=== PATIENT | female | born 1935 | race Caucasian/White ===

== ENCOUNTER → 2019-05-24 | Outpatient (CLI) | payer MEDICARE, OTHER ==
--- NOTE | 2019-05-24 14:52 | BD ---
EXAMINATION TYPE: Axial Bone Density DATE OF EXAM: 05/24/2019 COMPARISON: 06/11/2010 CLINICAL HISTORY: M 89.9 Height: 57 IN Weight: 124 LBS RISK FACTORS HISTORY OF: Active: YES Diet low in dairy products/other sources of calcium: YES Postmenopausal woman: AGE 56 MEDICATIONS: Thyroid Medications: YES Which medication: LEVOXA How Lon + YEARS Additional Medications: CALCIUM, VIT D, THYROID MEDS, HIGH BLOOD PRESSURE MEDS Additional History: HAD LYMPHOMA 23 YEARS AGO WITH NO TREATMENTS EXAM MEASUREMENTS: Bone mineral densitometry was performed using the [employer] System. Bone mineral density as measured about the Lumbar spine is: ----- L1-L4(G/cm2): 0.952 T Score Values are as follows: ----- L2: -2.1 ----- L3: -2.1 ----- L4: -1.4 ----- L1-L4: -1.9 Bone mineral density has: Increased 0.3% since study of: 06/11/2010 Bone mineral density about the R hip (g/cm2): 0.738 Bone mineral density about the L hip (g/cm2): 0.674 T Score values are as follows: -----R Neck: -2.2 -----L Neck: -2.6 -----R Total: -1.8 -----L Total: -1.9 Bone mineral density has: Decreased -11.4% since study of: 06/11/2010 IMPRESSION: Osteoporosis (T Score less than -2.5). There is increased fracture risk and therapy is usually indicated based on age. Re-Screen 1-2 years. NOTE: T-SCORE=SD OF THE YOUNG ADULT MEAN.
--- NOTE | 2019-05-26 10:56 | MM ---
Reason for exam: screening (asymptomatic). Last mammogram was performed 2 years and 9 months ago. History: Patient is postmenopausal, has history of other cancer at age 61, and is nulliparous. Took estrogen for 8 years. Physical Findings: A clinical breast exam by your physician is recommended on an annual basis and results should be correlated with mammographic findings. MG 3D Screening Mammo W/Cad Bilateral CC and MLO view(s) were taken. Prior study comparison: August 14, 2016, bilateral MG screening mammo w CAD. August 02, 2015, bilateral MG screening mammo w CAD. The breast tissue is heterogeneously dense. This may lower the sensitivity of mammography. No significant changes when compared with prior studies. ASSESSMENT: Negative, BI-RAD 1 RECOMMENDATION: Routine screening mammogram of both breasts in 1 year.
== END | disposition home or self-care (01) ==
LOC: RADMAMWWP 13:26
PROVIDERS: ATTEND Family Medicine
DX: Z12.31 Encounter for screening mammogram for malignant neoplasm of breast (principal); M81.0 Age-related osteoporosis without current pathological fracture; E55.9 Vitamin D deficiency, unspecified; Z13.89 Encounter for screening for other disorder; Z78.0 Asymptomatic menopausal state; Z85.89 Personal history of malignant neoplasm of other organs and systems
CPT/HCPCS: 77063; 77067; 77080

== ENCOUNTER → 2019-06-06 | Outpatient (CLI) | payer MEDICARE, OTHER | END | disposition home or self-care (01) | LOC: LABWHC1 10:31 | PROVIDERS: ATTEND Family Medicine | DX: M81.0 Age-related osteoporosis without current pathological fracture (principal) | CPT/HCPCS: 36415; 82306 ==

== ENCOUNTER → 2019-06-27 | Outpatient (CLI) | payer MEDICARE, OTHER ==
[~2019-06-27] MED LIST: SODIUM CHLORIDE 0.9% 500 ML 500 ML in EMPTY BAG 1 BAG IV PRN; ZOLEDRONIC ACID 5 MG in SODIUM CHLORIDE 0.9% 100 ML IV NR
[2019-06-27 11:07] VITALS: BP 137/69; PULSE 60; RESP 16; TEMP 97.8
== END ==
LOC: PROCWHC3 10:44
PROVIDERS: ATTEND Family Medicine
DX: M81.0 Age-related osteoporosis without current pathological fracture (principal)
CPT/HCPCS: 96365; J3489

== ENCOUNTER → 2020-02-06 | Outpatient (CLI) | payer MEDICARE, OTHER ==
[2020-02-06 14:54] LABS: Amorphous Sediment,Urine Rare /hpf; Appearance,Urine Clear (Clear); Bilirubin,Urine Negative (Negative); Blood,Urine Negative (Negative); Color,Urine Yellow; Glucose,Urine (UA) Negative (Negative); Hyaline Casts,Urine 1 /lpf (0-2); Ketones,Urine Negative (Negative); Leukocyte Esterase,Urine Negative (Negative); Mucus,Urine Few /hpf; Nitrite,Urine Negative (Negative); Protein,Urine 1+ (Negative); RBC,Urine 1 /hpf (0-5); Specific Gravity,Urine 1.018 (1.001-1.035); Squamous Epithelial Cell,Urine <1 /hpf (0-4); Urobilinogen,Urine <2.0 mg/dL (<2.0); WBC,Urine 2 /hpf (0-5)
[2020-02-06 15:08] LABS: Basophils % (A) 1 %; Eosinophils # (A) 0.2 k/uL (0-0.7); Eosinophils % (A) 3 %; HGB 12.1 gm/dL (11.4-16.0); Hypochromasia Slight; Lymphocytes # (A) 0.7 k/uL (1.0-4.8); Lymphocytes % (A) 12 %; MCH 28.7 pg (25.0-35.0); MCHC 32.7 g/dL (31.0-37.0); MCV 87.8 fL (80.0-100.0); Mean Platelet Volume 7.8; Monocytes # (A) 0.4 k/uL (0-1.0); Monocytes % (A) 7 %; Neutrophils # (A) 4.5 k/uL (1.3-7.7); Neutrophils % (A) 76 %; Platelet Count 260 k/uL (150-450); RBC 4.22 m/uL (3.80-5.40); RDW 12.7 % (11.5-15.5)
--- NOTE | 2020-02-06 15:20 | XR ---
EXAMINATION TYPE: XR chest 2V DATE OF EXAM: 02/06/2020 COMPARISON: NONE HISTORY: Shortness of breath TECHNIQUE: Frontal and lateral views of the chest are obtained. FINDINGS: Scattered senescent parenchymal changes noted. Hyperinflation compatible with COPD. No evidence for infiltrate. No evidence for atelectasis. Heart size is stable. Mediastinal structures are stable and grossly unremarkable. No evidence for hilar prominence. Degenerative changes dorsal spine. IMPRESSION: 1. No evidence for acute pulmonary disease.
[2020-02-06 21:51] LABS: Albumin 3.8 g/dL (3.80-4.90); Albumin/Globulin Ratio 2.38 (1.60-3.17); Anion Gap 8.5 mmol/L (4.00-12.00); C Reactive Protein, High Sens 49.09 mg/L (0.000-3.000); Carbon Dioxide 26.5 mmol/L (21.6-31.8); Globulin 1.6 g/dL (1.6-3.3); Non-African American GFR(CKD) 68.2 (60.0-200.0); Potassium 4.2 mmol/L (3.5-5.5); Total Bilirubin 0.7 mg/dL (0.3-1.2); Total Protein 5.4 g/dL (6.2-8.2)
[2020-02-06 22:23] LABS: Erythrocyte Sedimentation Rate 25 mm/hr (0-20)
== END | disposition home or self-care (01) ==
LOC: LABWHC1 14:23
PROVIDERS: ATTEND Family Medicine
DX: C85.90 Non-Hodgkin lymphoma, unspecified, unspecified site (principal); R06.00 Dyspnea, unspecified; I10 Essential (primary) hypertension; E55.9 Vitamin D deficiency, unspecified; M35.00 Sjogren syndrome, unspecified; E03.9 Hypothyroidism, unspecified
CPT/HCPCS: 36415; 71046; 80053; 81001; 82306; 84443; 85025; 85652; 86141; 87086

== ENCOUNTER → 2020-03-19 | Outpatient (CLI) | payer MEDICARE, OTHER ==
[2020-03-19 08:33] LABS: African American GFR (CKD) >90 (>60 ml/min/1.73 sqM); Blood Urea Nitrogen 15 mg/dL (7-17); Non-African American GFR(CKD) 84 (>60 ml/min/1.73 sqM)
--- NOTE | 2020-03-19 14:24 | CT ---
EXAMINATION TYPE: CT ChestAbdPelvis w con DATE OF EXAM: 03/19/2020 INDICATION: weakness, history of lymphoma COMPARISON: 09/28/2012 CT DLP: 447.2 mGycm CONTRAST: Performed with Oral Contrast and with IV Contrast, patient injected with 100 mL of Isovue 300. TECHNIQUE: Axial images at 5 mm thick sections. Reconstructed images in the coronal plane. Delayed images through the kidneys. FINDINGS: CT CHEST: Portion of the thyroid visualized is normal. Some minimal mild areas of pneumonitis are present. No suspicious masses or nodules are evident. There is a 1.0 cm lymph node in the pretracheal space. Additional shotty lymphadenopathy is present i n the anterior mediastinum pretracheal space and aortopulmonic window. There is an enlarged 1.5 cm light bcarinal lymph node present. Suspicious hilar adenopathy is not identified. The ascending aorta diameter at the level of the main pulmonary artery is 3.1 cm. The main pulmonary artery diameter at the bifurcation is 2.[address] ABDOMEN: Liver: Normal Spleen: Normal Pancreas: Normal Adrenal glands: The adrenal glands are normal. Gallbladder: Normal Kidneys: No masses are evident. No hydronephrosis is present. No cysts are present. Delayed images were obtained through the kidneys, which remain unremarkable. Aorta: Vascular calcification is within the aorta. Inferior vena cava: Normal. CT PELVIS: Loops of bowel within the abdomen and pelvis are normal. There are loops of bowel which are incom pletely distended or lack oral contrast limiting their evaluation. Large fecal bolus is at the rectum . Appendix: Not visualized. Some surgical suture may be present in the right lower quadrant. Correlate with the surgical history. Urinary bladder: Decompressed with limited evaluation Genitourinary structures: Uterus is not identified. Adnexal regions are normal. Osseous structures: No suspicious lytic or sclerotic lesions. Lymph nodes: There is an enlarged right inguinal lymph node measuring 1.2 cm. A 0.9 cm in right ingui nal lymph node is present. Additional lymphadenopathy is within the bilateral inguinal regions. Enlar ged iliac chain lymphadenopathy is not identified. There is some shotty lymphadenopathy to that regio n. Obturator canals appear normal. Shotty lymphadenopathy is in the periaortic region. No suspicious retrocrural shotty lymphadenopathy is discussed within the CT thorax. There is the enlarged pretrache al lymph node 1.0 cm and the enlarged subcarinal lymph node of 1.5 cm. IMPRESSIONS: 1. Scattered lymphadenopathy. A focal enlarged lymph nodes including the right inguinal region, the p retracheal space and subcarinal region.
== END | disposition home or self-care (01) ==
LOC: RADCTMAIN 07:48
PROVIDERS: ATTEND Internal Medicine Hematology & Oncology
DX: C83.00 Small cell B-cell lymphoma, unspecified site (principal); R59.0 Localized enlarged lymph nodes
CPT/HCPCS: 82565; 84520; 71260; 74177; 36415; Q9967

== ENCOUNTER → 2020-05-10 | Outpatient (CLI) | payer MEDICARE, OTHER ==
--- NOTE | 2020-05-10 18:38 | MR ---
EXAMINATION TYPE: MR brain wo/w con DATE OF EXAM: 05/10/2020 COMPARISON: None HISTORY: Dizziness and giddiness, history of lymphoma CONTRAST: Performed utilizing 5 mL intravenous Gadavist gadolinium contrast. TECHNIQUE: Multiplanar, multiecho imaging on a 3.0 Elyssa magnet is performed through the brain. Stud y is performed within 24 hours of arrival to the hospital. The craniovertebral junction is normal. The pituitary is normal. Diffusion-weighted imaging is performed. No abnormal hyperintensity is present to suggest an acute i ntracranial infarct or acute ischemic change. There are scattered punctate areas of hyperintensity on T2 and Inversion Recovery weighted sequences which are non-specific but can be related to microvascular ischemic changes. No suspicious enhancing masses are identified. Ventricles and sulci are prominent for the patient age. There is prominence of the right parotid gland more so than on the left. If additional evaluation wou ld be of benefit, consider CT soft tissue neck. IMPRESSIONS: 1. No suspicious intracranial changes to suggest metastatic lymphoma. 2. Enlarged parotid glands more so on the right that heterogenous appearance. If additional evaluatio n would be of benefit, consider CT soft tissue neck with contrast. 3. Atrophy with scattered white matter changes within the deep white matter likely related to microva scular ischemic change. 4. No suspicious acute intracranial changes.
== END | disposition home or self-care (01) ==
LOC: RADMRIMAIN 09:24
PROVIDERS: ATTEND Family Medicine
DX: G31.9 Degenerative disease of nervous system, unspecified (principal)
CPT/HCPCS: 70553; A9585

== ENCOUNTER → 2020-06-03 | Outpatient (CLI) | payer MEDICARE, OTHER ==
--- NOTE | 2020-06-04 16:50 | CT ---
EXAMINATION TYPE: CT soft tissue neck w con DATE OF EXAM: 06/03/2020 4:03 PM COMPARISON: CT chest abdomen pelvis 03/19/2020. MRI brain 05/10/2020. HISTORY: Lymphoma Automated exposure control for dose reduction was used. CONTRAST: CT scan of the neck is performed following with IV Contrast, patient injected with 100 mL of Isovue 3 00. Axial images are obtained, coronal and sagittal reformatted images are reviewed. FINDINGS: Innumerable cervical and supraclavicular lymph nodes are diffusely increased in size and number. Many of the visualized axillary lymph nodes are increased in size versus 03/19/2020 comparison, for example the largest node in the right axilla measure up to 1.2 x 1.3 cm (3:3) and 0.8 x 2.3 cm (3:6), previo usly largest lymph node measuring up to 0.9 x 1.1 and 0.7 x 1.3 cm on 03/19/2020 comparison. Visualized superior mediastinal lymphadenopathy appears similar. Supraclavicular lymphadenopathy is diffusely i ncreased in size versus 03/19/2020. There is diffuse lymphadenopathy throughout both of the parathyroid glands, the largest conglomerative region measures 2.0 x 1.6 cm within the right parotid gland (3:50 ). No evidence of airway narrowing. There is redemonstrated heterogenous appearance of the left thyroid. The right upper lobe of the lung redemonstrates an 8 mm groundglass opacity (3:14) is similar to 03/19. The visualized vascular structures appear patent. Globes are grossly symmetric with cataract p ostsurgical changes. There are some scattered well-circumscribed lytic lesions of the visualized cervical spine. Decreased osseous mineralization. Degenerative change of the cervical spine. IMPRESSION: 1. Innumerable multistation lymph nodes diffusely increased in size and number. Many of the visualize d axillary and supraclavicular lymph nodes are increased in size versus 03/19/2020 CT comparison. There is diffuse cervical lymphadenopathy, including throughout the bilateral parotid glands which corresp onds with 05/10/2020 MRI brain findings. 2. Scattered tiny lytic lesions of the visualized cervical spine may be related to decreased osseous mineralization and degenerative change. Attention on follow-up imaging. 3. Redemonstrated 8 mm groundglass opacity of the right upper lobe.
== END | disposition home or self-care (01) ==
LOC: RADCTMAIN 14:59
PROVIDERS: ATTEND Family Medicine
DX: R59.1 Generalized enlarged lymph nodes (principal); M48.8X2 Other specified spondylopathies, cervical region; D37.030 Neoplasm of uncertain behavior of the parotid salivary glands
CPT/HCPCS: 82565; 84520; 70491; 36415; Q9967

== ENCOUNTER → 2020-07-05 | Outpatient (CLI) | payer MEDICARE, OTHER ==
--- NOTE | 2020-07-09 10:09 | PE ---
EXAMINATION TYPE: PET CT fusion skull to thigh DATE OF EXAM: 07/05/2020 COMPARISON: Most recent neck CT June 03, 2020. Most recent full body CT March 19, 2020 and older Sharon Perkins. HISTORY: History of lymphoma diagnosed right neck 15 years ago per patient. TECHNIQUE: Following the intravenous administration of 12.25 mCi of F-18 FDG, whole body images are performed from the skull base to the midthigh. Images are reviewed on the computer in the coronal, a xial, and sagittal planes. Reconstructed rotating images are created on independent workstation and reviewed on the computer. A noncontrast CT is performed in conjunction with the PET scan. SCAN: Subsequent Scan FINDINGS: SKULL BASE AND NECK: There are innumerable hypermetabolic masses in the bilateral neck beginning ant erior to the external auditory canals bilaterally extending above and below hyoid bone through the vo floresita cord and supraclavicular region. Involvement of the posterior cervical triangle is noted. Subcent imeter hypermetabolic lesion deep right proximal upper extremity axial image 35 noted. CHEST, MEDIASTINUM, AND HILAR REGION: Hypermetabolic bilateral axillary lymph nodes. Hypermetabolic t horacic adenopathy involves the anterior superior mediastinum along with the paratracheal, prevascula r, AP window, and subcarinal regions. Hypermetabolic left hilar adenopathy noted. ABDOMEN AND PELVIS: Hypermetabolic retroperitoneal lymph nodes beginning at level of renal vessels ex tend inferiorly through the mid to lower abdomen. Hypermetabolic external iliac chain lymph nodes not ed axial image 191. Hypermetabolic left groin lymph node axial image 197 measures 1.3 x 1.1 cm. Addit ional hypermetabolic subcentimeter bilateral groin lymph nodes. Hypermetabolic uptake right labia may be contamination from urine leak. Increased diffuse hypermetabolic uptake in the spleen. OSSEOUS STRUCTURES: No areas of abnormal hypermetabolic uptake. OTHER CT: Ventricular prominence in the visualized brain. Cholecystectomy clips. Splenomegaly noted. Scoliotic curvature. Facet arthropathy lower lumbar spine. IMPRESSION: Hypermetabolic uptake consistent with active adenopathy above and below diaphragm. Spleno megaly with mild diffuse abnormal hypermetabolic uptake likely active lymphoma involvement. Addendum will be issued tomorrow with some reference masses/adenopathy and max SUVs.
== END | disposition home or self-care (01) ==
LOC: RADPETMAIN 15:25
PROVIDERS: ATTEND Internal Medicine Hematology & Oncology
DX: C83.88 Other non-follicular lymphoma, lymph nodes of multiple sites (principal); R16.1 Splenomegaly, not elsewhere classified
CPT/HCPCS: 78815; A9552

== ENCOUNTER → 2020-07-18 | Outpatient (CLI) | payer MEDICARE, OTHER ==
--- NOTE | 2020-07-19 11:00 | ECHOF ---
Referral Reason:Z01.818 pre chemo MEASUREMENTS -------- HEIGHT: 147.3 cm WEIGHT: 47.6 kg BP: RVIDd: 3.2 cm (< 3.3) IVSd: 1.5 cm (0.6 - 1.1) LVIDd: 2.8 cm (3.9 - 5.3) LVPWd: 1.4 cm (0.6 - 1.1) IVSs: 1.9 cm LVIDs: 1.6 cm LVPWs: 1.4 cm LAESV Index (A-L): 24.64 ml/m Ao Diam: 2.8 cm (2.0 - 3.7) AV Cusp: 1.4 cm (1.5 - 2.6) MV EXCURSION: 14.991 mm (> 18.000) MV EF SLOPE: 40 mm/s (70 - 150) EPSS: 0.3 cm MV E David: 0.68 m/s MV DecT: 299 ms MV A David: 0.99 m/s MV E/A Ratio: 0.68 RAP: 5.00 mmHg RVSP: 16.28 mmHg FINDINGS -------- Sinus rhythm with extra systolic beats. This was a technically adequate study. The left ventricular size is normal. There is moderate concentric left ventricular hypertrophy. O verall left ventricular systolic function is normal with, an EF between 55 - 60 %. The right ventricle is normal in size. Normal LA size by volume 22+/-6 ml/m2. The right atrial size is normal. Interatrial and interventricular septum intact. The aortic valve is trileaflet, and appears structurally normal. No aortic stenosis or regurgitation. The mitral valve is normal. There is trace to mild mitral regurgitation. The tricuspid valve appears structurally normal. Mild tricuspid regurgitation present. Right vent ricular systolic pressure is normal at < 35 mmHg. The right ventricular systolic pressure, as measu red by Doppler, is 16.28mmHg. There is no pulmonic regurgitation present. The aortic root size is normal. IVC Not well visulized. There is no pericardial effusion. CONCLUSIONS -------- 1. There is moderate concentric left ventricular hypertrophy. 2. Overall left ventricular systolic function is normal with, an EF between 55 - 60 %. 3. Normal LA size by volume 22+/-6 ml/m2. 4. The aortic valve is trileaflet, and appears structurally normal. No aortic stenosis or regurgitati on. 5. There is trace to mild mitral regurgitation. 6. Mild tricuspid regurgitation present. MACHINE PRESERVATIVE FILLER: Beth Crystal RDCS
== END ==
LOC: RADECHMAIN 14:01
PROVIDERS: ATTEND Internal Medicine Hematology & Oncology
DX: I51.7 Cardiomegaly (principal)
CPT/HCPCS: 93306

== ENCOUNTER 2020-07-30 15:44 | Inpatient (IN) | payer MEDICARE, OTHER ==
[2020-07-30] MEDS ORDERED: SODIUM CHLORIDE 0.9% 1,000 ML IV STA (16:22)
--- NOTE | 2020-07-30 16:26 | ED ---
Weakness HPI - General Source: patient Mode of arrival: EMS Limitations: physical limitation <Jean Marie Yepez - Last Filed: 07/30/20 18:15> <Evaristo Carrillo - Last Filed: 07/30/20 18:28> - General Chief complaint: Weakness Stated complaint: weakness Time Seen by Provider: 07/30/20 16:05 - History of Present Illness Initial comments: 85-year-old female with history of lymphoma and currently undergoing chemotherapy, AArron aburto presenting to emergency Department with a chief complaint of weakness. Patient brought to the ED via EMS. Per EMS report, patient was found in her bed with surrounding vomiting. Patient also states he has been several episodes of nonbilious nonbloody vomiting. She also reports some diar vinod. Symptoms of and on while for the past 10 days. Patient unknown exposure to cold. She lives in a house with her . She denies any chest pain shortness of breath cough. She does report having chills but denies fevers. Per EMS, patient did have reported dry cough. Patient had chemotherapy one week ago for her lymphoma. (Jean Marie Yepez) - Related Data Home Medications Medication Instructions Recorded Confirmed Aspirin EC [Ecotrin] 81 mg PO DAILY 08/07/15 06/27/19 Atenolol/Chlorthalidone 1 each PO DAILY 08/07/15 06/27/19 [Atenolol-Chlorthalidone 50-25] Levothyroxine Sodium [Levoxyl] 50 mcg PO DAILY 08/07/15 06/27/19 Allergies Allergy/AdvReac Type Severity Reaction Status Date / Time Sulfa (Sulfonamide Allergy Unknown Verified 07/30/20 16:01 Antibiotics) Review of Systems ROS Other: All systems not noted in ROS Statement are negative. <Jean Marie Yepez - Last Filed: 07/30/20 18:15> ROS Other: All systems not noted in ROS Statement are negative. <Evaristo Carrillo - Last Filed: 07/30/20 18:28> ROS Statement: Those systems with pertinent positive or pertinent negative responses have been documented in the HPI. Past Medical History Past Medical History: Hypertension, Thyroid Disorder Additional Past Medical History / Comment(s): OSTEOPOROSIS. lymphoma History of Any Multi-Drug Resistant Organisms: None Reported Past Surgical History: Appendectomy, Cholecystectomy Past Anesthesia/Blood Transfusion Reactions: No Reported Reaction Past Psychological History: No Psychological Hx Reported Past Alcohol Use History: None Reported Past Drug Use History: None Reported <Jean Marei Yepez - Last Filed: 07/30/20 18:15> General Exam Limitations: physical limitation <Jean Marie Yepez - Last Filed: 07/30/20 18:15> Course <Evaristo Carrillo - Last Filed: 07/30/20 18:28> Vital Signs 07/30/20 07/30/20 07/30/20 15:45 16:00 16:15 Temperature 100.2 F H 100.2 F H 100.2 F H Pulse Rate 120 H 105 H 102 H Respiratory 16 16 18 Rate Blood Pressure 148/81 141/84 131/75 O2 Sat by Pulse 100 100 100 Oximetry 07/30/20 07/30/20 07/30/20 16:30 16:45 17:55 Temperature 100 F H 100 F H 98.1 F Pulse Rate 107 H 100 117 H Respiratory 16 16 18 Rate Blood Pressure 141/92 144/77 151/80 O2 Sat by Pulse 100 100 99 Oximetry 07/30/20 18:22 Temperature Pulse Rate 105 H Respiratory 18 Rate Blood Pressure 136/87 O2 Sat by Pulse 99 Oximetry - Reevaluation(s) Reevaluation #1: 07/30/20 18:27 PA supervision: I proceeded [id number] evaluation the patient. He presented with complaints of weakness she has have A. fib with RVR she does have lymphoma she received chemotherapy about a week ago. She was found have a fever. She is found to be neutropenic. Also elevated troponin. I did discuss the case with Dr. Eckert. Patient will be admitted. She'll be placed on IV antibiotics. Dr. Bartholomew will be consulted. Currently she is hemodynamically stable not requiring intensive care though the advertising solicitor has been notified of her admission (Evaristo Carrillo) EKG Findings - EKG Comments: EKG Findings:: A. fib with RVR. Ventricular rate 109, QRS 110, QTc 414. <Jean Marie Yepez - Last Filed: 07/30/20 18:15> Medical Decision Making - Lab Data Result diagrams: 07/30/20 16:22 07/30/20 16:22 <Jean Marie Yepez - Last Filed: 07/30/20 18:15> - Lab Data Result diagrams: 07/30/20 16:22 07/30/20 16:22 <Evaristo Carrillo - Last Filed: 07/30/20 18:28> - Medical Decision Making 85-year-old female presenting to the emergency Department with a chief complaint of weakness. On physical examination, patient is slow to respond but she is an alert and oriented 3 patient has history of lymphoma and had a chemotherapy one week ago. CBC reveals leukopenia of 0.2.hypokalemia of 2.3. IV potassium repletion started. Lactic acid is 3.7. Patient also has elevated troponin of 0.35. Patient did not complain of any shortness of breath or chest pain. Chest x-ray reveals no acute processes. EKG showing A. fib with RVR. Patient does have history of A. fib. Her heart rate varies between high 90s and 110. Patient will not be started on Cardizem at this time.patient initially given IV fluids and started on Rocephin. UA reveals leukocyte esterase and elevated white blood cyst. Urine culture pending. Negative for influenza or Covid. Patient started on vancomycin and cefepime. Patient likely has a neutropenic fever. Patient will also be started on low-dose heparin. Patient will be admitted for further medical management. Patient is otherwise hemodynamically stable. Dr. Carrillo also examined the patient and treatment was correlated with him. Admitting physician is Dr.Haidar Rodriguez on consult (Jean Marie Yepez) - Lab Data Lab Results 07/30/20 07/30/20 07/30/20 Range/Units 16:22 16:22 16:22 WBC 0.2 L* (3.8-10.6) k/uL RBC 4.74 (3.80-5.40) m/uL Hgb 12.5 (11.4-16.0) gm/dL Hct 39.2 (34.0-46.0) % MCV 82.8 (80.0-100.0) fL MCH 26.4 (25.0-35.0) pg MCHC 31.9 (31.0-37.0) g/dL RDW 15.0 (11.5-15.5) % Plt Count 120 L (150-450) k/uL MPV 8.1 Neutrophils # DEVOPS Manual Slide Review Performed RBC Morphology Normal PT 13.8 H (9.0-12.0) sec INR 1.4 H (<1.2) APTT 24.8 (22.0-30.0) sec D-Dimer 2.52 H (<0.60) mg/L FEU Sodium 140 (137-145) mmol/L Potassium 2.3 L* (3.5-5.1) mmol/L Chloride 106 (98-107) mmol/L Carbon Dioxide 27 (22-30) mmol/L Anion Gap 7 mmol/L BUN 22 H (7-17) mg/dL Creatinine 0.72 (0.52-1.04) mg/dL Est GFR (CKD-EPI)AfAm 90 (>60 ml/min/1.73 sqM) Est GFR (CKD-EPI)NonAf 78 (>60 ml/min/1.73 sqM) Glucose 140 H (74-99) mg/dL Plasma Lactic Acid Alfonso (0.7-2.0) mmol/L Calcium 8.1 L (8.4-10.2) mg/dL Magnesium 1.8 (1.6-2.3) mg/dL Total Bilirubin 2.3 H (0.2-1.3) mg/dL AST 27 (14-36) U/L ALT 54 H (4-34) U/L Alkaline Phosphatase 47 (38-126) U/L Troponin I (0.000-0.034) ng/mL Total Protein 5.0 L (6.3-8.2) g/dL Albumin 3.0 L (3.5-5.0) g/dL Urine Color Urine Appearance (Clear) Urine pH (5.0-8.0) Ur Specific Ophelia (1.001-1.035) Urine Protein (Negative) Urine Glucose (UA) (Negative) Urine Ketones (Negative) Urine Blood (Negative) Urine Nitrite (Negative) Urine Bilirubin (Negative) Urine Urobilinogen (<2.0) mg/dL Ur Leukocyte Esterase (Negative) Urine RBC (0-5) /hpf Urine WBC (0-5) /hpf Ur Squamous Epith Cells (0-4) /hpf Amorphous Sediment (None) /hpf Urine Bacteria (None) /hpf Urine Mucus (None) /hpf Influenza Type A (PCR) (Not Detectd) Influenza Type B (PCR) (Not Detectd) RSV (PCR) (Not Detectd) SARS-CoV-2 (PCR) (Not Detectd) 07/30/20 07/30/20 07/30/20 Range/Units 16:22 16:22 16:47 WBC (3.8-10.6) k/uL RBC (3.80-5.40) m/uL Hgb (11.4-16.0) gm/dL Hct (34.0-46.0) % MCV (80.0-100.0) fL MCH (25.0-35.0) pg MCHC (31.0-37.0) g/dL RDW (11.5-15.5) % Plt Count (150-450) k/uL MPV Neutrophils # Manual Slide Review RBC Morphology PT (9.0-12.0) sec INR (<1.2) APTT (22.0-30.0) sec D-Dimer (<0.60) mg/L FEU Sodium (137-145) mmol/L Potassium (3.5-5.1) mmol/L Chloride (98-107) mmol/L Carbon Dioxide (22-30) mmol/L Anion Gap mmol/L BUN (7-17) mg/dL Creatinine (0.52-1.04) mg/dL Est GFR (CKD-EPI)AfAm (>60 ml/min/1.73 sqM) Est GFR (CKD-EPI)NonAf (>60 ml/min/1.73 sqM) Glucose (74-99) mg/dL Plasma Lactic Acid Alfonso 3.7 H* (0.7-2.0) mmol/L Calcium (8.4-10.2) mg/dL Magnesium (1.6-2.3) mg/dL Total Bilirubin (0.2-1.3) mg/dL AST (14-36) U/L ALT (4-34) U/L Alkaline Phosphatase (38-126) U/L Troponin I 0.315 H* (0.000-0.034) ng/mL Total Protein (6.3-8.2) g/dL Albumin (3.5-5.0) g/dL Urine Color [place] Urine Appearance Cloudy H (Clear) Urine pH 6.0 (5.0-8.0) Ur Specific Ophelia 1.017 (1.001-1.035) Urine Protein 2+ H (Negative) Urine Glucose (UA) Negative (Negative) Urine Ketones Negative (Negative) Urine Blood Trace H (Negative) Urine Nitrite Negative (Negative) Urine Bilirubin 1+ H (Negative) Urine Urobilinogen 2.0 (<2.0) mg/dL Ur Leukocyte Esterase Trace H (Negative) Urine RBC 1 (0-5) /hpf Urine WBC 22 H (0-5) /hpf Ur Squamous Epith Cells 1 (0-4) /hpf Amorphous Sediment Rare H (None) /hpf Urine Bacteria Many H (None) /hpf Urine Mucus Moderate H (None) /hpf Influenza Type A (PCR) (Not Detectd) Influenza Type B (PCR) (Not Detectd) RSV (PCR) (Not Detectd) SARS-CoV-2 (PCR) (Not Detectd) 07/30/20 Range/Units 16:47 WBC (3.8-10.6) k/uL RBC (3.80-5.40) m/uL Hgb (11.4-16.0) gm/dL Hct (34.0-46.0) % MCV (80.0-100.0) fL MCH (25.0-35.0) pg MCHC (31.0-37.0) g/dL RDW (11.5-15.5) % Plt Count (150-450) k/uL MPV Neutrophils # Manual Slide Review RBC Morphology PT (9.0-12.0) sec INR (<1.2) APTT (22.0-30.0) sec D-Dimer (<0.60) mg/L FEU Sodium (137-145) mmol/L Potassium (3.5-5.1) mmol/L Chloride (98-107) mmol/L Carbon Dioxide (22-30) mmol/L Anion Gap mmol/L BUN (7-17) mg/dL Creatinine (0.52-1.04) mg/dL Est GFR (CKD-EPI)AfAm (>60 ml/min/1.73 sqM) Est GFR (CKD-EPI)NonAf (>60 ml/min/1.73 sqM) Glucose (74-99) mg/dL Plasma Lactic Acid Alfonso (0.7-2.0) mmol/L Calcium (8.4-10.2) mg/dL Magnesium (1.6-2.3) mg/dL Total Bilirubin (0.2-1.3) mg/dL AST (14-36) U/L ALT (4-34) U/L Alkaline Phosphatase (38-126) U/L Troponin I (0.000-0.034) ng/mL Total Protein (6.3-8.2) g/dL Albumin (3.5-5.0) g/dL Urine Color Urine Appearance (Clear) Urine pH (5.0-8.0) Ur Specific Ophelia (1.001-1.035) Urine Protein (Negative) Urine Glucose (UA) (Negative) Urine Ketones (Negative) Urine Blood (Negative) Urine Nitrite (Negative) Urine Bilirubin (Negative) Urine Urobilinogen (<2.0) mg/dL Ur Leukocyte Esterase (Negative) Urine RBC (0-5) /hpf Urine WBC (0-5) /hpf Ur Squamous Epith Cells (0-4) /hpf Amorphous Sediment (None) /hpf Urine Bacteria (None) /hpf Urine Mucus (None) /hpf Influenza Type A (PCR) Not Detected (Not Detectd) Influenza Type B (PCR) Not Detected (Not Detectd) RSV (PCR) Not Detected (Not Detectd) SARS-CoV-2 (PCR) Not Detected (Not Detectd) Critical Care Time Critical Care Time: Yes Total Critical Care Time: 35 <Jean Marie Yepez - Last Filed: 07/30/20 18:15> Disposition Is patient prescribed a controlled substance at d/c from ED?: No Time of Disposition: 18:22 <Jean Marie Yepez - Last Filed: 07/30/20 18:15> <Evaristo Carrillo - Last Filed: 07/30/20 18:28> Clinical Impression: Weakness, Neutropenic fever, Cardiac enzymes elevated, Atrial fibrillation with RVR Disposition: ADMITTED IP TO THIS HOSP Condition: Fair Referrals: Erin Gilbert MD [Primary Care Provider] - 1-2 days
[2020-07-30] MEDS ORDERED: cefTRIAXone IN SWFI 1,000 MG/10 ML SYRINGE IVP STA (16:28)
[2020-07-30 16:44] LABS: Calcium 8.1 mg/dL (8.4-10.2); Magnesium 1.8 mg/dL (1.6-2.3); Total Bilirubin 2.3 mg/dL (0.2-1.3)
[2020-07-30 16:47] LABS: INR 1.4 (<1.2); Partial Thromboplastin Time 24.8 sec (22.0-30.0); Prothrombin Time 13.8 sec (9.0-12.0)
[2020-07-30 16:49] LABS: Potassium 2.3 mmol/L (3.5-5.1)
[2020-07-30] MEDS: ACETAMINOPHEN TAB 325 MG TAB PO STA ×2 (16:56→17:09)
[2020-07-30 16:57] LABS: HCT 39.2 % (34.0-46.0); HGB 12.5 gm/dL (11.4-16.0); MCH 26.4 pg (25.0-35.0); MCHC 31.9 g/dL (31.0-37.0); MCV 82.8 fL (80.0-100.0); Mean Platelet Volume 8.1; Platelet Count 120 k/uL (150-450); RBC 4.74 m/uL (3.80-5.40)
[2020-07-30 16:58] LABS: D-Dimer 2.52 mg/L FEU (<0.60)
[2020-07-30] MEDS ORDERED: CEFEPIME 2 GM in SODIUM CHLORIDE 0.9% 100 ML IVPB STA (17:01)
[2020-07-30] MEDS ORDERED: SODIUM CHLORIDE 0.9% 1,000 ML IV ONE (17:05)
--- NOTE | 2020-07-30 17:12 | XR ---
EXAMINATION TYPE: XR chest 2V DATE OF EXAM: 07/30/2020 COMPARISON: Chest x-ray February 06, 2020. CT March 19, 2020 HISTORY: History of lymphoma with weakness. TECHNIQUE: Frontal and lateral views of the chest are obtained. FINDINGS: New Right-sided Mediport catheter terminates in SVC. There is chronic parenchymal change wi thout suspicious focal air space opacity, pleural effusion, or pneumothorax seen. The cardiac silhou ette size is within normal limits. Underlying scoliosis. Cholecystectomy clips noted. IMPRESSION: Chronic changes without acute pulmonary process.
[2020-07-30 17:16] LABS: Amorphous Sediment,Urine Rare /hpf; Appearance,Urine Cloudy (Clear); Bacteria,Urine Many /hpf; Bilirubin,Urine 1+ (Negative); Blood,Urine Trace (Negative); Color,Urine Orange; Glucose,Urine (UA) Negative (Negative); Ketones,Urine Negative (Negative); Leukocyte Esterase,Urine Trace (Negative); Mucus,Urine Moderate /hpf; Nitrite,Urine Negative (Negative); Protein,Urine 2+ (Negative); RBC,Urine 1 /hpf (0-5); Specific Gravity,Urine 1.017 (1.001-1.035); Squamous Epithelial Cell,Urine 1 /hpf (0-4); WBC,Urine 22 /hpf (0-5)
[2020-07-30] MEDS ORDERED: VANCOMYCIN IV PER PHARMACY 1 EACH MISC MISCELLANE PRN (17:39)
[2020-07-30 17:57] LABS: WBC 0.2 k/uL (3.8-10.6)
[2020-07-30] MEDS ORDERED: HEPARIN SODIUM,PORCINE 5,000 UNIT/ML 1 ML VIAL IV PRN (18:14)
[2020-07-30] MEDS ORDERED: HEPARIN SODIUM,PORCINE 5,000 UNIT/ML 1 ML VIAL IV ONE (18:14)
[2020-07-30] MEDS ORDERED: MORPHINE SULFATE 4 MG/ML SYRINGE IV PRN (18:22)
[2020-07-30] MEDS ORDERED: LORazepam 2 MG/ML INJ IV PRN (18:22)
[2020-07-30] MEDS ORDERED: NALOXONE 0.4 MG/ML 1 ML VIAL IV PRN (18:22)
[2020-07-30] MEDS ORDERED: ACETAMINOPHEN TAB 325 MG TAB PO PRN (18:22)
[2020-07-30] MEDS ORDERED: HYDROmorphone 0.5 MG/0.5 ML SYRINGE IVP PRN (18:22)
[2020-07-30] MEDS ORDERED: ONDANSETRON 4 MG/2 ML VIAL IVP PRN (18:22)
[2020-07-30] MEDS ORDERED: VANCOMYCIN 1,000 MG in SODIUM CHLORIDE 0.9% 250 ML IVPB ONE (18:30)
[2020-07-30] MEDS ORDERED: POTASSIUM CHLORIDE 20 MEQ in WATER FOR INJECTION 1 100ML.BAG IVPB ONE (18:30)
[2020-07-30] MEDS: HEPARIN SOD,PORK IN 0.45% NACL 25,000 UNIT in 0.45% NACL 1 250ML.BAG IV SCH (18:35)
[2020-07-30] MEDS: SODIUM CHLORIDE 0.9% 1,000 ML IV SCH (18:48)
[2020-07-31] MEDS: VANCOMYCIN 750 MG in SODIUM CHLORIDE 0.9% 250 ML IVPB SCH ×2 (06:30→19:02)
[2020-07-31 08:35] LABS: HCT 30.4 % (34.0-46.0); MCH 26.7 pg (25.0-35.0); MCHC 32.2 g/dL (31.0-37.0); Mean Platelet Volume 7.8; RBC 3.66 m/uL (3.80-5.40); RDW 14.9 % (11.5-15.5)
[2020-07-31 08:41] LABS: WBC 0.3 k/uL (3.8-10.6)
[2020-07-31 08:42] LABS: HGB 9.8 gm/dL (11.4-16.0)
[2020-07-31 09:31] LABS: African American GFR (CKD) >90 (>60 ml/min/1.73 sqM); Anion Gap 4 mmol/L; Blood Urea Nitrogen 21 mg/dL (7-17); Carbon Dioxide 24 mmol/L (22-30); Chloride 114 mmol/L (98-107); Glucose 100 mg/dL (74-99); Magnesium 1.8 mg/dL (1.6-2.3); Non-African American GFR(CKD) 86 (>60 ml/min/1.73 sqM); Sodium 142 mmol/L (137-145)
[2020-07-31 09:46] LABS: Potassium 2.2 mmol/L (3.5-5.1)
[2020-07-31] MEDS: METOPROLOL TARTRATE 50 MG TAB PO SCH ×2 (10:25→21:50)
[2020-07-31] MEDS: POTASSIUM CHLORIDE ER 20 MEQ TAB.ER PO SCH ×4 (10:26→13:40)
[2020-07-31 10:55] LABS: Platelet Count 76 k/uL (150-450)
[2020-07-31 10:56] LABS: Anisocytosis (M) Present; Poikilocytosis (M) Present
[2020-07-31] MEDS: NYSTATIN 100,000 UNIT/ML SUSP 500,000 UNIT/5 ML CUP PO SCH ×3 (13:07→21:50)
--- NOTE | 2020-07-31 13:39 | P.CRDCN ---
History of Present Illness Consult date: 07/31/20 History of present illness: CHIEF COMPLAINT: Elevated troponin HISTORY OF PRESENT ILLNESS: This is a 85-year old female with a past medical history significant for hypertension and lymphoma. Patient follows in the office with Dr Pereira. We have been asked to see the patient in consultation for elevated troponin. Patient examined at the bedside this morning. She reports she had chemotherapy last week. She states she has been having nausea, vomiting, and diarrhea for the past few days at home and felt very weak. She denied any chest pain or pressure. Denies any shortness of breath. Patient was found to be in afib upon admission. She denies a history of afib in the past. She reports "I was told by Dr. Pereira that my heart skips a beat every once in a while". DIAGNOSTICS: EKG reveals A. fib with RVR Chest xray chronic changes without acute pulmonary process Laboratory data: WBC 0.3. Hemoglobin 9.8. Platelet count 76. Sodium 142. Potassium 2.2. BUN 21. Creatinine 0.57. Magnesium 1.8. Troponin 0.315. 0.133. 0.112. Current home cardiac medications include none Echocardiogram completed 07/18/2020 revealed ejection fraction 55-60% REVIEW OF SYSTEMS: At the time of my exam: CONSTITUTIONAL: Denies fever or chills. Reports weakness. HEENT: Denies blurred vision, vision changes, or eye pain. Denies hemoptysis CARDIOVASCULAR: Denies chest pain, orthopnea, PND or palpitations RESPIRATORY: No shortness of breath. GASTROINTESTINAL: Denies abdominal pain. Denies nausea or vomiting. HEMATOLOGIC: Denies bleeding disorders. GENITOURINARY: Denies any blood in urine. SKIN: Denies pruitis. Denies rash. PHYSICAL EXAM: VITAL SIGNS: Reviewed. GENERAL: Well-developed in no acute distress. HEENT: Head is normocephalic. Pupils are equal, round. Sclerae anicteric. Mucous membranes of the mouth are moist. Neck supple. No JVD or thyromegaly LUNGS: Respirations even and unlabored. Lungs essentially clear to auscultation bilaterally. HEART: Irregular rate and rhythm. S1 and S2 heard. ABDOMEN: Soft. Nondistended. Nontender. EXTREMITIES: Normal range of motion. No clubbing or cyanosis. Peripheral pulses intact. No lower extremity edema NEUROLOGIC: Awake and alert. Oriented x 3. ASSESSMENT: Neutropenic fever New-onset atrial fibrillation with RVR History of lymphoma, on chemotherapy Hypokalemia Abnormal troponins, type II [place] secondary to oxygen supply and demand mismatch secondary to new onset atrial fibrillation. PLAN: No need to repeat echocardiogram as this was performed earlier this month Begin metoprolol 50 mg twice a day Begin Eliquis 2.5 mg BID. Spoke with Berenice Basilio, oncology [facility] [employer], who is okay with anticoagulation from their standpoint Discontinue IV heparin Further recommendations pending patient course Nurse practitioner note has been reviewed by physician. Signing provider agrees with the documented findings, assessment, and plan of care. Past Medical History Past Medical History: Cancer, Hypertension, Thyroid Disorder Additional Past Medical History / Comment(s): OSTEOPOROSIS. lymphoma History of Any Multi-Drug Resistant Organisms: None Reported Past Surgical History: Appendectomy, Cholecystectomy Past Anesthesia/Blood Transfusion Reactions: No Reported Reaction Past Psychological History: No Psychological Hx Reported Smoking Status: Never smoker Past Alcohol Use History: None Reported Past Drug Use History: None Reported Medications and Allergies Home Medications Medication Instructions Recorded Confirmed Type Aspirin EC [Ecotrin] 81 mg PO DAILY 08/07/15 07/30/20 History Levothyroxine Sodium [Levoxyl] 50 mcg PO DAILY 08/07/15 07/30/20 History Ascorbic Acid [Vitamin C] 500 mg PO DAILY 07/30/20 07/30/20 History Calcium, Magnesium & Zinc (Unknown 1 tab PO DAILY 07/30/20 07/30/20 History Strength) Cholecalciferol [Vitamin D3 (25 2,000 unit PO DAILY 07/30/20 07/30/20 History Mcg = 1000 Iu)] Fish Oil/Dha/Epa [Fish Oil 1,200 1 tab PO DAILY 07/30/20 07/30/20 History mg Fish Oil] Multivitamins, Thera [Multivitamin 1 tab PO DAILY 07/30/20 07/30/20 History (formulary)] Omeprazole [PriLOSEC] 40 mg PO DAILY 07/30/20 07/30/20 History Ondansetron [Zofran ODT] 4 mg PO Q6H PRN 07/30/20 07/30/20 History Ubidecarenone [Co Q-10] 200 mg PO DAILY 07/30/20 07/30/20 History allopurinoL [Zyloprim] 300 mg PO DAILY 07/30/20 07/30/20 History predniSONE 100 mg PO DAILY 07/30/20 07/30/20 History Apixaban [Eliquis] 2.5 mg PO BID #60 tab 07/31/20 Rx Allergies Allergy/AdvReac Type Severity Reaction Status Date / Time Sulfa (Sulfonamide Allergy Unknown Verified 07/30/20 18:50 Antibiotics) Physical Exam Vitals: Vital Signs Temp Pulse Pulse Resp BP BP Pulse Ox 07/31/20 08:00 98.1 F 64 16 140/71 99 07/31/20 04:00 98.2 F 98 17 116/56 99 07/31/20 00:00 97.9 F 105 H 17 120/77 99 07/30/20 20:00 98.3 F 107 H 18 139/83 99 07/30/20 19:41 99.4 F 105 H 16 160/70 99 07/30/20 18:48 98.3 F 107 H 17 139/83 99 07/30/20 18:22 105 H 18 136/87 99 07/30/20 17:55 98.1 F 117 H 18 151/80 99 07/30/20 16:45 100 F H 100 16 144/77 100 07/30/20 16:30 100 F H 107 H 16 141/92 100 07/30/20 16:15 100.2 F H 102 H 18 131/75 100 07/30/20 16:00 100.2 F H 105 H 16 141/84 100 07/30/20 15:45 100.2 F H 120 H 16 148/81 100 Intake and Output 07/30/20 07/31/20 07/31/20 22:59 06:59 14:59 Intake Total 200 37.529 54.933 Balance 200 37.529 54.933 Intake: Intake, IV Titration 37.529 54.933 Amount Heparin Sod,Pork in 0.45% 37.529 54.933 NaCl 25,000 unit In 0.45 % NaCl 1 250ml.bag @ 12 UNITS/KG/HR 5.715 mls/hr IV .Q24H [facility] Rx#: [id number] Oral 200 Other: Voiding Method Bedside Commode Bedside Commode # Voids 1 Weight 47.627 kg 50.5 kg Results 07/31/20 08:03 07/31/20 08:03 Cardiac Enzymes 07/30/20 07/30/20 07/31/20 Range/Units 16:22 16:22 08:03 AST 27 (14-36) U/L Troponin I 0.315 H* 0.133 H* (0.000-0.034) ng/mL 07/31/20 Range/Units 11:20 AST (14-36) U/L Troponin I 0.112 H* (0.000-0.034) ng/mL Coagulation 07/30/20 07/31/20 07/31/20 Range/Units 16:22 00:35 08:03 PT 13.8 H (9.0-12.0) sec APTT 24.8 76.2 H 43.2 H (22.0-30.0) sec CBC 07/30/20 07/31/20 Range/Units 16:22 08:03 WBC 0.2 L* 0.3 L* (3.8-10.6) k/uL RBC 4.74 3.66 L (3.80-5.40) m/uL Hgb 12.5 9.8 L D (11.4-16.0) gm/dL Hct 39.2 30.4 L (34.0-46.0) % Plt Count 120 L 76 L (150-450) k/uL Comprehensive Metabolic Panel 07/30/20 07/31/20 Range/Units 16:22 08:03 Sodium 140 142 (137-145) mmol/L Potassium 2.3 L* 2.2 L* (3.5-5.1) mmol/L Chloride 106 114 H (98-107) mmol/L Carbon Dioxide 27 24 (22-30) mmol/L BUN 22 H 21 H (7-17) mg/dL Creatinine 0.72 0.57 (0.52-1.04) mg/dL Glucose 140 H 100 H (74-99) mg/dL Calcium 8.1 L 7.0 L (8.4-10.2) mg/dL AST 27 (14-36) U/L ALT 54 H (4-34) U/L Alkaline Phosphatase 47 (38-126) U/L Total Protein 5.0 L (6.3-8.2) g/dL Albumin 3.0 L (3.5-5.0) g/dL Current Medications Generic Name Dose Route Start Last Admin Trade Name Freq PRN Reason Stop Dose Admin Acetaminophen 650 mg 07/30/20 18:22 Acetaminophen Tab 325 Mg Tab PO Q6HR PRN Mild Pain or Fever > 100.5 Heparin Sodium (Porcine) 0 unit 07/30/20 18:14 07/31/20 12:39 Heparin Sodium,Porcine 5,000 Unit/Ml 1 Ml Vial IV 1,250 unit PER PROTOCOL PRN Administration Low PTT Protocol Hydromorphone HCl 0.5 mg 07/30/20 18:22 Hydromorphone 0.5 Mg/0.5 Ml Syringe IVP Q3HR PRN Moderate Pain Heparin Sodium/Sodium Chloride 250 mls @ 5.715 mls/hr 07/30/20 18:15 07/31/20 12:41 25,000 unit/ Sodium Chloride IV 14 units/kg/hr .Q24H [facility] 6.67 mls/hr Titration Protocol 12 UNITS/KG/HR Vancomycin HCl 750 mg/ Sodium 250 mls @ 125 mls/hr 07/31/20 06:00 07/31/20 06:30 Chloride IVPB 125 mls/hr Q12H [facility] Administration Sodium Chloride 1,000 mls @ 20 mls/hr 07/30/20 18:30 07/30/20 18:48 Saline 0.9% IV 20 mls/hr .Q24H [facility] Administration Lorazepam 0.5 mg 07/30/20 18:22 Lorazepam 2 Mg/Ml Inj IV Q6HR PRN Anxiety Metoprolol Tartrate 50 mg 07/31/20 10:15 07/31/20 10:25 Metoprolol Tartrate 50 Mg Tab PO 50 mg BID [facility]ST[facility]AN Administration Morphine Sulfate 4 mg 07/30/20 18:22 Morphine Sulfate 4 Mg/Ml Syringe IV Q4HR PRN Severe Pain Naloxone HCl 0.2 mg 07/30/20 18:22 Naloxone 0.4 Mg/Ml 1 Ml Vial IV Q2M PRN Opioid Reversal Nystatin 500,000 unit 07/31/20 13:00 07/31/20 13:07 Nystatin 100,000 Unit/Ml Susp 500,000 Unit/5 Ml Cup PO 500,000 unit QID [facility]AN Administration Ondansetron HCl 4 mg 07/30/20 18:22 Ondansetron 4 Mg/2 Ml Vial IVP Q8HR PRN Nausea And Vomiting Potassium Chloride 20 meq 07/31/20 11:00 07/31/20 13:07 Potassium Chloride Er 20 Meq Tab.Er PO 07/31/20 14:01 20 meq Q1HR C[facility] Administration Sodium Bicarbonate 5 ml 07/31/20 13:00 Salt And Soda Mouthwash 1,000 Ml PO 5XD [facility] Intake and Output 07/30/20 07/31/20 07/31/20 22:59 06:59 14:59 Intake Total 200 37.529 54.933 Balance 200 37.529 54.933 Intake: Intake, IV Titration 37.529 54.933 Amount Heparin Sod,Pork in 0.45% 37.529 54.933 NaCl 25,000 unit In 0.45 % NaCl 1 250ml.bag @ 12 UNITS/KG/HR 5.715 mls/hr IV .Q24H [facility] Rx#: [id number] Oral 200 Other: Voiding Method Bedside Commode Bedside Commode # Voids 1 Weight 47.627 kg 50.5 kg 07/31/20 08:03 07/31/20 08:03
[2020-07-31] MEDS ORDERED: APIXABAN 2.5 MG TABLET PO SCH (13:45)
[2020-07-31] MEDS: SALT AND SODA MOUTHWASH 1,000 ML PO SCH ×3 (14:38→22:06)
--- NOTE | 2020-07-31 15:27 | P.CONS ---
History of Present Illness - Reason for Consult Consult date: 07/31/20 S/P chemo for DLBCL Requesting physician: Jean Marie Yepez - Chief Complaint neutropenic fever - History of Present Illness Mrs. Mendez is a very pleasant female pt of Dr. 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 She was on observation for many years. 03/19/20 CT CAP revealed mild enlarged generalized adenopathies. On 06/03/20 CT scan of soft tissue neck revealed bilateral cervical and supraclavicular nodes. 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 Dr. Cabezas discussed with Dr. 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 07/05/20 PET revealed evidence of disease above and below diaphragm. She was positive for constitutional symptoms of malignancy. She started R-CHOP last week with GCSF given on 07/24. She was admitted with c/o fever, nausea, watery diarrhea, poor appetite. She has oral dryness and bad taste in her mouth, no cough, chest pain, dizziness, her abd is tender, no dysuria, hematuria, bloody or mucus stool, no swelling in the legs, denies pain. Review of Systems 14 point ROS is negative except as stated in HPI Past Medical History Past Medical History: Cancer, Hypertension, Thyroid Disorder Additional Past Medical History / Comment(s): OSTEOPOROSIS. lymphoma History of Any Multi-Drug Resistant Organisms: None Reported Past Surgical History: Appendectomy, Cholecystectomy Past Anesthesia/Blood Transfusion Reactions: No Reported Reaction Past Psychological History: No Psychological Hx Reported Smoking Status: Never smoker Past Alcohol Use History: None Reported Past Drug Use History: None Reported Medications and Allergies Home Medications Medication Instructions Recorded Confirmed Type Aspirin EC [Ecotrin] 81 mg PO DAILY 08/07/15 07/30/20 History Levothyroxine Sodium [Levoxyl] 50 mcg PO DAILY 08/07/15 07/30/20 History Ascorbic Acid [Vitamin C] 500 mg PO DAILY 07/30/20 07/30/20 History Calcium, Magnesium & Zinc (Unknown 1 tab PO DAILY 07/30/20 07/30/20 History Strength) Cholecalciferol [Vitamin D3 (25 2,000 unit PO DAILY 07/30/20 07/30/20 History Mcg = 1000 Iu)] Fish Oil/Dha/Epa [Fish Oil 1,200 1 tab PO DAILY 07/30/20 07/30/20 History mg Fish Oil] Multivitamins, Thera [Multivitamin 1 tab PO DAILY 07/30/20 07/30/20 History (formulary)] Omeprazole [PriLOSEC] 40 mg PO DAILY 07/30/20 07/30/20 History Ondansetron [Zofran ODT] 4 mg PO Q6H PRN 07/30/20 07/30/20 History Ubidecarenone [Co Q-10] 200 mg PO DAILY 07/30/20 07/30/20 History allopurinoL [Zyloprim] 300 mg PO DAILY 07/30/20 07/30/20 History predniSONE 100 mg PO DAILY 07/30/20 07/30/20 History Rivaroxaban [Xarelto] 20 mg PO HS #30 tab 07/31/20 Rx Allergies Allergy/AdvReac Type Severity Reaction Status Date / Time Sulfa (Sulfonamide Allergy Unknown Verified 07/30/20 18:50 Antibiotics) Physical Exam Vitals: Vital Signs Temp Pulse Pulse Resp BP BP Pulse Ox 07/31/20 08:00 98.1 F 64 16 140/71 99 07/31/20 04:00 98.2 F 98 17 116/56 99 07/31/20 00:00 97.9 F 105 H 17 120/77 99 07/30/20 20:00 98.3 F 107 H 18 139/83 99 07/30/20 19:41 99.4 F 105 H 16 160/70 99 07/30/20 18:48 98.3 F 107 H 17 139/83 99 07/30/20 18:22 105 H 18 136/87 99 07/30/20 17:55 98.1 F 117 H 18 151/80 99 07/30/20 16:45 100 F H 100 16 144/77 100 07/30/20 16:30 100 F H 107 H 16 141/92 100 07/30/20 16:15 100.2 F H 102 H 18 131/75 100 07/30/20 16:00 100.2 F H 105 H 16 141/84 100 07/30/20 15:45 100.2 F H 120 H 16 148/81 100 Intake and Output 07/30/20 07/31/20 07/31/20 22:59 06:59 14:59 Intake Total 200 37.529 Balance 200 37.529 Intake: Intake, IV Titration 37.529 Amount Heparin Sod,Pork in 0.45% 37.529 NaCl 25,000 unit In 0.45 % NaCl 1 250ml.bag @ 12 UNITS/KG/HR 5.715 mls/hr IV .Q24H [facility] Rx#: [id number] Oral 200 Other: Voiding Method Bedside Commode Bedside Commode # Voids 1 Weight 47.627 kg 50.5 kg - Constitutional General appearance: cooperative, no acute distress, thin - EENT severely dry mucus membranes Eyes: anicteric sclerae, EOMI ENT: hearing grossly normal, thrush - Neck Neck: lymphadenopathy (left neck) - Respiratory Respiratory: bilateral: CTA - Cardiovascular Heart sounds: normal: S1, S2 Abnormal Heart Sounds: no systolic murmur, no diastolic murmur, no rub, no S3 Gallop, no S4 Gallop, no click, no other leg Peripheral Edema: bilateral: None - Gastrointestinal General gastrointestinal: no absent bowel sounds, decreased bowel sounds, no distended, no hepatomegaly, no hyperactive bowel sounds, no normal bowel sounds, no organomegaly, no rigid, no scaphoid, soft, no splenomegaly, tenderness (RLQ rebound tenderness), no umbilical hernia, no ventral hernia - Neurologic Neurologic: CNII-XII intact - Musculoskeletal Musculoskeletal: generalized weakness - Psychiatric Psychiatric: A&O x's 3, appropriate affect, intact judgment & insight Results CBC & Chem 7: 07/31/20 08:03 07/31/20 08:03 Labs: Abnormal Lab Results - Last 24 Hours (Table) 07/30/20 07/30/20 07/30/20 Range/Units 16:22 16:22 16:22 WBC 0.2 L* (3.8-10.6) k/uL RBC (3.80-5.40) m/uL Hgb (11.4-16.0) gm/dL Hct (34.0-46.0) % Plt Count 120 L (150-450) k/uL PT 13.8 H (9.0-12.0) sec INR 1.4 H (<1.2) APTT (22.0-30.0) sec D-Dimer 2.52 H (<0.60) mg/L FEU Potassium 2.3 L* (3.5-5.1) mmol/L Chloride (98-107) mmol/L BUN 22 H (7-17) mg/dL Glucose 140 H (74-99) mg/dL Plasma Lactic Acid Alfonso (0.7-2.0) mmol/L Calcium 8.1 L (8.4-10.2) mg/dL Total Bilirubin 2.3 H (0.2-1.3) mg/dL ALT 54 H (4-34) U/L Troponin I (0.000-0.034) ng/mL Total Protein 5.0 L (6.3-8.2) g/dL Albumin 3.0 L (3.5-5.0) g/dL Urine Appearance (Clear) Urine Protein (Negative) Urine Blood (Negative) Urine Bilirubin (Negative) Ur Leukocyte Esterase (Negative) Urine WBC (0-5) /hpf Amorphous Sediment (None) /hpf Urine Bacteria (None) /hpf Urine Mucus (None) /hpf 07/30/20 07/30/20 07/30/20 Range/Units 16:22 16:22 16:47 WBC (3.8-10.6) k/uL RBC (3.80-5.40) m/uL Hgb (11.4-16.0) gm/dL Hct (34.0-46.0) % Plt Count (150-450) k/uL PT (9.0-12.0) sec INR (<1.2) APTT (22.0-30.0) sec D-Dimer (<0.60) mg/L FEU Potassium (3.5-5.1) mmol/L Chloride (98-107) mmol/L BUN (7-17) mg/dL Glucose (74-99) mg/dL Plasma Lactic Acid Alfonso 3.7 H* (0.7-2.0) mmol/L Calcium (8.4-10.2) mg/dL Total Bilirubin (0.2-1.3) mg/dL ALT (4-34) U/L Troponin I 0.315 H* (0.000-0.034) ng/mL Total Protein (6.3-8.2) g/dL Albumin (3.5-5.0) g/dL Urine Appearance Cloudy H (Clear) Urine Protein 2+ H (Negative) Urine Blood Trace H (Negative) Urine Bilirubin 1+ H (Negative) Ur Leukocyte Esterase Trace H (Negative) Urine WBC 22 H (0-5) /hpf Amorphous Sediment Rare H (None) /hpf Urine Bacteria Many H (None) /hpf Urine Mucus Moderate H (None) /hpf 07/30/20 07/31/20 07/31/20 Range/Units 18:53 00:35 08:03 WBC 0.3 L* (3.8-10.6) k/uL RBC 3.66 L (3.80-5.40) m/uL Hgb 9.8 L D (11.4-16.0) gm/dL Hct 30.4 L (34.0-46.0) % Plt Count 76 L (150-450) k/uL PT (9.0-12.0) sec INR (<1.2) APTT 76.2 H (22.0-30.0) sec D-Dimer (<0.60) mg/L FEU Potassium (3.5-5.1) mmol/L Chloride (98-107) mmol/L BUN (7-17) mg/dL Glucose (74-99) mg/dL Plasma Lactic Acid Alfonso 2.4 H* (0.7-2.0) mmol/L Calcium (8.4-10.2) mg/dL Total Bilirubin (0.2-1.3) mg/dL ALT (4-34) U/L Troponin I (0.000-0.034) ng/mL Total Protein (6.3-8.2) g/dL Albumin (3.5-5.0) g/dL Urine Appearance (Clear) Urine Protein (Negative) Urine Blood (Negative) Urine Bilirubin (Negative) Ur Leukocyte Esterase (Negative) Urine WBC (0-5) /hpf Amorphous Sediment (None) /hpf Urine Bacteria (None) /hpf Urine Mucus (None) /hpf 07/31/20 07/31/20 07/31/20 Range/Units 08:03 08:03 08:03 WBC (3.8-10.6) k/uL RBC (3.80-5.40) m/uL Hgb (11.4-16.0) gm/dL Hct (34.0-46.0) % Plt Count (150-450) k/uL PT (9.0-12.0) sec INR (<1.2) APTT 43.2 H (22.0-30.0) sec D-Dimer (<0.60) mg/L FEU Potassium 2.2 L* (3.5-5.1) mmol/L Chloride 114 H (98-107) mmol/L BUN 21 H (7-17) mg/dL Glucose 100 H (74-99) mg/dL Plasma Lactic Acid Alfonso (0.7-2.0) mmol/L Calcium 7.0 L (8.4-10.2) mg/dL Total Bilirubin (0.2-1.3) mg/dL ALT (4-34) U/L Troponin I 0.133 H* (0.000-0.034) ng/mL Total Protein (6.3-8.2) g/dL Albumin (3.5-5.0) g/dL Urine Appearance (Clear) Urine Protein (Negative) Urine Blood (Negative) Urine Bilirubin (Negative) Ur Leukocyte Esterase (Negative) Urine WBC (0-5) /hpf Amorphous Sediment (None) /hpf Urine Bacteria (None) /hpf Urine Mucus (None) /hpf Microbiology - Last 24 Hours (Table) 07/30/20 16:47 Urine Culture - Preliminary Urine,Catheterized Chest x-ray: report reviewed Assessment and Plan (1) Neutropenic fever Narrative/Plan: Blood and urine cultures pending. CXR no acute process. Stool culture ordered. Empiric abx ordered. Current Visit: Yes Status: Acute Priority: High Code(s): D70.9 - NEUTROPENIA, UNSPECIFIED; R50.81 - FEVER PRESENTING WITH CONDITIONS CLASSIFIED ELSEWHERE SNOMED Code(s): 425743687 (2) Leukopenia due to antineoplastic chemotherapy Narrative/Plan: Low WBC due to chemo. She received GCSF on 7 days ago. Anticipate recovery of WBC within the next 48-72 hours Current Visit: Yes Status: Acute Code(s): D70.1 - AGRANULOCYTOSIS SECONDARY TO CANCER CHEMOTHERAPY; T45.1X5A - ADVERSE EFFECT OF ANTINEOPLASTIC AND IMM UNOSUP DRUGS, INIT SNOMED Code(s): 621284385 (3) NHL (non-Hodgkin's lymphoma) Narrative/Plan: Germinal center DLBCL. S/P 1st cycle of R-CHOP with GCSF. Current Visit: Yes Status: Acute Priority: High Code(s): C85.90 - NON- HODGKIN LYMPHOMA, UNSPECIFIED, UNSPECIFIED SITE SNOMED Code(s): 422265727 (4) Thrush Narrative/Plan: Salt and soda and nystatin ordered Current Visit: Yes Status: Acute Priority: High Code(s): B37.0 - CANDIDAL STOMATITIS SNOMED Code(s): 91288458 (5) Neutropenic typhlitis Narrative/Plan: RLQ rebound tenderness on exam. Ice chips, sips of water and meds. Stool studies ordered. Anticipate improvement as WBC recovers. Current Visit: Yes Status: Acute Priority: High Code(s): K36 - OTHER APPENDICITIS SNOMED Code(s): 2980881
--- NOTE | 2020-07-31 17:29 | P.HPIM ---
History of Present Illness H&P Date: 07/31/20 Kaylyn Mendez, is an 85-year-old female who presented to [facility] emergency room with a chief complaint of generalized weakness, vomiting and diarrhea, patient stated that she has been sick for about 10 days, she was evaluated in the emergency room her vital examination on presentation revealed a temperature of 100.2 pulse 120 respiration 16 blood pressure 148/81 pulse ox 100% on room air laboratory data revealed a white blood count of 0.2 hemoglobin 12.5 platelet count 120 sodium 140 potassium 2.3 chloride 106 CO2 27 BUN 22 creatinine 0.7 to troponin was elevated at 0.315 she was also found to have atrial fibrillation with rapid ventricular response patient was admitted to telemetry floor oncology consultation and cardiology consultation were requested. Patient has a known history of non-Hodgkin lymphoma, history of hypertension, history of hypothyroidism and history of osteoporosis. Past Medical History Past Medical History: Hypertension, Thyroid Disorder Additional Past Medical History / Comment(s): OSTEOPOROSIS. lymphoma History of Any Multi-Drug Resistant Organisms: None Reported Past Surgical History: Appendectomy, Cholecystectomy Past Anesthesia/Blood Transfusion Reactions: No Reported Reaction Past Psychological History: No Psychological Hx Reported Smoking Status: Never smoker Past Alcohol Use History: None Reported Past Drug Use History: None Reported Medications and Allergies Home Medications Medication Instructions Recorded Confirmed Type Aspirin EC [Ecotrin] 81 mg PO DAILY 08/07/15 07/30/20 History Levothyroxine Sodium [Levoxyl] 50 mcg PO DAILY 08/07/15 07/30/20 History Ascorbic Acid [Vitamin C] 500 mg PO DAILY 07/30/20 07/30/20 History Calcium, Magnesium & Zinc (Unknown 1 tab PO DAILY 07/30/20 07/30/20 History Strength) Cholecalciferol [Vitamin D3 (25 2,000 unit PO DAILY 07/30/20 07/30/20 History Mcg = 1000 Iu)] Fish Oil/Dha/Epa [Fish Oil 1,200 1 tab PO DAILY 07/30/20 07/30/20 History mg Fish Oil] Multivitamins, Thera [Multivitamin 1 tab PO DAILY 07/30/20 07/30/20 History (formulary)] Omeprazole [PriLOSEC] 40 mg PO DAILY 07/30/20 07/30/20 History Ondansetron [Zofran ODT] 4 mg PO Q6H PRN 07/30/20 07/30/20 History Ubidecarenone [Co Q-10] 200 mg PO DAILY 07/30/20 07/30/20 History allopurinoL [Zyloprim] 300 mg PO DAILY 07/30/20 07/30/20 History predniSONE 100 mg PO DAILY 07/30/20 07/30/20 History Rivaroxaban [Xarelto] 20 mg PO HS #30 tab 07/31/20 Rx Allergies Allergy/AdvReac Type Severity Reaction Status Date / Time Sulfa (Sulfonamide Allergy Unknown Verified 07/30/20 18:50 Antibiotics) Physical Exam Vitals: Vital Signs Temp Pulse Pulse Resp BP BP Pulse Ox 07/31/20 04:00 98.2 F 98 17 116/56 99 07/31/20 00:00 97.9 F 105 H 17 120/77 99 07/30/20 20:00 98.3 F 107 H 18 139/83 99 07/30/20 19:41 99.4 F 105 H 16 160/70 99 07/30/20 18:48 98.3 F 107 H 17 139/83 99 07/30/20 18:22 105 H 18 136/87 99 07/30/20 17:55 98.1 F 117 H 18 151/80 99 07/30/20 16:45 100 F H 100 16 144/77 100 07/30/20 16:30 100 F H 107 H 16 141/92 100 07/30/20 16:15 100.2 F H 102 H 18 131/75 100 07/30/20 16:00 100.2 F H 105 H 16 141/84 100 07/30/20 15:45 100.2 F H 120 H 16 148/81 100 Intake and Output 07/30/20 07/31/20 07/31/20 22:59 06:59 14:59 Intake Total 200 37.529 Balance 200 37.529 Intake: Intake, IV Titration 37.529 Amount Heparin Sod,Pork in 0.45% 37.529 NaCl 25,000 unit In 0.45 % NaCl 1 250ml.bag @ 12 UNITS/KG/HR 5.715 mls/hr IV .Q24H [facility] Rx#: [id number] Oral 200 Other: Voiding Method Bedside Commode # Voids 1 Weight 47.627 kg 50.5 kg In general patient is alert and oriented 3 in no apparent distress HEENT head normocephalic and atraumatic Neck is supple no JVD no goiter no lymphadenopathy Chest exam reveals fine crackles in both lung roman no wheezing Cardiac exam reveals regular heart sounds S1 and S2 no gallops no murmurs Abdomen is soft nontender no organomegaly with normal bowel sounds Extremity exam reveals minimal edema no cyanosis or clubbing Neurological examination reveals no gross focal neurological deficit Results CBC & Chem 7: 07/31/20 08:03 07/31/20 08:03 Labs: Abnormal Lab Results - Last 24 Hours (Table) 07/30/20 07/30/20 07/30/20 Range/Units 16:22 16:22 16:22 WBC 0.2 L* (3.8-10.6) k/uL Plt Count 120 L (150-450) k/uL PT 13.8 H (9.0-12.0) sec INR 1.4 H (<1.2) APTT (22.0-30.0) sec D-Dimer 2.52 H (<0.60) mg/L FEU Potassium 2.3 L* (3.5-5.1) mmol/L BUN 22 H (7-17) mg/dL Glucose 140 H (74-99) mg/dL Plasma Lactic Acid Alfonso (0.7-2.0) mmol/L Calcium 8.1 L (8.4-10.2) mg/dL Total Bilirubin 2.3 H (0.2-1.3) mg/dL ALT 54 H (4-34) U/L Troponin I (0.000-0.034) ng/mL Total Protein 5.0 L (6.3-8.2) g/dL Albumin 3.0 L (3.5-5.0) g/dL Urine Appearance (Clear) Urine Protein (Negative) Urine Blood (Negative) Urine Bilirubin (Negative) Ur Leukocyte Esterase (Negative) Urine WBC (0-5) /hpf Amorphous Sediment (None) /hpf Urine Bacteria (None) /hpf Urine Mucus (None) /hpf 07/30/20 07/30/20 07/30/20 Range/Units 16:22 16:22 16:47 WBC (3.8-10.6) k/uL Plt Count (150-450) k/uL PT (9.0-12.0) sec INR (<1.2) APTT (22.0-30.0) sec D-Dimer (<0.60) mg/L FEU Potassium (3.5-5.1) mmol/L BUN (7-17) mg/dL Glucose (74-99) mg/dL Plasma Lactic Acid Alfonso 3.7 H* (0.7-2.0) mmol/L Calcium (8.4-10.2) mg/dL Total Bilirubin (0.2-1.3) mg/dL ALT (4-34) U/L Troponin I 0.315 H* (0.000-0.034) ng/mL Total Protein (6.3-8.2) g/dL Albumin (3.5-5.0) g/dL Urine Appearance Cloudy H (Clear) Urine Protein 2+ H (Negative) Urine Blood Trace H (Negative) Urine Bilirubin 1+ H (Negative) Ur Leukocyte Esterase Trace H (Negative) Urine WBC 22 H (0-5) /hpf Amorphous Sediment Rare H (None) /hpf Urine Bacteria Many H (None) /hpf Urine Mucus Moderate H (None) /hpf 07/30/20 07/31/20 Range/Units 18:53 00:35 WBC (3.8-10.6) k/uL Plt Count (150-450) k/uL PT (9.0-12.0) sec INR (<1.2) APTT 76.2 H (22.0-30.0) sec D-Dimer (<0.60) mg/L FEU Potassium (3.5-5.1) mmol/L BUN (7-17) mg/dL Glucose (74-99) mg/dL Plasma Lactic Acid Alfonso 2.4 H* (0.7-2.0) mmol/L Calcium (8.4-10.2) mg/dL Total Bilirubin (0.2-1.3) mg/dL ALT (4-34) U/L Troponin I (0.000-0.034) ng/mL Total Protein (6.3-8.2) g/dL Albumin (3.5-5.0) g/dL Urine Appearance (Clear) Urine Protein (Negative) Urine Blood (Negative) Urine Bilirubin (Negative) Ur Leukocyte Esterase (Negative) Urine WBC (0-5) /hpf Amorphous Sediment (None) /hpf Urine Bacteria (None) /hpf Urine Mucus (None) /hpf Microbiology - Last 24 Hours (Table) 07/30/20 16:47 Urine Culture - Preliminary Urine,Catheterized Thrombosis Risk Factor Assmnt - Choose All That Apply Any of the Below Risk Factors Present?: No Other Risk Factors: Yes Each Risk Factor Represents 3 Points: Age 75 years or older Thrombosis Risk Factor Assessment Total Risk Factor Score: 3 Thrombosis Risk Factor Assessment Level: Moderate Risk Assessment and Plan Plan: 1. New onset atrial fibrillation was rapid ventricular response 2. Elevated troponin level 3. Neutropenic fever 4. Severe hypokalemia 5. Underlying history of non-Hodgkin lymphoma 6. Leukopenia due to chemotherapy 7. Oral candidiasis At this time patient is admitted to telemetry floor cardiology consultation and oncology consultation were requested Potassium is being corrected per protocol Will recheck potassium and magnesium level this evening Will follow in a.m.
[2020-07-31 18:55] LABS: Magnesium 1.9 mg/dL (1.6-2.3)
[2020-07-31 19:00] LABS: Potassium 2.7 mmol/L (3.5-5.1)
[2020-07-31] MEDS: SODIUM CHLORIDE 0.9% 1,000 ML IV SCH (19:02)
[2020-07-31] MEDS: HEPARIN SOD,PORK IN 0.45% NACL 25,000 UNIT in 0.45% NACL 1 250ML.BAG IV SCH (19:43)
[2020-07-31] MEDS ORDERED: Potassium Replacement Protocol 1 EACH MISC MISCELLANE PRN (21:18)
[2020-07-31] MEDS: POTASSIUM CHLORIDE 10 MEQ in WATER FOR INJECTION 1 100ML.BAG IVPB SCH ×2 (21:51→23:22)
[2020-07-31] MEDS ORDERED: RIVAROXABAN 20 MG TAB PO ONE (22:00)
[2020-08-01] MEDS: POTASSIUM CHLORIDE 10 MEQ in WATER FOR INJECTION 1 100ML.BAG IVPB SCH ×5 (00:27→22:40)
[2020-08-01] MEDS: SALT AND SODA MOUTHWASH 1,000 ML PO SCH ×5 (01:31→22:34)
[2020-08-01] MEDS: VANCOMYCIN 750 MG in SODIUM CHLORIDE 0.9% 250 ML IVPB SCH ×2 (06:01→17:31)
[2020-08-01 08:41] LABS: Basophils % (A) 1 %; Eosinophils % (A) 1 %; HCT 29.9 % (34.0-46.0); HGB 9.4 gm/dL (11.4-16.0); Hypochromasia Moderate; Lymphocytes # (A) 0.2 k/uL (1.0-4.8); Lymphocytes % (A) 17 %; MCH 26.5 pg (25.0-35.0); MCHC 31.4 g/dL (31.0-37.0); MCV 84.4 fL (80.0-100.0); Mean Platelet Volume 9.3; Monocytes # (A) 0.1 k/uL (0-1.0); Monocytes % (A) 5 %; Neutrophils # (A) 0.8 k/uL (1.3-7.7); Neutrophils % (A) 72 %; RBC 3.55 m/uL (3.80-5.40); RDW 15.1 % (11.5-15.5)
[2020-08-01 08:49] LABS: Platelet Count 73 k/uL (150-450)
[2020-08-01 08:50] LABS: WBC 1.1 k/uL (3.8-10.6)
[2020-08-01] MEDS: PIPERACILLIN-TAZOBACTAM 3.375 GM in SODIUM CHLORIDE 0.9% 100 ML IVPB SCH ×2 (09:39→17:31)
[2020-08-01] MEDS: NYSTATIN 100,000 UNIT/ML SUSP 500,000 UNIT/5 ML CUP PO SCH ×4 (09:40→22:30)
[2020-08-01] MEDS: METOPROLOL TARTRATE 50 MG TAB PO SCH ×2 (09:41→22:30)
[2020-08-01 10:06] LABS: Crenated RBC Present; Poikilocytosis (M) Present
--- NOTE | 2020-08-01 10:46 | P.PN ---
Subjective Progress Note Date: 08/01/20 Kaylyn Mendez, is an 85-year-old female who presented to [facility] emergency room with a chief complaint of generalized weakness, vomiting and diarrhea, patient stated that she has been sick for about 10 days, she was evaluated in the emergency room her vital examination on presentation revealed a temperature of 100.2 pulse 120 respiration 16 blood pressure 148/81 pulse ox 100% on room air laboratory data revealed a white blood count of 0.2 hemoglobin 12.5 platelet count 120 sodium 140 potassium 2.3 chloride 106 CO2 27 BUN 22 creatinine 0.7 to troponin was elevated at 0.315 she was also found to have atrial fibrillation with rapid ventricular response patient was admitted to telemetry floor oncology consultation and cardiology consultation were requested. Patient has a known history of non-Hodgkin lymphoma, history of hypertension, history of hypothyroidism and history of osteoporosis. On 08/01/2020 patient was seen and examined on the medical floor she is alert and oriented 3 in no apparent distress she states that she is feeling better she is complaining of painful sores in her mouth she is complaining of generalized weakness otherwise she denies any complaints at this time there is no fever or chills no headache or dizziness no chest pain no shortness of breath no cough no nausea or vomiting no abdominal pain no diarrhea and no urinary symptoms, at this time will advance diet gradually, will use Viscous Lidocaine for painful sores in her mouth. Objective - Vital Signs Vital signs: Vital Signs Temp 98.0 F 07/31/20 20:00 Pulse 68 08/01/20 04:00 Resp 18 08/01/20 04:00 BP 138/73 08/01/20 04:00 Pulse Ox 98 08/01/20 04:00 Intake & Output 07/31/20 08/01/20 08/01/20 18:59 06:59 18:59 Intake Total 361.492 400 Balance 361.492 400 Weight 50.5 kg 44 kg Intake: Intake, IV Titration 121.492 400 Amount Heparin Sod,Pork in 0.45% 61.492 NaCl 25,000 unit In 0.45 % NaCl 1 250ml.bag @ 12 UNITS/KG/HR 5.715 mls/hr IV .Q24H [facility] Rx#: [id number] Potassium Chloride 10 meq 300 In Water For Injection 1 100ml.bag @ 100 mls/hr IVPB Q1HR [facility] Rx#: [id number] Sodium Chloride 0.9% 1, 60 100 000 ml @ 20 mls/hr IV . Q24H [facility] Rx#:[id number] Oral 240 Other: Voiding Method Bedside Commode Bedside Commode # Voids 1 # Bowel Movements 1 2 - Exam In general patient is alert and oriented 3 in no apparent distress HEENT head normocephalic and atraumatic, patient has multiple painful sores in her mouth Neck is supple no JVD no goiter no lymphadenopathy Chest exam reveals fine crackles in both lung roman no wheezing Cardiac exam reveals regular heart sounds S1 and S2 no gallops no murmurs Abdomen is soft nontender no organomegaly with normal bowel sounds Extremity exam reveals minimal edema no cyanosis or clubbing Neurological examination reveals no gross focal neurological deficit - Labs CBC & Chem 7: 08/01/20 07:36 07/31/20 17:33 Labs: Abnormal Lab Results - Last 24 Hours (Table) 07/31/20 07/31/20 07/31/20 Range/Units 08:03 08:03 08:03 WBC 0.3 L* (3.8-10.6) k/uL RBC 3.66 L (3.80-5.40) m/uL Hgb 9.8 L D (11.4-16.0) gm/dL Hct 30.4 L (34.0-46.0) % Plt Count 76 L (150-450) k/uL APTT 43.2 H (22.0-30.0) sec Potassium 2.2 L* (3.5-5.1) mmol/L Chloride 114 H (98-107) mmol/L BUN 21 H (7-17) mg/dL Glucose 100 H (74-99) mg/dL Calcium 7.0 L (8.4-10.2) mg/dL Troponin I (0.000-0.034) ng/mL 07/31/20 07/31/20 07/31/20 Range/Units 08:03 11:20 17:33 WBC (3.8-10.6) k/uL RBC (3.80-5.40) m/uL Hgb (11.4-16.0) gm/dL Hct (34.0-46.0) % Plt Count (150-450) k/uL APTT 49.7 H (22.0-30.0) sec Potassium (3.5-5.1) mmol/L Chloride (98-107) mmol/L BUN (7-17) mg/dL Glucose (74-99) mg/dL Calcium (8.4-10.2) mg/dL Troponin I 0.133 H* 0.112 H* (0.000-0.034) ng/mL 07/31/20 Range/Units 17:33 WBC (3.8-10.6) k/uL RBC (3.80-5.40) m/uL Hgb (11.4-16.0) gm/dL Hct (34.0-46.0) % Plt Count (150-450) k/uL APTT (22.0-30.0) sec Potassium 2.7 L* (3.5-5.1) mmol/L Chloride 115 H (98-107) mmol/L BUN (7-17) mg/dL Glucose (74-99) mg/dL Calcium (8.4-10.2) mg/dL Troponin I (0.000-0.034) ng/mL Microbiology - Last 24 Hours (Table) 07/30/20 16:47 Urine Culture - Preliminary Urine,Catheterized Gram Neg Bacilli 07/30/20 16:48 Blood Culture - Preliminary Blood No Growth after 24 hours 07/30/20 16:47 Blood Culture - Preliminary Blood No Growth after 24 hours Assessment and Plan Plan: 1. New onset atrial fibrillation was rapid ventricular response 2. Elevated troponin level 3. Neutropenic fever 4. Severe hypokalemia 5. Underlying history of non-Hodgkin lymphoma 6. Leukopenia due to chemotherapy 7. Oral candidiasis At this time patient is admitted to telemetry floor cardiology consultation and oncology consultation were requested Potassium is being corrected per protocol Will recheck potassium and magnesium level this evening Will follow in a.m.
[2020-08-01 10:47] LABS: ALT 27 U/L (4-34); AST 13 U/L (14-36); African American GFR (CKD) >90 (>60 ml/min/1.73 sqM); Albumin 2.2 g/dL (3.5-5.0); Alkaline Phosphatase 30 U/L (38-126); Anion Gap 4 mmol/L; Blood Urea Nitrogen 18 mg/dL (7-17); Calcium 7.3 mg/dL (8.4-10.2); Carbon Dioxide 20 mmol/L (22-30); Chloride 117 mmol/L (98-107); Glucose 60 mg/dL (74-99); Non-African American GFR(CKD) 85 (>60 ml/min/1.73 sqM); Sodium 141 mmol/L (137-145); Total Bilirubin 0.9 mg/dL (0.2-1.3)
--- NOTE | 2020-08-01 14:15 | P.PN ---
Subjective Progress Note Date: 08/01/20 CHIEF COMPLAINT: Elevated troponin HISTORY OF PRESENT ILLNESS: Patient examined this morning at the bedside. She denies chest pain. Denies shortness of breath. Patient has been started on Xarelto yesterday for anticoagulation. Telemetry reviewed with Dr. Jones revealing sinus mechanism with PACs and runs of atrial tachycardia PHYSICAL EXAM: VITAL SIGNS: Reviewed. GENERAL: Well-developed in no acute distress. HEENT: Head is normocephalic. Pupils are equal, round. Sclerae anicteric. Mucous membranes of the mouth are moist. Neck supple. No JVD or thyromegaly LUNGS: Respirations even and unlabored. Lungs essentially clear to auscultation bilaterally. HEART: Irregular rate and rhythm. S1 and S2 heard. EXTREMITIES: Normal range of motion. No clubbing or cyanosis. Peripheral pulses intact. No lower extremity edema ASSESSMENT: Neutropenic fever New-onset paroxysmal atrial fibrillation with RVR History of lymphoma, on chemotherapy Hypokalemia Abnormal troponins, type II [place] secondary to oxygen supply and demand mismatch secondary to new onset atrial fibrillation. PLAN: Continue metoprolol 50 mg twice a day Continue telemetry monitoring Continue Xarelto for anticoagulation Further recommendations pending patient course Nurse practitioner note has been reviewed by physician. Signing provider agrees with the documented findings, assessment, and plan of care. Objective - Vital Signs Vital signs: Vital Signs Temp 97.8 F 08/01/20 12:00 Pulse 53 L 08/01/20 12:00 Resp 16 08/01/20 12:00 BP 133/69 08/01/20 12:00 Pulse Ox 99 08/01/20 12:00 Intake & Output 07/31/20 08/01/20 08/01/20 18:59 06:59 18:59 Intake Total 361.492 400 Balance 361.492 400 Weight 50.5 kg 44 kg Intake: Intake, IV Titration 121.492 400 Amount Heparin Sod,Pork in 0.45% 61.492 NaCl 25,000 unit In 0.45 % NaCl 1 250ml.bag @ 12 UNITS/KG/HR 5.715 mls/hr IV .Q24H [facility] Rx#: [id number] Potassium Chloride 10 meq 300 In Water For Injection 1 100ml.bag @ 100 mls/hr IVPB Q1HR [facility] Rx#: [id number] Sodium Chloride 0.9% 1, 60 100 000 ml @ 20 mls/hr IV . Q24H [facility] Rx#:[id number] Oral 240 Other: Voiding Method Bedside Commode Bedside Commode Bedside Commode # Voids 1 # Bowel Movements 1 2 - Labs CBC & Chem 7: 08/01/20 07:36 08/01/20 07:36 Labs: Abnormal Lab Results - Last 24 Hours (Table) 07/31/20 07/31/20 08/01/20 Range/Units 17:33 17:33 07:36 WBC 1.1 L* (3.8-10.6) k/uL RBC 3.55 L (3.80-5.40) m/uL Hgb 9.4 L (11.4-16.0) gm/dL Hct 29.9 L (34.0-46.0) % Plt Count 73 L (150-450) k/uL Neutrophils # 0.8 L (1.3-7.7) k/uL Lymphocytes # 0.2 L (1.0-4.8) k/uL APTT 49.7 H (22.0-30.0) sec Potassium 2.7 L* (3.5-5.1) mmol/L Chloride 115 H (98-107) mmol/L Carbon Dioxide (22-30) mmol/L BUN (7-17) mg/dL Glucose (74-99) mg/dL Calcium (8.4-10.2) mg/dL AST (14-36) U/L Alkaline Phosphatase (38-126) U/L Total Protein (6.3-8.2) g/dL Albumin (3.5-5.0) g/dL 08/01/20 Range/Units 07:36 WBC (3.8-10.6) k/uL RBC (3.80-5.40) m/uL Hgb (11.4-16.0) gm/dL Hct (34.0-46.0) % Plt Count (150-450) k/uL Neutrophils # (1.3-7.7) k/uL Lymphocytes # (1.0-4.8) k/uL APTT (22.0-30.0) sec Potassium 3.0 L (3.5-5.1) mmol/L Chloride 117 H (98-107) mmol/L Carbon Dioxide 20 L (22-30) mmol/L BUN 18 H (7-17) mg/dL Glucose 60 L (74-99) mg/dL Calcium 7.3 L (8.4-10.2) mg/dL AST 13 L (14-36) U/L Alkaline Phosphatase 30 L (38-126) U/L Total Protein 4.0 L (6.3-8.2) g/dL Albumin 2.2 L (3.5-5.0) g/dL Microbiology - Last 24 Hours (Table) 07/30/20 16:47 Urine Culture - Preliminary Urine,Catheterized Gram Neg Bacilli 07/30/20 16:48 Blood Culture - Preliminary Blood No Growth after 24 hours 07/30/20 16:47 Blood Culture - Preliminary Blood No Growth after 24 hours
--- NOTE | 2020-08-01 14:47 | P.PN ---
Subjective Progress Note Date: 08/01/20 Principal diagnosis: Neutropenic fever, s/p 1st chemo for lymphoma In f/u today pt states feeling pretty good, no nausea, her stool is still watery. Denies any mucus or blood in stool, no abd pain or cramping, no fever last 24 hours. Mouth feels better. She is ready for some jello. Objective - Vital Signs Vital signs: Vital Signs Temp 97.8 F 08/01/20 12:00 Pulse 53 L 08/01/20 12:00 Resp 16 08/01/20 12:00 BP 133/69 08/01/20 12:00 Pulse Ox 99 08/01/20 12:00 Intake & Output 07/31/20 08/01/20 08/01/20 18:59 06:59 18:59 Intake Total 361.492 400 Balance 361.492 400 Weight 50.5 kg 44 kg Intake: Intake, IV Titration 121.492 400 Amount Heparin Sod,Pork in 0.45% 61.492 NaCl 25,000 unit In 0.45 % NaCl 1 250ml.bag @ 12 UNITS/KG/HR 5.715 mls/hr IV .Q24H [facility] Rx#: [id number] Potassium Chloride 10 meq 300 In Water For Injection 1 100ml.bag @ 100 mls/hr IVPB Q1HR [facility] Rx#: [id number] Sodium Chloride 0.9% 1, 60 100 000 ml @ 20 mls/hr IV . Q24H [facility] Rx#:[id number] Oral 240 Other: Voiding Method Bedside Commode Bedside Commode Bedside Commode # Voids 1 # Bowel Movements 1 2 - Constitutional General appearance: Present: cooperative, no acute distress, thin - EENT Eyes: Present: anicteric sclerae, EOMI ENT: Present: hearing grossly normal, normal oropharynx - Respiratory Respiratory: bilateral: CTA - Cardiovascular Rhythm: regular Heart sounds: normal: S1, S2 - Gastrointestinal General gastrointestinal: Present: normal bowel sounds, soft. Absent: absent bowel sounds, decreased bowel sounds, distended, hepatomegaly, hyperactive bowel sounds, organomegaly, rigid, scaphoid, splenomegaly, tenderness, umbilical hernia, ventral hernia - Integumentary Integumentary: Present: normal - Neurologic Neurologic: Present: CNII-XII intact - Musculoskeletal Musculoskeletal: Present: generalized weakness, strength equal bilaterally - Psychiatric Psychiatric: Present: A&O x's 3 - Labs CBC & Chem 7: 08/01/20 07:36 08/01/20 07:36 Labs: Abnormal Lab Results - Last 24 Hours (Table) 07/31/20 07/31/20 07/31/20 Range/Units 11:20 17:33 17:33 WBC (3.8-10.6) k/uL RBC (3.80-5.40) m/uL Hgb (11.4-16.0) gm/dL Hct (34.0-46.0) % Plt Count (150-450) k/uL Neutrophils # (1.3-7.7) k/uL Lymphocytes # (1.0-4.8) k/uL APTT 49.7 H (22.0-30.0) sec Potassium 2.7 L* (3.5-5.1) mmol/L Chloride 115 H (98-107) mmol/L Carbon Dioxide (22-30) mmol/L BUN (7-17) mg/dL Glucose (74-99) mg/dL Calcium (8.4-10.2) mg/dL AST (14-36) U/L Alkaline Phosphatase (38-126) U/L Troponin I 0.112 H* (0.000-0.034) ng/mL Total Protein (6.3-8.2) g/dL Albumin (3.5-5.0) g/dL 08/01/20 08/01/20 Range/Units 07:36 07:36 WBC 1.1 L* (3.8-10.6) k/uL RBC 3.55 L (3.80-5.40) m/uL Hgb 9.4 L (11.4-16.0) gm/dL Hct 29.9 L (34.0-46.0) % Plt Count 73 L (150-450) k/uL Neutrophils # 0.8 L (1.3-7.7) k/uL Lymphocytes # 0.2 L (1.0-4.8) k/uL APTT (22.0-30.0) sec Potassium 3.0 L (3.5-5.1) mmol/L Chloride 117 H (98-107) mmol/L Carbon Dioxide 20 L (22-30) mmol/L BUN 18 H (7-17) mg/dL Glucose 60 L (74-99) mg/dL Calcium 7.3 L (8.4-10.2) mg/dL AST 13 L (14-36) U/L Alkaline Phosphatase 30 L (38-126) U/L Troponin I (0.000-0.034) ng/mL Total Protein 4.0 L (6.3-8.2) g/dL Albumin 2.2 L (3.5-5.0) g/dL Microbiology - Last 24 Hours (Table) 07/30/20 16:47 Urine Culture - Preliminary Urine,Catheterized Gram Neg Bacilli 07/30/20 16:48 Blood Culture - Preliminary Blood No Growth after 24 hours 07/30/20 16:47 Blood Culture - Preliminary Blood No Growth after 24 hours Assessment and Plan (1) Neutropenic fever Narrative/Plan: Blood culture neg at 24 hours. Urine culture pending, gram neg bacilli. CXR no acute process. Stool culture ordered. Antibiotics adjusted per Attending, briefly discussed case with. Current Visit: Yes Status: Acute Priority: High Code(s): D70.9 - NEUTROPENIA, UNSPECIFIED; R50.81 - FEVER PRESENTING WITH CONDITIONS CLASSIFIED ELSEWHERE SNOMED Code(s): 943812103 (2) Leukopenia due to antineoplastic chemotherapy Narrative/Plan: Low WBC due to chemo. She received GCSF on 7 days ago. Anticipate recovery of WBC within the next 48-72 hours. Her WBC is up to 1.1 today, ANC 0.8 Current Visit: Yes Status: Acute Code(s): D70.1 - AGRANULOCYTOSIS SECONDARY TO CANCER CHEMOTHERAPY; T45.1X5A - ADVERSE EFFECT OF ANTINEOPLASTIC AND IMMUNOSUP DRUGS, INIT SNOMED Code(s): 415312364 (3) NHL (non-Hodgkin's lymphoma) Narrative/Plan: [facility] DLBCL. S/P 1st cycle of R-CHOP with GCSF. Current Visit: Yes Status: Acute Priority: High Code(s): C85.90 - NON- HODGKIN LYMPHOMA, UNSPECIFIED, UNSPECIFIED SITE SNOMED Code(s): 280371063 (4) Thrush Narrative/Plan: Salt and soda and nystatin ordered, mouth improved today Current Visit: Yes Status: Acute Priority: High Code(s): B37.0 - CANDIDAL STOMATITIS SNOMED Code(s): 32221793 (5) Neutropenic typhlitis Narrative/Plan: RLQ rebound tenderness on exam better today. Ice chips, sips of water and meds tolerated. Stool studies ordered. Have advanced diet to clears, ok kwaku advance to full at dinner if tolerated. Pt is stop eating immediately if any abd pain, cramping. Current Visit: Yes Status: Acute Priority: High Code(s): K36 - OTHER APPENDICITIS SNOMED Code(s): 6670019 (6) Pancytopenia due to antineoplastic chemotherapy Narrative/Plan: Hgb and plt have dropped since admit. This is anticipated due to chemo, pt was also likely hemoconcentrated on admit from dehydration. She is also being treated for UTI which further causes slow recovery/low blood counts in cancer pts on chemo. No transfusions needed today. Current Visit: Yes Status: Acute Priority: High Code(s): D61.810 - ANTINEOPLASTIC CHEMOTHERAPY INDUCED PANCYTOPENIA; T45.1X5A - ADVERSE EFFECT OF ANTINEOPLASTIC AND IMMUNOSUP DRUGS, INIT SNOMED Code(s): 751284339286414 Plan: Ok for jeana per Cardiology recs. Cont to monitor platelets
[2020-08-01] MEDS ORDERED: Potassium Replacement Protocol 1 EACH MISC MISCELLANE PRN ×2 (16:21→20:50)
[2020-08-01] MEDS ORDERED: VANCOMYCIN TROUGH DUE 1 EACH MISC MISCELLANE ONE (17:00)
[2020-08-01] MEDS: RIVAROXABAN 20 MG TAB PO SCH (17:30)
[2020-08-01] MEDS: LIDOCAINE VISCOUS 2% 15 ML CUP MUCOUS MEM SCH ×2 (17:30→17:49)
[2020-08-01] MEDS: POTASSIUM CHLORIDE ER 20 MEQ TAB.ER PO SCH ×3 (17:30→19:26)
[2020-08-01] MEDS: SODIUM CHLORIDE 0.9% 1,000 ML IV SCH (19:26)
--- NOTE | 2020-08-01 23:39 | P.CONS ---
History of Present Illness - Reason for Consult Consult date: 08/01/20 febrile neutropenia Requesting physician: Johanny Eckert - Chief Complaint weakness and vomiting x few days - History of Present Illness Patient is 85-year-old female with a past medical history significant for lymphoma in this patient presented to hospital with generalized weakness vomiting and diarrhea patient symptom has been going on for almost 10 days before the patient presented to the hospital patient denies having any headache or URI symptoms denies having any chest pain or shortness of breath very minimal cough patient on presentation to the hospital did have low-grade fever 100.2 F patient did have a leukopenia with a white count of 0.2 D-dimer was elevated 2.5 took kidney function has been normal and troponins are negative patient did have mildly positive UA influenza and quesada PCR was negative patient did have a chest x-ray chronic chills or acute pulmonary process patient is currently been treated with vancomycin and Zosyn infectious disease was consulted for further management of antibiotic therapy Review of Systems Positive point has been mentioned in HPI rest of the systems are negative Past Medical History Past Medical History: Hypertension, Thyroid Disorder Additional Past Medical History / Comment(s): OSTEOPOROSIS. lymphoma History of Any Multi-Drug Resistant Organisms: None Reported Past Surgical History: Appendectomy, Cholecystectomy Past Anesthesia/Blood Transfusion Reactions: No Reported Reaction Past Psychological History: No Psychological Hx Reported Smoking Status: Never smoker Past Alcohol Use History: None Reported Past Drug Use History: None Reported Medications and Allergies Home Medications Medication Instructions Recorded Confirmed Type Aspirin EC [Ecotrin] 81 mg PO DAILY 08/07/15 07/30/20 History Levothyroxine Sodium [Levoxyl] 50 mcg PO DAILY 08/07/15 07/30/20 History Ascorbic Acid [Vitamin C] 500 mg PO DAILY 07/30/20 07/30/20 History Calcium, Magnesium & Zinc (Unknown 1 tab PO DAILY 07/30/20 07/30/20 History Strength) Cholecalciferol [Vitamin D3 (25 2,000 unit PO DAILY 07/30/20 07/30/20 History Mcg = 1000 Iu)] Fish Oil/Dha/Epa [Fish Oil 1,200 1 tab PO DAILY 07/30/20 07/30/20 History mg Fish Oil] Multivitamins, Thera [Multivitamin 1 tab PO DAILY 07/30/20 07/30/20 History (formulary)] Omeprazole [PriLOSEC] 40 mg PO DAILY 07/30/20 07/30/20 History Ondansetron [Zofran ODT] 4 mg PO Q6H PRN 07/30/20 07/30/20 History Ubidecarenone [Co Q-10] 200 mg PO DAILY 07/30/20 07/30/20 History allopurinoL [Zyloprim] 300 mg PO DAILY 07/30/20 07/30/20 History predniSONE 100 mg PO DAILY 07/30/20 07/30/20 History Rivaroxaban [Xarelto] 20 mg PO HS #30 tab 07/31/20 Rx Allergies Allergy/AdvReac Type Severity Reaction Status Date / Time Sulfa (Sulfonamide Allergy Unknown Verified 07/30/20 18:50 Antibiotics) Physical Exam Vitals: Vital Signs Temp Pulse Resp BP Pulse Ox 08/01/20 16:00 97.7 F 68 16 148/58 100 08/01/20 14:00 16 08/01/20 12:00 97.8 F 53 L 16 133/69 99 08/01/20 08:00 97.6 F 53 L 17 149/56 98 08/01/20 04:00 68 18 138/73 98 08/01/20 01:59 70 18 08/01/20 00:00 70 18 128/59 98 Intake and Output 08/01/20 08/01/20 08/01/20 06:59 14:59 22:59 Intake Total 400 590 240 Balance 400 590 240 Intake: Intake, IV Titration 400 350 Amount Piperacillin-Tazobactam 3 100 .375 gm In Sodium Chloride 0.9% 100 ml @ 25 mls/hr IVPB Q8HR [facility] Rx# :[id number] Potassium Chloride 10 meq 300 In Water For Injection 1 100ml.bag @ 100 mls/hr IVPB Q1HR [facility] Rx#: [id number] Sodium Chloride 0.9% 1, 100 000 ml @ 20 mls/hr IV . Q24H [facility] Rx#:[id number] Vancomycin 750 mg In 250 Sodium Chloride 0.9% 250 ml @ 125 mls/hr IVPB Q12H [facility] Rx#:[id number] Oral 240 240 Other: Voiding Method Bedside Commode # Bowel Movements 2 Weight 44 kg GENERAL DESCRIPTION: Elderly female lying in bed, no distress. No tachypnea or accessory muscle of respiration use. HEENT: Shows Pallor , no scleral icterus. Oral mucous membrane is dry. NECK: Trachea central, no thyromegaly. LUNGS: Unlabored breathing. Decreased breath sound at base. No wheeze or crackle. HEART: S1, S2, regular rate and rhythm. ABDOMEN: Soft, no tenderness , guarding or rigidity EXTREMITIES: No edema of feet. SKIN: No rash, no masses palpable. Right chest wall Mediport site looks clean NEUROLOGICAL: The patient is awake, alert, oriented x3, mood and affect normal Results CBC & Chem 7: 08/01/20 07:36 08/01/20 19:40 Labs: Abnormal Lab Results - Last 24 Hours (Table) 08/01/20 08/01/20 08/01/20 Range/Units 07:36 07:36 19:40 WBC 1.1 L* (3.8-10.6) k/uL RBC 3.55 L (3.80-5.40) m/uL Hgb 9.4 L (11.4-16.0) gm/dL Hct 29.9 L (34.0-46.0) % Plt Count 73 L (150-450) k/uL Neutrophils # 0.8 L (1.3-7.7) k/uL Lymphocytes # 0.2 L (1.0-4.8) k/uL Potassium 3.0 L 2.8 L (3.5-5.1) mmol/L Chloride 117 H (98-107) mmol/L Carbon Dioxide 20 L (22-30) mmol/L BUN 18 H (7-17) mg/dL Glucose 60 L (74-99) mg/dL Calcium 7.3 L (8.4-10.2) mg/dL AST 13 L (14-36) U/L Alkaline Phosphatase 30 L (38-126) U/L Total Protein 4.0 L (6.3-8.2) g/dL Albumin 2.2 L (3.5-5.0) g/dL Microbiology - Last 24 Hours (Table) 07/30/20 16:48 Blood Culture - Preliminary Blood No Growth after 48 hours 07/30/20 16:47 Blood Culture - Preliminary Blood No Growth after 48 hours 07/30/20 16:47 Urine Culture - Final Urine,Catheterized Escherichia coli Assessment and Plan Assessment: 1-patient presented to hospital generalized weakness no energy some vomiting diarrhea in this patient who did have evidence of low-grade fever and leukopenia and concern for infectious etiology possibly urinary source and possibly from her gram-negative pathogen is currently not obvious focus of infection no evidence of any pneumonia clinically and the Mediport site looks clean (1) UTI (urinary tract infection) Current Visit: Yes Status: Acute Code(s): N39.0 - URINARY TRACT INFECTION, SITE NOT SPECIFIED SNOMED Code(s): 15268047 (2) Neutropenic fever Current Visit: Yes Status: Acute Priority: High Code(s): D70.9 - NEUTROPENIA, UNSPECIFIED; R50.81 - FEVER PRESENTING WITH CONDITIONS CLASSIFIED ELSEWHERE SNOMED Code(s): 558392614 Plan: 1-patient to continue Zosyn 3.375 g every 8 hours waiting for the culture finalized 2-discontinue vancomycin 3-gentle IV fluid We will follow on clinical condition and cultures to further adjust medication if needed Thank you for this consultation we will follow the patient along with you Time with Patient: Greater than 30
[2020-08-02] MEDS: PIPERACILLIN-TAZOBACTAM 3.375 GM in SODIUM CHLORIDE 0.9% 100 ML IVPB SCH ×3 (00:06→16:36)
[2020-08-02] MEDS: POTASSIUM CHLORIDE 10 MEQ in WATER FOR INJECTION 1 100ML.BAG IVPB SCH ×5 (00:06→04:17)
[2020-08-02] MEDS: SALT AND SODA MOUTHWASH 1,000 ML PO SCH ×5 (00:07→23:26)
[2020-08-02 07:13] LABS: Basophils % (A) 0 %; Eosinophils % (A) 1 %; HCT 28.8 % (34.0-46.0); HGB 9.2 gm/dL (11.4-16.0); Hypochromasia Slight; Lymphocytes # (A) 0.2 k/uL (1.0-4.8); Lymphocytes % (A) 10 %; MCH 26.7 pg (25.0-35.0); MCV 83.3 fL (80.0-100.0); Mean Platelet Volume 9.1; Monocytes # (A) 0.1 k/uL (0-1.0); Monocytes % (A) 6 %; Neutrophils # (A) 1.9 k/uL (1.3-7.7); Neutrophils % (A) 81 %; RBC 3.45 m/uL (3.80-5.40); RDW 15.1 % (11.5-15.5); WBC 2.3 k/uL (3.8-10.6)
[2020-08-02 07:17] LABS: Platelet Count 82 k/uL (150-450)
[2020-08-02 07:34] LABS: ALT 21 U/L (4-34); AST 14 U/L (14-36); African American GFR (CKD) >90 (>60 ml/min/1.73 sqM); Albumin 2.1 g/dL (3.5-5.0); Alkaline Phosphatase 37 U/L (38-126); Anion Gap -1 mmol/L; Blood Urea Nitrogen 11 mg/dL (7-17); Calcium 7.4 mg/dL (8.4-10.2); Carbon Dioxide 23 mmol/L (22-30); Chloride 118 mmol/L (98-107); Glucose 87 mg/dL (74-99); Non-African American GFR(CKD) 81 (>60 ml/min/1.73 sqM); Potassium 4.2 mmol/L (3.5-5.1); Sodium 140 mmol/L (137-145); Total Bilirubin 1.1 mg/dL (0.2-1.3)
[2020-08-02] MEDS: NYSTATIN 100,000 UNIT/ML SUSP 500,000 UNIT/5 ML CUP PO SCH ×4 (08:07→21:51)
[2020-08-02] MEDS: METOPROLOL TARTRATE 50 MG TAB PO SCH ×2 (08:07→20:54)
--- NOTE | 2020-08-02 10:27 | P.PN ---
Subjective HISTORY OF PRESENTING ILLNESS This is a pleasant 85-year-old female past medical history significant for lymphoma on chemotherapy. She follows in the office with Dr. Pereira. She is seen and examined resting comfortably laying flat in bed in no acute distress. She denies symptoms of chest pain, shortness of breath, dizziness or palpitations. Blood pressure 119/66 heart rate 86 afebrile maintaining oxygen saturation on room air. Telemetry tracings reveals sinus mechanism with PACs. Laboratory data reviewed, WBC 2.3, hemoglobin 9.2, platelets 82, sodium 140, potassium 4.2, creatinine 0.66. Currently maintained on metoprolol 50 mg twice a day and Xarelto 20 mg daily. PHYSICAL EXAMINATION CONSTITUTIONAL: No apparent distress. HEENT: Head is normocephalic. Pupils are equal, round. Sclerae anicteric. Mucous membranes of the mouth are moist. No JVD. No carotid bruit. CHEST EXAMINATION: Lungs are clear to auscultation. No chest wall tenderness is noted on palpation or with deep breathing. HEART EXAMINATION: Irregular rate and rhythm. S1, S2 heard. No murmurs, gallops or rub. EXTREMITIES: 2+ peripheral pulses, no lower extremity edema and no calf tenderness. ASSESSMENT Neutropenic fever New-onset paroxysmal atrial fibrillation History of lymphoma on chemotherapy Hypokalemia Abnormal troponins, type II [place] secondary to oxygen supply and demand mismatch secondary to new onset atrial fibrillation Pancytopenia PLAN Blood pressure and heart rates are controlled on current regimen. Continue anticoagulation for thromboembolic protection. Ongoing medical management Follow-up with Dr. Pereira upon discharge, we will follow along as needed please call with further questions or concerns. Nurse Practitioner note has been reviewed, I agree with a documented findings and plan of care. Patient was seen and examined. Objective - Vital Signs Vital signs: Vital Signs Temp 97.5 F L 08/02/20 08:00 Pulse 86 08/02/20 08:00 Resp 16 08/02/20 08:00 BP 119/66 08/02/20 08:00 Pulse Ox 100 08/02/20 08:00 Intake & Output 08/01/20 08/02/20 08/02/20 18:59 06:59 18:59 Intake Total 830 Balance 830 Weight 47 kg Intake: Intake, IV Titration 350 Amount Piperacillin-Tazobactam 3 100 .375 gm In Sodium Chloride 0.9% 100 ml @ 25 mls/hr IVPB Q8HR [facility] Rx# :[id number] Vancomycin 750 mg In 250 Sodium Chloride 0.9% 250 ml @ 125 mls/hr IVPB Q12H [facility] Rx#:[id number] Oral 480 Other: Voiding Method Bedside Commode Incontinent Incontinent # Voids 1 # Bowel Movements 1 - Labs CBC & Chem 7: 08/02/20 06:36 08/02/20 06:36 Labs: Abnormal Lab Results - Last 24 Hours (Table) 08/01/20 08/01/20 08/02/20 Range/Units 07:36 19:40 06:36 WBC 2.3 L (3.8-10.6) k/uL RBC 3.45 L (3.80-5.40) m/uL Hgb 9.2 L (11.4-16.0) gm/dL Hct 28.8 L (34.0-46.0) % Plt Count 82 L (150-450) k/uL Lymphocytes # 0.2 L (1.0-4.8) k/uL Potassium 3.0 L 2.8 L (3.5-5.1) mmol/L Chloride 117 H (98-107) mmol/L Carbon Dioxide 20 L (22-30) mmol/L BUN 18 H (7-17) mg/dL Glucose 60 L (74-99) mg/dL Calcium 7.3 L (8.4-10.2) mg/dL AST 13 L (14-36) U/L Alkaline Phosphatase 30 L (38-126) U/L Total Protein 4.0 L (6.3-8.2) g/dL Albumin 2.2 L (3.5-5.0) g/dL 08/02/20 Range/Units 06:36 WBC (3.8-10.6) k/uL RBC (3.80-5.40) m/uL Hgb (11.4-16.0) gm/dL Hct (34.0-46.0) % Plt Count (150-450) k/uL Lymphocytes # (1.0-4.8) k/uL Potassium (3.5-5.1) mmol/L Chloride 118 H (98-107) mmol/L Carbon Dioxide (22-30) mmol/L BUN (7-17) mg/dL Glucose (74-99) mg/dL Calcium 7.4 L (8.4-10.2) mg/dL AST (14-36) U/L Alkaline Phosphatase 37 L (38-126) U/L Total Protein 4.0 L (6.3-8.2) g/dL Albumin 2.1 L (3.5-5.0) g/dL Microbiology - Last 24 Hours (Table) 07/30/20 16:48 Blood Culture - Preliminary Blood No Growth after 48 hours 07/30/20 16:47 Blood Culture - Preliminary Blood No Growth after 48 hours 07/30/20 16:47 Urine Culture - Final Urine,Catheterized Escherichia coli
[2020-08-02] MEDS: LIDOCAINE VISCOUS 2% 15 ML CUP MUCOUS MEM SCH ×3 (10:36→16:58)
--- NOTE | 2020-08-02 14:38 | P.PN ---
Subjective Progress Note Date: 08/02/20 Kaylyn Mnedez, is an 85-year-old female who presented to [facility] emergency room with a chief complaint of generalized weakness, vomiting and diarrhea, patient stated that she has been sick for about 10 days, she was evaluated in the emergency room her vital examination on presentation revealed a temperature of 100.2 pulse 120 respiration 16 blood pressure 148/81 pulse ox 100% on room air laboratory data revealed a white blood count of 0.2 hemoglobin 12.5 platelet count 120 sodium 140 potassium 2.3 chloride 106 CO2 27 BUN 22 creatinine 0.7 to troponin was elevated at 0.315 she was also found to have atrial fibrillation with rapid ventricular response patient was admitted to telemetry floor oncology consultation and cardiology consultation were requested. Patient has a known history of non-Hodgkin lymphoma, history of hypertension, history of hypothyroidism and history of osteoporosis. On 08/01/2020 patient was seen and examined on the medical floor she is alert and oriented 3 in no apparent distress she states that she is feeling better she is complaining of painful sores in her mouth she is complaining of generalized weakness otherwise she denies any complaints at this time there is no fever or chills no headache or dizziness no chest pain no shortness of breath no cough no nausea or vomiting no abdominal pain no diarrhea and no urinary symptoms, at this time will advance diet gradually, will use Viscous Lidocaine for painful sores in her mouth. On 08/02/2020 patient was seen and examined on the medical floor she is alert and oriented 3 in no apparent distress she is complaining of painful sores in her mouth she is also complaining of cough and weakness otherwise she denies any complaints there is no fever or chills no headache or dizziness no chest pain no shortness of breath no nausea or vomiting no abdominal pain no diarrhea no blood in the stools. No burning with urination no frequency or urgency no hematuria, patient is still maintained on IV Zosyn, awaiting final culture results and further recommendation from infectious disease Objective - Vital Signs Vital signs: Vital Signs Temp 97.5 F L 08/02/20 08:00 Pulse 86 08/02/20 08:00 Resp 16 08/02/20 08:00 BP 119/66 08/02/20 08:00 Pulse Ox 100 08/02/20 08:00 Intake & Output 08/01/20 08/02/20 08/02/20 18:59 06:59 18:59 Intake Total 830 300 Balance 830 300 Weight 47 kg Intake: Intake, IV Titration 350 Amount Piperacillin-Tazobactam 3 100 .375 gm In Sodium Chloride 0.9% 100 ml @ 25 mls/hr IVPB Q8HR [facility] Rx# :[id number] Vancomycin 750 mg In 250 Sodium Chloride 0.9% 250 ml @ 125 mls/hr IVPB Q12H [facility] Rx#:[id number] Oral 480 300 Other: Voiding Method Bedside Commode Incontinent Incontinent # Voids 1 # Bowel Movements 1 - Exam In general patient is alert and oriented 3 in no apparent distress HEENT head normocephalic and atraumatic, patient has multiple painful sores in her mouth Neck is supple no JVD no goiter no lymphadenopathy Chest exam reveals fine crackles in both lung roman no wheezing Cardiac exam reveals regular heart sounds S1 and S2 no gallops no murmurs Abdomen is soft nontender no organomegaly with normal bowel sounds Extremity exam reveals minimal edema no cyanosis or clubbing Neurological examination reveals no gross focal neurological deficit - Labs CBC & Chem 7: 08/02/20 06:36 08/02/20 06:36 Labs: Abnormal Lab Results - Last 24 Hours (Table) 08/01/20 08/02/20 08/02/20 Range/Units 19:40 06:36 06:36 WBC 2.3 L (3.8-10.6) k/uL RBC 3.45 L (3.80-5.40) m/uL Hgb 9.2 L (11.4-16.0) gm/dL Hct 28.8 L (34.0-46.0) % Plt Count 82 L (150-450) k/uL Lymphocytes # 0.2 L (1.0-4.8) k/uL Potassium 2.8 L (3.5-5.1) mmol/L Chloride 118 H (98-107) mmol/L Calcium 7.4 L (8.4-10.2) mg/dL Alkaline Phosphatase 37 L (38-126) U/L Total Protein 4.0 L (6.3-8.2) g/dL Albumin 2.1 L (3.5-5.0) g/dL Microbiology - Last 24 Hours (Table) 07/30/20 16:48 Blood Culture - Preliminary Blood No Growth after 48 hours 07/30/20 16:47 Blood Culture - Preliminary Blood No Growth after 48 hours 07/30/20 16:47 Urine Culture - Final Urine,Catheterized Escherichia coli Assessment and Plan Plan: 1. New onset atrial fibrillation was rapid ventricular response 2. Elevated troponin level 3. Neutropenic fever 4. Severe hypokalemia 5. Underlying history of non-Hodgkin lymphoma 6. Leukopenia due to chemotherapy 7. Oral candidiasis At this time patient is admitted to telemetry floor cardiology consultation and oncology consultation were requested Potassium is being corrected per protocol Will recheck potassium and magnesium level this evening Will follow in a.m.
--- NOTE | 2020-08-02 16:14 | P.PN ---
Subjective Progress Note Date: 08/02/20 Principal diagnosis: Pancytopenia Remains afebrile, counts continue to recover and within safe range.. Objective - Vital Signs Vital signs: Vital Signs Temp 97.5 F L 08/02/20 08:00 Pulse 86 08/02/20 08:00 Resp 16 08/02/20 08:00 BP 119/66 08/02/20 08:00 Pulse Ox 100 08/02/20 08:00 Intake & Output 08/01/20 08/02/20 08/02/20 18:59 06:59 18:59 Intake Total 830 300 Balance 830 300 Weight 47 kg Intake: Intake, IV Titration 350 Amount Piperacillin-Tazobactam 3 100 .375 gm In Sodium Chloride 0.9% 100 ml @ 25 mls/hr IVPB Q8HR [facility] Rx# :[id number] Vancomycin 750 mg In 250 Sodium Chloride 0.9% 250 ml @ 125 mls/hr IVPB Q12H [facility] Rx#:[id number] Oral 480 300 Other: Voiding Method Bedside Commode Incontinent Incontinent # Voids 1 # Bowel Movements 1 - Exam Constitutional General appearance: Present: cooperative, no acute distress, thin - EENT Eyes: Present: anicteric sclerae, EOMI ENT: Present: hearing grossly normal, normal oropharynx - Respiratory Respiratory: bilateral: CTA - Cardiovascular Rhythm: regular Heart sounds: normal: S1, S2 - Gastrointestinal General gastrointestinal: Present: normal bowel sounds, soft. Absent: absent bowel sounds, decreased bowel sounds, distended, hepatomegaly, hyperactive bowel sounds, organomegaly, rigid, scaphoid, splenomegaly, tenderness, umbilical hernia, ventral hernia - Integumentary Integumentary: Present: normal - Neurologic Neurologic: Present: CNII-XII intact - Musculoskeletal Musculoskeletal: Present: generalized weakness, strength equal bilaterally - Psychiatric Psychiatric: Present: A&O x's 3 - Labs CBC & Chem 7: 08/02/20 06:36 08/02/20 06:36 Labs: Abnormal Lab Results - Last 24 Hours (Table) 08/01/20 08/02/20 08/02/20 Range/Units 19:40 06:36 06:36 WBC 2.3 L (3.8-10.6) k/uL RBC 3.45 L (3.80-5.40) m/uL Hgb 9.2 L (11.4-16.0) gm/dL Hct 28.8 L (34.0-46.0) % Plt Count 82 L (150-450) k/uL Lymphocytes # 0.2 L (1.0-4.8) k/uL Potassium 2.8 L (3.5-5.1) mmol/L Chloride 118 H (98-107) mmol/L Calcium 7.4 L (8.4-10.2) mg/dL Alkaline Phosphatase 37 L (38-126) U/L Total Protein 4.0 L (6.3-8.2) g/dL Albumin 2.1 L (3.5-5.0) g/dL Microbiology - Last 24 Hours (Table) 07/30/20 16:48 Blood Culture - Preliminary Blood No Growth after 48 hours 07/30/20 16:47 Blood Culture - Preliminary Blood No Growth after 48 hours 07/30/20 16:47 Urine Culture - Final Urine,Catheterized Escherichia coli Assessment and Plan Plan: Neutropenic fever Blood culture neg at 24 hours. Urine culture E-Coli, gram neg bacilli. CXR no acute process. Stool culture ordered. 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 S/P 1st cycle of R-CHOP with GCSF. Oral Thrush - Improving - Salt and soda and nystatin ordered, mouth improved today Neutropenic typhlitis - Tolerating increased PO intake Pancytopenia due to antineoplastic chemotherapy - Continue to improve - Afebrile - No Intervention today as within safe range - Ok for xarelto, platelets above 50K per Cardio Physician Attest: I have completed the full history and physical and agree with above dictation, dictated as scribe
[2020-08-02] MEDS: RIVAROXABAN 20 MG TAB PO SCH (16:58)
[2020-08-02] MEDS: SODIUM CHLORIDE 0.9% 1,000 ML IV SCH (18:25)
--- NOTE | 2020-08-03 00:33 | PN ---
PROGRESS NOTE DATE OF SERVICE: 08/02/2020 REASON FOR FOLLOWUP: Febrile neutropenia and UTI. INTERVAL HISTORY: Patient is currently afebrile. Patient is breathing comfortably, currently on room air. Denies having any chest pain or shortness of breath or cough. No abdominal pain. Did have some diarrhea. PHYSICAL EXAMINATION: Blood pressure 143/80 with a pulse of 50. Temperature 97.7. She is 100% on room air. General description: The patient is an elderly female up in the room in no distress. Respiratory system: Unlabored breathing, decreased breath sounds in the bases. No wheeze. Heart S1, S2. Regular rate and rhythm. Abdomen soft. No tenderness. LABS: Hemoglobin 9.3, white count 2.3, BUN of 11, creatinine 0.66. DIAGNOSTIC IMPRESSION AND PLAN: 1. Patient with febrile neutropenia, source likely urine. Urine has been finalized with E coli that is sensitive pathogen. Patient neutropenia has resolved. Antibiotic will be switched over to Rocephin 1 g daily and discontinue Zosyn, finishing therapy with oral antibiotics on discharge. 2. Diarrhea, hopefully improved after discontinuation of the Zosyn. We will add Questran for symptomatic relief. MMODL / IJN: [id number] /
[2020-08-03] MEDS: SALT AND SODA MOUTHWASH 1,000 ML PO SCH ×5 (08:50→20:55)
[2020-08-03] MEDS: LIDOCAINE VISCOUS 2% 15 ML CUP MUCOUS MEM SCH ×3 (08:50→17:55)
[2020-08-03] MEDS: METOPROLOL TARTRATE 50 MG TAB PO SCH ×2 (08:53→20:55)
[2020-08-03 10:00] LABS: Non-African American GFR(CKD) 88.9 (60.0-200.0)
--- NOTE | 2020-08-03 10:50 | P.PN ---
Subjective Progress Note Date: 08/03/20 Kaylyn Mendez, is an 85-year-old female who presented to [facility] emergency room with a chief complaint of generalized weakness, vomiting and diarrhea, patient stated that she has been sick for about 10 days, she was evaluated in the emergency room her vital examination on presentation revealed a temperature of 100.2 pulse 120 respiration 16 blood pressure 148/81 pulse ox 100% on room air laboratory data revealed a white blood count of 0.2 hemoglobin 12.5 platelet count 120 sodium 140 potassium 2.3 chloride 106 CO2 27 BUN 22 creatinine 0.7 to troponin was elevated at 0.315 she was also found to have atrial fibrillation with rapid ventricular response patient was admitted to telemetry floor oncology consultation and cardiology consultation were requested. Patient has a known history of non-Hodgkin lymphoma, history of hypertension, history of hypothyroidism and history of osteoporosis. On 08/01/2020 patient was seen and examined on the medical floor she is alert and oriented 3 in no apparent distress she states that she is feeling better she is complaining of painful sores in her mouth she is complaining of generalized weakness otherwise she denies any complaints at this time there is no fever or chills no headache or dizziness no chest pain no shortness of breath no cough no nausea or vomiting no abdominal pain no diarrhea and no urinary symptoms, at this time will advance diet gradually, will use Viscous Lidocaine for painful sores in her mouth. On 08/02/2020 patient was seen and examined on the medical floor she is alert and oriented 3 in no apparent distress she is complaining of painful sores in her mouth she is also complaining of cough and weakness otherwise she denies any complaints there is no fever or chills no headache or dizziness no chest pain no shortness of breath no nausea or vomiting no abdominal pain no diarrhea no blood in the stools. No burning with urination no frequency or urgency no hematuria, patient is still maintained on IV Zosyn, awaiting final culture results and further recommendation from infectious disease On 08/03/2020 patient is alert and oriented 3. Currently sitting up in chair eating breakfast. IV antibiotics have been adjusted to IV Rocephin per infectious disease. Patient being followed by oncology services. Patient denies any complaints at this time. No concerns per nursing staff Objective - Vital Signs Vital signs: Vital Signs Temp 97.7 F 08/03/20 08:00 Pulse 56 L 08/03/20 08:00 Resp 20 08/03/20 08:00 BP 109/58 08/03/20 08:00 Pulse Ox 99 08/03/20 02:05 Intake & Output 08/02/20 08/03/20 08/03/20 18:59 06:59 18:59 Intake Total 300 340 Balance 300 340 Weight 46 kg Intake: Intake, IV Titration 220 Amount Sodium Chloride 0.9% 1, 220 000 ml @ 20 mls/hr IV . Q24H [facility] Rx#:[id number] Oral 300 120 Other: Voiding Method Incontinent Diaper Incontinent # Voids 2 2 # Bowel Movements 1 1 - Exam In general patient is alert and oriented 3 in no apparent distress HEENT head normocephalic and atraumatic, patient has multiple painful sores in her mouth Neck is supple no JVD no goiter no lymphadenopathy Chest exam reveals fine crackles in both lung roman no wheezing Cardiac exam reveals regular heart sounds S1 and S2 no gallops no murmurs Abdomen is soft nontender no organomegaly with normal bowel sounds Extremity exam reveals minimal edema no cyanosis or clubbing Neurological examination reveals no gross focal neurological deficit - Labs CBC & Chem 7: 08/02/20 06:36 08/03/20 05:52 Labs: Abnormal Lab Results - Last 24 Hours (Table) 08/03/20 Range/Units 05:52 Creatinine 0.5 L (0.6-1.5) mg/dL Microbiology - Last 24 Hours (Table) 07/30/20 16:48 Blood Culture - Preliminary Blood No Growth after 72 hours 07/30/20 16:47 Blood Culture - Preliminary Blood No Growth after 72 hours Assessment and Plan Assessment: 1. New onset atrial fibrillation was rapid ventricular response. Patient evaluated by cardiology services rate has been controlled patient maintained on Xarelto 2. Elevated troponin level per cardiology type II OK secondary to oxygen supply demand mismatch secondary to new onset atrial fibrillation 3. Neutropenic fever likely service urine. Patient currently on Rocephin currently followed by infectious disease 4. Severe hypokalemia continue replacement protocol 5. Underlying history of non-Hodgkin lymphoma. Patient being followed by oncology services 6. Leukopenia due to chemotherapy 7. Oral candidiasis. Patient maintained on a statin 8. Diarrhea. Question has been added for symptom relief per infectious disease. Continue Xarelto for anticoagulation Patient being followed by infectious disease, oncology and cardiology services Currently maintained on Rocephin Urine culture positive for E. coli .
[2020-08-03] MEDS: CHOLESTYRAMINE (WITH SUGAR) 4 GM PACKET PO SCH ×2 (11:15→17:58)
[2020-08-03] MEDS: NYSTATIN 100,000 UNIT/ML SUSP 500,000 UNIT/5 ML CUP PO SCH ×4 (11:15→20:55)
[2020-08-03 11:23] LABS: Basophils % (A) 0 %; Eosinophils % (A) 0 %; HCT 28.5 % (34.0-46.0); HGB 9.4 gm/dL (11.4-16.0); Lymphocytes # (A) 0.4 k/uL (1.0-4.8); Lymphocytes % (A) 10 %; MCH 26.8 pg (25.0-35.0); MCV 81.1 fL (80.0-100.0); Mean Platelet Volume 9.4; Monocytes # (A) 0.2 k/uL (0-1.0); Monocytes % (A) 5 %; Neutrophils # (A) 3.2 k/uL (1.3-7.7); Neutrophils % (A) 83 %; Platelet Count 117 k/uL (150-450); RBC 3.52 m/uL (3.80-5.40); RDW 15.1 % (11.5-15.5); WBC 3.8 k/uL (3.8-10.6)
--- NOTE | 2020-08-03 14:49 | PN ---
PROGRESS NOTE DATE OF SERVICE: 08/03/2020 CHIEF COMPLAINT: Tired. INTERVAL HISTORY: Kaylyn she is today as followup. She feels a little better, but she has remains overall weak and tired. No fever. No chills. No nausea or vomiting. CURRENT MEDICATION: Reviewed in her electronic medical record. PHYSICAL EXAMINATION: She is alert and oriented x3. She does not appear to be in distress. Her vital signs are temperature 97.7 afebrile, pulse 56, respiration 20, blood pressure 109/58. HEENT: Normocephalic, atraumatic. NECK: Supple. Chest equal expansion bilaterally. LUNGS: Clear. Heart is regular. ABDOMEN: Soft. No tenderness. Extremities revealed no edema. Skin few bruises. No petechiae. LYMPHATICS: Her bilateral cervical lymph nodes appeared to be smaller compared to when she was last seen in the office. LABORATORY DATA: WBC of 3.8, hemoglobin 9.4, hematocrit 28.5, platelets are 117, creatinine 0.9. IMPRESSION: 1. Neutropenic fever. The patient is doing well, clinically stable. Her neutrophils have fully recovered. Her urine culture was positive for gram-negative bacilli. 2. 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 The patient received the 1st cycle with R-CHOP which was dose reduced along with granulocyte colony-stimulating factor. 3. Oral thrush. This has improved as well. 4. Neutropenic typhlitis. This is also improving. 5. Pancytopenia related to chemotherapy. Her neutrophils have improved as well. RECOMMENDATION: Continue supportive care. Monitor blood. May continue Xarelto as recommended by [employer]. Her platelet counts are adequate. If the patient continued to improve, hopefully she will she should be able to be discharged home over the next 24-48 hours. Thank you very much. MMODL / IJN: [id number] /
[2020-08-03] MEDS: RIVAROXABAN 20 MG TAB PO SCH (17:56)
[2020-08-03 19:06] LABS: Albumin 2.8 g/dL (3.80-4.90); Albumin/Globulin Ratio 2.55 (1.60-3.17); Anion Gap 6.1 mmol/L (4.00-12.00); Calcium 7.3 mg/dL (8.7-10.3); Carbon Dioxide 26.9 mmol/L (21.6-31.8); Globulin 1.1 g/dL (1.6-3.3); Non-African American GFR(CKD) 88.9 (60.0-200.0); Total Bilirubin 0.8 mg/dL (0.2-1.2); Total Protein 3.9 g/dL (6.2-8.2)
--- NOTE | 2020-08-03 23:11 | PN ---
PROGRESS NOTE DATE OF SERVICE: 08/03/2020 REASON FOR FOLLOWUP: Urinary tract infection. INTERVAL HISTORY: The patient is currently afebrile. The patient is breathing comfortably. Denies having any chest pain. No shortness of breath, cough. No nausea, abdominal pain, diarrhea has resolved. PHYSICAL EXAMINATION: Blood pressure 130/67, pulse of 76, temperature 97.4. She is 99% on room air. General description: The patient is an elderly female up in the chair in no distress. Respiratory system: Unlabored breathing, clear to auscultation anteriorly. Heart S1, S2. Regular rate and rhythm. Abdomen soft. No tenderness. LAB: Hemoglobin 9.4, white count 3.8. BUN of 5, creatinine 0.5. DIAGNOSTIC IMPRESSION AND PLAN: Patient with febrile neutropenia. Source is likely the E. coli urinary tract infection. Covered with Rocephin to continue, finishing therapy with oral antibiotics. Continue supportive care. MMODL / IJN: [id number] /
[2020-08-04 06:55] LABS: Basophils % (A) 0 %; Eosinophils % (A) 0 %; HCT 29.7 % (34.0-46.0); HGB 10.1 gm/dL (11.4-16.0); Lymphocytes # (A) 0.4 k/uL (1.0-4.8); Lymphocytes % (A) 10 %; MCH 27.2 pg (25.0-35.0); MCHC 33.9 g/dL (31.0-37.0); MCV 80.3 fL (80.0-100.0); Mean Platelet Volume 9.4; Monocytes # (A) 0.3 k/uL (0-1.0); Monocytes % (A) 6 %; Neutrophils # (A) 3.4 k/uL (1.3-7.7); Neutrophils % (A) 82 %; Platelet Count 163 k/uL (150-450); RDW 14.9 % (11.5-15.5); WBC 4.2 k/uL (3.8-10.6)
[2020-08-04] MEDS: SODIUM CHLORIDE 0.9% 1,000 ML IV SCH ×2 (07:38→23:00)
[2020-08-04] MEDS: LIDOCAINE VISCOUS 2% 15 ML CUP MUCOUS MEM SCH ×3 (07:39→16:52)
[2020-08-04] MEDS: METOPROLOL TARTRATE 50 MG TAB PO SCH ×2 (08:58→08:59)
[2020-08-04] MEDS: NYSTATIN 100,000 UNIT/ML SUSP 500,000 UNIT/5 ML CUP PO SCH ×4 (08:58→23:02)
[2020-08-04] MEDS: CHOLESTYRAMINE (WITH SUGAR) 4 GM PACKET PO SCH ×2 (09:16→16:54)
[2020-08-04] MEDS: SALT AND SODA MOUTHWASH 1,000 ML PO SCH ×5 (12:08→23:02)
--- NOTE | 2020-08-04 13:48 | P.PN ---
Subjective Progress Note Date: 08/04/20 Kaylyn Mendez, is an 85-year-old female who presented to [facility] emergency room with a chief complaint of generalized weakness, vomiting and diarrhea, patient stated that she has been sick for about 10 days, she was evaluated in the emergency room her vital examination on presentation revealed a temperature of 100.2 pulse 120 respiration 16 blood pressure 148/81 pulse ox 100% on room air laboratory data revealed a white blood count of 0.2 hemoglobin 12.5 platelet count 120 sodium 140 potassium 2.3 chloride 106 CO2 27 BUN 22 creatinine 0.7 to troponin was elevated at 0.315 she was also found to have atrial fibrillation with rapid ventricular response patient was admitted to telemetry floor oncology consultation and cardiology consultation were requested. Patient has a known history of non-Hodgkin lymphoma, history of hypertension, history of hypothyroidism and history of osteoporosis. On 08/01/2020 patient was seen and examined on the medical floor she is alert and oriented 3 in no apparent distress she states that she is feeling better she is complaining of painful sores in her mouth she is complaining of generalized weakness otherwise she denies any complaints at this time there is no fever or chills no headache or dizziness no chest pain no shortness of breath no cough no nausea or vomiting no abdominal pain no diarrhea and no urinary symptoms, at this time will advance diet gradually, will use Viscous Lidocaine for painful sores in her mouth. On 08/02/2020 patient was seen and examined on the medical floor she is alert and oriented 3 in no apparent distress she is complaining of painful sores in her mouth she is also complaining of cough and weakness otherwise she denies any complaints there is no fever or chills no headache or dizziness no chest pain no shortness of breath no nausea or vomiting no abdominal pain no diarrhea no blood in the stools. No burning with urination no frequency or urgency no hematuria, patient is still maintained on IV Zosyn, awaiting final culture results and further recommendation from infectious disease On 08/03/2020 patient is alert and oriented 3. Currently sitting up in chair eating breakfast. IV antibiotics have been adjusted to IV Rocephin per infectious disease. Patient being followed by oncology services. Patient denies any complaints at this time. No concerns per nursing staff On 08/04/2020 patient was seen and examined on the medical floor she is alert and oriented 3 in no apparent distress she is complaining of cough and weakness otherwise she denies any complaints there is no fever or chills no headache or dizziness no chest pain no shortness of breath no nausea or vomiting no a bdominal pain no diarrhea no blood in the stools. No burning with urination no frequency or urgency no hematuria, Objective - Vital Signs Vital signs: Vital Signs Temp 98.5 F 08/04/20 02:38 Pulse 65 08/04/20 02:38 Resp 16 08/04/20 02:38 BP 152/68 08/04/20 02:38 Pulse Ox 100 08/04/20 02:38 Intake & Output 08/03/20 08/04/20 08/04/20 18:59 06:59 18:59 Intake Total 280 Output Total 1 Balance 279 Weight 48 kg Intake: Intake, IV Titration 220 Amount Sodium Chloride 0.9% 1, 220 000 ml @ 20 mls/hr IV . Q24H [facility] Rx#:[id number] Oral 60 Output: Urine 1 Other: Voiding Method Diaper Incontinent # Voids 2 1 # Bowel Movements 1 1 - Exam In general patient is alert and oriented 3 in no apparent distress HEENT head normocephalic and atraumatic, patient has multiple painful sores in her mouth Neck is supple no JVD no goiter no lymphadenopathy Chest exam reveals fine crackles in both lung roman no wheezing Cardiac exam reveals regular heart sounds S1 and S2 no gallops no murmurs Abdomen is soft nontender no organomegaly with normal bowel sounds Extremity exam reveals minimal edema no cyanosis or clubbing Neurological examination reveals no gross focal neurological deficit - Labs CBC & Chem 7: 08/04/20 06:40 08/04/20 06:40 Labs: Abnormal Lab Results - Last 24 Hours (Table) 08/03/20 08/03/20 08/04/20 Range/Units 09:01 09:01 06:40 RBC 3.52 L 3.70 L (3.80-5.40) m/uL Hgb 9.4 L 10.1 L (11.4-16.0) gm/dL Hct 28.5 L 29.7 L (34.0-46.0) % Plt Count 117 L (150-450) k/uL Lymphocytes # 0.4 L 0.4 L (1.0-4.8) k/uL Potassium 3.0 L (3.5-5.5) mmol/L BUN 5.0 L (9.0-27.0) mg/dL Creatinine 0.5 L (0.6-1.5) mg/dL BUN/Creatinine Ratio 10.00 L (12.00-20.00) Ratio Calcium 7.3 L (8.7-10.3) mg/dL AST 12 L (13-35) U/L Alkaline Phosphatase 40 L (41-126) U/L Total Protein 3.9 L (6.2-8.2) g/dL Albumin 2.80 L (3.80-4.90) g/dL Globulin 1.1 L (1.6-3.3) g/dL 08/04/20 Range/Units 06:40 RBC (3.80-5.40) m/uL Hgb (11.4-16.0) gm/dL Hct (34.0-46.0) % Plt Count (150-450) k/uL Lymphocytes # (1.0-4.8) k/uL Potassium 3.0 L (3.5-5.5) mmol/L BUN (9.0-27.0) mg/dL Creatinine (0.6-1.5) mg/dL BUN/Creatinine Ratio (12.00-20.00) Ratio Calcium (8.7-10.3) mg/dL AST (13-35) U/L Alkaline Phosphatase (41-126) U/L Total Protein (6.2-8.2) g/dL Albumin (3.80-4.90) g/dL Globulin (1.6-3.3) g/dL Microbiology - Last 24 Hours (Table) 07/30/20 16:47 Blood Culture - Preliminary Blood No Growth after 96 hours 07/30/20 16:48 Blood Culture - Preliminary Blood No Growth after 96 hours Assessment and Plan Plan: 1. New onset atrial fibrillation was rapid ventricular response 2. Elevated troponin level 3. Neutropenic fever 4. Severe hypokalemia 5. Underlying history of non-Hodgkin lymphoma 6. Leukopenia due to chemotherapy 7. Oral candidiasis At this time patient is admitted to telemetry floor cardiology consultation and oncology consultation were requested Potassium is being corrected per protocol Will recheck potassium and magnesium level this evening Will follow in a.m.
--- NOTE | 2020-08-04 15:29 | PN ---
PROGRESS NOTE DATE OF SERVICE: August 04, 2020. CHIEF COMPLAINT: Weak. Kaylyn is seen today as followup. She feels weak, but otherwise she is doing fine. No nausea or vomiting. No fever or chills. No melena, hematochezia, hematuria or hemoptysis. CURRENT MEDICATION: Reviewed in her electronic medical record. PHYSICAL EXAMINATION: She is alert and oriented x3. She does not appear to be in distress. Her vital signs are temperature 97.8, pulse 77, respiration 18, blood pressure 149/82. HEENT: Normocephalic, atraumatic. No icterus. NECK: Supple. Lungs are clear. Heart is regular. ABDOMEN: Soft. Extremities reveal no edema. LABORATORY DATA: WBC of 4.2, hemoglobin 10.1, hematocrit 29.7, platelets 167. Sodium 141, potassium is 3.0, chloride 101. CO2 is 26.9, BUN 8, creatinine 0.8, BUN is 5, alkaline phosphatase 40, total bilirubin 0.8. IMPRESSION: 1. Neutropenic fever. The patient neutrophil counts have improved. 2. Urine culture positive for gram-negative bacilli. 3. Diffuse large B-cell lymphoma [facility] has transformed from low-grade malt lymphoma. She has received her 1st cycle of R-CHOP, which was dose reduced along was granulocyte count colony-stimulating factor. 4. Gram-negative urinary tract infection. Currently on ceftriaxone per Infectious Disease. Plan to switch her to oral antibiotics. RECOMMENDATION: 1. Continue antibiotic per ID. 2. Obtain physical therapy. 3. We will continue to monitor blood count. 4. Hopefully with physical therapy, the patient will be discharged home within the next 24-48 hours. MMODL / IJN: [id number] /
[2020-08-04] MEDS: RIVAROXABAN 20 MG TAB PO SCH (16:54)
[2020-08-05] MEDS: SALT AND SODA MOUTHWASH 1,000 ML PO SCH ×5 (02:34→22:58)
--- NOTE | 2020-08-05 02:38 | PN ---
PROGRESS NOTE DATE OF SERVICE: 08/04/2020 REASON FOR FOLLOWUP: E coli urinary tract infection. INTERVAL HISTORY: The patient is currently afebrile. Patient is feeling better. Breathing comfortably. The patient denies having any chest pain. No shortness of breath or cough. No abdominal pain or diarrhea. PHYSICAL EXAMINATION: Her blood pressure is 125/82 with a pulse of 66, temperature 98.2. She is 98% on room air. General description is an elderly female up in the bed in no distress. RESPIRATORY SYSTEM: Unlabored breathing. Clear to auscultation anteriorly. HEART: S1, S2. Regular rate and rhythm. ABDOMEN: Soft, no tenderness. LABS: Hemoglobin is 10.1, white count 4.2. Blood culture negative. DIAGNOSTIC IMPRESSION AND PLAN: Patient with Escherichia coli urinary tract infection, currently covered with Rocephin which can be transitioned to oral Cipro on discharge for short course. Continue with supportive care. MMODL / IJN: [id number] /
[2020-08-05 07:54] LABS: Basophils % (A) 1 %; Eosinophils % (A) 0 %; HCT 30.5 % (34.0-46.0); HGB 10.4 gm/dL (11.4-16.0); Lymphocytes # (A) 0.4 k/uL (1.0-4.8); Lymphocytes % (A) 10 %; MCH 27.7 pg (25.0-35.0); MCHC 34.2 g/dL (31.0-37.0); Monocytes # (A) 0.2 k/uL (0-1.0); Monocytes % (A) 5 %; Neutrophils # (A) 3.5 k/uL (1.3-7.7); Neutrophils % (A) 83 %; Platelet Count 198 k/uL (150-450); RBC 3.76 m/uL (3.80-5.40); RDW 15.3 % (11.5-15.5); WBC 4.2 k/uL (3.8-10.6)
[2020-08-05] MEDS: CHOLESTYRAMINE (WITH SUGAR) 4 GM PACKET PO SCH ×2 (09:06→16:39)
[2020-08-05] MEDS: METOPROLOL TARTRATE 50 MG TAB PO SCH ×2 (09:06→22:35)
[2020-08-05] MEDS: LIDOCAINE VISCOUS 2% 15 ML CUP MUCOUS MEM SCH ×3 (09:06→16:39)
[2020-08-05] MEDS: NYSTATIN 100,000 UNIT/ML SUSP 500,000 UNIT/5 ML CUP PO SCH ×4 (09:15→22:58)
--- NOTE | 2020-08-05 10:23 | P.PN ---
Subjective Progress Note Date: 08/05/20 Principal diagnosis: Neutropenic fever, s/p 1st chemo for lymphoma In f/u today pt states feeling pretty good, no nausea, her stool is firmer, no abd pain or cramping, no fever. She had developed a sore on her lip and her mouth is tender again. She ate toast and a banana today. Objective - Vital Signs Vital signs: Vital Signs Temp 98.3 F 08/05/20 08:13 Pulse 80 08/05/20 08:13 Resp 15 08/05/20 08:13 BP 153/90 08/05/20 08:13 Pulse Ox 99 08/05/20 08:13 Intake & Output 08/04/20 08/05/20 08/05/20 18:59 06:59 18:59 Output Total 1 1 Balance -1 -1 Weight 48 kg Output: Urine 1 Stool 1 Other: Voiding Method Diaper Diaper Incontinent # Voids 1 1 - Constitutional General appearance: Present: cooperative, no acute distress, thin - EENT EENT Comment(s): lower lip sore, mucositis inside the lower lip, no other thrush Eyes: Present: anicteric sclerae, EOMI ENT: Present: hearing grossly normal - Respiratory Respiratory: bilateral: CTA - Cardiovascular Rhythm: irregularly irregular Heart sounds: normal: S1, S2 Abnormal Heart Sounds: Absent: systolic murmur, diastolic murmur, rub, S3 Gallop, S4 Gallop, click, other - Peripheral edema leg Peripheral Edema: bilateral: None - Gastrointestinal General gastrointestinal: Present: normal bowel sounds, soft - Neurologic Neurologic: Present: CNII-XII intact - Musculoskeletal Musculoskeletal: Present: generalized weakness - Psychiatric Psychiatric: Present: A&O x's 3, appropriate affect, intact judgment & insight - Labs CBC & Chem 7: 08/05/20 07:14 08/05/20 07:30 Labs: Abnormal Lab Results - Last 24 Hours (Table) 08/05/20 08/05/20 Range/Units 07:14 07:30 RBC 3.76 L (3.80-5.40) m/uL Hgb 10.4 L (11.4-16.0) gm/dL Hct 30.5 L (34.0-46.0) % Lymphocytes # 0.4 L (1.0-4.8) k/uL Potassium 3.4 L (3.5-5.1) mmol/L Microbiology - Last 24 Hours (Table) 07/30/20 16:48 Blood Culture - Preliminary Blood No Growth after 120 hours 07/30/20 16:47 Blood Culture - Preliminary Blood No Growth after 120 hours Assessment and Plan (1) Neutropenic fever Narrative/Plan: Pt did receive GCSF post chemo, WBC and ANC did recover, WNL today Current Visit: Yes Status: Resolved Priority: High Code(s): D70.9 - NE UTROPENIA, UNSPECIFIED; R50.81 - FEVER PRESENTING WITH CONDITIONS CLASSIFIED ELSEWHERE SNOMED Code(s): 214736117 (2) Leukopenia due to antineoplastic chemotherapy Narrative/Plan: Low WBC due to chemo. GCSF, WBC recovered Current Visit: Yes Status: Resolved Code(s): D70.1 - AGRANULOCYTOSIS SECONDARY TO CANCER CHEMOTHERAPY; T45.1X5A - ADVERSE EFFECT OF ANTINEOPLASTIC AND IMMUNOSUP DRUGS, INIT SNOMED Code(s): 579104710 (3) NHL (non-Hodgkin's lymphoma) Narrative/Plan: [facility] DLBCL. S/P 1st cycle of R-CHOP with GCSF. Current Visit: Yes Status: Acute Priority: High Code(s): C85.90 - NON- HODGKIN LYMPHOMA, UNSPECIFIED, UNSPECIFIED SITE SNOMED Code(s): 620947515 (4) Thrush Current Visit: Yes Status: Resolved Priority: High Code(s): B37.0 - CANDIDAL STOMATITIS SNOMED Code(s): 79697558 (5) Neutropenic typhlitis Narrative/Plan: WBC/ANC recovered. Pt tolerating reg diet. Her stool is soft. Nursing is going to monitor and see if questran dose/freq needs to be adjusted Current Visit: Yes Status: Resolved Priority: High Code(s): K36 - OTHER APPENDICITIS SNOMED Code(s): 3309985 (6) Pancytopenia due to antineoplastic chemotherapy Narrative/Plan: Hgb and plt have dropped since admit but, are stable and starting to recuperate. No transfusions were needed. Current Visit: Yes Status: Acute Priority: High Code(s): D61.810 - ANTINEOPLASTIC CHEMOTHERAPY INDUCED PANCYTOPENIA; T45.1X5A - ADVERSE EFFECT OF ANTINEOPLASTIC AND IMMUNOSUP DRUGS, INIT SNOMED Code(s): 262889935892228 Plan: Ok for xarelto per Cardiology recs. Treat for mucositis in lower lip and cold sore K+ being replaced Cools solution will be sent to pharmacy
[2020-08-05] MEDS: MAG HYDROX/AL HYDROX/SIMETH 30 ML, diphenhydrAMINE ELIXIR 75 MG, LIDOCAINE VISCOUS 30 ML PO SCH ×9 (10:51→22:58)
[2020-08-05 11:47] LABS: ALT 21 U/L (8-44); AST 15 U/L (13-35); Alkaline Phosphatase 47 U/L (41-126); Blood Urea Nitrogen <5.0 mg/dL (9.0-27.0); Calcium 7.4 mg/dL (8.7-10.3); Carbon Dioxide 30.4 mmol/L (21.6-31.8); Chloride 106 mmol/L (96-109); Globulin 1.2 g/dL (1.6-3.3); Glucose 90 mg/dL (70-110); Non-African American GFR(CKD) 88.9 (60.0-200.0); Potassium 3.3 mmol/L (3.5-5.5); Sodium 139 mmol/L (135-145); Total Bilirubin 0.4 mg/dL (0.2-1.2); Total Protein 4.2 g/dL (6.2-8.2)
--- NOTE | 2020-08-05 14:13 | PN ---
PROGRESS NOTE DATE OF SERVICE: 08/05/2020 REASON FOR FOLLOWUP: Urinary tract infection. INTERVAL HISTORY: The patient is currently afebrile. Patient is feeling better, breathing comfortably. Denies having any chest pain. No chest pain. No abdominal pain no diarrhea. PHYSICAL EXAMINATION: Blood pressure 153/90 with a pulse of 80, temperature is 98.7, she is 99% on room air. General description is an elderly female, lying in bed in no distress. RESPIRATORY SYSTEM: Unlabored breathing, clear to auscultation anteriorly. HEART: S1, S2. ABDOMEN: Soft. No tenderness. LABS: Creatinine 0.59. DIAGNOSTIC IMPRESSION AND PLAN: Patient with an E coli urinary tract infection, clinically improved. Overall hospital course of oral Cipro and close outpatient followup. MMODL / IJN: [id number] /
[2020-08-05] MEDS: RIVAROXABAN 20 MG TAB PO SCH (16:39)
[2020-08-05] MEDS: SODIUM CHLORIDE 0.9% 1,000 ML IV SCH (16:44)
--- NOTE | 2020-08-05 18:30 | P.PN ---
Subjective Progress Note Date: 08/05/20 Kaylyn Mendez, is an 85-year-old female who presented to [facility] emergency room with a chief complaint of generalized weakness, vomiting and diarrhea, patient stated that she has been sick for about 10 days, she was evaluated in the emergency room her vital examination on presentation revealed a temperature of 100.2 pulse 120 respiration 16 blood pressure 148/81 pulse ox 100% on room air laboratory data revealed a white blood count of 0.2 hemoglobin 12.5 platelet count 120 sodium 140 potassium 2.3 chloride 106 CO2 27 BUN 22 creatinine 0.7 to troponin was elevated at 0.315 she was also found to have atrial fibrillation with rapid ventricular response patient was admitted to telemetry floor oncology consultation and cardiology consultation were requested. Patient has a known history of non-Hodgkin lymphoma, history of hypertension, history of hypothyroidism and history of osteoporosis. On 08/01/2020 patient was seen and examined on the medical floor she is alert and oriented 3 in no apparent distress she states that she is feeling better she is complaining of painful sores in her mouth she is complaining of generalized weakness otherwise she denies any complaints at this time there is no fever or chills no headache or dizziness no chest pain no shortness of breath no cough no nausea or vomiting no abdominal pain no diarrhea and no urinary symptoms, at this time will advance diet gradually, will use Viscous Lidocaine for painful sores in her mouth. On 08/02/2020 patient was seen and examined on the medical floor she is alert and oriented 3 in no apparent distress she is complaining of painful sores in her mouth she is also complaining of cough and weakness otherwise she denies any complaints there is no fever or chills no headache or dizziness no chest pain no shortness of breath no nausea or vomiting no abdominal pain no diarrhea no blood in the stools. No burning with urination no frequency or urgency no hematuria, patient is still maintained on IV Zosyn, awaiting final culture results and further recommendation from infectious disease On 08/03/2020 patient is alert and oriented 3. Currently sitting up in chair eating breakfast. IV antibiotics have been adjusted to IV Rocephin per infectious disease. Patient being followed by oncology services. Patient denies any complaints at this time. No concerns per nursing staff On 08/04/2020 patient was seen and examined on the medical floor she is alert and oriented 3 in no apparent distress she is complaining of cough and weakness otherwise she denies any complaints there is no fever or chills no headache or dizziness no chest pain no shortness of breath no nausea or vomiting no a bdominal pain no diarrhea no blood in the stools. No burning with urination no frequency or urgency no hematuria, On 08/05/2020 patient was seen and examined on the medical floor she is alert and oriented 3 in no apparent distress she is feeling well she denies any symptoms at this time possibility of going to [facility] for rehab was discussed was patient however she is refusing adamantly to go to any custodial for rehab she stated that she wants to go home with her all the e quipment she needs at home. At this time patient is denying any symptoms there is no fever or chills no headache or dizziness no chest pain no shortness of breath no cough no nausea or vomiting no abdominal pain no diarrhea no blood in the stools no burning with urination no frequency or urgency and no hematuria, will re-assess gait again tomorrow, if patient is stable and cleared by all specialists she will be discharged to home tomorrow. Objective - Vital Signs Vital signs: Vital Signs Temp 98.5 F 08/05/20 14:47 Pulse 67 08/05/20 14:47 Resp 17 08/05/20 14:47 BP 136/65 08/05/20 14:47 Pulse Ox 100 08/05/20 14:47 Intake & Output 08/04/20 08/05/20 08/05/20 18:59 06:59 18:59 Output Total 1 1 Balance -1 -1 Weight 48 kg 48 kg Output: Urine 1 Stool 1 Other: Voiding Method Diaper Diaper Incontinent # Voids 1 1 - Exam In general patient is alert and oriented 3 in no apparent distress HEENT head normocephalic and atraumatic, patient has multiple painful sores in her mouth Neck is supple no JVD no goiter no lymphadenopathy Chest exam reveals fine crackles in both lung roman no wheezing Cardiac exam reveals regular heart sounds S1 and S2 no gallops no murmurs Abdomen is soft nontender no organomegaly with normal bowel sounds Extremity exam reveals minimal edema no cyanosis or clubbing Neurological examination reveals no gross focal neurological deficit - Labs CBC & Chem 7: 08/05/20 07:14 08/05/20 07:30 Labs: Abnormal Lab Results - Last 24 Hours (Table) 08/05/20 08/05/20 08/05/20 Range/Units 07:14 07:18 07:30 RBC 3.76 L (3.80-5.40) m/uL Hgb 10.4 L (11.4-16.0) gm/dL Hct 30.5 L (34.0-46.0) % Lymphocytes # 0.4 L (1.0-4.8) k/uL Potassium 3.3 L 3.4 L (3.5-5.5) mmol/L Anion Gap 2.60 L (4.00-12.00) mmol/L BUN <5.0 L (9.0-27.0) mg/dL Creatinine 0.5 L (0.6-1.5) mg/dL Calcium 7.4 L (8.7-10.3) mg/dL Total Protein 4.2 L (6.2-8.2) g/dL Albumin 3.00 L (3.80-4.90) g/dL Globulin 1.2 L (1.6-3.3) g/dL Microbiology - Last 24 Hours (Table) 07/30/20 16:48 Blood Culture - Preliminary Blood No Growth after 120 hours 07/30/20 16:47 Blood Culture - Preliminary Blood No Growth after 120 hours Assessment and Plan Plan: 1. New onset atrial fibrillation was rapid ventricular response 2. Elevated troponin level 3. Neutropenic fever 4. Severe hypokalemia 5. Underlying history of non-Hodgkin lymphoma 6. Leukopenia due to chemotherapy 7. Oral candidiasis At this time patient is admitted to telemetry floor cardiology consultation and oncology consultation were requested Potassium is being corrected per protocol Will recheck potassium and magnesium level this evening Will follow in a.m.
[2020-08-06] MEDS: SALT AND SODA MOUTHWASH 1,000 ML PO SCH ×6 (01:24→23:25)
[2020-08-06] MEDS: LIDOCAINE VISCOUS 2% 15 ML CUP MUCOUS MEM SCH ×3 (06:24→16:58)
[2020-08-06] MEDS: METOPROLOL TARTRATE 50 MG TAB PO SCH ×2 (09:34→23:06)
[2020-08-06] MEDS: CHOLESTYRAMINE (WITH SUGAR) 4 GM PACKET PO SCH ×2 (09:34→16:54)
[2020-08-06] MEDS: NYSTATIN 100,000 UNIT/ML SUSP 500,000 UNIT/5 ML CUP PO SCH ×4 (09:37→23:09)
[2020-08-06] MEDS: MAG HYDROX/AL HYDROX/SIMETH 30 ML, diphenhydrAMINE ELIXIR 75 MG, LIDOCAINE VISCOUS 30 ML PO SCH ×9 (09:39→23:07)
--- NOTE | 2020-08-06 13:05 | P.PN ---
Subjective Progress Note Date: 08/06/20 Kaylyn Mendez, is an 85-year-old female who presented to [facility] emergency room with a chief complaint of generalized weakness, vomiting and diarrhea, patient stated that she has been sick for about 10 days, she was evaluated in the emergency room her vital examination on presentation revealed a temperature of 100.2 pulse 120 respiration 16 blood pressure 148/81 pulse ox 100% on room air laboratory data revealed a white blood count of 0.2 hemoglobin 12.5 platelet count 120 sodium 140 potassium 2.3 chloride 106 CO2 27 BUN 22 creatinine 0.7 to troponin was elevated at 0.315 she was also found to have atrial fibrillation with rapid ventricular response patient was admitted to telemetry floor oncology consultation and cardiology consultation were requested. Patient has a known history of non-Hodgkin lymphoma, history of hypertension, history of hypothyroidism and history of osteoporosis. On 08/01/2020 patient was seen and examined on the medical floor she is alert and oriented 3 in no apparent distress she states that she is feeling better she is complaining of painful sores in her mouth she is complaining of generalized weakness otherwise she denies any complaints at this time there is no fever or chills no headache or dizziness no chest pain no shortness of breath no cough no nausea or vomiting no abdominal pain no diarrhea and no urinary symptoms, at this time will advance diet gradually, will use Viscous Lidocaine for painful sores in her mouth. On 08/02/2020 patient was seen and examined on the medical floor she is alert and oriented 3 in no apparent distress she is complaining of painful sores in her mouth she is also complaining of cough and weakness otherwise she denies any complaints there is no fever or chills no headache or dizziness no chest pain no shortness of breath no nausea or vomiting no abdominal pain no diarrhea no blood in the stools. No burning with urination no frequency or urgency no hematuria, patient is still maintained on IV Zosyn, awaiting final culture results and further recommendation from infectious disease On 08/03/2020 patient is alert and oriented 3. Currently sitting up in chair eating breakfast. IV antibiotics have been adjusted to IV Rocephin per infectious disease. Patient being followed by oncology services. Patient denies any complaints at this time. No concerns per nursing staff On 08/04/2020 patient was seen and examined on the medical floor she is alert and oriented 3 in no apparent distress she is complaining of cough and weakness otherwise she denies any complaints there is no fever or chills no headache or dizziness no chest pain no shortness of breath no nausea or vomiting no a bdominal pain no diarrhea no blood in the stools. No burning with urination no frequency or urgency no hematuria, On 08/05/2020 patient was seen and examined on the medical floor she is alert and oriented 3 in no apparent distress she is feeling well she denies any symptoms at this time possibility of going to [facility] for rehab was discussed was patient however she is refusing adamantly to go to any long term for rehab she stated that she wants to go home with her all the e quipment she needs at home. At this time patient is denying any symptoms there is no fever or chills no headache or dizziness no chest pain no shortness of breath no cough no nausea or vomiting no abdominal pain no diarrhea no blood in the stools no burning with urination no frequency or urgency and no hematuria, will re-assess gait again tomorrow, if patient is stable and cleared by all specialists she will be discharged to home tomorrow. On 08/06/2020 patient is alert and oriented 3. Patient refusing to go to rehab. Discussed case with case management to arrange coverage for anticoagula tion due to now patient's discharge plan to home. Per case management patient would have high co-pay for eliquis and Xarelto. Attempting to clarify with cardiology services for anticoagulation in coverage.@Patient denies chest pain or shortness of breath. Patient denies nausea vomiting or diarrhea. Patient denies any urinary burning or frequency Objective - Vital Signs Vital signs: Vital Signs Temp 97.8 F 08/06/20 06:39 Pulse 74 08/06/20 06:39 Resp 17 08/06/20 06:39 BP 147/77 08/06/20 06:39 Pulse Ox 97 08/06/20 06:39 Intake & Output 08/05/20 08/06/20 08/06/20 18:59 06:59 18:59 Intake Total 720 180 Output Total 1 Balance 719 180 Weight 48 kg 46.5 kg Intake: Oral 720 180 Output: Urine 1 Other: Voiding Method Diaper Diaper # Voids 1 - Exam In general patient is alert and oriented 3 in no apparent distress HEENT head normocephalic and atraumatic, patient has multiple painful sores in her mouth Neck is supple no JVD no goiter no lymphadenopathy Chest exam reveals fine crackles in both lung roman no wheezing Cardiac exam reveals regular heart sounds S1 and S2 no gallops no murmurs Abdomen is soft nontender no organomegaly with normal bowel sounds Extremity exam reveals minimal edema no cyanosis or clubbing Neurological examination reveals no gross focal neurological deficit - Labs CBC & Chem 7: 08/05/20 07:14 08/05/20 07:30 Labs: Microbiology - Last 24 Hours (Table) 07/30/20 16:48 Blood Culture - Final Blood No Growth after 144 hours 07/30/20 16:47 Blood Culture - Final Blood No Growth after 144 hours Assessment and Plan Plan: 1. New onset atrial fibrillation was rapid ventricular response 2. Elevated troponin level 3. Neutropenic fever secondary to UTI 4. Severe hypokalemia. Continue replacing per protocol 5. Underlying history of non-Hodgkin lymphoma 6. Leukopenia due to chemotherapy 7. Oral candidiasis 8. Urinary tract infection. Urine culture positive for E. coli. Patient will be maintained on the proper infectious disease upon discharge Awaiting on cardiology recommendation for anticoagulation due to high deductible per case management Patient refusing rehab
--- NOTE | 2020-08-06 13:19 | PN ---
PROGRESS NOTE DATE OF SERVICE: 08/06/2020. REASON FOR FOLLOWUP: Urinary tract infection. INTERVAL HISTORY: The patient is currently afebrile. Patient is breathing comfortably. Denies having any chest pain or shortness of breath or cough. No nausea, no vomiting. No abdominal pain or diarrhea. PHYSICAL EXAMINATION: Blood pressure 147/77, pulse of 74, temperature 97.8. She is 97% on room air. General description is an elderly female up in the chair in no distress. RESPIRATORY SYSTEM: Unlabored breathing, clear to auscultation anteriorly. HEART: S1, S2. Regular rate and rhythm. ABDOMEN: Soft, no tenderness. LABS: BUN of 5 creatinine 0.5. Blood culture negative. DIAGNOSTIC IMPRESSION AND PLAN: Patient with febrile neutropenia in this patient who did have a component of Escherichia coli urinary tract infection currently on IV Rocephin, finishing therapy with oral Cipro for another 5 to 7 days to finish course of therapy. Continue supportive care. MMODL / IJN: [id number] /
[2020-08-06] MEDS: RIVAROXABAN 20 MG TAB PO SCH (16:54)
[2020-08-06] MEDS: SODIUM CHLORIDE 0.9% 1,000 ML IV SCH (16:57)
--- NOTE | 2020-08-06 19:45 | P.PN ---
Subjective Progress Note Date: 08/06/20 Principal diagnosis: Neutropenic fever, s/p 1st chemo for lymphoma In f/u today pt states feeling pretty good, the sore on her lip is drying up, mouth is looking better. Objective - Vital Signs Vital signs: Vital Signs Temp 98.3 F 08/06/20 15:01 Pulse 47 L 08/06/20 15:01 Resp 17 08/06/20 15:01 BP 132/75 08/06/20 15:01 Pulse Ox 97 08/06/20 15:01 Intake & Output 08/06/20 08/06/20 08/07/20 06:59 18:59 06:59 Intake Total 720 180 Output Total 1 Balance 719 180 Weight 46.5 kg Intake: Oral 720 180 Output: Urine 1 Other: Voiding Method Diaper # Voids 1 1 - Constitutional General appearance: Present: average body habitus, disheveled, no acute distress - EENT EENT Comment(s): lip ulcer is drying up, the inner lower lip ulcers are just red now Eyes: Present: anicteric sclerae, EOMI ENT: Present: hearing grossly normal - Respiratory Respiratory: bilateral: CTA - Cardiovascular Heart sounds: normal: S1, S2 Abnormal Heart Sounds: Absent: systolic murmur, diastolic murmur, rub, S3 Gallop, S4 Gallop, click, other - Peripheral edema leg Peripheral Edema: bilateral: None - Gastrointestinal General gastrointestinal: Present: normal bowel sounds, soft - Neurologic Neurologic: Present: CNII-XII intact - Musculoskeletal Musculoskeletal: Present: strength equal bilaterally - Psychiatric Psychiatric: Present: A&O x's 3, appropriate affect, intact judgment & insight - Labs CBC & Chem 7: 08/05/20 07:14 08/05/20 07:30 Labs: Microbiology - Last 24 Hours (Table) 07/30/20 16:48 Blood Culture - Final Blood No Growth after 144 hours 07/30/20 16:47 Blood Culture - Final Blood No Growth after 144 hours Assessment and Plan (1) Neutropenic fever Narrative/Plan: Pt did receive GCSF post chemo, WBC and ANC recovered. Current Visit: Yes Status: Resolved Priority: High Code(s): D70.9 - NEUTROPENIA, UNSPECIFIED; R50.81 - FEVER PRESENTING WITH CONDITIONS CLASSIFIED ELSEWHERE SNOMED Code(s): 652879149 (2) Leukopenia due to antineoplastic chemotherapy Narrative/Plan: Low WBC due to chemo. GCSF, WBC recovered Current Visit: Yes Status: Resolved Code(s): D70.1 - AGRANULOCYTOSIS BRIGHT [place] TO CANCER CHEMOTHERAPY; T45.1X5A - ADVERSE EFFECT OF ANTINEOPLASTIC AND IMMUNOSUP DRUGS, INIT SNOMED Code(s): 886499479 (3) NHL (non-Hodgkin's lymphoma) Narrative/Plan: [facility]inal [facility] DLBCL. S/P 1st cycle of R-CHOP with GCSF. Reviewed case with Attending Oncologist. 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 Unfortunately, the treatment she is being given is the only shot at getting ahead of disease. Would anticipate improved tolerance next cycle if her lymphoma starts to improve. She is due next week. As long as she is recovered will go ahead with treatment if pt wants to. Current Visit: Yes Status: Acute Priority: High Code(s): C85.90 - NON- HODGKIN LYMPHOMA, UNSPECIFIED, UNSPECIFIED SITE SNOMED Code(s): 844826632 (4) Thrush Narrative/Plan: Salt and soda and nystatin ordered, mouth improved today Current Visit: Yes Status: Resolved Priority: High Code(s): B37.0 - CANDIDAL STOMATITIS SNOMED Code(s): 72595071 (5) Neutropenic typhlitis Current Visit: Yes Status: Resolved Priority: High Code(s): K36 - OTHER APPENDICITIS SNOMED Code(s): 1145114 (6) Pancytopenia due to antineoplastic chemotherapy Narrative/Plan: Hgb and plt have dropped since admit but, are stable and starting to recuperate. No transfusions were needed. CBC in AM Current Visit: Yes Status: Acute Priority: High Code(s): D61.810 - ANTINEOPLASTIC CHEMOTHERAPY INDUCED PANCYTOPENIA; T45.1X5A - ADVERSE EFFECT OF ANTINEOPLASTIC AND IMMUNOSUP DRUGS, INIT SNOMED Code(s): 418202444412930 Plan: Ok for xarelto per Cardiology recs. Treat for mucositis in lower lip and cold sore-better today K+ being replaced Cools solution and abreva Erx to pharmacy
[2020-08-07 02:04] VITALS: RESP 18
[2020-08-07] MEDS: SALT AND SODA MOUTHWASH 1,000 ML PO SCH ×2 (05:18→11:39)
[2020-08-07 05:35] LABS: Anisocytosis Slight; Basophils % (A) 1 %; Eosinophils % (A) 0 %; HCT 31.6 % (34.0-46.0); HGB 10.4 gm/dL (11.4-16.0); Lymphocytes # (A) 0.4 k/uL (1.0-4.8); Lymphocytes % (A) 9 %; MCH 26.8 pg (25.0-35.0); MCHC 32.8 g/dL (31.0-37.0); MCV 81.8 fL (80.0-100.0); Mean Platelet Volume 7.8; Monocytes # (A) 0.3 k/uL (0-1.0); Monocytes % (A) 6 %; Neutrophils % (A) 83 %; Platelet Count 323 k/uL (150-450); Poikilocytosis Slight; RBC 3.86 m/uL (3.80-5.40); RDW 16.5 % (11.5-15.5); WBC 4.9 k/uL (3.8-10.6)
[2020-08-07] MEDS: LIDOCAINE VISCOUS 2% 15 ML CUP MUCOUS MEM SCH ×2 (08:28→11:39)
[2020-08-07] MEDS: NYSTATIN 100,000 UNIT/ML SUSP 500,000 UNIT/5 ML CUP PO SCH ×2 (08:28→11:39)
[2020-08-07] MEDS: METOPROLOL TARTRATE 50 MG TAB PO SCH (08:29)
[2020-08-07] MEDS: MAG HYDROX/AL HYDROX/SIMETH 30 ML, diphenhydrAMINE ELIXIR 75 MG, LIDOCAINE VISCOUS 30 ML PO SCH ×3 (08:29)
[2020-08-07] MEDS: CHOLESTYRAMINE (WITH SUGAR) 4 GM PACKET PO SCH (08:30)
[2020-08-07 10:05] VITALS: BP 127/74; PULSE 58; TEMP 97.9
[2020-08-07 10:28] LABS: Albumin 3.1 g/dL (3.80-4.90); Albumin/Globulin Ratio 2.82 (1.60-3.17); Anion Gap 4.5 mmol/L (4.00-12.00); Calcium 7.5 mg/dL (8.7-10.3); Carbon Dioxide 29.5 mmol/L (21.6-31.8); Globulin 1.1 g/dL (1.6-3.3); Non-African American GFR(CKD) 88.9 (60.0-200.0); Potassium 3.2 mmol/L (3.5-5.5); Total Bilirubin 0.3 mg/dL (0.3-1.2); Total Protein 4.2 g/dL (6.2-8.2)
--- NOTE | 2020-08-07 13:58 | P.PN ---
Subjective Progress Note Date: 08/07/20 Principal diagnosis: Neutropenic fever, s/p 1st chemo for lymphoma In f/u today pt states feeling pretty good, the sore on her lip is stable, mouth looks worse today. Lower, inner lip has ulcer noted again. She c/o severe dry mouth, no mild discomfort with swallowing, denies coughing while swallowing, SOB or chest pain. She has not been ambulating much Objective - Vital Signs Vital signs: Vital Signs Temp 97.9 F 08/07/20 08:00 Pulse 58 L 08/07/20 08:00 Resp 18 08/07/20 08:00 BP 127/74 08/07/20 08:00 Pulse Ox 98 08/07/20 08:00 Intake & Output 08/06/20 08/07/20 08/07/20 18:59 06:59 18:59 Intake Total 180 Balance 180 Weight 47.5 kg Intake: Oral 180 Other: Voiding Method Diaper # Voids 1 1 - Constitutional General appearance: Present: cooperative, no acute distress, thin - EENT EENT Comment(s): lower inner lip has visible ulcerations, lower lip has persistent 5mm lesion, not progressive Eyes: Present: anicteric sclerae, EOMI - Respiratory Respiratory: bilateral: CTA (weak inspiratory effort) - Cardiovascular Heart sounds: normal: S1, S2 - Peripheral edema leg Peripheral Edema: bilateral: Trace - Gastrointestinal General gastrointestinal: Present: normal bowel sounds, soft - Neurologic Neurologic: Present: CNII-XII intact - Musculoskeletal Musculoskeletal: Present: generalized weakness - Psychiatric Psychiatric: Present: A&O x's 3, appropriate affect, intact judgment & insight - Labs CBC & Chem 7: 08/07/20 05:08 08/07/20 05:08 Labs: Abnormal Lab Results - Last 24 Hours (Table) 08/07/20 08/07/20 Range/Units 05:08 05:08 Hgb 10.4 L (11.4-16.0) gm/dL Hct 31.6 L (34.0-46.0) % RDW 16.5 H (11.5-15.5) % Lymphocytes # 0.4 L (1.0-4.8) k/uL Potassium 3.2 L (3.5-5.5) mmol/L BUN 5.0 L (9.0-27.0) mg/dL Creatinine 0.5 L (0.6-1.5) mg/dL BUN/Creatinine Ratio 10.00 L (12.00-20.00) Ratio Calcium 7.5 L (8.7-10.3) mg/dL Total Protein 4.2 L (6.2-8.2) g/dL Albumin 3.10 L (3.80-4.90) g/dL Globulin 1.1 L (1.6-3.3) g/dL Assessment and Plan (1) Neutropenic fever Current Visit: Yes Status: Resolved Priority: High Code(s): D70.9 - NEUTROPENIA, UNSPECIFIED; R50.81 - FEVER PRESENTING WITH CONDITIONS CLASSIFIED ELSEWHERE SNOMED Code(s): 732838480 (2) Leukopenia due to antineoplastic chemotherapy Current Visit: Yes Status: Resolved Code(s): D70.1 - AGRANULOCYTOSIS SECONDARY TO CANCER CHEMOTHERAPY; T45.1X5A - ADVERSE EFFECT OF ANTINEOPLASTIC AND IMMUNOSUP DRUGS, INIT SNOMED Code(s): 316911299 (3) NHL (non-Hodgkin's lymphoma) Narrative/Plan: [facility] DLBCL. S/P 1st cycle of R-CHOP with GCSF. Reviewed case with Attending Oncologist. 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 Unfortunately, the treatment she is being given is the only shot at getting ahead of disease. Would anticipate improved tolerance next cycle if her lymphoma starts to improve. Reviewed above with pt. She will see how she feels and if doing ok she will go ahead with treatment next week. If not she will ask to be delayed until feeling better Current Visit: Yes Status: Acute Priority: High Code(s): C85.90 - NON- HODGKIN LYMPHOMA, UNSPECIFIED, UNSPECIFIED SITE SNOMED Code(s): 514620501 (4) Thrush Current Visit: Yes Status: Resolved Priority: High Code(s): B37.0 - CANDID AL STOMATITIS SNOMED Code(s): 16357311 (5) Neutropenic typhlitis Current Visit: Yes Status: Resolved Priority: High Code(s): K36 - OTHER APPENDICITIS SNOMED Code(s): 1510758 (6) Pancytopenia due to antineoplastic chemotherapy Narrative/Plan: Hgb and plt have dropped since admit but, are stable and recuperating. No transfusions were needed. Current Visit: Yes Status: Acute Priority: High Code(s): D61.810 - ANTINEOPLASTIC CHEMOTHERAPY INDUCED PANCYTOPENIA; T45.1X5A - ADVERSE EFFECT OF ANTINEOPLASTIC AND IMMUNOSUP DRUGS, INIT SNOMED Code(s): 282751195433042 Plan: Ok for xarelto per Cardiology recs. Treat for mucositis in lower lip and cold sore-little worse today. Asked Dietitian to see her for some food ideas. K+ replaced Cools solution and abreva Erx to pharmacy (will check if filled adn they can bring to pt) Request home care and PT/OT
[2020-08-07 14:49] VITALS: BMI 20.4
--- NOTE | 2020-08-07 16:18 | PN ---
PROGRESS NOTE DATE OF SERVICE: 08/07/2020 REASON FOR FOLLOWUP: E coli urinary tract infection. INTERVAL HISTORY: The patient is currently afebrile. The patient is feeling better, breathing comfortably. Denies having any chest pain or cough. No nausea, no vomiting. No abdominal pain or diarrhea. PHYSICAL EXAMINATION: Her blood pressure 127/74 with a pulse of 58, temperature 97.9. She is 98% on room air. General description is an elderly female up in the chair in no distress. RESPIRATORY SYSTEM: Unlabored breathing. Clear to auscultation anteriorly. HEART: S1, S2. Regular rate and rhythm. ABDOMEN: Soft. No tenderness. LABS: Hemoglobin 10.4, white count 4.9. BUN of 5, creatinine 0.5. DIAGNOSTIC IMPRESSION AND PLAN: Patient with febrile neutropenia. Source is E coli urinary tract infection. Received about a week of IV Rocephin. Will consider a short 3-day course of oral Cipro on discharge. Discussed with the admitting physician. MMODL / IJN: [id number] /
--- NOTE | 2020-08-11 09:59 | P.DS ---
Providers Date of admission: 07/30/20 18:19 Expected date of discharge: 08/07/20 Attending physician: Johanny Eckert Consults: 07/30/20 18:22 Consult Physician Stat Consulting Provider: Alfa Alegria Consult Reason/Comments: Elevated cardiac enzymes Do you want consulting provider notified?: Yes Consult Physician Stat Consulting Provider: Jas Cabezas Consult Reason/Comments: Neutropenic fever Do you want consulting provider notified?: Yes 08/01/20 08:17 Consult Physician Routine Consulting Provider: Vinnie Villarreal Consult Reason/Comments: sepsis Do you want consulting provider notified?: Yes Primary care physician: Erin Gilbert [facility] Course: Discharge diagnosis 1. New onset atrial fibrillation was rapid ventricular response 2. Elevated troponin level 3. Neutropenic fever secondary to UTI 4. Severe hypokalemia. Continue replacing per protocol 5. Underlying history of non-Hodgkin lymphoma 6. Leukopenia due to chemotherapy 7. Oral candidiasis 8. Urinary tract infection. Urine culture positive for E. coli. Patient discharged home on Ceftin Hospital course Kaylyn Mendez, is an 85-year-old female who presented to [facility] emergency room with a chief complaint of generalized weakness, vomiting and diarrhea, patient stated that she has been sick for about 10 days, she was evaluated in the emergency room her vital examination on presentation revealed a temperature of 100.2 pulse 120 respiration 16 blood pressure 148/81 pulse ox 100% on room air laboratory data revealed a white blood count of 0.2 hemoglobin 12.5 platelet count 120 sodium 140 potassium 2.3 chloride 106 CO2 27 BUN 22 creatinine 0.7 to troponin was elevated at 0.315 she was also found to have atrial fibrillation with rapid ventricular response patient was admitted to telemetry floor oncology consultation and cardiology consultation were requested. Patient has a known history of non-Hodgkin lymphoma, history of hypertension, history of hypothyroidism and history of osteoporosis. On 08/01/2020 patient was seen and examined on the medical floor she is alert and oriented 3 in no apparent distress she states that she is feeling better she is complaining of painful sores in her mouth she is complaining of generalized weakness otherwise she denies any complaints at this time there is no fever or chills no headache or dizziness no chest pain no shortness of breath no cough no nausea or vomiting no abdominal pain no diarrhea and no urinary symptoms, at this time will advance diet gradually, will use Viscous Lidocaine for painful sores in her mouth. On 08/02/2020 patient was seen and examined on the medical floor she is alert and oriented 3 in no apparent distress she is complaining of painful sores in her mouth she is also complaining of cough and weakness otherwise she denies any complaints there is no fever or chills no headache or dizziness no chest pain no shortness of breath no nausea or vomiting no abdominal pain no diarrhea no blood in the stools. No burning with urination no frequency or urgency no hematuria, patient is still maintained on IV Zosyn, awaiting final culture results and further recommendation from infectious disease On 08/03/2020 patient is alert and oriented 3. Currently sitting up in chair eating breakfast. IV antibiotics have been adjusted to IV Rocephin per infectious disease. Patient being followed by oncology services. Patient denies any complaints at this time. No concerns per nursing staff On 08/04/2020 patient was seen and examined on the medical floor she is alert and oriented 3 in no apparent distress she is complaining of cough and weakness otherwise she denies any complaints there is no fever or chills no headache or dizziness no chest pain no shortness of breath no nausea or vomiting no abdominal pain no diarrhea no blood in the stools. No burning with urination no frequency or urgency no hematuria, On 08/05/2020 patient was seen and examined on the medical floor she is alert and oriented 3 in no apparent distress she is feeling well she denies any symptoms at this time possibility of going to [facility] for rehab was discussed was patient however she is refusing adamantly to go to any [facility] for rehab she stated that she wants to go home with her all the equipment she needs at home. At this time patient is denying any symptoms there is no fever or chills no headache or dizziness no chest pain no shortness of breath no cough no nausea or vomiting no abdominal pain no diarrhea no blood in the stools no burning with urination no frequency or urgency and no hematuria, will re-assess gait again tomorrow, if patient is stable and cleared by all specialists she will be discharged to home tomorrow. On 08/06/2020 patient is alert and oriented 3. Patient refusing to go to rehab. Discussed case with case management to arrange coverage for anticoagulation due to now patient's discharge plan to home. Per case management patient would have high co-pay for eliquis and Xarelto. Attempting to clarify with cardiology services for anticoagulation in coverage.@Patient denies chest pain or shortness of breath. Patient denies nausea vomiting or diarrhea. Patient denies any urinary burning or frequency On 08/07/2020 patient DC'd home. Patient will be DC'd home on Ceftin for UTI and Xarelto for anticoagulation. [facility] for free samples for future dosing of Xarelto Patient Condition at Discharge: Stable Plan - Discharge Summary Discharge Rx Participant: No New Discharge Prescriptions: New Rivaroxaban [Xarelto] 20 mg PO HS #30 tab Docosanol 10% Cream [Abreva] 1 applic TOPICAL 5XD #2 gm Cefuroxime Axetil [Ceftin] 500 mg PO BID 3 Days #6 tab Metoprolol Tartrate [Lopressor] 50 mg PO BID tab Nystatin 100,000 Unit/ml Susp [Mycostatin Oral Susp] 500,000 unit PO QID ml Continue Levothyroxine Sodium [Levoxyl] 50 mcg PO DAILY Omeprazole [PriLOSEC] 40 mg PO DAILY allopurinoL [Zyloprim] 300 mg PO DAILY Cholecalciferol [Vitamin D3 (25 Mcg = 1000 Iu)] 2,000 unit PO DAILY Ubidecarenone [Co Q-10] 200 mg PO DAILY Calcium, Magnesium & Zinc (Unknown Strength) 1 tab PO DAILY Ascorbic Acid [Vitamin C] 500 mg PO DAILY Multivitamins, Thera [Multivitamin (formulary)] 1 tab PO DAILY Fish Oil/Dha/Epa [Fish Oil 1,200 mg Fish Oil] 1 tab PO DAILY Discontinued Aspirin EC [Ecotrin] 81 mg PO DAILY predniSONE 100 mg PO DAILY Ondansetron [Zofran ODT] 4 mg PO Q6H PRN PRN Reason: Nausea And Vomiting Discharge Medication List Levothyroxine Sodium [Levoxyl] 50 mcg PO DAILY 08/07/15 [History] Ascorbic Acid [Vitamin C] 500 mg PO DAILY 07/30/20 [History] Calcium, Magnesium & Zinc (Unknown Strength) 1 tab PO DAILY 07/30/20 [History] Cholecalciferol [Vitamin D3 (25 Mcg = 1000 Iu)] 2,000 unit PO DAILY 07/30/20 [History] Fish Oil/Dha/Epa [Fish Oil 1,200 mg Fish Oil] 1 tab PO DAILY 07/30/20 [History] Multivitamins, Thera [Multivitamin (formulary)] 1 tab PO DAILY 07/30/20 [History] Omeprazole [PriLOSEC] 40 mg PO DAILY 07/30/20 [History] Ubidecarenone [Co Q-10] 200 mg PO DAILY 07/30/20 [History] allopurinoL [Zyloprim] 300 mg PO DAILY 07/30/20 [History] Rivaroxaban [Xarelto] 20 mg PO HS #30 tab 07/31/20 [Rx] Docosanol 10% Cream [Abreva] 1 applic TOPICAL 5XD #2 gm 08/05/20 [Rx] Cefuroxime Axetil [Ceftin] 500 mg PO BID 3 Days #6 tab 08/07/20 [Rx] Metoprolol Tartrate [Lopressor] 50 mg PO BID tab 08/07/20 [Rx] Nystatin 100,000 Unit/ml Susp [Mycostatin Oral Susp] 500,000 unit PO QID ml 08/07/20 [Rx] Follow up Appointment(s)/Referral(s): Clarissa Pereira MD [STAFF PHYSICIAN] - 2 Weeks Erin Gilbert MD [Primary Care Provider] - 1-2 days [facility], [NON-STAFF] - Jas Cabezas MD [STAFF PHYSICIAN] - 08/13/20 10:00 am (This is chemo appt. RNs will assess pt before proceeding with chemo) Patient Instructions/Handouts: Fever in Adults (GEN), Neutropenia (GEN) Activity/Diet/Wound Care/Special Instructions: Pts first 30 days of Xarelto filled for free in [facility] pharmacy. Pt to follow up with [facility] for free samples for future doses. Discharge Disposition: HOME WITH HOME HEALTH SERVICES
== END 2020-08-07 15:40 | disposition home health service (06) | DRG 689 ==
LOC: EC 15:44 → 3SCARD 18:19 → 5NMEDONC 08-01 22:31
PROVIDERS: ADMIT Internal Medicine; ATTEND Internal Medicine
DX: N39.0 Urinary tract infection, site not specified (principal); I21.A1 Myocardial infarction type 2; D61.810 Antineoplastic chemotherapy induced pancytopenia; C81.90 Hodgkin lymphoma, unspecified, unspecified site; B37.0 Candidal stomatitis; C83.30 Diffuse large B-cell lymphoma, unspecified site; I47.1 Supraventricular tachycardia; K52.89 Other specified noninfective gastroenteritis and colitis; M35.00 Sjogren syndrome, unspecified; E87.6 Hypokalemia; E86.0 Dehydration; I10 Essential (primary) hypertension; Z20.828 Contact with and (suspected) exposure to other viral communicable diseases; I48.0 Paroxysmal atrial fibrillation; E03.9 Hypothyroidism, unspecified; B96.20 Unspecified Escherichia coli [E. coli] as the cause of diseases classified elsewhere; D70.1 Agranulocytosis secondary to cancer chemotherapy; T45.1X5A Adverse effect of antineoplastic and immunosuppressive drugs, initial encounter; R50.81 Fever presenting with conditions classified elsewhere; Z79.01 Long term (current) use of anticoagulants; Z79.82 Long term (current) use of aspirin; Z79.890 Hormone replacement therapy; Z88.2 Allergy status to sulfonamides; Z90.49 Acquired absence of other specified parts of digestive tract; Z79.899 Other long term (current) drug therapy
CPT/HCPCS: 36415; 51701; 71046; 80048; 80051; 80053; 80202; 81001; 82565; 83605; 83735; 84132; 84484; 85025; 85379; 85610; 85730; 87040; 87077; 87086; 87186; 87636; 93005; 96361; 96365; 96367; 96368; 96375; 96376; 99291

== ENCOUNTER 2020-09-12 09:58 | Inpatient (IN) | payer MEDICARE, OTHER ==
[2020-09-12] MEDS ORDERED: DILTIAZEM DRIP BOLUS FROM BAG 1 MG SOLN IV ONE (10:46)
[2020-09-12 10:48] LABS: Anisocytosis Slight; HCT 25.3 % (34.0-46.0); HGB 9.1 gm/dL (11.4-16.0); MCHC 35.9 g/dL (31.0-37.0); MCV 83.4 fL (80.0-100.0); Mean Platelet Volume 8.4; Poikilocytosis Slight; RBC 3.03 m/uL (3.80-5.40); RDW 18.6 % (11.5-15.5)
--- NOTE | 2020-09-12 10:49 | ED ---
General Adult HPI - General Chief complaint: Altered Mental Status Stated complaint: weakness Time Seen by Provider: 09/12/20 10:09 Source: patient, EMS Mode of arrival: EMS Limitations: no limitations - History of Present Illness Initial comments: Patient is an 85-year-old female with a past medical history of lymphoma presents to the emergency room for a chief complaint of weakness. Patient reports that this morning she was "not functioning normally." She states that she ended up on the floor. She denies falling on the floor just states it look ed like the best place to lay down. Her called 911 because she was not doing heard normal daily routine such as cooking and was acting strangely. Patient states she did feel tired and weak this morning. Of note patient was recently admitted to the hospital in July and diagnosed with new onset atrial fibrillation with RVR. Patient is on Xarelto. It looks like she refused admission to a rehab facility at that time. Patient has no other complaints at this time including shortness of breath, chest pain, abdominal pain, nausea or vomiting, headache, or visual changes. - Related Data Home Medications Medication Instructions Recorded Confirmed Levothyroxine Sodium [Levoxyl] 50 mcg PO DAILY 08/07/15 07/30/20 Ascorbic Acid [Vitamin C] 500 mg PO DAILY 07/30/20 07/30/20 Calcium, Magnesium & Zinc (Unknown 1 tab PO DAILY 07/30/20 07/30/20 Strength) Cholecalciferol [Vitamin D3 (25 2,000 unit PO DAILY 07/30/20 07/30/20 Mcg = 1000 Iu)] Fish Oil/Dha/Epa [Fish Oil 1,200 1 tab PO DAILY 07/30/20 07/30/20 mg Fish Oil] Multivitamins, Thera [Multivitamin 1 tab PO DAILY 07/30/20 07/30/20 (formulary)] Omeprazole [PriLOSEC] 40 mg PO DAILY 07/30/20 07/30/20 Ubidecarenone [Co Q-10] 200 mg PO DAILY 07/30/20 07/30/20 allopurinoL [Zyloprim] 300 mg PO DAILY 07/30/20 07/30/20 Previous Rx's Medication Instructions Recorded Rivaroxaban [Xarelto] 20 mg PO HS #30 tab 07/31/20 Docosanol 10% Cream [Abreva] 1 applic TOPICAL 5XD #2 gm 08/05/20 Cefuroxime Axetil [Ceftin] 500 mg PO BID 3 Days #6 tab 08/07/20 Metoprolol Tartrate [Lopressor] 50 mg PO BID tab 08/07/20 Nystatin 100,000 Unit/ml Susp 500,000 unit PO QID ml 08/07/20 [Mycostatin Oral Susp] Allergies Allergy/AdvReac Type Severity Reaction Status Date / Time Sulfa (Sulfonamide Allergy Unknown Verified 09/12/20 10:06 Antibiotics) Review of Systems ROS Statement: Those systems with pertinent positive or pertinent negative responses have been documented in the HPI. ROS Other: All systems not noted in ROS Statement are negative. Past Medical History Past Medical History: Hypertension, Thyroid Disorder Additional Past Medical History / Comment(s): OSTEOPOROSIS. lymphoma History of Any Multi-Drug Resistant Organisms: None Reported Past Surgical History: Appendectomy, Cholecystectomy Past Anesthesia/Blood Transfusion Reactions: No Reported Reaction Past Psychological History: No Psychological Hx Reported Smoking Status: Never smoker Past Alcohol Use History: None Reported Past Drug Use History: None Reported General Exam Limitations: no limitations General appearance: alert, in no apparent distress Head exam: Present: atraumatic, normal inspection Eye exam: Present: normal appearance, PERRL, EOMI. Absent: scleral icterus ENT exam: Present: normal exam, mucous membranes moist Neck exam: Present: normal inspection, full ROM. Absent: tenderness Respiratory exam: Present: normal lung sounds bilaterally. Absent: respiratory distress, wheezes, rales, rhonchi, stridor Cardiovascular Exam: Present: tachycardia, irregular rhythm GI/Abdominal exam: Present: soft, normal bowel sounds. Absent: distended, tenderness, guarding, rebound, rigid Back exam: Absent: CVA tenderness (R), CVA tenderness (L) Neurological exam: Present: alert Psychiatric exam: Present: normal affect, normal mood Course Vital Signs 09/12/20 09/12/20 09/12/20 10:07 10:11 11:19 Temperature 97.9 F Pulse Rate 78 114 H Respiratory 18 16 Rate Blood Pressure 122/101 86/73 O2 Sat by Pulse 100 100 Oximetry 09/12/20 09/12/20 09/12/20 11:31 12:03 12:31 Temperature Pulse Rate 113 H 111 H 88 Respiratory 16 16 16 Rate Blood Pressure 121/79 112/69 108/67 O2 Sat by Pulse 99 100 100 Oximetry EKG Findings - EKG Comments: EKG Findings:: Sinus tachycardia, ventricular rate 114, [place] interval 172, QTc 441 Medical Decision Making - Medical Decision Making Patient had an echo on July 18 showing ejection fraction between 55-60%. Patient's did come to the emergency room. He states she has been on the floor since last night he could not get her up. He called this morning for help. CK was added. He reports her last chemotherapy treatment was September [address] head shows similar mild to moderate ventriculomegaly probably due in part to central cerebral atrophy. Otherwise no acute intra-abdominal abnormality. [id number] multilevel spondylitic changes noted in the C-spine. No fracture. Patient presents initially with a heart rate of 78 and blood pressure 122/101. However when I evaluated patient she was noted to be in A. fib with RVR with a heart rate in the 120s to 130s. She apparently had her first episode of this at her last admission and was started on eliquis. EKG was compared to previous EKG from July and there are no significant changes. She did start to become hypotensive and Cardizem was initially held. She was started on a liter of fluids. Chest x-ray did not show an acute process. CBC shows pancytopenia with a white blood cell count of 0.7. She is afebrile. CMP did reveal significant hypokalemia noted at 2.5. Magnesium 1.3. These were replaced parenterally. Troponin 0.088. It is noted that previous troponin was also elevated. She was given a liter of fluids and this did improve her blood pressure. Heart rate decreased to the 90s. Urinalysis did show evidence of infection. Patient started on Zosyn and given this is what infectious disease recommended during her last visit with her associated neutropenia. Case discussed with Dr. Rodriguez. Case discussed with Dr john, accepts admit - Lab Data Result diagrams: 09/12/20 10:28 09/12/20 10:28 Lab Results 09/12/20 09/12/20 09/12/20 Range/Units 10:25 10:25 10:25 WBC (3.8-10.6) k/uL RBC (3.80-5.40) m/uL Hgb (11.4-16.0) gm/dL Hct (34.0-46.0) % MCV (80.0-100.0) fL MCH (25.0-35.0) pg MCHC (31.0-37.0) g/dL RDW (11.5-15.5) % Plt Count (150-450) k/uL MPV Differential Comment Manual Slide Review Poikilocytosis Poikilocytosis (manual Anisocytosis PT (9.0-12.0) sec INR (<1.2) APTT (22.0-30.0) sec Sodium (137-145) mmol/L Potassium (3.5-5.1) mmol/L Chloride (98-107) mmol/L Carbon Dioxide (22-30) mmol/L Anion Gap mmol/L BUN (7-17) mg/dL Creatinine (0.52-1.04) mg/dL Est GFR (CKD-EPI)AfAm (>60 ml/min/1.73 sqM) Est GFR (CKD-EPI)NonAf (>60 ml/min/1.73 sqM) Glucose (74-99) mg/dL Plasma Lactic Acid Alfonso 1.5 (0.7-2.0) mmol/L Calcium (8.4-10.2) mg/dL Magnesium (1.6-2.3) mg/dL Total Bilirubin (0.2-1.3) mg/dL AST (14-36) U/L ALT (4-34) U/L Alkaline Phosphatase (38-126) U/L Creatine Kinase (30-135) U/L Troponin I 0.088 H* (0.000-0.034) ng/mL NT-Pro-B Natriuret Pep 2490 pg/mL Total Protein (6.3-8.2) g/dL Albumin (3.5-5.0) g/dL Urine Color Urine Appearance (Clear) Urine pH (5.0-8.0) Ur Specific [place] (1.001-1.035) Urine Protein (Negative) Urine Glucose (UA) (Negative) Urine Ketones (Negative) Urine Blood (Negative) Urine Nitrite (Negative) Urine Bilirubin (Negative) Urine Urobilinogen (<2.0) mg/dL Ur Leukocyte Esterase (Negative) Urine RBC (0-5) /hpf Urine WBC (0-5) /hpf Urine WBC Clumps (None) /hpf Ur Squamous Epith Cells (0-4) /hpf Amorphous Sediment (None) /hpf Urine Bacteria (None) /hpf Urine Mucus (None) /hpf 09/12/20 09/12/20 09/12/20 Range/Units 10:28 10:28 10:28 WBC 0.7 L* (3.8-10.6) k/uL RBC 3.03 L (3.80-5.40) m/uL Hgb 9.1 L (11.4-16.0) gm/dL Hct 25.3 L (34.0-46.0) % MCV 83.4 (80.0-100.0) fL MCH 30.0 (25.0-35.0) pg MCHC 35.9 (31.0-37.0) g/dL RDW 18.6 H (11.5-15.5) % Plt Count 116 L D (150-450) k/uL MPV 8.4 Differential Comment Manual Slide Review Performed Poikilocytosis Slight Poikilocytosis (manual Present Anisocytosis Slight PT 14.0 H (9.0-12.0) sec INR 1.4 H (<1.2) APTT 27.3 (22.0-30.0) sec Sodium 130 L (137-145) mmol/L Potassium 2.5 L* (3.5-5.1) mmol/L Chloride 97 L (98-107) mmol/L Carbon Dioxide 27 (22-30) mmol/L Anion Gap 6 mmol/L BUN 18 H (7-17) mg/dL Creatinine 0.49 L (0.52-1.04) mg/dL Est GFR (CKD-EPI)AfAm >90 (>60 ml/min/1.73 sqM) Est GFR (CKD-EPI)NonAf 90 (>60 ml/min/1.73 sqM) Glucose 110 H (74-99) mg/dL Plasma Lactic Acid Alfonso (0.7-2.0) mmol/L Calcium 7.1 L (8.4-10.2) mg/dL Magnesium 1.3 L (1.6-2.3) mg/dL Total Bilirubin 1.3 (0.2-1.3) mg/dL AST 24 (14-36) U/L ALT 19 (4-34) U/L Alkaline Phosphatase 25 L (38-126) U/L Creatine Kinase (30-135) U/L Troponin I (0.000-0.034) ng/mL NT-Pro-B Natriuret Pep pg/mL Total Protein 4.6 L (6.3-8.2) g/dL Albumin 2.4 L (3.5-5.0) g/dL Urine Color Urine Appearance (Clear) Urine pH (5.0-8.0) Ur Specific [place] (1.001-1.035) Urine Protein (Negative) Urine Glucose (UA) (Negative) Urine Ketones (Negative) Urine Blood (Negative) Urine Nitrite (Negative) Urine Bilirubin (Negative) Urine Urobilinogen (<2.0) mg/dL Ur Leukocyte Esterase (Negative) Urine RBC (0-5) /hpf Urine WBC (0-5) /hpf Urine WBC Clumps (None) /hpf Ur Squamous Epith Cells (0-4) /hpf Amorphous Sediment (None) /hpf Urine Bacteria (None) /hpf Urine Mucus (None) /hpf 09/12/20 09/12/20 Range/Units 10:28 11:37 WBC (3.8-10.6) k/uL RBC (3.80-5.40) m/uL Hgb (11.4-16.0) gm/dL Hct (34.0-46.0) % MCV (80.0-100.0) fL MCH (25.0-35.0) pg MCHC (31.0-37.0) g/dL RDW (11.5-15.5) % Plt Count (150-450) k/uL MPV Differential Comment Manual Slide Review Poikilocytosis Poikilocytosis (manual Anisocytosis PT (9.0-12.0) sec INR (<1.2) APTT (22.0-30.0) sec Sodium (137-145) mmol/L Potassium (3.5-5.1) mmol/L Chloride (98-107) mmol/L Carbon Dioxide (22-30) mmol/L Anion Gap mmol/L BUN (7-17) mg/dL Creatinine (0.52-1.04) mg/dL Est GFR (CKD-EPI)AfAm (>60 ml/min/1.73 sqM) Est GFR (CKD-EPI)NonAf (>60 ml/min/1.73 sqM) Glucose (74-99) mg/dL Plasma Lactic Acid Alfonso (0.7-2.0) mmol/L Calcium (8.4-10.2) mg/dL Magnesium (1.6-2.3) mg/dL Total Bilirubin (0.2-1.3) mg/dL AST (14-36) U/L ALT (4-34) U/L Alkaline Phosphatase (38-126) U/L Creatine Kinase 59 (30-135) U/L Troponin I (0.000-0.034) ng/mL NT-Pro-B Natriuret Pep pg/mL Total Protein (6.3-8.2) g/dL Albumin (3.5-5.0) g/dL Urine Color Yellow Urine Appearance Cloudy H (Clear) Urine pH 6.0 (5.0-8.0) Ur Specific [place] 1.015 (1.001-1.035) Urine Protein 1+ H (Negative) Urine Glucose (UA) Negative (Negative) Urine Ketones Negative (Negative) Urine Blood Trace H (Negative) Urine Nitrite Negative (Negative) Urine Bilirubin Negative (Negative) Urine Urobilinogen <2.0 (<2.0) mg/dL Ur Leukocyte Esterase Moderate H (Negative) Urine RBC 4 (0-5) /hpf Urine WBC 46 H (0-5) /hpf Urine WBC Clumps Rare H (None) /hpf Ur Squamous Epith Cells 1 (0-4) /hpf Amorphous Sediment Rare H (None) /hpf Urine Bacteria Many H (None) /hpf Urine Mucus Rare H (None) /hpf Disposition Clinical Impression: Neutropenia, Pancytopenia due to antineoplastic chemotherapy, UTI (urinary tract infection), Weakness, Cardiac enzymes elevated, Atrial fibrillation with RVR, Hypokalemia, Hypomagnesemia Disposition: ADMITTED IP TO THIS HOSP Referrals: Erin Gilbert MD [Primary Care Provider] - 1-2 days Time of Disposition: 13:02
[2020-09-12] MEDS ORDERED: DILTIAZEM 125 MG in SODIUM CHLORIDE 0.9% 100 ML IV SCH (11:00)
[2020-09-12 11:01] LABS: Platelet Count 116 k/uL (150-450); WBC 0.7 k/uL (3.8-10.6)
[2020-09-12 11:02] LABS: INR 1.4 (<1.2); Partial Thromboplastin Time 27.3 sec (22.0-30.0)
[2020-09-12 11:03] LABS: ALT 19 U/L (4-34); AST 24 U/L (14-36); African American GFR (CKD) >90 (>60 ml/min/1.73 sqM); Albumin 2.4 g/dL (3.5-5.0); Alkaline Phosphatase 25 U/L (38-126); Anion Gap 6 mmol/L; Blood Urea Nitrogen 18 mg/dL (7-17); Calcium 7.1 mg/dL (8.4-10.2); Carbon Dioxide 27 mmol/L (22-30); Chloride 97 mmol/L (98-107); Glucose 110 mg/dL (74-99); Magnesium 1.3 mg/dL (1.6-2.3); Non-African American GFR(CKD) 90 (>60 ml/min/1.73 sqM); Sodium 130 mmol/L (137-145); Total Bilirubin 1.3 mg/dL (0.2-1.3); Total Protein 4.6 g/dL (6.3-8.2)
[2020-09-12 11:08] LABS: Poikilocytosis (M) Present
[2020-09-12 11:10] LABS: Potassium 2.5 mmol/L (3.5-5.1)
[2020-09-12] MEDS ORDERED: Potassium Replacement Protocol 1 EACH MISC MISCELLANE PRN ×2 (11:21→17:16)
[2020-09-12] MEDS ORDERED: POTASSIUM CHLORIDE ER 20 MEQ TAB.ER PO STA (11:22)
[2020-09-12] MEDS ORDERED: SODIUM CHLORIDE 0.9% 1,000 ML IV ONE (11:23)
--- NOTE | 2020-09-12 11:36 | XR ---
EXAMINATION TYPE: XR chest 2V DATE OF EXAM: 09/12/2020 COMPARISON: 07/30/2020 HISTORY: 85-year-old female with weakness TECHNIQUE: AP and lateral views FINDINGS: Heart normal size. Aorta and pulmonary vasculature within normal limits. Right anterior chest wall in jection port with catheter tip at the expected brachycephalic vein confluence or upper SVC. Dextrocon vex curvature of the thoracic spine. Slight leftward patient rotation. No consolidation or pleural ef fusion. Cholecystectomy clips. IMPRESSION: Right-sided anterior chest wall injection port. Dextroconvex scoliotic curvature. No acute process se en.
[2020-09-12] MEDS ORDERED: POTASSIUM BICARBONATE/CIT AC 20 MEQ TABLET.EFF PO STA (11:38)
--- NOTE | 2020-09-12 11:44 | CT ---
EXAMINATION TYPE: CT brain cspine wo con DATE OF EXAM: 09/12/2020 COMPARISON: Correlation MRI brain 05/10/2020 HISTORY: 85-year-old female Weakness and fall CT DLP: 1183.3 mGycm Automated exposure control for dose reduction was used. Technique: Examination of the head was done in axial plane without intravenous contrast. Coronal and sagittal reconstructions performed. CT of the cervical spine was obtained in axial plane without intravenous injection of contrast mater ial. Coronal and sagittal reformatted images were obtained from the axial views for evaluation of f ractures, spinal alignment and canal. FINDINGS: Head: There is no evidence of acute intracranial hemorrhage, acute ischemic changes, mass, mass-effect, or extra-axial fluid collection. There is no effacement of cerebral sulci or basal subarachnoid cister ns. Redemonstrated ventriculomegaly, mild/moderate in degree with evidence ratio calculated 0.39. Mild pa tchy white matter hypodensities in both cerebral hemispheres. There is no midline shift. Ribera-white matter distinction is preserved. Scattered mild mucosal thickening throughout the paranasal sinuses. Mastoid air cells well pneumatize d. Orbits and globes are intact. Cervical spine: No craniocervical junction abnormality, predental space widening, or prevertebral soft tissue swellin g. Moderate degenerative disc disease C4-C6 levels with disc interspace narrowing and some vacuum phenom enon. By CT, no evident canal compromise. No acute fracture of the cervical spine. Multilevel hypertrophic facet and uncovertebral joint arthropathy is present. Degenerative grade 1 anterolisthesis C3-C4 and C6-C7. Vertebral mild neuroforaminal stenoses throughout. Underlying dextroconvex curvature of the thoracic spine. Sagittal and coronal reformatted images confirm above findings. COMBINED IMPRESSION: 1. Similar [id number] ventriculomegaly probably in part due to central cerebral atrophy. Kristian's ratio calculated at 0.39. Correlate to exclude a component of NPH. Mild burden of chronic small vess el ischemic disease. Otherwise, no acute intracranial abnormality seen. 2. Mild to moderate multilevel spondylotic change. Degenerative grade 1 anterolisthesis at C3-C4 and C6-C7. No acute fracture of the cervical spine. 3. Mild chronic paranasal sinus disease.
[2020-09-12] MEDS: POTASSIUM CHLORIDE 20 MEQ in WATER FOR INJECTION 1 100ML.BAG IVPB SCH ×3 (11:48→18:50)
[2020-09-12] MEDS: SODIUM CHLORIDE 0.9% 1,000 ML IV SCH (11:48)
[2020-09-12] MEDS: MAGNESIUM SULFATE-D5W PMX 1 GM in DEXTROSE/WATER 1 100ML.BAG IVPB SCH ×2 (12:03→12:52)
[2020-09-12 12:25] LABS: Amorphous Sediment,Urine Rare /hpf; Appearance,Urine Cloudy (Clear); Bacteria,Urine Many /hpf; Bilirubin,Urine Negative (Negative); Blood,Urine Trace (Negative); Color,Urine Yellow; Glucose,Urine (UA) Negative (Negative); Ketones,Urine Negative (Negative); Leukocyte Esterase,Urine Moderate (Negative); Mucus,Urine Rare /hpf; Nitrite,Urine Negative (Negative); Protein,Urine 1+ (Negative); RBC,Urine 4 /hpf (0-5); Specific Gravity,Urine 1.015 (1.001-1.035); Squamous Epithelial Cell,Urine 1 /hpf (0-4); Urobilinogen,Urine <2.0 mg/dL (<2.0); WBC,Urine 46 /hpf (0-5)
[2020-09-12] MEDS ORDERED: PIPERACILLIN-TAZOBACTAM 3.375 GM in SODIUM CHLORIDE 0.9% 100 ML IVPB STA (12:32)
[2020-09-12] MEDS ORDERED: NITROGLYCERIN SL TABS 0.4 MG TAB SUBLINGUAL PRN (13:02)
[2020-09-12 17:02] LABS: Uric Acid 2.5 mg/dL (3.7-7.4)
[2020-09-12 17:24] LABS: African American GFR (CKD) >90 (>60 ml/min/1.73 sqM); Anion Gap 5 mmol/L; Blood Urea Nitrogen 14 mg/dL (7-17); Carbon Dioxide 29 mmol/L (22-30); Chloride 101 mmol/L (98-107); Glucose 94 mg/dL (74-99); LDH 421 U/L (313-618); Non-African American GFR(CKD) 86 (>60 ml/min/1.73 sqM); Potassium 2.9 mmol/L (3.5-5.1); Sodium 135 mmol/L (137-145)
[2020-09-12] MEDS ORDERED: POTASSIUM CHLORIDE 20 MEQ in WATER FOR INJECTION 1 100ML.BAG IVPB STA (18:44)
--- NOTE | 2020-09-12 19:21 | P.CONS ---
History of Present Illness - Reason for Consult Consult date: 09/12/20 Lymphoma - Status Posr RCHOP 09/04 w [place] Requesting physician: Luis Yanez - Chief Complaint Pancytopenia, ? Infection - History of Present Illness Mrs. 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 Because of her symptoms being difficult she wanted to attempt treatment. She was started on On 07/23/2020,she started RCHOP regimen (with dose reduction). Her first cycle was complicated with hospital admission and neutropenic fever ,she tolerated the second cycle better, although unfortunetly this past cycle she has now been admitted to hospital with fever, UTI, mental status Changes and overall weakness. She completed cycle 3 on 09/04/20 with neulasta. She was seen and evaluated today in ER 17. She is confused, weak and lethargic. She has already started on Zosyn. She has tenderness in her abdomen to palpation. Review of Systems ROS unobtainable: due to mental status All systems: negative Constitutional: Reports as per HPI Past Medical History Past Medical History: Hypertension, Thyroid Disorder Additional Past Medical History / Comment(s): OSTEOPOROSIS. lymphoma History of Any Multi-Drug Resistant Organisms: None Reported Past Surgical History: Appendectomy, Cholecystectomy Past Anesthesia/Blood Transfusion Reactions: No Reported Reaction Past Psychological History: No Psychological Hx Reported Smoking Status: Never smoker Past Alcohol Use History: None Reported Past Drug Use History: None Reported Medications and Allergies Home Medications Medication Instructions Recorded Confirmed Type Levothyroxine Sodium [Levoxyl] 50 mcg PO DAILY 08/07/15 09/12/20 History Ascorbic Acid [Vitamin C] 500 mg PO DAILY 07/30/20 09/12/20 History Calcium, Magnesium & Zinc (Unknown 1 tab PO DAILY 07/30/20 09/12/20 History Strength) Fish Oil/Dha/Epa [Fish Oil 1,200 1 tab PO DAILY 07/30/20 09/12/20 History mg Fish Oil] Multivitamins, Thera [Multivitamin 1 tab PO DAILY 07/30/20 09/12/20 History (formulary)] Omeprazole [PriLOSEC] 40 mg PO DAILY 07/30/20 09/12/20 History Ubidecarenone [Co Q-10] 200 mg PO DAILY 07/30/20 09/12/20 History allopurinoL [Zyloprim] 300 mg PO DAILY 07/30/20 09/12/20 History Metoprolol Tartrate [Lopressor] 50 mg PO BID tab 08/07/20 09/12/20 Rx Ergocalciferol (Vitamin D2) 50 mcg PO DAILY 09/12/20 09/12/20 History [Vitamin D2 (2000 Iu)] Rivaroxaban [Xarelto] 15 mg PO W/SUPPER 09/12/20 09/12/20 History Allergies Allergy/AdvReac Type Severity Reaction Status Date / Time Sulfa (Sulfonamide Allergy Unknown Verified 09/12/20 13:12 Antibiotics) Physical Exam Vitals: Vital Signs Temp Pulse Resp BP Pulse Ox 09/12/20 15:58 108 H 16 102/64 100 09/12/20 15:16 103 H 16 123/77 100 09/12/20 14:46 95 16 107/59 100 09/12/20 13:29 96 16 129/76 100 09/12/20 12:31 88 16 108/67 100 09/12/20 12:03 111 H 16 112/69 100 09/12/20 11:31 113 H 16 121/79 99 09/12/20 11:19 114 H 16 86/73 100 09/12/20 10:11 78 18 122/101 100 09/12/20 10:07 97.9 F Intake and Output 09/12/20 09/12/20 09/12/20 06:59 14:59 22:59 Other: Weight 44.906 kg - Constitutional General appearance: cooperative, no acute distress - EENT Eyes: EOMI, PERRLA ENT: NA/AT, normal oropharynx - Neck Neck: normal ROM - Respiratory Respiratory: bilateral: diminished - Cardiovascular Rhythm: regularly irregular - Gastrointestinal General gastrointestinal: soft, tenderness - Integumentary Integumentary: pale - Neurologic non focal - Musculoskeletal Musculoskeletal: generalized weakness - Psychiatric Lethargic and confused during interaction. Results CBC & Chem 7: 09/12/20 10:28 09/12/20 16:43 Labs: Abnormal Lab Results - Last 24 Hours (Table) 09/12/20 09/12/20 09/12/20 Range/Units 10:25 10:28 10:28 WBC 0.7 L* (3.8-10.6) k/uL RBC 3.03 L (3.80-5.40) m/uL Hgb 9.1 L (11.4-16.0) gm/dL Hct 25.3 L (34.0-46.0) % RDW 18.6 H (11.5-15.5) % Plt Count 116 L D (150-450) k/uL PT 14.0 H (9.0-12.0) sec INR 1.4 H (<1.2) Sodium (137-145) mmol/L Potassium (3.5-5.1) mmol/L Chloride (98-107) mmol/L BUN (7-17) mg/dL Creatinine (0.52-1.04) mg/dL Glucose (74-99) mg/dL Calcium (8.4-10.2) mg/dL Magnesium (1.6-2.3) mg/dL Alkaline Phosphatase (38-126) U/L Troponin I 0.088 H* (0.000-0.034) ng/mL Total Protein (6.3-8.2) g/dL Albumin (3.5-5.0) g/dL Urine Appearance (Clear) Urine Protein (Negative) Urine Blood (Negative) Ur Leukocyte Esterase (Negative) Urine WBC (0-5) /hpf Urine WBC Clumps (None) /hpf Amorphous Sediment (None) /hpf Urine Bacteria (None) /hpf Urine Mucus (None) /hpf 09/12/20 09/12/20 09/12/20 Range/Units 10: 11:37 14:28 WBC (3.8-10.6) k/uL RBC (3.80-5.40) m/uL Hgb (11.4-16.0) gm/dL Hct (34.0-46.0) % RDW (11.5-15.5) % Plt Count (150-450) k/uL PT (9.0-12.0) sec INR (<1.2) Sodium 130 L (137-145) mmol/L Potassium 2.5 L* (3.5-5.1) mmol/L Chloride 97 L (98-107) mmol/L BUN 18 H (7-17) mg/dL Creatinine 0.49 L (0.52-1.04) mg/dL Glucose 110 H (74-99) mg/dL Calcium 7.1 L (8.4-10.2) mg/dL Magnesium 1.3 L (1.6-2.3) mg/dL Alkaline Phosphatase 25 L (38-126) U/L Troponin I 0.104 H* (0.000-0.034) ng/mL Total Protein 4.6 L (6.3-8.2) g/dL Albumin 2.4 L (3.5-5.0) g/dL Urine Appearance Cloudy H (Clear) Urine Protein 1+ H (Negative) Urine Blood Trace H (Negative) Ur Leukocyte Esterase Moderate H (Negative) Urine WBC 46 H (0-5) /hpf Urine WBC Clumps Rare H (None) /hpf Amorphous Sediment Rare H (None) /hpf Urine Bacteria Many H (None) /hpf Urine Mucus Rare H (None) /hpf Chest x-ray: report reviewed Assessment and Plan (1) Atrial fibrillation with RVR Current Visit: Yes Status: Acute Code(s): I48.91 - UNSPECIFIED ATRIAL FIBRILLATION SNOMED Code(s): 070269863480343 (2) Hypokalemia Current Visit: Yes Status: Acute Code(s): E87.6 - HYPOKALEMIA SNOMED Code(s): 41158075 (3) Hypomagnesemia Current Visit: Yes Status: Acute Code(s): E83.42 - HYPOMAGNESEMIA SNOMED Code(s): 546184519 (4) NHL (non-Hodgkin's lymphoma) Current Visit: No Status: Acute Priority: High Code(s): C85.90 - NON- HODGKIN LYMPHOMA, UNSPECIFIED, UNSPECIFIED SITE SNOMED Code(s): 400483254 Plan: Mantal Cell Lumphoma: - Status Post Cycle 3 RCHOP with Neulasta 09/04/20 - No GCSF as she received on the of this month, will need close monitoring and further infection prevention - Blood Cultures x2 - Await UA culture and sensistivity Neutropenia: Subjective Fevers - Possible UA - Withi neutropenia and [facility] for any abdominal distention, discomfort and/or diarrhea. If any of these s/s please place do not advance diet \ - Will likely need imaging of abdomen and Currently on Zosyn - Prophylaxic Antibiotcs Hypokalemia and Hypomagnesium: - Possible from GI loss and Dehydration - NPO while ANC is less than 500 Repeat CBC, CMP, MAg in am Full [place] Cultures Keep NPO except Ice and sips of water please Abdominal Xray Monitor for Diarrhea
--- NOTE | 2020-09-12 19:38 | P.HPIM ---
History of Present Illness H&P Date: 09/12/20 Kaylyn Mendez, is an 85-year-old female who presented to [facility] emergency room with a chief complaint of generalized weakness, she was evaluated in emergency room, vital examination on presentation reveals a temperature of 97.9 pulse 114 respiration 16 blood pressure 122/101 pulse ox 100% on room air , white blood count was 0.7 hemoglobin 9.1 platelet count 116 sodium 1:30 potassium 2.5 chloride 97 BUN 18 creatinine 0.49. Patient was recently admitted to the hospital at that time she was diagnosed with atrial fibrillation with RVR and urinary tract infection, about 1 month ago. Urine analysis at this time revealed evidence of urinary tract infection again, patient was started on Zosyn in the emergency room, patient also had slightly elevated troponin level in the emergency room, Cordarone of virus PCR was negative. Chest x-ray done in the emergency room revealed no acute process, computed tomography scan of the brain revealed some ventriculomegaly, possible c omponent of normal pressure hydrocephalus. When patient was interviewed on the floor she was also complaining of diarrhea. 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 Past Medical History Past Medical History: Hypertension, Thyroid Disorder Additional Past Medical History / Comment(s): OSTEOPOROSIS. lymphoma History of Any Multi-Drug Resistant Organisms: None Reported Past Surgical History: Appendectomy, Cholecystectomy Past Anesthesia/Blood Transfusion Reactions: No Reported Reaction Past Psychological History: No Psychological Hx Reported Smoking Status: Never smoker Past Alcohol Use History: None Reported Past Drug Use History: None Reported Medications and Allergies Home Medications Medication Instructions Recorded Confirmed Type Levothyroxine Sodium [Levoxyl] 50 mcg PO DAILY 08/07/15 09/12/20 History Ascorbic Acid [Vitamin C] 500 mg PO DAILY 07/30/20 09/12/20 History Calcium, Magnesium & Zinc (Unknown 1 tab PO DAILY 07/30/20 09/12/20 History Strength) Fish Oil/Dha/Epa [Fish Oil 1,200 1 tab PO DAILY 07/30/20 09/12/20 History mg Fish Oil] Multivitamins, Thera [Multivitamin 1 tab PO DAILY 07/30/20 09/12/20 History (formulary)] Omeprazole [PriLOSEC] 40 mg PO DAILY 07/30/20 09/12/20 History Ubidecarenone [Co Q-10] 200 mg PO DAILY 07/30/20 09/12/20 History allopurinoL [Zyloprim] 300 mg PO DAILY 07/30/20 09/12/20 History Metoprolol Tartrate [Lopressor] 50 mg PO BID tab 08/07/20 09/12/20 Rx Ergocalciferol (Vitamin D2) 50 mcg PO DAILY 09/12/20 09/12/20 History [Vitamin D2 (2000 Iu)] Rivaroxaban [Xarelto] 15 mg PO W/SUPPER 09/12/20 09/12/20 History Allergies Allergy/AdvReac Type Severity Reaction Status Date / Time Sulfa (Sulfonamide Allergy Unknown Verified 09/12/20 13:12 Antibiotics) Physical Exam Vitals: Vital Signs Temp Pulse Resp BP Pulse Ox 09/12/20 17:04 97.9 F 101 H 16 117/75 100 09/12/20 15:58 108 H 16 102/64 100 09/12/20 15:16 103 H 16 123/77 100 09/12/20 14:46 95 16 107/59 100 09/12/20 13:29 96 16 129/76 100 09/12/20 12:31 88 16 108/67 100 09/12/20 12:03 111 H 16 112/69 100 09/12/20 11:31 113 H 16 121/79 99 09/12/20 11:19 114 H 16 86/73 100 09/12/20 10:11 78 18 122/101 100 09/12/20 10:07 97.9 F Intake and Output 09/12/20 09/12/20 09/12/20 06:59 14:59 22:59 Other: Weight 44.906 kg In general patient is alert and oriented 3 in no apparent distress HEENT head normocephalic and atraumatic Neck is supple no JVD no goiter no lymphadenopathy Chest exam reveals a few scattered rhonchi in both lung bases no wheezing Cardiac exam reveals regular heart sounds S1 and S2 no gallops no murmurs Abdomen is soft nontender no organomegaly with normal bowel sounds Extremity exam reveals no edema no cyanosis or clubbing Neurological examination reveals, no gross focal neurological deficits Results CBC & Chem 7: 09/12/20 10:28 09/12/20 16:43 Labs: Abnormal Lab Results - Last 24 Hours (Table) 09/12/20 09/12/20 09/12/20 Range/Units 10:25 10:28 10:28 WBC 0.7 L* (3.8-10.6) k/uL RBC 3.03 L (3.80-5.40) m/uL Hgb 9.1 L (11.4-16.0) gm/dL Hct 25.3 L (34.0-46.0) % RDW 18.6 H (11.5-15.5) % Plt Count 116 L D (150-450) k/uL PT 14.0 H (9.0-12.0) sec INR 1.4 H (<1.2) Sodium (137-145) mmol/L Potassium (3.5-5.1) mmol/L Chloride (98-107) mmol/L BUN (7-17) mg/dL Creatinine (0.52-1.04) mg/dL Glucose (74-99) mg/dL Calcium (8.4-10.2) mg/dL Magnesium (1.6-2.3) mg/dL Alkaline Phosphatase (38-126) U/L Troponin I 0.088 H* (0.000-0.034) ng/mL Total Protein (6.3-8.2) g/dL Albumin (3.5-5.0) g/dL Urine Appearance (Clear) Urine Protein (Negative) Urine Blood (Negative) Ur Leukocyte Esterase (Negative) Urine WBC (0-5) /hpf Urine WBC Clumps (None) /hpf Amorphous Sediment (None) /hpf Urine Bacteria (None) /hpf Urine Mucus (None) /hpf 09/12/20 09/12/20 09/12/20 Range/Units 10:28 11:37 14:28 WBC (3.8-10.6) k/uL RBC (3.80-5.40) m/uL Hgb (11.4-16.0) gm/dL Hct (34.0-46.0) % RDW (11.5-15.5) % Plt Count (150-450) k/uL PT (9.0-12.0) sec INR (<1.2) Sodium 130 L (137-145) mmol/L Potassium 2.5 L* (3.5-5.1) mmol/L Chloride 97 L (98-107) mmol/L BUN 18 H (7-17) mg/dL Creatinine 0.49 L (0.52-1.04) mg/dL Glucose 110 H (74-99) mg/dL Calcium 7.1 L (8.4-10.2) mg/dL Magnesium 1.3 L (1.6-2.3) mg/dL Alkaline Phosphatase 25 L (38-126) U/L Troponin I 0.104 H* (0.000-0.034) ng/mL Total Protein 4.6 L (6.3-8.2) g/dL Albumin 2.4 L (3.5-5.0) g/dL Urine Appearance Cloudy H (Clear) Urine Protein 1+ H (Negative) Urine Blood Trace H (Negative) Ur Leukocyte Esterase Moderate H (Negative) Urine WBC 46 H (0-5) /hpf Urine WBC Clumps Rare H (None) /hpf Amorphous Sediment Rare H (None) /hpf Urine Bacteria Many H (None) /hpf Urine Mucus Rare H (None) /hpf Assessment and Plan Plan: 1. Generalized weakness 2. Severe hypokalemia correcting 3. Underlying history of hypothyroidism 4. Recently diagnosed with atrial fibrillation and started on metoprolol and Xarelto 5. 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 Complaints of diarrhea with check stools for culture and C. diff At this time patient was started on IV antibiotic and IV fluid Oncology and cardiology consultation requested Will check blood culture urine culture and stools culture was stools for C. diff Will consult infectious disease
[2020-09-12 21:29] LABS: Anisocytosis Slight; HGB 7.8 gm/dL (11.4-16.0); MCH 30.1 pg (25.0-35.0); MCHC 35.5 g/dL (31.0-37.0); MCV 84.8 fL (80.0-100.0); Mean Platelet Volume 8.3; Platelet Count 106 k/uL (150-450); Poikilocytosis Slight; RDW 18.7 % (11.5-15.5)
[2020-09-12] MEDS: NYSTATIN 100,000 UNIT/ML SUSP 500,000 UNIT/5 ML CUP PO SCH (21:30)
[2020-09-12] MEDS: ACYCLOVIR 200 MG CAP PO SCH (21:30)
[2020-09-12] MEDS: METOPROLOL TARTRATE 50 MG TAB PO SCH (21:30)
[2020-09-12 21:32] LABS: WBC 0.9 k/uL (3.8-10.6)
[2020-09-12 21:53] LABS: ALT 15 U/L (4-34); AST 13 U/L (14-36); African American GFR (CKD) >90 (>60 ml/min/1.73 sqM); Albumin 2.1 g/dL (3.5-5.0); Alkaline Phosphatase 34 U/L (38-126); Anion Gap 2 mmol/L; Blood Urea Nitrogen 13 mg/dL (7-17); Calcium 6.9 mg/dL (8.4-10.2); Carbon Dioxide 31 mmol/L (22-30); Chloride 100 mmol/L (98-107); Glucose 94 mg/dL (74-99); Magnesium 2.1 mg/dL (1.6-2.3); Non-African American GFR(CKD) 87 (>60 ml/min/1.73 sqM); Potassium 3.2 mmol/L (3.5-5.1); Sodium 133 mmol/L (137-145); Total Protein 3.9 g/dL (6.3-8.2)
--- NOTE | 2020-09-12 22:02 | XR ---
EXAMINATION TYPE: XR abdomen 2V DATE OF EXAM: 09/12/2020 7:44 PM CLINICAL HISTORY: Pain TECHNIQUE: Upright and supine views were obtained COMPARISON: None. FINDINGS: Scattered gas is seen in non-distended small bowel loops. Gas and fecal material is seen in non-distended colon. There is no visceromegaly, pneumoperitoneum, or abnormal calcification apprecia kim. The lung bases are clear and the osseous structures are intact. IMPRESSION: Overall nonobstructive bowel gas pattern.
[2020-09-13] MEDS: NYSTATIN 100,000 UNIT/ML SUSP 500,000 UNIT/5 ML CUP PO SCH ×5 (00:33→20:17)
[2020-09-13] MEDS: PANTOPRAZOLE 40 MG TABLET PO SCH (06:25)
[2020-09-13] MEDS: LEVOTHYROXINE 50 MCG TAB PO SCH (06:25)
[2020-09-13] MEDS: SODIUM CHLORIDE 0.9% 1,000 ML IV SCH ×2 (06:25→17:03)
[2020-09-13 07:12] LABS: ALT 15 U/L (4-34); AST 12 U/L (14-36); African American GFR (CKD) >90 (>60 ml/min/1.73 sqM); Alkaline Phosphatase 31 U/L (38-126); Anion Gap 4 mmol/L; Blood Urea Nitrogen 12 mg/dL (7-17); Carbon Dioxide 29 mmol/L (22-30); Chloride 103 mmol/L (98-107); Glucose 79 mg/dL (74-99); Magnesium 2.1 mg/dL (1.6-2.3); Non-African American GFR(CKD) 85 (>60 ml/min/1.73 sqM); Potassium 3.4 mmol/L (3.5-5.1); Sodium 136 mmol/L (137-145); Total Bilirubin 0.7 mg/dL (0.2-1.3); Total Protein 3.7 g/dL (6.3-8.2)
[2020-09-13 07:15] LABS: Anisocytosis Slight; HCT 20.7 % (34.0-46.0); HGB 7.1 gm/dL (11.4-16.0); MCH 29.9 pg (25.0-35.0); MCHC 34.4 g/dL (31.0-37.0); Mean Platelet Volume 8.4; Platelet Count 107 k/uL (150-450); RBC 2.37 m/uL (3.80-5.40); RDW 18.9 % (11.5-15.5)
[2020-09-13 07:23] LABS: WBC 1.4 k/uL (3.8-10.6)
[2020-09-13 08:46] LABS: Band Neutrophils % 8 %; Lymphocytes # (M) 0.17 k/uL (1.0-4.8); Metamyelocytes # (M) 0.01 k/uL (0); Metamyelocytes % 1 %; Monocytes # (M) 0.25 k/uL (0-1.0); Myelocytes # (M) 0.04 k/uL (0); Myelocytes % 3 %; Neutrophils % (M) 58 %; Nucleated Red Blood Cells 0 /100 WBC (0-0); Total Cells Counted 100
[2020-09-13 08:47] LABS: Poikilocytosis (M) Present
[2020-09-13] MEDS: METOPROLOL TARTRATE 50 MG TAB PO SCH ×2 (09:09→20:17)
[2020-09-13] MEDS: allopurinoL 300 MG TAB PO SCH (09:10)
[2020-09-13] MEDS: ACYCLOVIR 200 MG CAP PO SCH ×2 (09:10→20:17)
--- NOTE | 2020-09-13 10:36 | P.CRDCN ---
History of Present Illness History of present illness: HISTORY OF PRESENTING ILLNESS This is a pleasant 85-year-old female past medical history significant for paroxysmal atrial fibrillation, mantle cell lymphoma currently undergoing c hemotherapy, hypertension and dyslipidemia. She follows in the office with Dr. Pereira. We have been asked to see in consultation for atrial fibrillation and elevated troponin. She presented to the hospital with symptoms of generalized weakness. According to ER documentation the called 911 because she was not able to perform her normal daily routine and was acting strangely. The patient is seen and examined sitting up in the recliner in no acute distress. She admits to feeling extremely fatigued with no energy for the previous one month. She denies symptoms of chest pain, shortness of breath, dizziness or palpitations. She is concerned this morning because she feels extremely hungry. On arrival in EKG performed revealed multifocal atrial tachycardia with underlying right bundle branch block. She was initiated on a Cardizem infusion. She is currently maintaining sinus mechanism with rates in the 60s. Chest x- ray reveals no acute cardiopulmonary process. CT of the head and spine reveal central cerebral atrophy, mild burden of chronic small vessel ischemic disease with no significant acute intracranial process. Mild to moderate spondylotic changes and mild chronic paranasal sinus disease. Abdominal x-ray is negative for an acute process. Laboratory data reviewed, WBC 1.4, hemoglobin 7.1, platelets 107, INR 1.4, sodium 136, potassium on admission 2. 5 repeat today 3.4, creatinine 0.58, magnesium on admission 1. 3 repeat today 2.1, troponin 0.0 88, 0.104, 0.0 96 and proBNP 2490. Current daily cardiac medications include Xarelto 15 mg daily and Lopressor 50 mg twice a day. She was evaluated in the hospital in July 2020 with similar complaints. At that time an echocardiogram obtained revealed preserved LV systolic function with ejection fraction 55-60% with mild tricuspid regurgitation. REVIEW OF SYSTEMS At the time of my exam: CONSTITUTIONAL: Denies fever or chills. Complains of generalized weakness and fatigue. CARDIOVASCULAR: Denies chest pain, shortness of breath, orthopnea, PND or palpitations. RESPIRATORY: Denies cough. GASTROINTESTINAL: Denies abdominal pain, diarrhea, constipation, nausea or vomiting. MUSCULOSKELETAL: Denies myalgias. NEUROLOGIC: Denies numbness, tingling, headacbe or weakness. ENDOCRINE: Denies fatigue, weight change, polydipsia or polyurina. GENITOURINARY: Denies burning, hematuria or urgency with micturation. HEMATOLOGIC: Denies history of anemia or bleeding. PHYSICAL EXAMINATION Blood pressure 115/58 heart rate 65 afebrile and maintaining oxygen saturation on room air. CONSTITUTIONAL: No apparent distress. Generalized pallor. HEENT: Head is normocephalic. Pupils are equal, round. Sclerae anicteric. Mucous membranes of the mouth are moist. No JVD. No carotid bruit. CHEST EXAMINATION: Lungs are clear to auscultation. No chest wall tenderness is noted on palpation or with deep breathing. HEART EXAMINATION: Regular rate and rhythm. S1, S2 heard. No murmurs, gallops or rub. ABDOMEN: Soft, nontender. Positive bowel sounds. EXTREMITIES: 2+ peripheral pulses, no lower extremity edema and no calf tenderness. NEUROLOGIC EXAMINATION: Patient is awake, alert and oriented x3. ASSESSMENT Paroxysmal atrial fibrillation on long-term anticoagulation with Xarelto. Mildly rapid rates on admission, currently maintaining sinus mechanism. Mantle cell lymphoma Pancytopenia Hypokalemia Hypomagnesemia, resolved after supplementation Troponin elevation, not consistent with myocardial injury Hypertension Dyslipidemia PLAN Patient currently maintaining sinus mechanism, discontinue Cardizem infusion. Troponin elevation is not consistent with myocardial injury. Continue to replace electrolytes per protocol. Continue Xarelto for thromboembolic protection and Lopressor for rate control. No further cardiac workup required at this time. Thank you kindly for this consultation. Nurse Practitioner note has been reviewed, I agree with a documented findings and plan of care. Patient was seen and examined. Past Medical History Past Medical History: Hypertension, Thyroid Disorder Additional Past Medical History / Comment(s): OSTEOPOROSIS. lymphoma History of Any Multi-Drug Resistant Organisms: None Reported Past Surgical History: Appendectomy, Cholecystectomy Past Anesthesia/Blood Transfusion Reactions: No Reported Reaction Past Psychological History: No Psychological Hx Reported Smoking Status: Never smoker Past Alcohol Use History: None Reported Past Drug Use History: None Reported Medications and Allergies Home Medications Medication Instructions Recorded Confirmed Type Levothyroxine Sodium [Levoxyl] 50 mcg PO DAILY 08/07/15 09/12/20 History Ascorbic Acid [Vitamin C] 500 mg PO DAILY 07/30/20 09/12/20 History Calcium, Magnesium & Zinc (Unknown 1 tab PO DAILY 07/30/20 09/12/20 History Strength) Fish Oil/Dha/Epa [Fish Oil 1,200 1 tab PO DAILY 07/30/20 09/12/20 History mg Fish Oil] Multivitamins, Thera [Multivitamin 1 tab PO DAILY 07/30/20 09/12/20 History (formulary)] Omeprazole [PriLOSEC] 40 mg PO DAILY 07/30/20 09/12/20 History Ubidecarenone [Co Q-10] 200 mg PO DAILY 07/30/20 09/12/20 History allopurinoL [Zyloprim] 300 mg PO DAILY 07/30/20 09/12/20 History Metoprolol Tartrate [Lopressor] 50 mg PO BID tab 08/07/20 09/12/20 Rx Ergocalciferol (Vitamin D2) 50 mcg PO DAILY 09/12/20 09/12/20 History [Vitamin D2 (2000 Iu)] Rivaroxaban [Xarelto] 15 mg PO W/SUPPER 09/12/20 09/12/20 History Allergies Allergy/AdvReac Type Severity Reaction Status Date / Time Sulfa (Sulfonamide Allergy Unknown Verified 09/12/20 13:12 Antibiotics) Physical Exam Vitals: Vital Signs Temp Pulse Pulse Resp BP BP Pulse Ox 09/13/20 08:25 97.5 F L 65 17 115/58 100 09/13/20 07:50 98 09/13/20 03:50 99.2 F 70 16 104/57 98 09/13/20 02:00 84 17 09/12/20 23:20 98.6 F 84 17 92/56 96 09/12/20 20:00 98.8 F 101 H 17 111/59 100 09/12/20 17:04 97.9 F 101 H 16 117/75 100 09/12/20 16:30 97.9 F 91 17 147/64 100 09/12/20 16:00 91 16 09/12/20 15:58 108 H 16 102/64 100 09/12/20 15:16 103 H 16 123/77 100 09/12/20 14:46 95 16 107/59 100 09/12/20 13:29 96 16 129/76 100 09/12/20 12:31 88 16 108/67 100 09/12/20 12:03 111 H 16 112/69 100 09/12/20 11:31 113 H 16 121/79 99 09/12/20 11:19 114 H 16 86/73 100 Intake and Output 09/12/20 09/13/20 09/13/20 22:59 06:59 14:59 Intake Total 600 Balance 600 Intake: Intake, IV Titration 600 Amount Potassium Chloride 20 meq 100 In Water For Injection 1 100ml.bag @ 50 mls/hr IVPB ONCE STA Rx#: [id number] Sodium Chloride 0.9% 1, 500 000 ml @ 75 mls/hr IV . [id number] [facility] Rx#:[id number] Other: Voiding Method Diaper Diaper Diaper # Voids 1 2 Weight 44.906 kg 47.5 kg Results 09/13/20 06:19 09/13/20 06:19 Cardiac Enzymes 09/12/20 09/12/20 09/12/20 Range/Units 10:25 10:28 14:28 AST 24 (14-36) U/L Lactate Dehydrogenase (313-618) U/L Troponin I 0.088 H* 0.104 H* (0.000-0.034) ng/mL 09/12/20 09/12/20 09/12/20 Range/Units 16:43 16:43 20:41 AST 13 L (14-36) U/L Lactate Dehydrogenase 421 (313-618) U/L Troponin I 0.096 H* (0.000-0.034) ng/mL 09/13/20 Range/Units 06:19 AST 12 L (14-36) U/L Lactate Dehydrogenase (313-618) U/L Troponin I (0.000-0.034) ng/mL Coagulation 09/12/20 Range/Units 10:28 PT 14.0 H (9.0-12.0) sec APTT 27.3 (22.0-30.0) sec CBC 09/12/20 09/12/20 09/13/20 Range/Units 10:28 20:41 06:19 WBC 0.7 L* 0.9 L* 1.4 L* (3.8-10.6) k/uL RBC 3.03 L 2.60 L 2.37 L (3.80-5.40) m/uL Hgb 9.1 L 7.8 L 7.1 L (11.4-16.0) gm/dL Hct 25.3 L 22.0 L 20.7 L (34.0-46.0) % Plt Count 116 L D 106 L 107 L (150-450) k/uL Comprehensive Metabolic Panel 09/12/20 09/12/20 09/12/20 Range/Units 10: 16:43 20:41 Sodium 130 L 135 L 133 L (137-145) mmol/L Potassium 2.5 L* 2.9 L 3.2 L (3.5-5.1) mmol/L Chloride 97 L 101 100 (98-107) mmol/L Carbon Dioxide 27 29 31 H (22-30) mmol/L BUN 18 H 14 13 (7-17) mg/dL Creatinine 0.49 L 0.57 0.55 (0.52-1.04) mg/dL Glucose 110 H 94 94 (74-99) mg/dL Calcium 7.1 L 7.0 L 6.9 L (8.4-10.2) mg/dL AST 24 13 L (14-36) U/L ALT 19 15 (4-34) U/L Alkaline Phosphatase 25 L 34 L (38-126) U/L Total Protein 4.6 L 3.9 L (6.3-8.2) g/dL Albumin 2.4 L 2.1 L (3.5-5.0) g/dL 09/13/20 Range/Units 06:19 Sodium 136 L (137-145) mmol/L Potassium 3.4 L (3.5-5.1) mmol/L Chloride 103 (98-107) mmol/L Carbon Dioxide 29 (22-30) mmol/L BUN 12 (7-17) mg/dL Creatinine 0.58 (0.52-1.04) mg/dL Glucose 79 (74-99) mg/dL Calcium 7.0 L (8.4-10.2) mg/dL AST 12 L (14-36) U/L ALT 15 (4-34) U/L Alkaline Phosphatase 31 L (38-126) U/L Total Protein 3.7 L (6.3-8.2) g/dL Albumin 2.0 L (3.5-5.0) g/dL Current Medications Generic Name Dose Route Start Last Admin Trade Name Freq PRN Reason Stop Dose Admin Acyclovir 400 mg 09/12/20 21:00 09/13/20 09:10 Acyclovir 200 Mg Cap PO 400 mg BID CRISTHIAN Administration Allopurinol 300 mg 09/13/20 09:00 09/13/20 09:10 Allopurinol 300 Mg Tab PO 300 mg DAILY CRISTHIAN Administration Sodium Chloride 1,000 mls @ 75 mls/hr 09/12/20 12:00 09/13/20 06:25 Saline 0.9% IV 75 mls/hr .[id number] CRISTHIAN Administration Levothyroxine Sodium 50 mcg 09/13/20 06:30 09/13/20 06:25 Levothyroxine 50 Mcg Tab PO 50 mcg DAILY@0630 CRISTHIAN Administration Metoprolol Tartrate 50 mg 09/12/20 21:00 09/13/20 09:09 Metoprolol Tartrate 50 Mg Tab PO 50 mg BID CRISTHIAN Administration Miscellaneous Information 1 each 09/12/20 11:21 Potassium Replacement Protocol 1 Each Misc MISCELLANE DAILY PRN Per Protocol Protocol Miscellaneous Information 1 each 09/12/20 17:16 Potassium Replacement Protocol 1 Each Misc MISCELLANE DAILY PRN Per Protocol Protocol Nitroglycerin 0.4 mg 09/12/20 13:02 Nitroglycerin Sl Tabs 0.4 Mg Tab SUBLINGUAL Q5M PRN Chest Pain Nystatin 500,000 unit 09/12/20 18:00 09/13/20 00:33 Nystatin 100,000 Unit/Ml Susp 500,000 Unit/5 Ml Cup PO Not Given QID [facility] Pantoprazole Sodium 40 mg 09/13/20 07:30 09/13/20 06:25 Pantoprazole 40 Mg Tablet PO 40 mg [id number] CRISTHIAN Administration Rivaroxaban 15 mg 09/13/20 17:30 Rivaroxaban 15 Mg Tab PO W/SUPPER CRISTHIAN Intake and Output 09/12/20 09/13/20 09/13/20 22:59 06:59 14:59 Intake Total 600 Balance 600 Intake: Intake, IV Titration 600 Amount Potassium Chloride 20 meq 100 In Water For Injection 1 100ml.bag @ 50 mls/hr IVPB ONCE STA Rx#: [id number] Sodium Chloride 0.9% 1, 500 000 ml @ 75 mls/hr IV . [id number] [facility] Rx#:[id number] Other: Voiding Method Diaper Diaper Diaper # Voids 1 2 Weight 44.906 kg 47.5 kg 09/13/20 06:19 09/13/20 06:19
--- NOTE | 2020-09-13 13:45 | P.PN ---
Subjective Progress Note Date: 09/13/20 Kaylyn Mendez, is an 85-year-old female who presented to [facility] emergency room with a chief complaint of generalized weakness, she was evaluated in emergency room, vital examination on presentation reveals a temperature of 97.9 pulse 114 respiration 16 blood pressure 122/101 pulse ox 100% on room air , white blood count was 0.7 hemoglobin 9.1 platelet count 116 sodium 1:30 potassium 2.5 chloride 97 BUN 18 creatinine 0.49. Patient was recently admitted to the hospital at that time she was diagnosed with atrial fibrillation with RVR and urinary tract infection, about 1 month ago. Urine analysis at this time revealed evidence of urinary tract infection again, patient was started on Zosyn in the emergency room, patient also had slightly elevated troponin level in the emergency room, Gonzalez virus PCR was negative. Chest x-ray done in the emergency room revealed no acute process, computed tomography scan of the brain revealed some ventriculomegaly, possible component of normal pressure hydrocephalus. When patient was interviewed on the floor she was also complaining of diarrhea. 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 On 09/13/2020 patient was seen and examined on the medical floor, she is alert and oriented 3 in no distress she is feeling better she stated that she is not having diarrhea anymore at this time she is feeling weak and tired otherwise she denies any complaints there is no fever or chills no headache or dizziness no chest pain no shortness of breath no cough no nausea or vomiting no abdominal pain no diarrhea no blood in the stools no burning with urination no frequency or urgency and no hematuria Objective - Vital Signs Vital signs: Vital Signs Temp 97.5 F L 09/13/20 08:25 Pulse 65 09/13/20 08:25 Resp 17 09/13/20 08:25 BP 115/58 09/13/20 08:25 Pulse Ox 100 09/13/20 08:25 Intake & Output 09/12/20 09/13/20 09/13/20 18:59 06:59 18:59 Intake Total 600 0 Balance 600 0 Weight 44.906 kg 47.5 kg 47.5 kg Intake: Intake, IV Titration 600 Amount Potassium Chloride 20 meq 100 In Water For Injection 1 100ml.bag @ 50 mls/hr IVPB ONCE STA Rx#: [id number] Sodium Chloride 0.9% 1, 500 000 ml @ 75 mls/hr IV . [id number] [facility] Rx#:[id number] Oral 0 Other: Voiding Method Diaper Diaper Diaper # Voids 2 - Exam In general patient is alert and oriented 3 in no apparent distress HEENT head normocephalic and atraumatic Neck is supple no JVD no goiter no lymphadenopathy Chest exam reveals a few scattered rhonchi in both lung bases no wheezing Cardiac exam reveals regular heart sounds S1 and S2 no gallops no murmurs Abdomen is soft nontender no organomegaly with normal bowel sounds Extremity exam reveals no edema no cyanosis or clubbing Neurological examination reveals, no gross focal neurological deficits - Labs CBC & Chem 7: 09/13/20 06:19 09/13/20 06:19 Labs: Abnormal Lab Results - Last 24 Hours (Table) 09/12/20 09/12/20 09/12/20 Range/Units 14:28 16:43 16:43 WBC (3.8-10.6) k/uL RBC (3.80-5.40) m/uL Hgb (11.4-16.0) gm/dL Hct (34.0-46.0) % RDW (11.5-15.5) % Plt Count (150-450) k/uL Neutrophils # (Manual) (1.3-7.7) k/uL Lymphocytes # (Manual) (1.0-4.8) k/uL Metamyelocytes # (Man) (0) k/uL Myelocytes # (Manual) (0) k/uL Sodium 135 L (137-145) mmol/L Potassium 2.9 L (3.5-5.1) mmol/L Carbon Dioxide (22-30) mmol/L Uric Acid 2.5 L (3.7-7.4) mg/dL Calcium 7.0 L (8.4-10.2) mg/dL AST (14-36) U/L Alkaline Phosphatase (38-126) U/L Troponin I 0.104 H* 0.096 H* (0.000-0.034) ng/mL Total Protein (6.3-8.2) g/dL Albumin (3.5-5.0) g/dL 09/12/20 09/12/20 09/13/20 Range/Units 20:41 20:41 06:19 WBC 0.9 L* 1.4 L* (3.8-10.6) k/uL RBC 2.60 L 2.37 L (3.80-5.40) m/uL Hgb 7.8 L 7.1 L (11.4-16.0) gm/dL Hct 22.0 L 20.7 L (34.0-46.0) % RDW 18.7 H 18.9 H (11.5-15.5) % Plt Count 106 L 107 L (150-450) k/uL Neutrophils # (Manual) 0.90 L (1.3-7.7) k/uL Lymphocytes # (Manual) 0.17 L (1.0-4.8) k/uL Metamyelocytes # (Man) 0.01 H (0) k/uL Myelocytes # (Manual) 0.04 H (0) k/uL Sodium 133 L (137-145) mmol/L Potassium 3.2 L (3.5-5.1) mmol/L Carbon Dioxide 31 H (22-30) mmol/L Uric Acid (3.7-7.4) mg/dL Calcium 6.9 L (8.4-10.2) mg/dL AST 13 L (14-36) U/L Alkaline Phosphatase 34 L (38-126) U/L Troponin I (0.000-0.034) ng/mL Total Protein 3.9 L (6.3-8.2) g/dL Albumin 2.1 L (3.5-5.0) g/dL 09/13/20 Range/Units 06:19 WBC (3.8-10.6) k/uL RBC (3.80-5.40) m/uL Hgb (11.4-16.0) gm/dL Hct (34.0-46.0) % RDW (11.5-15.5) % Plt Count (150-450) k/uL Neutrophils # (Manual) (1.3-7.7) k/uL Lymphocytes # (Manual) (1.0-4.8) k/uL Metamyelocytes # (Man) (0) k/uL Myelocytes # (Manual) (0) k/uL Sodium 136 L (137-145) mmol/L Potassium 3.4 L (3.5-5.1) mmol/L Carbon Dioxide (22-30) mmol/L Uric Acid (3.7-7.4) mg/dL Calcium 7.0 L (8.4-10.2) mg/dL AST 12 L (14-36) U/L Alkaline Phosphatase 31 L (38-126) U/L Troponin I (0.000-0.034) ng/mL Total Protein 3.7 L (6.3-8.2) g/dL Albumin 2.0 L (3.5-5.0) g/dL Microbiology - Last 24 Hours (Table) 09/12/20 11:37 Urine Culture - Preliminary Urine,Voided Assessment and Plan Plan: 1. Generalized weakness 2. Severe hypokalemia correcting 3. Underlying history of hypothyroidism 4. Recently diagnosed with atrial fibrillation and started on metoprolol and Xarelto 5. 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 Complaints of diarrhea with check stools for culture and C. diff At this time patient was started on IV antibiotic and IV fluid Oncology and cardiology consultation requested Will check blood culture urine culture and stools culture was stools for C. diff Will consult infectious disease
[2020-09-13] MEDS ORDERED: Potassium Replacement Protocol 1 EACH MISC MISCELLANE PRN (14:20)
--- NOTE | 2020-09-13 14:28 | P.PN ---
Subjective Progress Note Date: 09/13/20 Principal diagnosis: neutropenic, fall, mental status changes Patient is more alert today. Bone marrow recory noted. No bm since last diarrhea and electrolytes and rehydration helping Objective - Vital Signs Vital signs: Vital Signs Temp 97.5 F L 09/13/20 08:25 Pulse 65 09/13/20 12:10 Resp 18 09/13/20 12:10 BP 131/60 09/13/20 12:10 Pulse Ox 97 09/13/20 12:10 Intake & Output 09/12/20 09/13/20 09/13/20 18:59 06:59 18:59 Intake Total 600 0 Balance 600 0 Weight 44.906 kg 47.5 kg 47.5 kg Intake: Intake, IV Titration 600 Amount Potassium Chloride 20 meq 100 In Water For Injection 1 100ml.bag @ 50 mls/hr IVPB ONCE STA Rx#: [id number] Sodium Chloride 0.9% 1, 500 000 ml @ 75 mls/hr IV . [id number] [facility] Rx#:[id number] Oral 0 Other: Voiding Method Diaper Diaper Diaper # Voids 2 - Exam - Constitutional General appearance: cooperative, no acute distress - EENT Eyes: EOMI, PERRLA ENT: NA/AT, normal oropharynx - Neck Neck: normal ROM - Respiratory Respiratory: bilateral: diminished - Cardiovascular Rhythm: regularly irregular - Gastrointestinal General gastrointestinal: soft, tenderness - Integumentary Integumentary: pale - Neurologic non focal - Musculoskeletal Musculoskeletal: generalized weakness - Psychiatric More awake today - Labs CBC & Chem 7: 09/14/20 06:21 09/14/20 06:21 Labs: Abnormal Lab Results - Last 24 Hours (Table) 09/12/20 09/12/20 09/12/20 Range/Units 14:28 16:43 16:43 WBC (3.8-10.6) k/uL RBC (3.80-5.40) m/uL Hgb (11.4-16.0) gm/dL Hct (34.0-46.0) % RDW (11.5-15.5) % Plt Count (150-450) k/uL Neutrophils # (Manual) (1.3-7.7) k/uL Lymphocytes # (Manual) (1.0-4.8) k/uL Metamyelocytes # (Man) (0) k/uL Myelocytes # (Manual) (0) k/uL Sodium 135 L (137-145) mmol/L Potassium 2.9 L (3.5-5.1) mmol/L Carbon Dioxide (22-30) mmol/L Uric Acid 2.5 L (3.7-7.4) mg/dL Calcium 7.0 L (8.4-10.2) mg/dL AST (14-36) U/L Alkaline Phosphatase (38-126) U/L Troponin I 0.104 H* 0.096 H* (0.000-0.034) ng/mL Total Protein (6.3-8.2) g/dL Albumin (3.5-5.0) g/dL 09/12/20 09/12/20 09/13/20 Range/Units 20:41 20:41 06:19 WBC 0.9 L* 1.4 L* (3.8-10.6) k/uL RBC 2.60 L 2.37 L (3.80-5.40) m/uL Hgb 7.8 L 7.1 L (11.4-16.0) gm/dL Hct 22.0 L 20.7 L (34.0-46.0) % RDW 18.7 H 18.9 H (11.5-15.5) % Plt Count 106 L 107 L (150-450) k/uL Neutrophils # (Manual) 0.90 L (1.3-7.7) k/uL Lymphocytes # (Manual) 0.17 L (1.0-4.8) k/uL Metamyelocytes # (Man) 0.01 H (0) k/uL Myelocytes # (Manual) 0.04 H (0) k/uL Sodium 133 L (137-145) mmol/L Potassium 3.2 L (3.5-5.1) mmol/L Carbon Dioxide 31 H (22-30) mmol/L Uric Acid (3.7-7.4) mg/dL Calcium 6.9 L (8.4-10.2) mg/dL AST 13 L (14-36) U/L Alkaline Phosphatase 34 L (38-126) U/L Troponin I (0.000-0.034) ng/mL Total Protein 3.9 L (6.3-8.2) g/dL Albumin 2.1 L (3.5-5.0) g/dL 09/13/20 Range/Units 06:19 WBC (3.8-10.6) k/uL RBC (3.80-5.40) m/uL Hgb (11.4-16.0) gm/dL Hct (34.0-46.0) % RDW (11.5-15.5) % Plt Count (150-450) k/uL Neutrophils # (Manual) (1.3-7.7) k/uL Lymphocytes # (Manual) (1.0-4.8) k/uL Metamyelocytes # (Man) (0) k/uL Myelocytes # (Manual) (0) k/uL Sodium 136 L (137-145) mmol/L Potassium 3.4 L (3.5-5.1) mmol/L Carbon Dioxide (22-30) mmol/L Uric Acid (3.7-7.4) mg/dL Calcium 7.0 L (8.4-10.2) mg/dL AST 12 L (14-36) U/L Alkaline Phosphatase 31 L (38-126) U/L Troponin I (0.000-0.034) ng/mL Total Protein 3.7 L (6.3-8.2) g/dL Albumin 2.0 L (3.5-5.0) g/dL Microbiology - Last 24 Hours (Table) 09/12/20 11:37 Urine Culture - Preliminary Urine,Voided Assessment and Plan (1) Atrial fibrillation with RVR Current Visit: Yes Status: Acute Code(s): I48.91 - UNSPECIFIED ATRIAL FIBRILLATION SNOMED Code(s): 029838003808956 (2) Hypokalemia Current Visit: Yes Status: Acute Code(s): E87.6 - HYPOKALEMIA SNOMED Code(s): 11889714 (3) Hypomagnesemia Current Visit: Yes Status: Acute Code(s): E83.42 - HYPOMAGNESEMIA SNOMED Code(s): 876152140 (4) NHL (non-Hodgkin's lymphoma) Current Visit: No Status: Acute Priority: High Code(s): C85.90 - NON- HODGKIN LYMPHOMA, UNSPECIFIED, UNSPECIFIED SITE SNOMED Code(s): 821955720 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 If any of these s/s please place do not advance diet - On Zosyn, to continue - Prophylaxic Antibiotcs Hypokalemia and Hypomagnesium: - Possible from GI loss and Dehydration Daily CBC, CMP, MAg in am Full De Dios Cultures pending Advance to Clear liquids with recovering neutrophils and decrease loose stools Abdominal Xray Monitor for Diarrhea Physician Attest: I have completed the full history and physical and agree with above dictation, dictated as a scribe
[2020-09-13] MEDS: POTASSIUM CHLORIDE ER 20 MEQ TAB.ER PO SCH ×2 (17:02→18:27)
[2020-09-13] MEDS: RIVAROXABAN 15 MG TAB PO SCH (18:29)
--- NOTE | 2020-09-13 22:53 | CONS ---
CONSULTATION DATE OF SERVICE: 09/13/2020 REASON FOR STAY: Possible sepsis. HISTORY OF PRESENT ILLNESS: The patient is an 85-year-old female, with past medical history significant for lymphoma in this patient who was recently admitted to this facility in July with febrile neutropenia related to E coli urinary tract infection, treated with IV subsequently finished therapy with oral antibiotic. The patient did mention she had her last chemo about a week ago. On Wednesday she presented to the ER on September 12 after apparently the patient was feeling weak and ended up on the floor. The patient denies falling or hitting her head. Just mentioned it was the best place to lay down. The called 911 and the patient was brought into the ER. The patient is complaining of weakness. No energy. Denies having any fever or any chills. No headache. No chest pain. No shortness of breath or cough. No abdominal pain. No diarrhea. No urinary symptoms or any burning or frequency. On presentation to the hospital, the patient has been afebrile and no fever has been recorded in the last 2 days. The patient was noticed to be leukopenic and neutropenic with white count 0.7. The patient did have normal kidney function. Troponin was mildly elevated. She did have a positive UA. Gonzalez PCR was negative. The patient did have blood cultures drawn which are currently pending. She did have a chest x-ray shows right sided chest wall infection MediPort. No acute pulmonary process. Infectious disease was consulted with concern for possible neutropenic sepsis and need for antibiotic therapy. REVIEW OF SYSTEMS: Positive points have been mentioned in HPI. Rest of the systems are negative. PAST MEDICAL HISTORY: Hypertension, hypothyroidism, osteoporosis, lymphoma, febrile neutropenia, UTI. PAST SURGICAL HISTORY: Appendectomy, cholecystectomy, and right chest wall MediPort placement. SOCIAL HISTORY: No smoking, drinking or drug use. FAMILY HISTORY: No pertinent findings noticed. ALLERGIES: ALLERGIES TO SULFA. MEDICATIONS: Include the patient is currently on Zovirax, Zyloprim, Synthroid, Lopressor, Nitrostat, Protonix, Xarelto, IV fluids and Zosyn. PHYSICAL EXAMINATION: Blood pressure 118/72 with a pulse of 78, temperature 98.5. She is 100% on room air. General description is a middle-aged female lying in bed in no distress. No tachypnea or accessory muscles of respiration use. HEENT: Examination shows no pallor or scleral icterus. Oral mucous membranes dry. No pharyngeal erythema or thrush. NECK: Trachea central. No thyromegaly. LUNGS: Unlabored breathing. Clear to auscultation anteriorly. No wheeze or crackles. HEART S1, S2. Regular rate and rhythm. ABDOMEN: Soft, no tenderness. No guarding. No rigidity. EXTREMITIES: No edema of the feet. SKIN examination: No rash or mass palpable. NEUROLOGICAL: Patient is awake, alert, oriented times three. Mood and affect normal. LABS: Hemoglobin 7.1, white count 1.4, BUN of 12, creatinine 0.5. has been normal. The potassium 3.4. Liver enzymes are normal. Urine was positive. Influenza PCR negative. Chest x-ray negative. DIAGNOSTIC IMPRESSION AND PLAN: Patient admitted to the hospital with generalized weakness, no energy in this patient currently with neutropenia undergoing chemotherapy for mantel cell lymphoma. The patient did not have any fever during this admission and did not have any localizing signs and symptoms of infection either. Chest x-ray was reported negative. The patient UA is positive. However, the patient did not have any urinary symptoms or burning frequency, more likely present asymptomatic bacteriuria. PLAN: 1. Recommend discontinue antibiotics and monitor the patient closely off antibiotic therapy. 2. If the patient spikes a fever, appropriate cultures will be obtained and antibiotics started if needed. 3. We will follow up on clinical condition and adjust medication further if needed. Thank you for this consultation. Will follow this patient along with you. MMSAMANTAL / MARIALUISAN: [id number] /
[2020-09-13] MEDS: PIPERACILLIN-TAZOBACTAM 3.375 GM in SODIUM CHLORIDE 0.9% 100 ML IVPB SCH (22:55)
[2020-09-14] MEDS: SODIUM CHLORIDE 0.9% 1,000 ML IV SCH ×2 (05:52→16:25)
[2020-09-14] MEDS: PANTOPRAZOLE 40 MG TABLET PO SCH (06:01)
[2020-09-14] MEDS: LEVOTHYROXINE 50 MCG TAB PO SCH (06:01)
[2020-09-14 07:11] LABS: Anisocytosis Slight; HCT 20.7 % (34.0-46.0); HGB 7.1 gm/dL (11.4-16.0); MCH 29.6 pg (25.0-35.0); MCV 86.9 fL (80.0-100.0); Mean Platelet Volume 7.9; RBC 2.38 m/uL (3.80-5.40); RDW 19.4 % (11.5-15.5); WBC 3.6 k/uL (3.8-10.6)
[2020-09-14 07:38] LABS: ALT 13 U/L (4-34); AST 14 U/L (14-36); African American GFR (CKD) >90 (>60 ml/min/1.73 sqM); Alkaline Phosphatase 33 U/L (38-126); Anion Gap 2 mmol/L; Blood Urea Nitrogen 7 mg/dL (7-17); Calcium 7.5 mg/dL (8.4-10.2); Carbon Dioxide 27 mmol/L (22-30); Chloride 104 mmol/L (98-107); Glucose 77 mg/dL (74-99); Non-African American GFR(CKD) 85 (>60 ml/min/1.73 sqM); Potassium 4.3 mmol/L (3.5-5.1); Sodium 133 mmol/L (137-145); Total Bilirubin 0.7 mg/dL (0.2-1.3); Total Protein 3.8 g/dL (6.3-8.2)
[2020-09-14 07:42] LABS: Platelet Count 172 k/uL (150-450)
[2020-09-14] MEDS: PIPERACILLIN-TAZOBACTAM 3.375 GM in SODIUM CHLORIDE 0.9% 100 ML IVPB SCH ×3 (08:03→23:04)
[2020-09-14] MEDS: allopurinoL 300 MG TAB PO SCH (08:03)
[2020-09-14] MEDS: METOPROLOL TARTRATE 50 MG TAB PO SCH ×2 (08:03→19:59)
[2020-09-14] MEDS: ACYCLOVIR 200 MG CAP PO SCH ×2 (08:03→19:59)
[2020-09-14] MEDS: NYSTATIN 100,000 UNIT/ML SUSP 500,000 UNIT/5 ML CUP PO SCH ×4 (08:05→20:00)
[2020-09-14 08:22] LABS: Band Neutrophils % 13 %; Lymphocytes # (M) 0.11 k/uL (1.0-4.8); Metamyelocytes # (M) 0.29 k/uL (0); Metamyelocytes % 8 %; Monocytes # (M) 0.07 k/uL (0-1.0); Myelocytes # (M) 0.07 k/uL (0); Myelocytes % 2 %; Neutrophils % (M) 71 %; Promyelocytes # (M) 0.07 k/uL (0); Promyelocytes % 2 %
[2020-09-14 08:24] LABS: Blast Cells # (M) 0.04 k/uL (0); Nucleated Red Blood Cells 0 /100 WBC (0-0); Total Cells Counted 200
[2020-09-14 08:25] LABS: Poikilocytosis (M) Present
--- NOTE | 2020-09-14 14:00 | P.PN ---
Subjective Progress Note Date: 09/14/20 Kaylyn Mendez, is an 85-year-old female who presented to [facility] emergency room with a chief complaint of generalized weakness, she was evaluated in emergency room, vital examination on presentation reveals a temperature of 97.9 pulse 114 respiration 16 blood pressure 122/101 pulse ox 100% on room air , white blood count was 0.7 hemoglobin 9.1 platelet count 116 sodium 1:30 potassium 2.5 chloride 97 BUN 18 creatinine 0.49. Patient was recently admitted to the hospital at that time she was diagnosed with atrial fibrillation with RVR and urinary tract infection, about 1 month ago. Urine analysis at this time revealed evidence of urinary tract infection again, patient was started on Zosyn in the emergency room, patient also had slightly elevated troponin level in the emergency room, Gonzalez virus PCR was negative. Chest x-ray done in the emergency room revealed no acute process, computed tomography scan of the brain revealed some ventriculomegaly, possible component of normal pressure hydrocephalus. When patient was interviewed on the floor she was also complaining of diarrhea. 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 On 09/13/2020 patient was seen and examined on the medical floor, she is alert and oriented 3 in no distress she is feeling better she stated that she is not having diarrhea anymore at this time she is feeling weak and tired otherwise she denies any complaints there is no fever or chills no headache or dizziness no chest pain no shortness of breath no cough no nausea or vomiting no abdominal pain no diarrhea no blood in the stools no burning with urination no frequency or urgency and no hematuria On 09/14/2020 patient was seen and examined on the medical floor she is alert and oriented 3 in no distress, she is alert and oriented 3 in no distress she denies any pain she denies any further episodes of diarrhea C. diff toxin was negative urine analysis revealed evidence of urinary tract infection and urine culture is positive for gram-negative cocci patient was started on IV Zosyn otherwise she denies any complaints there is no fever or chills no headache or dizziness no chest pain no shortness of breath no cough no nausea or vomiting no abdominal pain no burning with urination no frequency or urgency and no hematuria Objective - Vital Signs Vital signs: Vital Signs Temp 98.6 F 09/14/20 12:00 Pulse 72 09/14/20 12:00 Resp 17 09/14/20 12:00 BP 104/56 09/14/20 12:00 Pulse Ox 97 09/14/20 12:00 Intake & Output 09/13/20 09/14/20 09/14/20 18:59 06:59 18:59 Intake Total 1000 120 Output Total 400 Balance 600 120 Weight 47.5 kg 54 kg Intake: Intake, IV Titration 1000 Amount Sodium Chloride 0.9% 1, 1000 000 ml @ 75 mls/hr IV . [id number] [facility] Rx#:[id number] Oral 0 120 Output: Urine 400 Other: Voiding Method Diaper Diaper Diaper # Voids 2 2 # Bowel Movements 1 - Exam In general patient is alert and oriented 3 in no apparent distress HEENT head normocephalic and atraumatic Neck is supple no JVD no goiter no lymphadenopathy Chest exam reveals a few scattered rhonchi in both lung bases no wheezing Cardiac exam reveals regular heart sounds S1 and S2 no gallops no murmurs Abdomen is soft nontender no organomegaly with normal bowel sounds Extremity exam reveals no edema no cyanosis or clubbing Neurological examination reveals, no gross focal neurological deficits - Labs CBC & Chem 7: 09/14/20 06:21 09/14/20 06:21 Labs: Abnormal Lab Results - Last 24 Hours (Table) 09/14/20 09/14/20 Range/Units 06:21 06:21 WBC 3.6 L (3.8-10.6) k/uL RBC 2.38 L (3.80-5.40) m/uL Hgb 7.1 L (11.4-16.0) gm/dL Hct 20.7 L (34.0-46.0) % RDW 19.4 H (11.5-15.5) % Blast Cells % 1 H* % Lymphocytes # (Manual) 0.11 L (1.0-4.8) k/uL Metamyelocytes # (Man) 0.29 H (0) k/uL Myelocytes # (Manual) 0.07 H (0) k/uL Promyelocytes # (Man) 0.07 H (0) k/uL Blast Cells # (Man) 0.04 H (0) k/uL Sodium 133 L (137-145) mmol/L Calcium 7.5 L (8.4-10.2) mg/dL Alkaline Phosphatase 33 L (38-126) U/L Total Protein 3.8 L (6.3-8.2) g/dL Albumin 2.0 L (3.5-5.0) g/dL Microbiology - Last 24 Hours (Table) 09/12/20 20:41 Blood Culture - Preliminary Blood No Growth after 24 hours 09/12/20 16:43 Blood Culture - Preliminary Blood No Growth after 24 hours 09/12/20 11:37 Urine Culture - Preliminary Urine,Voided Gram Neg Bacilli Gram Neg Bacilli#2 Assessment and Plan Plan: 1. Generalized weakness 2. Severe hypokalemia correcting 3. Underlying history of hypothyroidism 4. Recently diagnosed with atrial fibrillation and started on metoprolol and Xarelto 5. 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 Complaints of diarrhea with check stools for culture and C. diff At this time patient was started on IV antibiotic and IV fluid Oncology and cardiology consultation requested Will check blood culture urine culture and stools culture was stools for C. diff Will consult infectious disease
[2020-09-14] MEDS: RIVAROXABAN 15 MG TAB PO SCH (17:05)
--- NOTE | 2020-09-14 18:07 | PN ---
PROGRESS NOTE DATE OF SERVICE: 09/14/2020 The patient did have a low-grade fever of 99.9 degrees Fahrenheit around 3:00 in the morning. The patient is afebrile since then. The patient is breathing comfortably. Denies any chest pain or cough. No abdominal pain or diarrhea. PHYSICAL EXAMINATION: Blood pressure 104/56, pulse of 72, temperature 98.6, 97% on room air the. General description is an elderly female lying in bed in no distress. Respiratory system: Unlabored breathing, clear to auscultation anteriorly. Heart S1, S2. Regular rate and rhythm. Abdomen soft, no tenderness. LABS: Hemoglobin 7.1, white count 3.6, BUN of 7, creatinine 0.59. Urine showing gram- negative blood culture so far. DIAGNOSTIC IMPRESSION AND PLAN: Patient with neutropenia in this patient with history of lymphoma, status post chemo, now with low-grade fever and a positive UA. Covered with Zosyn, to continue while waiting for the culture to finalize. Continue supportive care. MMODL / IJN: [id number] /
[2020-09-15] MEDS: LEVOTHYROXINE 50 MCG TAB PO SCH (06:16)
[2020-09-15] MEDS: PANTOPRAZOLE 40 MG TABLET PO SCH (06:16)
[2020-09-15] MEDS: ACYCLOVIR 200 MG CAP PO SCH ×2 (07:50→20:21)
[2020-09-15] MEDS: NYSTATIN 100,000 UNIT/ML SUSP 500,000 UNIT/5 ML CUP PO SCH ×4 (07:50→20:21)
[2020-09-15] MEDS: PIPERACILLIN-TAZOBACTAM 3.375 GM in SODIUM CHLORIDE 0.9% 100 ML IVPB SCH ×2 (07:50→16:43)
[2020-09-15] MEDS: allopurinoL 300 MG TAB PO SCH (07:50)
[2020-09-15] MEDS: METOPROLOL TARTRATE 50 MG TAB PO SCH ×2 (07:50→20:20)
[2020-09-15 07:56] LABS: Anisocytosis Slight; HGB 7.7 gm/dL (11.4-16.0); MCH 29.4 pg (25.0-35.0); MCHC 33.5 g/dL (31.0-37.0); MCV 87.7 fL (80.0-100.0); Mean Platelet Volume 7.4; Platelet Count 259 k/uL (150-450); Poikilocytosis Slight; RBC 2.62 m/uL (3.80-5.40); RDW 19.1 % (11.5-15.5); WBC 4.6 k/uL (3.8-10.6)
[2020-09-15 08:18] LABS: ALT 13 U/L (4-34); AST 15 U/L (14-36); African American GFR (CKD) >90 (>60 ml/min/1.73 sqM); Albumin 2.2 g/dL (3.5-5.0); Alkaline Phosphatase 38 U/L (38-126); Anion Gap 1 mmol/L; Blood Urea Nitrogen 3 mg/dL (7-17); Calcium 7.7 mg/dL (8.4-10.2); Carbon Dioxide 29 mmol/L (22-30); Chloride 103 mmol/L (98-107); Glucose 82 mg/dL (74-99); Non-African American GFR(CKD) 81 (>60 ml/min/1.73 sqM); Potassium 3.9 mmol/L (3.5-5.1); Sodium 133 mmol/L (137-145); Total Bilirubin 0.7 mg/dL (0.2-1.3); Total Protein 4.1 g/dL (6.3-8.2)
[2020-09-15 10:15] LABS: Monocytes # (M) 0.14 k/uL (0-1.0); Nucleated Red Blood Cells 0 /100 WBC (0-0); Promyelocytes # (M) 0.05 k/uL (0); Promyelocytes % 1 %
[2020-09-15 10:17] LABS: Band Neutrophils % 9 %; Lymphocytes # (M) 0.09 k/uL (1.0-4.8); Metamyelocytes # (M) 0.23 k/uL (0); Metamyelocytes % 5 %; Myelocytes # (M) 0.09 k/uL (0); Myelocytes % 2 %; Neutrophils % (M) 79 %; Total Cells Counted 200
--- NOTE | 2020-09-15 10:27 | P.PN ---
Subjective Progress Note Date: 09/15/20 Kaylyn Mendez, is an 85-year-old female who presented to [facility] emergency room with a chief complaint of generalized weakness, she was evaluated in emergency room, vital examination on presentation reveals a temperature of 97.9 pulse 114 respiration 16 blood pressure 122/101 pulse ox 100% on room air , white blood count was 0.7 hemoglobin 9.1 platelet count 116 sodium 1:30 potassium 2.5 chloride 97 BUN 18 creatinine 0.49. Patient was recently admitted to the hospital at that time she was diagnosed with atrial fibrillation with RVR and urinary tract infection, about 1 month ago. Urine analysis at this time revealed evidence of urinary tract infection again, patient was started on Zosyn in the emergency room, patient also had slightly elevated troponin level in the emergency room, Gonzalez virus PCR was negative. Chest x-ray done in the emergency room revealed no acute process, computed tomography scan of the brain revealed some ventriculomegaly, possible component of normal pressure hydrocephalus. When patient was interviewed on the floor she was also complaining of diarrhea. 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 On 09/13/2020 patient was seen and examined on the medical floor, she is alert and oriented 3 in no distress she is feeling better she stated that she is not having diarrhea anymore at this time she is feeling weak and tired otherwise she denies any complaints there is no fever or chills no headache or dizziness no chest pain no shortness of breath no cough no nausea or vomiting no abdominal pain no diarrhea no blood in the stools no burning with urination no frequency or urgency and no hematuria On 09/14/2020 patient was seen and examined on the medical floor she is alert and oriented 3 in no distress, she is alert and oriented 3 in no distress she denies any pain she denies any further episodes of diarrhea C. diff toxin was negative urine analysis revealed evidence of urinary tract infection and urine culture is positive for gram-negative cocci patient was started on IV Zosyn otherwise she denies any complaints there is no fever or chills no headache or dizziness no chest pain no shortness of breath no cough no nausea or vomiting no abdominal pain no burning with urination no frequency or urgency and no hematuria On 09/15/2020 patient is currently resting comfortably in bed. Patient is sleepy but does wake up to follow commands and answer questions. Patient is currently on Zosyn for urinary tract infection. Urine cultures currently growin g E. coli and Proteus mirabilis. Patient had low-grade temp this a.m. 99.4 electrolytes have improved. Oncology and infectious disease following. Patient denies any chest pain or shortness of breath. Patient denies nausea vomiting or diarrhea. Patient denies any urinary burning or frequency Objective - Vital Signs Vital signs: Vital Signs Temp 99.4 F 09/15/20 07:48 Pulse 71 09/15/20 07:48 Resp 15 09/15/20 07:48 BP 127/78 09/15/20 07:48 Pulse Ox 96 09/15/20 07:48 Intake & Output 09/14/20 09/15/20 09/15/20 18:59 06:59 18:59 Intake Total 140 Balance 140 Intake: Oral 140 Other: Voiding Method Diaper Diaper Diaper # Voids 2 3 2 # Bowel Movements 1 - Exam In general patient is alert and oriented 3 in no apparent distress HEENT head normocephalic and atraumatic Neck is supple no JVD no goiter no lymphadenopathy Chest exam reveals a few scattered rhonchi in both lung bases no wheezing Cardiac exam reveals regular heart sounds S1 and S2 no gallops no murmurs Abdomen is soft nontender no organomegaly with normal bowel sounds Extremity exam reveals no edema no cyanosis or clubbing Neurological examination reveals, no gross focal neurological deficits - Labs CBC & Chem 7: 09/15/20 06:52 09/15/20 06:52 Labs: Abnormal Lab Results - Last 24 Hours (Table) 09/15/20 09/15/20 Range/Units 06:52 06:52 RBC 2.62 L (3.80-5.40) m/uL Hgb 7.7 L (11.4-16.0) gm/dL Hct 23.0 L (34.0-46.0) % RDW 19.1 H (11.5-15.5) % Lymphocytes # (Manual) 0.09 L (1.0-4.8) k/uL Metamyelocytes # (Man) 0.23 H (0) k/uL Myelocytes # (Manual) 0.09 H (0) k/uL Promyelocytes # (Man) 0.05 H (0) k/uL Sodium 133 L (137-145) mmol/L BUN 3 L (7-17) mg/dL Calcium 7.7 L (8.4-10.2) mg/dL Total Protein 4.1 L (6.3-8.2) g/dL Albumin 2.2 L (3.5-5.0) g/dL Microbiology - Last 24 Hours (Table) 09/12/20 20:41 Blood Culture - Preliminary Blood No Growth after 48 hours 09/12/20 16:43 Blood Culture - Preliminary Blood No Growth after 48 hours 09/14/20 09:15 Stool Culture - Preliminary Stool 09/12/20 11:37 Urine Culture - Final Urine,Voided Escherichia coli Proteus mirabilis Assessment and Plan Plan: 1. Generalized weakness secondary to urinary tract infection and electrolyte imbalance 2. Urinary tract infection. Patient currently on Zosyn. Urine culture showing E. coli and Proteus Mirabillis. Infectious disease is following 3. Severe hypokalemia correcting. Resolved 4. Underlying history of hypothyroidism. Maintained on Synthroid 5. Recently diagnosed with atrial fibrillation and started on metoprolol and Xarelto. Patient was evaluated by cardiology services. No further workup at this time 6. 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 Oncology services are following 7. Complaints of diarrhea. Stool lactoferrin negative. C. diff negative. DVT prophylaxis Xarelto. GI prophylaxis Protonix Oncology infectious disease and cardiology services following Patient remains on IV antibiotics for urinary tract infection Continue to monitor electrolytes closely
[2020-09-15] MEDS: SODIUM CHLORIDE 0.9% 1,000 ML IV SCH (11:56)
[2020-09-15] MEDS: RIVAROXABAN 15 MG TAB PO SCH (16:44)
--- NOTE | 2020-09-15 17:42 | P.PN ---
Subjective Progress Note Date: 09/15/20 Principal diagnosis: neutropenic, fall, mental status changes Spoke with NUrsing, was improving yesterday, although seems weak and more distant mentally today. She is answering questions. Abdominal Pain is resolved. Objective - Vital Signs Vital signs: Vital Signs Temp 98.5 F 09/15/20 16:45 Pulse 72 09/15/20 16:45 Resp 15 09/15/20 16:45 BP 162/67 09/15/20 16:45 Pulse Ox 96 09/15/20 16:45 Intake & Output 09/14/20 09/15/20 09/15/20 18:59 06:59 18:59 Intake Total 140 236 Balance 140 236 Intake: Oral 140 236 Other: Voiding Method Diaper Diaper Diaper # Voids 2 3 4 # Bowel Movements 1 2 - Exam - Constitutional General appearance: cooperative, no acute distress - EENT Eyes: EOMI, PERRLA ENT: NA/AT, normal oropharynx - Neck Neck: normal ROM - Respiratory Respiratory: bilateral: diminished - Cardiovascular Rhythm: regularly irregular - Gastrointestinal General gastrointestinal: soft, tenderness - Integumentary Integumentary: pale - Neurologic non focal - Musculoskeletal Musculoskeletal: generalized weakness - Psychiatric More awake today - Labs CBC & Chem 7: 09/15/20 06:52 09/15/20 06:52 Labs: Abnormal Lab Results - Last 24 Hours (Table) 09/15/20 09/15/20 Range/Units 06:52 06:52 RBC 2.62 L (3.80-5.40) m/uL Hgb 7.7 L (11.4-16.0) gm/dL Hct 23.0 L (34.0-46.0) % RDW 19.1 H (11.5-15.5) % Lymphocytes # (Manual) 0.09 L (1.0-4.8) k/uL Metamyelocytes # (Man) 0.23 H (0) k/uL Myelocytes # (Manual) 0.09 H (0) k/uL Promyelocytes # (Man) 0.05 H (0) k/uL Sodium 133 L (137-145) mmol/L BUN 3 L (7-17) mg/dL Calcium 7.7 L (8.4-10.2) mg/dL Total Protein 4.1 L (6.3-8.2) g/dL Albumin 2.2 L (3.5-5.0) g/dL Microbiology - Last 24 Hours (Table) 09/12/20 20:41 Blood Culture - Preliminary Blood No Growth after 48 hours 09/12/20 16:43 Blood Culture - Preliminary Blood No Growth after 48 hours 09/14/20 09:15 Stool Culture - Preliminary Stool 09/12/20 11:37 Urine Culture - Final Urine,Voided Escherichia coli Proteus mirabilis Assessment and Plan (1) Atrial fibrillation with RVR Current Visit: Yes Status: Acute Code(s): I48.91 - UNSPECIFIED ATRIAL FIBRILLATION SNOMED Code(s): 423492750882450 (2) Hypokalemia Current Visit: Yes Status: Acute Code(s): E87.6 - HYPOKALEMIA SNOMED Code(s): 87650022 (3) Hypomagnesemia Current Visit: Yes Status: Acute Code(s): E83.42 - HYPOMAGNESEMIA SNOMED Code(s): 948729932 (4) NHL (non-Hodgkin's lymphoma) Current Visit: No Status: Acute Priority: High Code(s): C85.90 - NON- HODGKIN LYMPHOMA, UNSPECIFIED, UNSPECIFIED SITE SNOMED Code(s): 719492157 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 If any of these s/s please place do not advance diet - On Zosyn, to continue - Prophylaxic Antibiotcs Hypokalemia and Hypomagnesium: - Possible from GI loss and Dehydration Improved CBC, Improved clinically Advance to FUll liquid
--- NOTE | 2020-09-15 23:15 | PN ---
PROGRESS NOTE DATE OF SERVICE: 09/15/2020 REASON FOR FOLLOWUP: Febrile neutropenia and UTI. INTERVAL HISTORY: The patient is currently afebrile. The patient is breathing comfortably. The patient denies having any chest pain. No shortness of breath or cough. No abdominal pain. Did have some diarrhea yesterday that has resolved. PHYSICAL EXAMINATION: Blood pressure 139/81 with a pulse of 74, temperature 98.3. She is 96% on room air. General description: The patient is an elderly female lying in bed in no distress. Respiratory system: Unlabored breathing. Clear to auscultation anteriorly. Heart S1, S2. Regular rate and rhythm. ABDOMEN: Soft, no tenderness. LABS: Hemoglobin 7.2, white count 4.6, BUN of 3, creatinine 0.66. DIAGNOSTIC IMPRESSION AND PLAN: Patient with febrile neutropenia concerning for urinary tract infection. Urine is showing E coli and Proteus sensitive pathogen. Finish therapy with short course of oral Cipro. Continue supportive care. MMODL / IJN: [id number] /
[2020-09-16] MEDS: PIPERACILLIN-TAZOBACTAM 3.375 GM in SODIUM CHLORIDE 0.9% 100 ML IVPB SCH ×4 (01:28→23:07)
[2020-09-16] MEDS: SODIUM CHLORIDE 0.9% 1,000 ML IV SCH ×3 (01:29→21:57)
[2020-09-16] MEDS ORDERED: ACETAMINOPHEN TAB 500 MG TAB PO PRN (03:46)
[2020-09-16 04:13] LABS: Anisocytosis Slight; HGB 7.8 gm/dL (11.4-16.0); MCH 29.5 pg (25.0-35.0); MCV 86.7 fL (80.0-100.0); Mean Platelet Volume 7.6; Platelet Count 302 k/uL (150-450); Poikilocytosis Slight; RBC 2.66 m/uL (3.80-5.40); RDW 19.3 % (11.5-15.5)
[2020-09-16 04:35] LABS: ALT 12 U/L (4-34); AST 16 U/L (14-36); African American GFR (CKD) >90 (>60 ml/min/1.73 sqM); Albumin 2.2 g/dL (3.5-5.0); Alkaline Phosphatase 45 U/L (38-126); Anion Gap 5 mmol/L; Blood Urea Nitrogen 3 mg/dL (7-17); Calcium 7.5 mg/dL (8.4-10.2); Carbon Dioxide 27 mmol/L (22-30); Chloride 99 mmol/L (98-107); Glucose 98 mg/dL (74-99); Non-African American GFR(CKD) 86 (>60 ml/min/1.73 sqM); Potassium 3.3 mmol/L (3.5-5.1); Sodium 131 mmol/L (137-145); Total Bilirubin 0.6 mg/dL (0.2-1.3); Total Protein 4.1 g/dL (6.3-8.2)
[2020-09-16] MEDS ORDERED: POTASSIUM CHLORIDE 40 MEQ in WATER FOR INJECTION 1 100ML.BAG IVPB STA (04:38)
[2020-09-16] MEDS: POTASSIUM CHLORIDE 10 MEQ in WATER FOR INJECTION 1 100ML.BAG IVPB SCH ×4 (04:49→11:26)
[2020-09-16 05:06] LABS: Band Neutrophils % 15 %; Lymphocytes # (M) 0.35 k/uL (1.0-4.8); Myelocytes # (M) 0.05 k/uL (0); Myelocytes % 1 %; Neutrophils % (M) 78 %; Nucleated Red Blood Cells 0 /100 WBC (0-0); Total Cells Counted 200
[2020-09-16] MEDS: PANTOPRAZOLE 40 MG TABLET PO SCH (06:24)
[2020-09-16] MEDS: LEVOTHYROXINE 50 MCG TAB PO SCH (06:24)
[2020-09-16] MEDS ORDERED: Magnesium Replacement Protocol 1 EACH MISC MISCELLANE PRN (08:35)
[2020-09-16] MEDS: MAGNESIUM SULFATE-D5W PMX 1 GM in DEXTROSE/WATER 1 100ML.BAG IVPB SCH ×3 (08:52→13:34)
[2020-09-16] MEDS: ACYCLOVIR 200 MG CAP PO SCH ×2 (08:53→21:27)
[2020-09-16] MEDS: METOPROLOL TARTRATE 50 MG TAB PO SCH ×2 (08:53→21:28)
[2020-09-16] MEDS: allopurinoL 300 MG TAB PO SCH (08:53)
[2020-09-16] MEDS: NYSTATIN 100,000 UNIT/ML SUSP 500,000 UNIT/5 ML CUP PO SCH ×4 (08:53→21:28)
--- NOTE | 2020-09-16 13:33 | P.PN ---
Subjective Progress Note Date: 09/16/20 Principal diagnosis: neutropenic, fall, mental status changes Febrile this am 101.8. Hospital visit related to UTI - was treated with zosyn as she is status post cycle 3 of chemotherapy and was originally admitted with febrile neutropenia. She had remained afebrile since admission until 09/15/20, therefore resonable to re-culture and repeat chest xray today. Dr. Villarreal from [place] is following. Objective - Vital Signs Vital signs: Vital Signs Temp 98.3 F 09/16/20 08:00 Pulse 99 09/16/20 08:00 Resp 18 09/16/20 03:26 BP 131/71 09/16/20 08:00 Pulse Ox 96 09/16/20 08:00 Intake & Output 09/15/20 09/16/20 09/16/20 18:59 06:59 18:59 Intake Total 236 420 Output Total 500 Balance 236 -80 Weight 44.5 kg 44.5 kg Intake: Oral 236 420 Output: Urine 500 Other: Voiding Method Diaper Diaper Diaper # Voids 2 1 # Bowel Movements 1 - Exam - Constitutional General appearance: cooperative, no acute distress - EENT Eyes: EOMI, PERRLA ENT: NA/AT, normal oropharynx - Neck Neck: normal ROM - Respiratory Respiratory: bilateral: diminished - Cardiovascular Rhythm: regularly irregular - Gastrointestinal General gastrointestinal: soft, tenderness - Integumentary Integumentary: pale - Neurologic non focal - Musculoskeletal Musculoskeletal: generalized weakness - Psychiatric More awake today - Labs CBC & Chem 7: 09/16/20 04:01 09/16/20 15:17 Labs: Abnormal Lab Results - Last 24 Hours (Table) 09/16/20 09/16/20 09/16/20 Range/Units 04:01 04:01 07:45 RBC 2.66 L (3.80-5.40) m/uL Hgb 7.8 L (11.4-16.0) gm/dL Hct 23.0 L (34.0-46.0) % RDW 19.3 H (11.5-15.5) % Lymphocytes # (Manual) 0.35 L (1.0-4.8) k/uL Myelocytes # (Manual) 0.05 H (0) k/uL Sodium 131 L (137-145) mmol/L Potassium 3.3 L (3.5-5.1) mmol/L BUN 3 L (7-17) mg/dL Calcium 7.5 L (8.4-10.2) mg/dL Magnesium 1.4 L (1.6-2.3) mg/dL Total Protein 4.1 L (6.3-8.2) g/dL Albumin 2.2 L (3.5-5.0) g/dL Microbiology - Last 24 Hours (Table) 09/12/20 20:41 Blood Culture - Preliminary Blood No Growth after 72 hours 09/12/20 16:43 Blood Culture - Preliminary Blood No Growth after 72 hours Assessment and Plan (1) Atrial fibrillation with RVR Current Visit: Yes Status: Acute Code(s): I48.91 - UNSPECIFIED ATRIAL FIBRILLATION SNOMED Code(s): 507288278073690 (2) Hypokalemia Current Visit: Yes Status: Acute Code(s): E87.6 - HYPOKALEMIA SNOMED Code(s): 54121106 (3) Hypomagnesemia Current Visit: Yes Status: Acute Code(s): E83.42 - HYPOMAGNESEMIA SNOMED Code(s): 518002151 (4) NHL (non-Hodgkin's lymphoma) Current Visit: No Status: Acute Priority: High Code(s): C85.90 - NON- HODGKIN LYMPHOMA, UNSPECIFIED, UNSPECIFIED SITE SNOMED Code(s): 921794664 Plan: 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 If any of these s/s please place do not advance diet - On Zosyn, to continue - Resend Blood cultures (mediport and one peripheral) - Repeat Chest Xray - Repeat Urinalysis and Culture - Dr. Villarreal is following Hypokalemia and Hypomagnesium: - Possible from GI loss and Dehydration Improved CBC, Improved clinically Advance to Full liquid Repeat Chest Xray new infiltrate - ?pneumonia
--- NOTE | 2020-09-16 14:08 | XR ---
EXAMINATION TYPE: XR chest 1V portable DATE OF EXAM: 09/16/2020 HISTORY: Shortness of breath. COMPARISON: 09/12/2020 TECHNIQUE: Single view of the chest is submitted. FINDINGS: Demonstrated are scattered senescent parenchymal change. Patchy density left medial lung base may reflect atelectasis and/or infiltrate. The heart is stable. Hilar and mediastinal structures are within normal limits. Degenerative changes are seen of the dorsal spine. IMPRESSION: 1. Patchy density left medial lung base may reflect atelectasis and/or infiltrate.
[2020-09-16 15:46] LABS: Magnesium 2.7 mg/dL (1.6-2.3); Potassium 4.1 mmol/L (3.5-5.1)
--- NOTE | 2020-09-16 17:36 | P.PN ---
Subjective Progress Note Date: 09/16/20 Kaylyn Mendez, is an 85-year-old female who presented to [facility] emergency room with a chief complaint of generalized weakness, she was evaluated in emergency room, vital examination on presentation reveals a temperature of 97.9 pulse 114 respiration 16 blood pressure 122/101 pulse ox 100% on room air , white blood count was 0.7 hemoglobin 9.1 platelet count 116 sodium 1:30 potassium 2.5 chloride 97 BUN 18 creatinine 0.49. Patient was recently admitted to the hospital at that time she was diagnosed with atrial fibrillation with RVR and urinary tract infection, about 1 month ago. Urine analysis at this time revealed evidence of urinary tract infection again, patient was started on Zosyn in the emergency room, patient also had slightly elevated troponin level in the emergency room, Gonzalez virus PCR was negative. Chest x-ray done in the emergency room revealed no acute process, computed tomography scan of the brain revealed some ventriculomegaly, possible component of normal pressure hydrocephalus. When patient was interviewed on the floor she was also complaining of diarrhea. 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 On 09/13/2020 patient was seen and examined on the medical floor, she is alert and oriented 3 in no distress she is feeling better she stated that she is not having diarrhea anymore at this time she is feeling weak and tired otherwise she denies any complaints there is no fever or chills no headache or dizziness no chest pain no shortness of breath no cough no nausea or vomiting no abdominal pain no diarrhea no blood in the stools no burning with urination no frequency or urgency and no hematuria On 09/14/2020 patient was seen and examined on the medical floor she is alert and oriented 3 in no distress, she is alert and oriented 3 in no distress she denies any pain she denies any further episodes of diarrhea C. diff toxin was negative urine analysis revealed evidence of urinary tract infection and urine culture is positive for gram-negative cocci patient was started on IV Zosyn otherwise she denies any complaints there is no fever or chills no headache or dizziness no chest pain no shortness of breath no cough no nausea or vomiting no abdominal pain no burning with urination no frequency or urgency and no hematuria On 09/15/2020 patient is currently resting comfortably in bed. Patient is sleepy but does wake up to follow commands and answer questions. Patient is currently on Zosyn for urinary tract infection. Urine cultures currently growin g E. coli and Proteus mirabilis. Patient had low-grade temp this a.m. 99.4 electrolytes have improved. Oncology and infectious disease following. Patient denies any chest pain or shortness of breath. Patient denies nausea vomiting or diarrhea. Patient denies any urinary burning or frequency On 09/16/2020 patient was seen and examined on the medical floor she is alert confused in no apparent distress she had an episode of temperature up to 102 during last night repeat blood culture was done chest x-ray was ordered this morning otherwise patient denies any complaints she is maintained on IV Zosyn infectious disease and oncology are following Objective - Vital Signs Vital signs: Vital Signs Temp 99.6 F 09/16/20 03:47 Pulse 109 H 09/16/20 03:26 Resp 18 09/16/20 03:26 BP 127/55 09/16/20 03:26 Pulse Ox 94 L 09/16/20 03:26 Intake & Output 09/15/20 09/16/20 09/16/20 18:59 06:59 18:59 Intake Total 236 420 Balance 236 420 Weight 44.5 kg Intake: Oral 236 420 Other: Voiding Method Diaper Diaper # Voids 2 1 # Bowel Movements 1 - Exam In general patient is alert and oriented 3 in no apparent distress HEENT head normocephalic and atraumatic Neck is supple no JVD no goiter no lymphadenopathy Chest exam reveals a few scattered rhonchi in both lung bases no wheezing Cardiac exam reveals regular heart sounds S1 and S2 no gallops no murmurs Abdomen is soft nontender no organomegaly with normal bowel sounds Extremity exam reveals no edema no cyanosis or clubbing Neurological examination reveals, no gross focal neurological deficits - Labs CBC & Chem 7: 09/16/20 04:01 09/16/20 15:17 Labs: Abnormal Lab Results - Last 24 Hours (Table) 09/16/20 09/16/20 09/16/20 Range/Units 04:01 04:01 07:45 RBC 2.66 L (3.80-5.40) m/uL Hgb 7.8 L (11.4-16.0) gm/dL Hct 23.0 L (34.0-46.0) % RDW 19.3 H (11.5-15.5) % Lymphocytes # (Manual) 0.35 L (1.0-4.8) k/uL Myelocytes # (Manual) 0.05 H (0) k/uL Sodium 131 L (137-145) mmol/L Potassium 3.3 L (3.5-5.1) mmol/L BUN 3 L (7-17) mg/dL Calcium 7.5 L (8.4-10.2) mg/dL Magnesium 1.4 L (1.6-2.3) mg/dL Total Protein 4.1 L (6.3-8.2) g/dL Albumin 2.2 L (3.5-5.0) g/dL Microbiology - Last 24 Hours (Table) 09/12/20 20:41 Blood Culture - Preliminary Blood No Growth after 72 hours 09/12/20 16:43 Blood Culture - Preliminary Blood No Growth after 72 hours Assessment and Plan Plan: 1. Generalized weakness secondary to urinary tract infection and electrolyte imbalance 2. Urinary tract infection. Patient currently on Zosyn. Urine culture showing E. coli and Proteus Mirabillis. Infectious disease is following 3. Severe hypokalemia correcting. Resolved 4. Underlying history of hypothyroidism. Maintained on Synthroid 5. Recently diagnosed with atrial fibrillation and started on metoprolol and Xarelto. Patient was evaluated by cardiology services. No further workup at this time 6. 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 Oncology services are following 7. Complaints of diarrhea. Stool lactoferrin negative. C. diff negative. DVT prophylaxis Xarelto. GI prophylaxis Protonix Oncology infectious disease and cardiology services following Patient remains on IV antibiotics for urinary tract infection Continue to monitor electrolytes closely
[2020-09-16] MEDS: RIVAROXABAN 15 MG TAB PO SCH (17:48)
--- NOTE | 2020-09-16 21:45 | PN ---
PROGRESS NOTE DATE OF SERVICE: 09/16/2020 REASON FOR FOLLOWUP: 1. UTI. 2. Fever. INTERVAL HISTORY: The patient did spike another fever last night of 101 degrees Fahrenheit. The patient is afebrile this morning. The patient is breathing comfortably. Denies any chest pain or cough. No abdominal pain. No diarrhea. PHYSICAL EXAMINATION: Blood pressure 135/63 with a pulse of 69, temperature 98.3. She is 94% on room air. General description is an elderly female lying in bed in no distress. Respiratory system: Unlabored breathing, clear to auscultation anteriorly. Heart S1, S2. Regular rate and rhythm. ABDOMEN: Soft, no tenderness. LABS: Hemoglobin 7.8, white count 5.0, BUN of 30, creatinine 0.57. Stool culture so far pending. Blood culture so far negative. DIAGNOSTIC IMPRESSION AND PLAN: Patient with initial low-grade fever, neutropenia, possible urinary tract infection, responded to Zosyn, now with new fever. No obvious focus. Chest x-ray with some infiltrate. Patient is covered with Zosyn to continue while waiting for the culture to finalize. Continue supportive care. MMODL / IJN: [id number] /
[2020-09-17] MEDS: LEVOTHYROXINE 50 MCG TAB PO SCH (06:35)
[2020-09-17] MEDS: PANTOPRAZOLE 40 MG TABLET PO SCH (06:35)
[2020-09-17 08:36] LABS: ALT 12 U/L (4-34); AST 14 U/L (14-36); African American GFR (CKD) >90 (>60 ml/min/1.73 sqM); Albumin 2.3 g/dL (3.5-5.0); Alkaline Phosphatase 50 U/L (38-126); Anion Gap 2 mmol/L; Blood Urea Nitrogen 3 mg/dL (7-17); Calcium 7.7 mg/dL (8.4-10.2); Carbon Dioxide 30 mmol/L (22-30); Chloride 98 mmol/L (98-107); Glucose 96 mg/dL (74-99); Magnesium 1.9 mg/dL (1.6-2.3); Non-African American GFR(CKD) 86 (>60 ml/min/1.73 sqM); Potassium 4.1 mmol/L (3.5-5.1); Sodium 130 mmol/L (137-145); Total Bilirubin 0.6 mg/dL (0.2-1.3); Total Protein 4.3 g/dL (6.3-8.2)
[2020-09-17] MEDS: METOPROLOL TARTRATE 50 MG TAB PO SCH ×2 (08:54→21:53)
[2020-09-17] MEDS: PIPERACILLIN-TAZOBACTAM 3.375 GM in SODIUM CHLORIDE 0.9% 100 ML IVPB SCH ×2 (08:54→21:56)
[2020-09-17] MEDS: allopurinoL 300 MG TAB PO SCH (08:55)
[2020-09-17] MEDS: NYSTATIN 100,000 UNIT/ML SUSP 500,000 UNIT/5 ML CUP PO SCH ×4 (08:55→21:53)
[2020-09-17] MEDS: ACYCLOVIR 200 MG CAP PO SCH ×2 (08:55→21:53)
[2020-09-17 09:08] LABS: Anisocytosis Slight; HCT 26.7 % (34.0-46.0); HGB 8.7 gm/dL (11.4-16.0); MCH 28.7 pg (25.0-35.0); MCHC 32.6 g/dL (31.0-37.0); Mean Platelet Volume 8.4; Platelet Count 339 k/uL (150-450); Poikilocytosis Slight; RBC 3.04 m/uL (3.80-5.40); WBC 5.8 k/uL (3.8-10.6)
[2020-09-17 09:48] LABS: Band Neutrophils % 10 %; Lymphocytes # (M) 0.17 k/uL (1.0-4.8); Metamyelocytes # (M) 0.06 k/uL (0); Metamyelocytes % 1 %; Monocytes # (M) 0.23 k/uL (0-1.0); Myelocytes # (M) 0.06 k/uL (0); Myelocytes % 1 %; Neutrophils % (M) 83 %; Nucleated Red Blood Cells 0 /100 WBC (0-0); Total Cells Counted 200
[2020-09-17 09:49] LABS: Mixed Population RBC Present; Ovalocytes Present; Tear Drop Cells Present
[2020-09-17] MEDS: SODIUM CHLORIDE 0.9% 1,000 ML IV SCH ×2 (12:07→21:54)
--- NOTE | 2020-09-17 13:39 | P.PN ---
Subjective Progress Note Date: 09/17/20 Kaylyn Mendez, is an 85-year-old female who presented to [facility] emergency room with a chief complaint of generalized weakness, she was evaluated in emergency room, vital examination on presentation reveals a temperature of 97.9 pulse 114 respiration 16 blood pressure 122/101 pulse ox 100% on room air , white blood count was 0.7 hemoglobin 9.1 platelet count 116 sodium 1:30 potassium 2.5 chloride 97 BUN 18 creatinine 0.49. Patient was recently admitted to the hospital at that time she was diagnosed with atrial fibrillation with RVR and urinary tract infection, about 1 month ago. Urine analysis at this time revealed evidence of urinary tract infection again, patient was started on Zosyn in the emergency room, patient also had slightly elevated troponin level in the emergency room, Gonzalez virus PCR was negative. Chest x-ray done in the emergency room revealed no acute process, computed tomography scan of the brain revealed some ventriculomegaly, possible component of normal pressure hydrocephalus. When patient was interviewed on the floor she was also complaining of diarrhea. 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 On 09/13/2020 patient was seen and examined on the medical floor, she is alert and oriented 3 in no distress she is feeling better she stated that she is not having diarrhea anymore at this time she is feeling weak and tired otherwise she denies any complaints there is no fever or chills no headache or dizziness no chest pain no shortness of breath no cough no nausea or vomiting no abdominal pain no diarrhea no blood in the stools no burning with urination no frequency or urgency and no hematuria On 09/14/2020 patient was seen and examined on the medical floor she is alert and oriented 3 in no distress, she is alert and oriented 3 in no distress she denies any pain she denies any further episodes of diarrhea C. diff toxin was negative urine analysis revealed evidence of urinary tract infection and urine culture is positive for gram-negative cocci patient was started on IV Zosyn otherwise she denies any complaints there is no fever or chills no headache or dizziness no chest pain no shortness of breath no cough no nausea or vomiting no abdominal pain no burning with urination no frequency or urgency and no hematuria On 09/15/2020 patient is currently resting comfortably in bed. Patient is sleepy but does wake up to follow commands and answer questions. Patient is currently on Zosyn for urinary tract infection. Urine cultures currently growin g E. coli and Proteus mirabilis. Patient had low-grade temp this a.m. 99.4 electrolytes have improved. Oncology and infectious disease following. Patient denies any chest pain or shortness of breath. Patient denies nausea vomiting or diarrhea. Patient denies any urinary burning or frequency On 09/16/2020 patient was seen and examined on the medical floor she is alert confused in no apparent distress she had an episode of temperature up to 102 during last night repeat blood culture was done chest x-ray was ordered this morning otherwise patient denies any complaints she is maintained on IV Zosyn infectious disease and oncology are following. On 09/17/2020 patient was seen and examined on the medical floor she is alert and oriented 3 in no apparent distress no new episodes of elevated temperature today, yesterday patient had an elevated temperature up to 102, chest x-ray revealed evidence of infiltrates pulmonary consultation was requested, patient is maintained on IV antibiotic and infectious disease are following. At this time there is no fever or chills no headache or dizziness no chest pain no shortness of breath no cough no nausea or vomiting no abdominal pain no diarrhea no blood in the stools no burning with urination no frequency or urgency and no hematuria. Objective - Vital Signs Vital signs: Vital Signs Temp 98.1 F 09/17/20 12:23 Pulse 69 09/17/20 12:23 Resp 20 09/17/20 12:23 BP 125/77 09/17/20 12:23 Pulse Ox 96 09/17/20 12:23 Intake & Output 09/16/20 09/17/20 09/17/20 18:59 06:59 18:59 Intake Total 1140 240 Output Total 1150 700 500 Balance -10 -700 -260 Weight 44.5 kg 46.5 kg 44.5 kg Intake: Oral 1140 240 Output: Urine 1150 700 500 Other: Voiding Method Diaper Diaper External Catheter # Bowel Movements 1 - Exam In general patient is alert and oriented 3 in no apparent distress HEENT head normocephalic and atraumatic Neck is supple no JVD no goiter no lymphadenopathy Chest exam reveals a few scattered rhonchi in both lung bases no wheezing Cardiac exam reveals regular heart sounds S1 and S2 no gallops no murmurs Abdomen is soft nontender no organomegaly with normal bowel sounds Extremity exam reveals no edema no cyanosis or clubbing Neurological examination reveals, no gross focal neurological deficits - Labs CBC & Chem 7: 09/17/20 07:26 09/17/20 07:26 Labs: Abnormal Lab Results - Last 24 Hours (Table) 09/16/20 09/17/20 09/17/20 Range/Units 15:17 07:26 07:26 RBC 3.04 L (3.80-5.40) m/uL Hgb 8.7 L (11.4-16.0) gm/dL Hct 26.7 L (34.0-46.0) % RDW 20.0 H (11.5-15.5) % Lymphocytes # (Manual) 0.17 L (1.0-4.8) k/uL Metamyelocytes # (Man) 0.06 H (0) k/uL Myelocytes # (Manual) 0.06 H (0) k/uL Sodium 130 L (137-145) mmol/L BUN 3 L (7-17) mg/dL Calcium 7.7 L (8.4-10.2) mg/dL Magnesium 2.7 H (1.6-2.3) mg/dL Total Protein 4.3 L (6.3-8.2) g/dL Albumin 2.3 L (3.5-5.0) g/dL Microbiology - Last 24 Hours (Table) 09/16/20 04:01 Blood Culture - Preliminary Blood No Growth after 24 hours 09/12/20 20:41 Blood Culture - Preliminary Blood No Growth after 96 hours 09/12/20 16:43 Blood Culture - Preliminary Blood No Growth after 96 hours Assessment and Plan Plan: 1. Generalized weakness secondary to urinary tract infection and electrolyte imbalance 2. Urinary tract infection. Patient currently on Zosyn. Urine culture showing E. coli and Proteus Mirabillis. Infectious disease is following 3. Severe hypokalemia correcting. Resolved 4. Underlying history of hypothyroidism. Maintained on Synthroid 5. Recently diagnosed with atrial fibrillation and started on metoprolol and Xarelto. Patient was evaluated by cardiology services. No further workup at this time 6. 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 Oncology services are following 7. Complaints of diarrhea. Stool lactoferrin negative. C. diff negative. DVT prophylaxis Xarelto. GI prophylaxis Protonix Oncology infectious disease and cardiology services following Patient remains on IV antibiotics for urinary tract infection Continue to monitor electrolytes closely
--- NOTE | 2020-09-17 13:51 | P.PN ---
Subjective Progress Note Date: 09/17/20 HISTORY OF PRESENT ILLNESS This is an 85-year-old female treated for UTI and fever. Patient denies having any chest pain, cough, shortness of breath. No abdominal pain, nausea vomiting or diarrhea. Urine culture has been finalized with E. coli and Proteus mirabilis, both susceptible to ciprofloxacin. Patient has been treated with Zosyn and will transition to oral ciprofloxacin. 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 Heart rate 69, blood pressure 125/77, pulse ox 96% on room air. WBC 5.8, hemoglobin 8.7. Creatinine 0.57. PHYSICAL EXAMINATION Gen: This is an 85-year-old female. Patient is resting in bed appears to be comfortable. No distress is noted. HEENT: Head is atraumatic, normocephalic. Pupils equal, round. Sclerae is anicteric. NECK: Supple. No JVD. No lymphadenopathy. LUNGS: Clear to auscultation. No wheezes or rhonchi. No intercostal retract ions. HEART: Regular rate and rhythm. ABDOMEN: Soft. Bowel sounds are present. No masses. No tenderness. EXTREMITIES: No pedal edema. No calf tenderness. NEUROLOGICAL: Patient is awake, alert. ASSESSMENT Acute E. coli and Proteus urinary tract infection PLAN Discontinue Zosyn Start ciprofloxacin 500 mg twice daily Plan for one-week course of ciprofloxacin at discharge Patient is cleared for discharge from infectious disease. The above dictated assessment and findings were discussed with Dr. Villarreal. The impression and plan of care have been directed as dictated. Carol Roman nurse practitioner acting as scribe for Dr. Villarreal. Objective - Vital Signs Vital signs: Vital Signs Temp 98.1 F 09/17/20 12:23 Pulse 69 09/17/20 12:23 Resp 20 09/17/20 12:23 BP 125/77 09/17/20 12:23 Pulse Ox 96 09/17/20 12:23 Intake & Output 09/16/20 09/17/20 09/17/20 18:59 06:59 18:59 Intake Total 1140 240 Output Total 1150 700 500 Balance -10 -700 -260 Weight 44.5 kg 46.5 kg 44.5 kg Intake: Oral 1140 240 Output: Urine 1150 700 500 Other: Voiding Method Diaper Diaper External Catheter # Bowel Movements 1 - Labs CBC & Chem 7: 09/17/20 07:26 09/17/20 07:26 Labs: Abnormal Lab Results - Last 24 Hours (Table) 09/16/20 09/17/20 09/17/20 Range/Units 15:17 07:26 07:26 RBC 3.04 L (3.80-5.40) m/uL Hgb 8.7 L (11.4-16.0) gm/dL Hct 26.7 L (34.0-46.0) % RDW 20.0 H (11.5-15.5) % Lymphocytes # (Manual) 0.17 L (1.0-4.8) k/uL Metamyelocytes # (Man) 0.06 H (0) k/uL Myelocytes # (Manual) 0.06 H (0) k/uL Sodium 130 L (137-145) mmol/L BUN 3 L (7-17) mg/dL Calcium 7.7 L (8.4-10.2) mg/dL Magnesium 2.7 H (1.6-2.3) mg/dL Total Protein 4.3 L (6.3-8.2) g/dL Albumin 2.3 L (3.5-5.0) g/dL Microbiology - Last 24 Hours (Table) 09/16/20 04:01 Blood Culture - Preliminary Blood No Growth after 24 hours 09/12/20 20:41 Blood Culture - Preliminary Blood No Growth after 96 hours 09/12/20 16:43 Blood Culture - Preliminary Blood No Growth after 96 hours
--- NOTE | 2020-09-17 14:52 | P.CNPUL ---
History of Present Illness Consult date: 09/17/20 Requesting physician: Johanny Eckert Reason for consult: pneumonia, abnormal CXR/CT Chief complaint: Fever History of present illness: 85-year-old female with a past medical history of hypothyroidism, lymphoma, hypertension, and osteoporosis. Apparently according to the ER farheen, on September 12, the patient states that she was not functioning normally. She apparently ended up on the floor. She must have fallen. Apparently according to her , she was acting "strangely". She was feeling weak and tired. She was recently admitted to the hospital in July and diagnosed with new onset atrial fibrillation with RVR for which she was on a factor X a inhibitor. She apparently denied any chest pain or chest discomfort, nausea, vomiting, diarrhea, abdominal pain, or any genitourinary complaints. She was admitted back on the . I believe I was consulted because of new onset fever and a chest x-ray which shows a potential infiltrate in the left medial lung base. The patient is not a particularly good historian. She's not sure why she is in the hospital. She denied any chest complaints including shortness of breath, chest pain, cough, wheezing, or phlegm production. Again not a particularly good historian to say the least. Her white count was 5.8, hemoglobin 8.7, hemat ocrit 26.7, and platelet count 339,000. Sodium was 1:30, potassium 4.1, chloride 98, CO2 30, anion gap 2, BUN 3, and creatinine 0.57. Her albumin was 2.3. Her urine was yellow and cloudy, leukocyte esterase was moderate positive. There are 46 WBCs, rare WBC clumps, and many bacteria. Her COVID 19 testing was negative. Her chest x-ray was reviewed. Review of Systems REVIEW OF SYSTEMS: CONSTITUTIONAL: Confused, feeling weak and tired. NEUROLOGIC: [ Negative.] HEENT: [ Negative.] CARDIAC: [Negative.] PULMONARY: [Negative.] GI: Decreased oral intake. : [Negative.] RHEUMATOLOGIC: [ Negative.] IMMUNOLOGIC: [ Negative.] ENDOCRINE: [Negative. ] DERMATOLOGIC: [Negative.] Past Medical History Past Medical History: Hypertension, Thyroid Disorder Additional Past Medical History / Comment(s): OSTEOPOROSIS. lymphoma History of Any Multi-Drug Resistant Organisms: None Reported Past Surgical History: Appendectomy, Cholecystectomy Past Anesthesia/Blood Transfusion Reactions: No Reported Reaction Past Psychological History: No Psychological Hx Reported Smoking Status: Never smoker Past Alcohol Use History: None Reported Past Drug Use History: None Reported Medications and Allergies Home Medications Medication Instructions Recorded Confirmed Type Levothyroxine Sodium [Levoxyl] 50 mcg PO DAILY 08/07/15 09/12/20 History Ascorbic Acid [Vitamin C] 500 mg PO DAILY 07/30/20 09/12/20 History Calcium, Magnesium & Zinc (Unknown 1 tab PO DAILY 07/30/20 09/12/20 History Strength) Fish Oil/Dha/Epa [Fish Oil 1,200 1 tab PO DAILY 07/30/20 09/12/20 History mg Fish Oil] Multivitamins, Thera [Multivitamin 1 tab PO DAILY 07/30/20 09/12/20 History (formulary)] Omeprazole [PriLOSEC] 40 mg PO DAILY 07/30/20 09/12/20 History Ubidecarenone [Co Q-10] 200 mg PO DAILY 07/30/20 09/12/20 History allopurinoL [Zyloprim] 300 mg PO DAILY 07/30/20 09/12/20 History Metoprolol Tartrate [Lopressor] 50 mg PO BID tab 08/07/20 09/12/20 Rx Ergocalciferol (Vitamin D2) 50 mcg PO DAILY 09/12/20 09/12/20 History [Vitamin D2 (2000 Iu)] Rivaroxaban [Xarelto] 15 mg PO W/SUPPER 09/12/20 09/12/20 History Ciprofloxacin HCl [Cipro] 500 mg PO BID #14 tablet 09/17/20 Rx Allergies Allergy/AdvReac Type Severity Reaction Status Date / Time Sulfa (Sulfonamide Allergy Unknown Verified 09/12/20 13:12 Antibiotics) Physical Exam Osteopathic Statement: *. No significant issues noted on an osteopathic structural exam other than those noted in the History and Physical/Consult. Vitals: Vital Signs Temp Pulse Resp BP Pulse Ox 09/17/20 12:23 98.1 F 69 20 125/77 96 09/17/20 08:54 16 09/17/20 08:00 69 09/17/20 07:50 98.8 F 79 16 176/72 95 09/17/20 02:00 98.7 F 68 18 132/72 97 09/16/20 20:00 98.1 F 75 18 143/63 94 L 09/16/20 16:00 69 135/63 94 L Intake and Output 09/16/20 09/17/20 09/17/20 22:59 06:59 14:59 Intake Total 240 240 Output Total 650 700 500 Balance -410 -700 -260 Intake: Oral 240 240 Output: Urine 650 700 500 Other: Voiding Method Diaper External Catheter # Bowel Movements 1 Weight 46.5 kg 44.5 kg No acute distress, oriented 3. Currently not on any supplemental oxygen. HEENT examination is grossly unremarkable. Mucous membranes are moist. No oral lesions. Neck supple. Full range of motion. No adenopathy thyromegaly or neck vein distention. Cardiovascular examination reveals regular rhythm rate. S1-S2 normal. No S3 or S4. No discernible murmur noted. Heart rate is about 70 bpm. Lungs reveal mostly clear breath sounds. No wheezes or crackles. A few scattered mild rhonchi. Breath sounds are equal bilaterally. Abdomen soft bowel sounds are heard. No masses or tenderness. Extremities are intact. No cyanosis clubbing or edema. Skin is without rash or lesion. Neurologic examination is brief but nonfocal. Results - Laboratory Findings CBC and BMP: 09/17/20 07:26 09/17/20 07:26 PT/INR, D-dimer PT 14.0 sec (9.0-12.0) H 09/12/20 10:28 INR 1.4 (<1.2) H 09/12/20 10:28 Abnormal lab findings: Abnormal Labs 09/12/20 09/12/20 09/12/20 10:25 10:28 10:28 WBC 0.7 L* RBC 3.03 L Hgb 9.1 L Hct 25.3 L RDW 18.6 H Plt Count 116 L D Blast Cells % Neutrophils # (Manual) Lymphocytes # (Manual) Metamyelocytes # (Man) Myelocytes # (Manual) Promyelocytes # (Man) Blast Cells # (Man) PT 14.0 H INR 1.4 H Sodium Potassium Chloride Carbon Dioxide BUN Creatinine Glucose Uric Acid Calcium Magnesium AST Alkaline Phosphatase Troponin I 0.088 H* Total Protein Albumin Urine Appearance Urine Protein Urine Blood Ur Leukocyte Esterase Urine WBC Urine WBC Clumps Amorphous Sediment Urine Bacteria Urine Mucus 09/12/20 09/12/20 09/12/20 10:28 11:37 14:28 WBC RBC Hgb Hct RDW Plt Count Blast Cells % Neutrophils # (Manual) Lymphocytes # (Manual) Metamyelocytes # (Man) Myelocytes # (Manual) Promyelocytes # (Man) Blast Cells # (Man) PT INR Sodium 130 L Potassium 2.5 L* Chloride 97 L Carbon Dioxide BUN 18 H Creatinine 0.49 L Glucose 110 H Uric Acid Calcium 7.1 L Magnesium 1.3 L AST Alkaline Phosphatase 25 L Troponin I 0.104 H* Total Protein 4.6 L Albumin 2.4 L Urine Appearance Cloudy H Urine Protein 1+ H Urine Blood Trace H Ur Leukocyte Esterase Moderate H Urine WBC 46 H Urine WBC Clumps Rare H Amorphous Sediment Rare H Urine Bacteria Many H Urine Mucus Rare H 09/12/20 09/12/20 09/12/20 16:43 16:43 20:41 WBC RBC Hgb Hct RDW Plt Count Blast Cells % Neutrophils # (Manual) Lymphocytes # (Manual) Metamyelocytes # (Man) Myelocytes # (Manual) Promyelocytes # (Man) Blast Cells # (Man) PT INR Sodium 135 L 133 L Potassium 2.9 L 3.2 L Chloride Carbon Dioxide 31 H BUN Creatinine Glucose Uric Acid 2.5 L Calcium 7.0 L 6.9 L Magnesium AST 13 L Alkaline Phosphatase 34 L Troponin I 0.096 H* Total Protein 3.9 L Albumin 2.1 L Urine Appearance Urine Protein Urine Blood Ur Leukocyte Esterase Urine WBC Urine WBC Clumps Amorphous Sediment Urine Bacteria Urine Mucus 09/12/20 09/13/20 09/13/20 20:41 06:19 06:19 WBC 0.9 L* 1.4 L* RBC 2.60 L 2.37 L Hgb 7.8 L 7.1 L Hct 22.0 L 20.7 L RDW 18.7 H 18.9 H Plt Count 106 L 107 L Blast Cells % Neutrophils # (Manual) 0.90 L Lymphocytes # (Manual) 0.17 L Metamyelocytes # (Man) 0.01 H Myelocytes # (Manual) 0.04 H Promyelocytes # (Man) Blast Cells # (Man) PT INR Sodium 136 L Potassium 3.4 L Chloride Carbon Dioxide BUN Creatinine Glucose Uric Acid Calcium 7.0 L Magnesium AST 12 L Alkaline Phosphatase 31 L Troponin I Total Protein 3.7 L Albumin 2.0 L Urine Appearance Urine Protein Urine Blood Ur Leukocyte Esterase Urine WBC Urine WBC Clumps Amorphous Sediment Urine Bacteria Urine Mucus 09/14/20 09/14/20 09/15/20 06:21 06:21 06:52 WBC 3.6 L RBC 2.38 L 2.62 L Hgb 7.1 L 7.7 L Hct 20.7 L 23.0 L RDW 19.4 H 19.1 H Plt Count Blast Cells % 1 H* Neutrophils # (Manual) Lymphocytes # (Manual) 0.11 L 0.09 L Metamyelocytes # (Man) 0.29 H 0.23 H Myelocytes # (Manual) 0.07 H 0.09 H Promyelocytes # (Man) 0.07 H 0.05 H Blast Cells # (Man) 0.04 H PT INR Sodium 133 L Potassium Chloride Carbon Dioxide BUN Creatinine Glucose Uric Acid Calcium 7.5 L Magnesium AST Alkaline Phosphatase 33 L Troponin I Total Protein 3.8 L Albumin 2.0 L Urine Appearance Urine Protein Urine Blood Ur Leukocyte Esterase Urine WBC Urine WBC Clumps Amorphous Sediment Urine Bacteria Urine Mucus 09/15/20 09/16/20 09/16/20 06:52 04:01 04:01 WBC RBC 2.66 L Hgb 7.8 L Hct 23.0 L RDW 19.3 H Plt Count Blast Cells % Neutrophils # (Manual) Lymphocytes # (Manual) 0.35 L Metamyelocytes # (Man) Myelocytes # (Manual) 0.05 H Promyelocytes # (Man) Blast Cells # (Man) PT INR Sodium 133 L 131 L Potassium 3.3 L Chloride Carbon Dioxide BUN 3 L 3 L Creatinine Glucose Uric Acid Calcium 7.7 L 7.5 L Magnesium AST Alkaline Phosphatase Troponin I Total Protein 4.1 L 4.1 L Albumin 2.2 L 2.2 L Urine Appearance Urine Protein Urine Blood Ur Leukocyte Esterase Urine WBC Urine WBC Clumps Amorphous Sediment Urine Bacteria Urine Mucus 09/16/20 09/16/20 09/17/20 07:45 15:17 07:26 WBC RBC Hgb Hct RDW Plt Count Blast Cells % Neutrophils # (Manual) Lymphocytes # (Manual) Metamyelocytes # (Man) Myelocytes # (Manual) Promyelocytes # (Man) Blast Cells # (Man) PT INR Sodium 130 L Potassium Chloride Carbon Dioxide BUN 3 L Creatinine Glucose Uric Acid Calcium 7.7 L Magnesium 1.4 L 2.7 H AST Alkaline Phosphatase Troponin I Total Protein 4.3 L Albumin 2.3 L Urine Appearance Urine Protein Urine Blood Ur Leukocyte Esterase Urine WBC Urine WBC Clumps Amorphous Sediment Urine Bacteria Urine Mucus 09/17/20 07:26 WBC RBC 3.04 L Hgb 8.7 L Hct 26.7 L RDW 20.0 H Plt Count Blast Cells % Neutrophils # (Manual) Lymphocytes # (Manual) 0.17 L Metamyelocytes # (Man) 0.06 H Myelocytes # (Manual) 0.06 H Promyelocytes # (Man) Blast Cells # (Man) PT INR Sodium Potassium Chloride Carbon Dioxide BUN Creatinine Glucose Uric Acid Calcium Magnesium AST Alkaline Phosphatase Troponin I Total Protein Albumin Urine Appearance Urine Protein Urine Blood Ur Leukocyte Esterase Urine WBC Urine WBC Clumps Amorphous Sediment Urine Bacteria Urine Mucus - Diagnostic Findings Chest x-ray: image reviewed Assessment and Plan Assessment: Intermittent temperature elevations/fever, which may relate to urinary tract infection and/or left basilar pneumonia. Relatively recent development of atrial fibrillation with RVR, currently on a factor X a inhibitor. History of hypothyroidism. History of essential hypertension. History of osteoporosis. History of lymphoma. Chronic anemia. Mild hyponatremia. Plan: Plan dated 09/17/2020. Currently, the patient is on ciprofloxacin for presumed urinary tract infection. I will add Zosyn for possible pneumonia. She's been in the hospital since the , so this could relate to a healthcare acquired pneumonia. She's not demonstrating any respiratory distress. We will continue to follow. We will order a repeat chest x-ray for the morning. Additional recommendations and suggestions are forthcoming. Prognosis is guarded. The patient is currently a no code patient. Time with Patient: Greater than 30
[2020-09-17] MEDS: RIVAROXABAN 15 MG TAB PO SCH (19:46)
[2020-09-17] MEDS: CIPROFLOXACIN HCL 500 MG TAB PO SCH (21:53)
[2020-09-18] MEDS: LEVOTHYROXINE 50 MCG TAB PO SCH (05:59)
--- NOTE | 2020-09-18 07:55 | XR ---
EXAMINATION TYPE: XR chest 2V DATE OF EXAM: 09/18/2020 COMPARISON: 09/16/2020 HISTORY: Shortness of breath TECHNIQUE: Frontal and lateral views of the chest are obtained. FINDINGS: Scattered senescent parenchymal changes noted. Hyperinflation compatible with COPD. Discoid atelectasis or infiltrate right infrahilar region is essentially unchanged. Small left-sided effusion persists. Heart size is stable. Mediastinal structures are stable and grossly unremarkable. No evidence for hilar prominence. Degenerative changes dorsal spine. IMPRESSION: 1. Discoid atelectasis or infiltrate right infrahilar region is essentially unchanged. Small left-[place] ed effusion persists.
[2020-09-18] MEDS: PANTOPRAZOLE 40 MG TABLET PO SCH (08:01)
[2020-09-18] MEDS: METOPROLOL TARTRATE 50 MG TAB PO SCH ×2 (08:01→20:34)
[2020-09-18] MEDS: CIPROFLOXACIN HCL 500 MG TAB PO SCH ×2 (08:01→20:35)
[2020-09-18] MEDS: allopurinoL 300 MG TAB PO SCH (08:01)
[2020-09-18] MEDS: ACYCLOVIR 200 MG CAP PO SCH ×2 (08:01→20:35)
[2020-09-18] MEDS: PIPERACILLIN-TAZOBACTAM 3.375 GM in SODIUM CHLORIDE 0.9% 100 ML IVPB SCH ×3 (08:03→23:20)
[2020-09-18] MEDS: NYSTATIN 100,000 UNIT/ML SUSP 500,000 UNIT/5 ML CUP PO SCH ×4 (08:03→21:33)
[2020-09-18 09:12] LABS: HCT 23.7 % (37.2-46.3); HGB 7.6 g/dL (12.0-15.0); MCH 28.9 pg (27.0-32.0); MCHC 32.1 g/dL (32.0-37.0); MCV 90.1 fL (80.0-97.0); Mean Platelet Volume 9.4 fL (9.5-12.2); Platelet Count 343 X 10*3/uL (140-440); RBC 2.63 X 10*6/uL (4.10-5.20); RDW 19.9 % (11.5-14.5)
[2020-09-18 09:46] LABS: Albumin 2.7 g/dL (3.80-4.90); Albumin/Globulin Ratio 2.7 (1.60-3.17); Anion Gap 7.4 mmol/L (4.00-12.00); Calcium 7.7 mg/dL (8.7-10.3); Carbon Dioxide 25.6 mmol/L (21.6-31.8); Non-African American GFR(CKD) 88.9 (60.0-200.0); Total Bilirubin 0.3 mg/dL (0.2-1.2); Total Protein 3.7 g/dL (6.2-8.2)
--- NOTE | 2020-09-18 10:39 | P.PN ---
Subjective Progress Note Date: 09/18/20 HISTORY OF PRESENT ILLNESS This is an 85-year-old female treated for UTI and fever. Patient denies having any chest pain, cough, shortness of breath. No abdominal pain, nausea vomiting or diarrhea. Urine culture has been finalized with E. coli and Proteus mirabilis, both susceptible to ciprofloxacin. Patient has been treated with Zosyn and was transitioned to oral ciprofloxacin yesterday. 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 Heart rate 66, blood pressure 123/66, pulse ox 95% on room air. WBC 5.9, hemoglobin 7.6. Creatinine 0.5. PHYSICAL EXAMINATION Gen: This is an 85-year-old female. Patient is resting in bed appears to be comfortable. No distress is noted. HEENT: Head is atraumatic, normocephalic. Pupils equal, round. Sclerae is anicteric. NECK: Supple. No JVD. No lymphadenopathy. LUNGS: Clear to auscultation. No wheezes or rhonchi. No intercostal retractions. HEART: Regular rate and rhythm. ABDOMEN: Soft. Bowel sounds are present. No masses. No tenderness. EXTREMITIES: No pedal edema. No calf tenderness. NEUROLOGICAL: Patient is awake, alert. ASSESSMENT Acute E. coli and Proteus urinary tract infection PLAN Continue ciprofloxacin 500 mg twice daily Plan for one-week course of ciprofloxacin at discharge Patient is cleared for discharge from infectious disease. The above dictated assessment and findings were discussed with Dr. Villarreal. The impression and plan of care have been directed as dictated. Carol Roman nurse practitioner acting as scribe for Dr. Villarreal. Objective - Vital Signs Vital signs: Vital Signs Temp 98 F 09/18/20 05:00 Pulse 66 09/18/20 05:00 Resp 16 09/18/20 05:00 BP 123/63 09/18/20 05:00 Pulse Ox 95 09/18/20 05:00 Intake & Output 09/17/20 09/18/20 09/18/20 18:59 06:59 18:59 Intake Total 340 Output Total 500 Balance -160 Weight 44.5 kg 50 kg Intake: Intake, IV Titration 100 Amount Piperacillin-Tazobactam 3 100 .375 gm In Sodium Chloride 0.9% 100 ml @ 25 mls/hr IVPB Q12HR [facility] Rx #:[id number] Oral 240 Output: Urine 500 Other: Voiding Method External Catheter External Catheter # Voids 4 # Bowel Movements 1 4 - Labs CBC & Chem 7: 09/18/20 05:48 09/18/20 05:48 Labs: Abnormal Lab Results - Last 24 Hours (Table) 09/17/20 09/18/20 Range/Units 07:26 05:48 RBC 2.63 L (4.10-5.20) X 10*6/uL Hgb 7.6 L (12.0-15.0) g/dL Hct 23.7 L (37.2-46.3) % RDW 19.9 H (11.5-14.5) % MPV 9.4 L (9.5-12.2) fL Absolute Nucleated RBC 0.04 H (0.00-0.00) X 10*3/uL Lymphocytes # (Manual) 0.17 L (1.0-4.8) k/uL Metamyelocytes # (Man) 0.06 H (0) k/uL Myelocytes # (Manual) 0.06 H (0) k/uL NRBC/100 WBC Diff 0.7 H (0.0-0.0) /100 WBCS Microbiology - Last 24 Hours (Table) 09/14/20 09:15 Stool Culture - Final Stool 09/16/20 04:01 Blood Culture - Preliminary Blood No Growth after 48 hours 09/12/20 20:41 Blood Culture - Preliminary Blood No Growth after 120 hours 09/16/20 18:06 Blood Culture - Preliminary Blood No Growth after 24 hours 09/12/20 16:43 Blood Culture - Preliminary Blood No Growth after 120 hours
[2020-09-18 11:05] LABS: Anisocytosis (M) 2+; Basophils # (M) 0 X 10*3/uL (0.00-0.10); Eosinophils # (M) 0 X 10*3/uL (0.04-0.35); Lymphocytes # (M) 0.12 X 10*3/uL (0.90-5.00); Metamyelocytes % 8 % (0-0); Monocytes # (M) 0.06 X 10*3/uL (0.20-1.00); Myelocytes % 3 % (0-0); Neutrophils # (M) 5.07 X 10*3/uL (2.00-8.90); Neutrophils % (M) 86 %
--- NOTE | 2020-09-18 11:30 | P.PN ---
Subjective Progress Note Date: 09/18/20 Kaylyn Mendez, is an 85-year-old female who presented to [facility] emergency room with a chief complaint of generalized weakness, she was evaluated in emergency room, vital examination on presentation reveals a temperature of 97.9 pulse 114 respiration 16 blood pressure 122/101 pulse ox 100% on room air , white blood count was 0.7 hemoglobin 9.1 platelet count 116 sodium 1:30 potassium 2.5 chloride 97 BUN 18 creatinine 0.49. Patient was recently admitted to the hospital at that time she was diagnosed with atrial fibrillation with RVR and urinary tract infection, about 1 month ago. Urine analysis at this time revealed evidence of urinary tract infection again, patient was started on Zosyn in the emergency room, patient also had slightly elevated troponin level in the emergency room, Gonzalez virus PCR was negative. Chest x-ray done in the emergency room revealed no acute process, computed tomography scan of the brain revealed some ventriculomegaly, possible component of normal pressure hydrocephalus. When patient was interviewed on the floor she was also complaining of diarrhea. 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 On 09/13/2020 patient was seen and examined on the medical floor, she is alert and oriented 3 in no distress she is feeling better she stated that she is not having diarrhea anymore at this time she is feeling weak and tired otherwise she denies any complaints there is no fever or chills no headache or dizziness no chest pain no shortness of breath no cough no nausea or vomiting no abdominal pain no diarrhea no blood in the stools no burning with urination no frequency or urgency and no hematuria On 09/14/2020 patient was seen and examined on the medical floor she is alert and oriented 3 in no distress, she is alert and oriented 3 in no distress she denies any pain she denies any further episodes of diarrhea C. diff toxin was negative urine analysis revealed evidence of urinary tract infection and urine culture is positive for gram-negative cocci patient was started on IV Zosyn otherwise she denies any complaints there is no fever or chills no headache or dizziness no chest pain no shortness of breath no cough no nausea or vomiting no abdominal pain no burning with urination no frequency or urgency and no hematuria On 09/15/2020 patient is currently resting comfortably in bed. Patient is sleepy but does wake up to follow commands and answer questions. Patient is currently on Zosyn for urinary tract infection. Urine cultures currently growin g E. coli and Proteus mirabilis. Patient had low-grade temp this a.m. 99.4 electrolytes have improved. Oncology and infectious disease following. Patient denies any chest pain or shortness of breath. Patient denies nausea vomiting or diarrhea. Patient denies any urinary burning or frequency On 09/16/2020 patient was seen and examined on the medical floor she is alert confused in no apparent distress she had an episode of temperature up to 102 during last night repeat blood culture was done chest x-ray was ordered this morning otherwise patient denies any complaints she is maintained on IV Zosyn infectious disease and oncology are following. On 09/17/2020 patient was seen and examined on the medical floor she is alert and oriented 3 in no apparent distress no new episodes of elevated temperature today, yesterday patient had an elevated temperature up to 102, chest x-ray revealed evidence of infiltrates pulmonary consultation was requested, patient is maintained on IV antibiotic and infectious disease are following. At this time there is no fever or chills no headache or dizziness no chest pain no shortness of breath no cough no nausea or vomiting no abdominal pain no diarrhea no blood in the stools no burning with urination no frequency or urgency and no hematuria. On 09/18/2020 patient alert and oriented 3. Patient was evaluated by pulmonary services. Zosyn has been added for possible pneumonia. At this time patient denies any chest pain or shortness breath. Patient denies nausea vomiting or diarrhea. Patient denies any urinary burning or frequency Objective - Vital Signs Vital signs: Vital Signs Temp 98 F 09/18/20 05:00 Pulse 66 09/18/20 05:00 Resp 16 09/18/20 05:00 BP 123/63 09/18/20 05:00 Pulse Ox 95 09/18/20 05:00 Intake & Output 09/17/20 09/18/20 09/18/20 18:59 06:59 18:59 Intake Total 340 Output Total 500 Balance -160 Weight 44.5 kg 50 kg Intake: Intake, IV Titration 100 Amount Piperacillin-Tazobactam 3 100 .375 gm In Sodium Chloride 0.9% 100 ml @ 25 mls/hr IVPB Q12HR [facility] Rx #:[id number] Oral 240 Output: Urine 500 Other: Voiding Method External Catheter External Catheter # Voids 4 # Bowel Movements 1 4 - Exam In general patient is alert and oriented 3 in no apparent distress HEENT head normocephalic and atraumatic Neck is supple no JVD no goiter no lymphadenopathy Chest exam reveals a few scattered rhonchi in both lung bases no wheezing Cardiac exam reveals regular heart sounds S1 and S2 no gallops no murmurs Abdomen is soft nontender no organomegaly with normal bowel sounds Extremity exam reveals no edema no cyanosis or clubbing Neurological examination reveals, no gross focal neurological deficits - Labs CBC & Chem 7: 09/18/20 05:48 09/18/20 05:48 Labs: Abnormal Lab Results - Last 24 Hours (Table) 09/18/20 09/18/20 Range/Units 05:48 05:48 RBC 2.63 L (4.10-5.20) X 10*6/uL Hgb 7.6 L (12.0-15.0) g/dL Hct 23.7 L (37.2-46.3) % RDW 19.9 H (11.5-14.5) % MPV 9.4 L (9.5-12.2) fL Absolute Nucleated RBC 0.04 H (0.00-0.00) X 10*3/uL Metamyelocytes % 8 H (0-0) % Myelocytes % 3 H (0-0) % Lymphocytes # (Manual) 0.12 L (0.90-5.00) X 10*3/uL Monocytes # (Manual) 0.06 L (0.20-1.00) X 10*3/uL Eosinophils # (Manual) 0 L (0.04-0.35) X 10*3/uL NRBC/100 WBC Diff 0.7 H (0.0-0.0) /100 WBCS BUN 5.0 L (9.0-27.0) mg/dL Creatinine 0.5 L (0.6-1.5) mg/dL BUN/Creatinine Ratio 10.00 L (12.00-20.00) Ratio Calcium 7.7 L (8.7-10.3) mg/dL AST 11 L (13-35) U/L Total Protein 3.7 L (6.2-8.2) g/dL Albumin 2.70 L (3.80-4.90) g/dL Globulin 1.0 L (1.6-3.3) g/dL Microbiology - Last 24 Hours (Table) 09/14/20 09:15 Stool Culture - Final Stool 09/16/20 04:01 Blood Culture - Preliminary Blood No Growth after 48 hours 09/12/20 20:41 Blood Culture - Preliminary Blood No Growth after 120 hours 09/16/20 18:06 Blood Culture - Preliminary Blood No Growth after 24 hours 09/12/20 16:43 Blood Culture - Preliminary Blood No Growth after 120 hours Assessment and Plan Plan: 1. Generalized weakness secondary to urinary tract infection and electrolyte imbalance 2. Urinary tract infection. Patient currently on Zosyn. Urine culture showing E. coli and Proteus Mirabillis. Infectious disease is following 3. Severe hypokalemia correcting. Resolved 4. Underlying history of hypothyroidism. Maintained on Synthroid 5. Recently diagnosed with atrial fibrillation and started on metoprolol and Xarelto. Patient was evaluated by cardiology services. No further workup at this time 6. 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 Oncology services are following 7. Complaints of diarrhea. Stool lactoferrin negative. C. diff negative. 8. Possible left basilar pneumonia. Pulmonary services are following. Zosyn has been added. Repeat chest x-ray ordered DVT prophylaxis Xarelto. GI prophylaxis Protonix Oncology infectious disease, pulmonary services and cardiology services following Patient remains on IV antibiotics for urinary tract infection Continue to monitor electrolytes closely
[2020-09-18] MEDS: SODIUM CHLORIDE 0.9% 1,000 ML IV SCH (12:05)
--- NOTE | 2020-09-18 13:24 | P.PN ---
Subjective Progress Note Date: 09/18/20 85-year-old female with a past medical history of hypothyroidism, lymphoma, hypertension, and osteoporosis. Apparently according to the ER farheen, on September 12, the patient states that she was not functioning normally. She apparently ended up on the floor. She must have fallen. Apparently according to her , she was acting "strangely". She was feeling weak and tired. She was recently admitted to the hospital in July and diagnosed with new onset atrial fibrillation with RVR for which she was on a factor X a inhibitor. She apparently denied any chest pain or chest discomfort, nausea, vomiting, diarrhea, abdominal pain, or any genitourinary complaints. She was admitted back on the . I believe I was consulted because of new onset fever and a chest x-ray which shows a potential infiltrate in the left medial lung base. The patient is not a particularly good historian. She's not sure why she is in the hospital. She denied any chest complaints including shortness of breath, c hest pain, cough, wheezing, or phlegm production. Again not a particularly good historian to say the least. Her white count was 5.8, hemoglobin 8.7, hematocrit 26.7, and platelet count 339,000. Sodium was 1:30, potassium 4.1, chloride 98, CO2 30, anion gap 2, BUN 3, and creatinine 0.57. Her albumin was 2.3. Her urine was yellow and cloudy, leukocyte esterase was moderate positive. There are 46 WBCs, rare WBC clumps, and many bacteria. Her COVID 19 testing was negative. Her chest x-ray was reviewed. On 09/18/2023 patient seen in follow-up on medical floor, she is awake and alert, in no acute distress, currently on room air pulse ox of 98%, she's been afebrile, she is breathing comfortably, no cough or congestion, no acute events overnight, up with a walker and physical therapy to ambulate. No altered mentation. Her urine culture was positive for E. coli and Proteus mirabilis. Blood culture and stool culture was negative. Antibiotic coverage includes ciprofloxacin and Zosyn and Zovirax, clinically stable, no acute events overnight. His chest x-ray has been reviewed showing discoid atelectasis or infiltrate in the right infrahilar region unchanged Objective - Vital Signs Vital signs: Vital Signs Temp 97.6 F 09/18/20 10:50 Pulse 80 09/18/20 12:56 Resp 14 09/18/20 10:50 BP 131/81 09/18/20 10:50 Pulse Ox 98 09/18/20 10:50 Intake & Output 09/17/20 09/18/20 09/18/20 18:59 06:59 18:59 Intake Total 340 Output Total 500 Balance -160 Weight 44.5 kg 50 kg Intake: Intake, IV Titration 100 Amount Piperacillin-Tazobactam 3 100 .375 gm In Sodium Chloride 0.9% 100 ml @ 25 mls/hr IVPB Q12HR COUNT [facility]CLUDES [facility] Rx #:[id number] Oral 240 Output: Urine 500 Other: Voiding Method External Catheter External Catheter Toilet External Catheter # Voids 4 # Bowel Movements 1 4 - Exam GENERAL EXAM: Alert, pleasant, 85-year-old white female, on room air, with a pulse ox of 98% comfortable in no apparent distress. HEAD: Normocephalic/atraumatic. EYES: Normal reaction of pupils, equal size. Conjunctiva pink, sclera white. NOSE: Clear with pink turbinates. THROAT: No erythema or exudates. NECK: No masses, no JVD, no thyroid enlargement, no adenopathy. CHEST: No chest wall deformity. Symmetrical expansion. LUNGS: Equal air entry with no crackles, wheeze, rhonchi or dullness. CVS: Regular rate and rhythm, normal S1 and S2, no gallops, no murmurs, no rubs ABDOMEN: Soft, nontender. No hepatosplenomegaly, normal bowel sounds, no guarding or rigidity. EXTREMITIES: No clubbing, no edema, no cyanosis, 2+ pulses and upper and lower extremities. MUSCULOSKELETAL: Muscle strength and tone normal. SPINE: No scoliosis or deformity SKIN: No rashes CENTRAL NERVOUS SYSTEM: Alert and oriented -3. No focal deficits, tone is normal in all 4 extremities. PSYCHIATRIC: Alert and oriented -3. Appropriate affect. Intact judgment and insight. - Labs CBC & Chem 7: 09/18/20 05:48 09/18/20 05:48 Labs: Abnormal Lab Results - Last 24 Hours (Table) 09/18/20 09/18/20 Range/Units 05:48 05:48 RBC 2.63 L (4.10-5.20) X 10*6/uL Hgb 7.6 L (12.0-15.0) g/dL Hct 23.7 L (37.2-46.3) % RDW 19.9 H (11.5-14.5) % MPV 9.4 L (9.5-12.2) fL Absolute Nucleated RBC 0.04 H (0.00-0.00) X 10*3/uL Metamyelocytes % 8 H (0-0) % Myelocytes % 3 H (0-0) % Lymphocytes # (Manual) 0.12 L (0.90-5.00) X 10*3/uL Monocytes # (Manual) 0.06 L (0.20-1.00) X 10*3/uL Eosinophils # (Manual) 0 L (0.04-0.35) X 10*3/uL NRBC/100 WBC Diff 0.7 H (0.0-0.0) /100 WBCS BUN 5.0 L (9.0-27.0) mg/dL Creatinine 0.5 L (0.6-1.5) mg/dL BUN/Creatinine Ratio 10.00 L (12.00-20.00) Ratio Calcium 7.7 L (8.7-10.3) mg/dL AST 11 L (13-35) U/L Total Protein 3.7 L (6.2-8.2) g/dL Albumin 2.70 L (3.80-4.90) g/dL Globulin 1.0 L (1.6-3.3) g/dL Microbiology - Last 24 Hours (Table) 09/14/20 09:15 Stool Culture - Final Stool 09/16/20 04:01 Blood Culture - Preliminary Blood No Growth after 48 hours 09/12/20 20:41 Blood Culture - Preliminary Blood No Growth after 120 hours 09/16/20 18:06 Blood Culture - Preliminary Blood No Growth after 24 hours 09/12/20 16:43 Blood Culture - Preliminary Blood No Growth after 120 hours Assessment and Plan Plan: Intermittent temperature elevations/fever, which may relate to urinary tract infection and/or left basilar pneumonia. Relatively recent development of atrial fibrillation with RVR, currently on a factor X a inhibitor. History of hypothyroidism. History of essential hypertension. History of osteoporosis. History of lymphoma. Chronic anemia. Mild hyponatremia. Plan: Clinically patient has been stable, vital signs have been stable, she denies any dyspnea, no cough or congestion, she is being treated for acute urinary tract infection, follow-up chest x-ray shows left basilar infiltrate and/or atelectasis, clinically patient has remained stable, she is on room air I performed a history & physical examination of the patient and discussed their management with my nurse practitioner, Luzma Garcia. I reviewed the nurse practitioner's note and agree with the documented findings and plan of care. Lung sounds are positive for diminished breath sounds. The findings and the impression was discussed with the patient. I attest to the documentation by the nurse practitioner. Time with Patient: Less than 30
[2020-09-18] MEDS: RIVAROXABAN 15 MG TAB PO SCH (17:10)
--- NOTE | 2020-09-18 21:31 | P.PN ---
Subjective Progress Note Date: 09/18/20 Principal diagnosis: neutropenic, fall, mental status changes She is up in chair, looking a little better today, afebrile Objective - Vital Signs Vital signs: Vital Signs Temp 98.6 F 09/18/20 20:38 Pulse 71 09/18/20 20:38 Resp 16 09/18/20 20:38 BP 137/66 09/18/20 20:38 Pulse Ox 94 L 09/18/20 20:38 Intake & Output 09/18/20 09/18/20 09/19/20 06:59 18:59 06:59 Intake Total 1720 Balance 1720 Weight 50 kg Intake: Intake, IV Titration 1100 Amount Piperacillin-Tazobactam 3 200 .375 gm In Sodium Chloride 0.9% 100 ml @ 25 mls/hr IVPB Q8HR [facility] Rx# :[id number] Sodium Chloride 0.9% 1, 900 000 ml @ 75 mls/hr IV . [id number] [facility] Rx#:[id number] Oral 620 Other: Voiding Method External Catheter Toilet External Catheter # Voids 4 4 # Bowel Movements 4 - Exam - Constitutional General appearance: cooperative, no acute distress - EENT Eyes: EOMI, PERRLA ENT: NA/AT, normal oropharynx - Neck Neck: normal ROM - Respiratory Respiratory: bilateral: diminished - Cardiovascular Rhythm: regularly irregular - Gastrointestinal General gastrointestinal: soft, tenderness - Integumentary Integumentary: pale - Neurologic non focal - Musculoskeletal Musculoskeletal: generalized weakness - Psychiatric More awake today - Labs CBC & Chem 7: 09/18/20 05:48 09/18/20 05:48 Labs: Abnormal Lab Results - Last 24 Hours (Table) 09/18/20 09/18/20 Range/Units 05:48 05:48 RBC 2.63 L (4.10-5.20) X 10*6/uL Hgb 7.6 L (12.0-15.0) g/dL Hct 23.7 L (37.2-46.3) % RDW 19.9 H (11.5-14.5) % MPV 9.4 L (9.5-12.2) fL Absolute Nucleated RBC 0.04 H (0.00-0.00) X 10*3/uL Metamyelocytes % 8 H (0-0) % Myelocytes % 3 H (0-0) % Lymphocytes # (Manual) 0.12 L (0.90-5.00) X 10*3/uL Monocytes # (Manual) 0.06 L (0.20-1.00) X 10*3/uL Eosinophils # (Manual) 0 L (0.04-0.35) X 10*3/uL NRBC/100 WBC Diff 0.7 H (0.0-0.0) /100 WBCS BUN 5.0 L (9.0-27.0) mg/dL Creatinine 0.5 L (0.6-1.5) mg/dL BUN/Creatinine Ratio 10.00 L (12.00-20.00) Ratio Calcium 7.7 L (8.7-10.3) mg/dL AST 11 L (13-35) U/L Total Protein 3.7 L (6.2-8.2) g/dL Albumin 2.70 L (3.80-4.90) g/dL Globulin 1.0 L (1.6-3.3) g/dL Microbiology - Last 24 Hours (Table) 09/16/20 18:06 Blood Culture - Preliminary Blood No Growth after 48 hours 09/12/20 16:43 Blood Culture - Final Blood No Growth after 144 hours 09/14/20 09:15 Stool Culture - Final Stool 09/16/20 04:01 Blood Culture - Preliminary Blood No Growth after 48 hours 09/12/20 20:41 Blood Culture - Preliminary Blood No Growth after 120 hours Assessment and Plan (1) Atrial fibrillation with RVR Current Visit: Yes Status: Acute Code(s): I48.91 - UNSPECIFIED ATRIAL FIBRILLATION SNOMED Code(s): 186315210881910 (2) Hypokalemia Current Visit: Yes Status: Acute Code(s): E87.6 - HYPOKALEMIA SNOMED Code(s): 18706282 (3) Hypomagnesemia Current Visit: Yes Status: Acute Code(s): E83.42 - HYPOMAGNESEMIA SNOMED Code(s): 950104080 (4) NHL (non-Hodgkin's lymphoma) Current Visit: No Status: Acute Priority: High Code(s): C85.90 - NON- HODGKIN LYMPHOMA, UNSPECIFIED, UNSPECIFIED SITE SNOMED Code(s): 209064215 Plan: Mantal Cell Lumphoma: - Status Post Cycle 3 RCHOP with Neulasta 09/04/20 - No GCSF as she received on the of this month, will need close monitoring and further infection prevention - Blood Cultures x2 - Await UA culture and sensistivity Neutropenia: New Fevers 09/15/20 t Max 101.8 - positive UA/Culture Proteus.Ecoli - Withi neutropenia and recently hospitalization with tyhphitis monitor for any abdominal distention, discomfort and/or diarrhea. If any of these s/s please place do not advance diet - On Zosyn, to continue - Resend Blood cultures (mediport and one peripheral) - Repeat Chest Xray - Repeat Urinalysis and Culture - Dr. Villarreal is following Hypokalemia and Hypomagnesium: - Possible from GI loss and Dehydration Improved CBC, Improved clinically Advance to Full liquid Repeat Chest Xray new infiltrate - ?pneumonia COntinue to increase activity, monitor CBC, and increase PO intake. Her mental status has improved. still weak.
[2020-09-19] MEDS: LEVOTHYROXINE 50 MCG TAB PO SCH (05:13)
[2020-09-19 05:18] VITALS: RESP 18
[2020-09-19] MEDS: PIPERACILLIN-TAZOBACTAM 3.375 GM in SODIUM CHLORIDE 0.9% 100 ML IVPB SCH ×2 (09:16→15:09)
[2020-09-19] MEDS: allopurinoL 300 MG TAB PO SCH (09:17)
[2020-09-19] MEDS: ACYCLOVIR 200 MG CAP PO SCH (09:17)
[2020-09-19] MEDS: METOPROLOL TARTRATE 50 MG TAB PO SCH (09:17)
[2020-09-19] MEDS: PANTOPRAZOLE 40 MG TABLET PO SCH (09:17)
[2020-09-19] MEDS: NYSTATIN 100,000 UNIT/ML SUSP 500,000 UNIT/5 ML CUP PO SCH ×2 (09:17→14:48)
[2020-09-19] MEDS: CIPROFLOXACIN HCL 500 MG TAB PO SCH (09:18)
[2020-09-19 11:16] LABS: HCT 24.1 % (37.2-46.3); HGB 7.6 g/dL (12.0-15.0); MCH 28.7 pg (27.0-32.0); MCHC 31.5 g/dL (32.0-37.0); MCV 90.9 fL (80.0-97.0); Mean Platelet Volume 9.4 fL (9.5-12.2); Platelet Count 330 X 10*3/uL (140-440); RBC 2.65 X 10*6/uL (4.10-5.20); RDW 19.9 % (11.5-14.5); WBC 6.75 X 10*3/uL (4.50-10.00)
[2020-09-19 12:01] LABS: ALT 12 U/L (8-44); AST 15 U/L (13-35); African American GFR (CKD) 110.9 (60.0-200.0); Alkaline Phosphatase 43 U/L (41-126); Calcium 7.9 mg/dL (8.7-10.3); Carbon Dioxide 27.4 mmol/L (21.6-31.8); Chloride 104 mmol/L (96-109); Glucose 84 mg/dL (70-110); Non-African American GFR(CKD) 95.6 (60.0-200.0); Potassium 3.6 mmol/L (3.5-5.5); Sodium 138 mmol/L (135-145); Total Bilirubin 0.4 mg/dL (0.2-1.2); Total Protein 3.8 g/dL (6.2-8.2)
--- NOTE | 2020-09-19 12:15 | P.PN ---
Subjective Progress Note Date: 09/19/20 85-year-old female with a past medical history of hypothyroidism, lymphoma, hypertension, and osteoporosis. Apparently according to the ER farheen, on September 12, the patient states that she was not functioning normally. She apparently ended up on the floor. She must have fallen. Apparently according to her , she was acting "strangely". She was feeling weak and tired. She was recently admitted to the hospital in July and diagnosed with new onset atrial fibrillation with RVR for which she was on a factor X a inhibitor. She apparently denied any chest pain or chest discomfort, nausea, vomiting, diarrhea, abdominal pain, or any genitourinary complaints. She was admitted back on the . I believe I was consulted because of new onset fever and a chest x-ray which shows a potential infiltrate in the left medial lung base. The patient is not a particularly good historian. She's not sure why she is in the hospital. She denied any chest complaints including shortness of breath, c hest pain, cough, wheezing, or phlegm production. Again not a particularly good historian to say the least. Her white count was 5.8, hemoglobin 8.7, hematocrit 26.7, and platelet count 339,000. Sodium was 1:30, potassium 4.1, chloride 98, CO2 30, anion gap 2, BUN 3, and creatinine 0.57. Her albumin was 2.3. Her urine was yellow and cloudy, leukocyte esterase was moderate positive. There are 46 WBCs, rare WBC clumps, and many bacteria. Her COVID 19 testing was negative. Her chest x-ray was reviewed. On 09/18/2023 patient seen in follow-up on medical floor, she is awake and alert, in no acute distress, currently on room air pulse ox of 98%, she's been afebrile, she is breathing comfortably, no cough or congestion, no acute events overnight, up with a walker and physical therapy to ambulate. No altered mentation. Her urine culture was positive for E. coli and Proteus mirabilis. Blood culture and stool culture was negative. Antibiotic coverage includes ciprofloxacin and Zosyn and Zovirax, clinically stable, no acute events overnight. His chest x-ray has been reviewed showing discoid atelectasis or infiltrate in the right infrahilar region unchanged On 09/19/2020 patient seen in follow-up on medical floor, he is awake and alert, in no acute distress, room air pulse ox 97%, afebrile, hemodynamically she has been stable, denies any shortness of breath, her last chest x-ray was yesterday showing discoid atelectasis or infiltrate in the right infrahilar region, however clinically patient has remained stable, she's had no acute events overnight, no cough or congestion, she is tolerating relation with a walker with therapy. No complaints of chest pain or hemoptysis, labs have been reviewed, from pulmonary perspective with the patient could be considered for discharge. She is on antibiotics for urinary tract infection related to E. coli and Proteus mirabilis. Objective - Vital Signs Vital signs: Vital Signs Temp 98.2 F 09/19/20 05:00 Pulse 61 09/19/20 05:00 Resp 18 09/19/20 05:00 BP 135/69 09/19/20 05:00 Pulse Ox 97 09/19/20 05:00 Intake & Output 09/18/20 09/19/20 09/19/20 18:59 06:59 18:59 Intake Total 1720 Balance 1720 Weight 50 kg Intake: Intake, IV Titration 1100 Amount Piperacillin-Tazobactam 3 200 .375 gm In Sodium Chloride 0.9% 100 ml @ 25 mls/hr IVPB Q8HR [facility] Rx# :[id number] Sodium Chloride 0.9% 1, 900 000 ml @ 75 mls/hr IV . [id number] [facility] Rx#:[id number] Oral 620 Other: Voiding Method Toilet Toilet Toilet External Catheter External Catheter External Catheter # Voids 4 1 - Exam GENERAL EXAM: Alert, pleasant, 85-year-old white female, on room air, with a pulse ox of 98% comfortable in no apparent distress. HEAD: Normocephalic/atraumatic. EYES: Normal reaction of pupils, equal size. Conjunctiva pink, sclera white. NOSE: Clear with pink turbinates. THROAT: No erythema or exudates. NECK: No masses, no JVD, no thyroid enlargement, no adenopathy. CHEST: No chest wall deformity. Symmetrical expansion. LUNGS: Equal air entry with no crackles, wheeze, rhonchi or dullness. CVS: Regular rate and rhythm, normal S1 and S2, no gallops, no murmurs, no rubs ABDOMEN: Soft, nontender. No hepatosplenomegaly, normal bowel sounds, no guarding or rigidity. EXTREMITIES: No clubbing, no edema, no cyanosis, 2+ pulses and upper and lower extremities. MUSCULOSKELETAL: Muscle strength and tone normal. SPINE: No scoliosis or deformity SKIN: No rashes CENTRAL NERVOUS SYSTEM: Alert and oriented -3. No focal deficits, tone is normal in all 4 extremities. PSYCHIATRIC: Alert and oriented -3. Appropriate affect. Intact judgment and insight. - Labs CBC & Chem 7: 09/19/20 07:39 09/19/20 07:39 Labs: Abnormal Lab Results - Last 24 Hours (Table) 09/19/20 09/19/20 Range/Units 07:39 07:39 RBC 2.65 L (4.10-5.20) X 10*6/uL Hgb 7.6 L (12.0-15.0) g/dL Hct 24.1 L (37.2-46.3) % MCHC 31.5 L (32.0-37.0) g/dL RDW 19.9 H (11.5-14.5) % MPV 9.4 L (9.5-12.2) fL Absolute Nucleated RBC 0.02 H (0.00-0.00) X 10*3/uL NRBC/100 WBC Diff 0.3 H (0.0-0.0) /100 WBCS Creatinine 0.4 L (0.6-1.5) mg/dL Calcium 7.9 L (8.7-10.3) mg/dL Total Protein 3.8 L (6.2-8.2) g/dL Albumin 2.80 L (3.80-4.90) g/dL Globulin 1.0 L (1.6-3.3) g/dL Microbiology - Last 24 Hours (Table) 09/16/20 04:01 Blood Culture - Preliminary Blood No Growth after 72 hours 09/12/20 20:41 Blood Culture - Final Blood No Growth after 144 hours 09/16/20 18:06 Blood Culture - Preliminary Blood No Growth after 48 hours 09/12/20 16:43 Blood Culture - Final Blood No Growth after 144 hours 09/14/20 09:15 Stool Culture - Final Stool Assessment and Plan Plan: Intermittent temperature elevations/fever, which may relate to urinary tract infection and/or left basilar pneumonia. Relatively recent development of atrial fibrillation with RVR, currently on a factor X a inhibitor. History of hypothyroidism. History of essential hypertension. History of osteoporosis. History of lymphoma. Chronic anemia. Mild hyponatremia. Plan: She is on room air, denies any shortness of breath no cough or congestion, no fever or chills, from pulmonary perspective she can be considered for discharge if cleared by medicine. I performed a history & physical examination of the patient and discussed their management with my nurse practitioner, Luzma Garcia. I reviewed the nurse practitioner's note and agree with the documented findings and plan of care. Lung sounds are positive for diminished breath sounds. The findings and the impression was discussed with the patient. I attest to the documentation by the nurse practitioner. Time with Patient: Less than 30
[2020-09-19 12:26] LABS: Blood Urea Nitrogen <5.0 mg/dL (9.0-27.0)
[2020-09-19 12:42] VITALS: BP 132/72; PULSE 65; TEMP 97.9
[2020-09-19] MEDS: SODIUM CHLORIDE 0.9% 1,000 ML IV SCH (12:52)
[2020-09-19 13:09] LABS: Acanthocytes 3+; Anisocytosis (M) 2+; Basophils # (M) 0.14 X 10*3/uL (0.00-0.10); Eosinophils # (M) 0 X 10*3/uL (0.04-0.35); Lymphocytes # (M) 0 X 10*3/uL (0.90-5.00); Metamyelocytes % 6 % (0-0); Myelocytes % 3 % (0-0); Neutrophils # (M) 5.81 X 10*3/uL (2.00-8.90); Neutrophils % (M) 86 %; Polychromasia 2+
--- NOTE | 2020-09-19 13:29 | P.DS ---
Providers Date of admission: 09/12/20 13:14 Expected date of discharge: 09/19/20 Attending physician: Johanny Eckert Consults: 09/12/20 13:02 Consult Physician Routine Consulting Provider: [facility] Consult Reason/Comments: afib RVR, elevated trop Do you want consulting provider notified?: Yes Consult Physician Routine Consulting Provider: Jas Cabezas Consult Reason/Comments: neutropenia, UTI, weakness, lymphoma on chemo Do you want consulting provider notified?: Yes 09/12/20 19:39 Consult Physician Routine Consulting Provider: Vinnie Villarreal Consult Reason/Comments: possible sepsis Do you want consulting provider notified?: Yes 09/16/20 17:13 Consult Physician Routine Consulting Provider: [facility] Consult Reason/Comments: fever Do you want consulting provider notified?: Yes Primary care physician: Erin Gilbert [facility] Course: Diagnosis on discharge: 1. Generalized weakness secondary to urinary tract infection and electrolyte imbalance 2. Urinary tract infection. Patient currently on Zosyn. Urine culture showing E. coli and Proteus Mirabillis. Infectious disease is following 3. Severe hypokalemia correcting. Resolved 4. Underlying history of hypothyroidism. Maintained on Synthroid 5. Recently diagnosed with atrial fibrillation and started on metoprolol and Xarelto. Patient was evaluated by cardiology services. No further workup at this time 6. 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 Oncology services are following 7. Complaints of diarrhea. Stool lactoferrin negative. C. diff negative. 8. Possible left basilar pneumonia. Pulmonary services are following. Zosyn has been added. Repeat chest x-ray ordered Hospital course: Kaylyn Mendez, is an 85-year-old female who presented to [facility] emergency room with a chief complaint of generalized weakness, she was evaluated in emergency room, vital examination on presentation reveals a temperature of 97.9 pulse 114 respiration 16 blood pressure 122/101 pulse ox 100% on room air , white blood count was 0.7 hemoglobin 9.1 platelet count 116 sodium 1:30 potassium 2.5 chloride 97 BUN 18 creatinine 0.49. Patient was recently admitted to the hospital at that time she was diagnosed with atrial fibrillation with RVR and urinary tract infection, about 1 month ago. Urine analysis at this time revealed evidence of urinary tract infection again, patient was started on Zosyn in the emergency room, patient also had slightly elevated troponin level in the emergency room, Gonzalez virus PCR was negative. Chest x-ray done in the emergency room revealed no acute process, computed tomography scan of the brain revealed some ventriculomegaly, possible component of normal pressure hydrocephalus. When patient was interviewed on the floor she was also complaining of diarrhea. 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 On 09/13/2020 patient was seen and examined on the medical floor, she is alert and oriented 3 in no distress she is feeling better she stated that she is not having diarrhea anymore at this time she is feeling weak and tired otherwise she denies any complaints there is no fever or chills no headache or dizziness no chest pain no shortness of breath no cough no nausea or vomiting no abdominal pain no diarrhea no blood in the stools no burning with urination no frequency or urgency and no hematuria On 09/14/2020 patient was seen and examined on the medical floor she is alert and oriented 3 in no distress, she is alert and oriented 3 in no distress she denies any pain she denies any further episodes of diarrhea C. diff toxin was negative urine analysis revealed evidence of urinary tract infection and urine culture is positive for gram-negative cocci patient was started on IV Zosyn otherwise she denies any complaints there is no fever or chills no headache or dizziness no chest pain no shortness of breath no cough no nausea or vomiting no abdominal pain no burning with urination no frequency or urgency and no hematuria On 09/15/2020 patient is currently resting comfortably in bed. Patient is sleepy but does wake up to follow commands and answer questions. Patient is currently on Zosyn for urinary tract infection. Urine cultures currently growing E. coli and Proteus mirabilis. Patient had low-grade temp this a.m. 99.4 electrolytes have improved. Oncology and infectious disease following. Patient denies any chest pain or shortness of breath. Patient denies nausea vomiting or diarrhea. Patient denies any urinary burning or frequency On 09/16/2020 patient was seen and examined on the medical floor she is alert confused in no apparent distress she had an episode of temperature up to 102 during last night repeat blood culture was done chest x-ray was ordered this morning otherwise patient denies any complaints she is maintained on IV Zosyn infectious disease and oncology are following. On 09/17/2020 patient was seen and examined on the medical floor she is alert and oriented 3 in no apparent distress no new episodes of elevated temperature today, yesterday patient had an elevated temperature up to 102, chest x-ray revealed evidence of infiltrates pulmonary consultation was requested, patient is maintained on IV antibiotic and infectious disease are following. At this time there is no fever or chills no headache or dizziness no chest pain no shortness of breath no cough no nausea or vomiting no abdominal pain no diarrhea no blood in the stools no burning with urination no frequency or urgency and no hematuria. On 09/18/2020 patient alert and oriented 3. Patient was evaluated by pulmonary services. Zosyn has been added for possible pneumonia. At this time patient denies any chest pain or shortness breath. Patient denies nausea vomiting or diarrhea. Patient denies any urinary burning or frequency On 09/19/2020 patient was seen and examined on the medical floor she is alert and oriented 3 in no apparent distress there is no fever or chills no headache or dizziness no chest pain no shortness of breath no cough no nausea or vomiting no abdominal pain no diarrhea no blood in the stools no burning with urination no frequency or urgency and no hematuria. Patient was evaluated by pulmonary and was cleared for discharge, she has evidence of urinary tract infection with E. coli and Proteus mirabilis infectious disease recommendation to continue with Cipro 500 mg twice daily for 7 more days patient will also receive acyclovir and nystatin mouthwash, follow-up with oncology within 1 week Plan - Discharge Summary Discharge Rx Participant: No New Discharge Prescriptions: New Ciprofloxacin HCl [Cipro] 500 mg PO BID #14 tablet Ciprofloxacin HCl [Cipro] 500 mg PO BID tab Nystatin 100,000 Unit/ml Susp [Mycostatin Oral Susp] 500,000 unit PO QID ml Acyclovir [Zovirax] 400 mg PO BID cap Continue Levothyroxine Sodium [Levoxyl] 50 mcg PO DAILY Omeprazole [PriLOSEC] 40 mg PO DAILY allopurinoL [Zyloprim] 300 mg PO DAILY Ubidecarenone [Co Q-10] 200 mg PO DAILY Calcium, Magnesium & Zinc (Unknown Strength) 1 tab PO DAILY Ascorbic Acid [Vitamin C] 500 mg PO DAILY Multivitamins, Thera [Multivitamin (formulary)] 1 tab PO DAILY Fish Oil/Dha/Epa [Fish Oil 1,200 mg Fish Oil] 1 tab PO DAILY Metoprolol Tartrate [Lopressor] 50 mg PO BID tab Ergocalciferol (Vitamin D2) [Vitamin D2 (2000 Iu)] 50 mcg PO DAILY Rivaroxaban [Xarelto] 15 mg PO W/SUPPER Discharge Medication List Levothyroxine Sodium [Levoxyl] 50 mcg PO DAILY 08/07/15 [History] Ascorbic Acid [Vitamin C] 500 mg PO DAILY 07/30/20 [History] Calcium, Magnesium & Zinc (Unknown Strength) 1 tab PO DAILY 07/30/20 [History] Fish Oil/Dha/Epa [Fish Oil 1,200 mg Fish Oil] 1 tab PO DAILY 07/30/20 [History] Multivitamins, Thera [Multivitamin (formulary)] 1 tab PO DAILY 07/30/20 [History] Omeprazole [PriLOSEC] 40 mg PO DAILY 07/30/20 [History] Ubidecarenone [Co Q-10] 200 mg PO DAILY 07/30/20 [History] allopurinoL [Zyloprim] 300 mg PO DAILY 07/30/20 [History] Metoprolol Tartrate [Lopressor] 50 mg PO BID tab 08/07/20 [Rx] Ergocalciferol (Vitamin D2) [Vitamin D2 (2000 Iu)] 50 mcg PO DAILY 09/12/20 [History] Rivaroxaban [Xarelto] 15 mg PO W/SUPPER 09/12/20 [History] Ciprofloxacin HCl [Cipro] 500 mg PO BID #14 tablet 09/17/20 [Rx] Acyclovir [Zovirax] 400 mg PO BID cap 09/19/20 [Rx] Ciprofloxacin HCl [Cipro] 500 mg PO BID tab 09/19/20 [Rx] Nystatin 100,000 Unit/ml Susp [Mycostatin Oral Susp] 500,000 unit PO QID ml 09/19/20 [Rx] Follow up Appointment(s)/Referral(s): Clarissa Pereira MD [STAFF PHYSICIAN] - 2 Weeks Erin Gilbert MD [Primary Care Provider] - 1-2 days [facility], [NON-STAFF] -
[2020-09-19 14:58] VITALS: BMI 23.8
--- NOTE | 2020-09-19 15:31 | PN ---
PROGRESS NOTE DATE OF SERVICE: 09/19/2020 REASON FOR FOLLOWUP: Urinary tract infection. INTERVAL HISTORY: The patient is currently afebrile. Patient is breathing comfortably. The patient denies having any chest pain, shortness of breath or cough. No abdominal pain or diarrhea. PHYSICAL EXAMINATION: Her blood pressure 132/72 with a pulse of 65, temperature 97.9. She is 97% on room air. General description is an elderly female up in a chair in no distress. RESPIRATORY SYSTEM: Unlabored breathing, clear to auscultation anteriorly. HEART: S1, S2. Regular rate and rhythm. ABDOMEN: Soft, no tenderness. LABS: Hemoglobin 7.6, white count 6.75, BUN of 5 creatinine 0.4. Repeat blood culture so far negative. DIAGNOSTIC IMPRESSION AND PLAN: Patient with Escherichia coli and Proteus mirabilis urinary tract infection, currently on 4 to 5 days to finish course of therapy. Continue with supportive care. MMODL / IJN: [id number] /
== END 2020-09-19 18:24 | disposition home or self-care (01) | DRG 640 ==
LOC: EC 09:58 → 3SCARD 13:14 → 5NMEDONC 09-17 11:13
PROVIDERS: ADMIT Internal Medicine; ATTEND Internal Medicine
DX: E87.6 Hypokalemia (principal); D61.810 Antineoplastic chemotherapy induced pancytopenia; J18.9 Pneumonia, unspecified organism; N39.0 Urinary tract infection, site not specified; I47.1 Supraventricular tachycardia; C83.10 Mantle cell lymphoma, unspecified site; J98.11 Atelectasis; E87.1 Hypo-osmolality and hyponatremia; Z20.822 Contact with and (suspected) exposure to COVID-19; T45.1X5A Adverse effect of antineoplastic and immunosuppressive drugs, initial encounter; I48.0 Paroxysmal atrial fibrillation; I45.10 Unspecified right bundle-branch block; R19.7 Diarrhea, unspecified; I10 Essential (primary) hypertension; G93.89 Other specified disorders of brain; E83.42 Hypomagnesemia; B96.20 Unspecified Escherichia coli [E. coli] as the cause of diseases classified elsewhere; B96.4 Proteus (mirabilis) (morganii) as the cause of diseases classified elsewhere; R50.81 Fever presenting with conditions classified elsewhere; E78.5 Hyperlipidemia, unspecified; E03.9 Hypothyroidism, unspecified; Z79.899 Other long term (current) drug therapy; Z79.890 Hormone replacement therapy; Z79.01 Long term (current) use of anticoagulants; Z88.2 Allergy status to sulfonamides; Z90.49 Acquired absence of other specified parts of digestive tract
CPT/HCPCS: 36415; 70450; 71045; 71046; 72125; 74019; 80048; 80053; 81001; 82550; 83605; 83615; 83630; 83735; 83880; 84132; 84484; 84550; 85025; 85610; 85730; 87040; 87045; 87046; 87077; 87086; 87186; 87324; 87635; 93005; 94760; 96365; 96366; 96368; 99285

== ENCOUNTER → 2020-10-18 | Outpatient (CLI) | payer MEDICARE, OTHER ==
--- NOTE | 2020-10-18 16:42 | PE ---
Nuclear medicine PET/CT HISTORY: Lymphoma, subsequent, right neck 15 years prior Patient received 10.5 mCi F-18 FDG intravenously in delayed scanning was performed from the skull bas e to the mid thighs. Localization and attenuation correction CT scan was performed. Correlation to prior nuclear medicine PET/CT 07/05/2020 Chest and neck: No evident adenopathy, no supraclavicular, cervical, mediastinal, axillary, or hilar adenopathy is evident. There is a port in the right pectoral region coursing via right jugular approa ch into the superior vena cava. No evident lung mass, no pleural or pericardial effusion. ABDOMEN: There is no retroperitoneal adenopathy. Patient is post cholecystectomy. No liver uptake, no suspicious splenic uptake. There is no ascites. Surgical clips present in the right lower quadrant. No pelvic or inguinal uptake evident, no adenopathy. Uptake within the bowel is likely physiologic. Osseous structures: Diffuse increased marrow uptake likely due to marrow activation. impression: No suspicious hypermetabolic uptake or evident adenopathy. Complete tumor response. Proba ble marrow activation change.
== END ==
LOC: RADPETMAIN 09:16
PROVIDERS: ATTEND Internal Medicine Hematology & Oncology
DX: C83.38 Diffuse large B-cell lymphoma, lymph nodes of multiple sites (principal)
CPT/HCPCS: 78815; A9552

== ENCOUNTER 2020-11-28 12:51 | Inpatient (IN) | payer MEDICARE, OTHER ==
[~2020-11-28 12:51] MED LIST changes: +AMIODARONE 50 MG/ML 3 ML VIAL IV ONE; +DEXTROSE 50% SYRINGE 50 ML IVP ONE; +EPINEPHrine 10 ML SYRINGE (0.1 MG/ML) ONE; +MAGNESIUM SULFATE SYG 4.06 MEQ/ML SYRINGE ONE; +SODIUM BICARB 8.4% 50 ML SYR (1 MEQ/ML) ONE; -SODIUM CHLORIDE 0.9% 500 ML 500 ML in EMPTY BAG 1 BAG IV PRN; -ZOLEDRONIC ACID 5 MG in SODIUM CHLORIDE 0.9% 100 ML IV NR
[2020-11-28] MEDS ORDERED: IBUPROFEN IV 600 MG in SODIUM CHLORIDE 0.9% 250 ML IV STA (12:59)
[2020-11-28] MEDS ORDERED: ACETAMINOPHEN SUPPOSITORY 650 MG SUPP RECTAL STA (12:59)
[2020-11-28] MEDS: SODIUM CHLORIDE 0.9% 500 ML 500 ML IV SCH ×3 (13:09→13:11)
--- NOTE | 2020-11-28 13:10 | ED ---
General Adult HPI - General Chief complaint: Altered Mental Status Stated complaint: A fib Time Seen by Provider: 11/28/20 12:55 Source: patient, RN notes reviewed, old records reviewed Mode of arrival: EMS Limitations: no limitations - History of Present Illness Initial comments: This is an 85-year-old female who has a history of lymphoma she was under altered mentally for the last few days. told EMS that the patient got treatment one week ago for lymphoma and usually after week she feels worse and has some altered mental status. 's called EMS today because she was not improving and in fact looking worse. Patient is unable to give us any history of is not here at this time. Looks as though the patient may have vomited prior to EMS arrival. Patient's glucose was 150 for EMS. Patient's initial blood pressure was a little low. - Related Data Home Medications Medication Instructions Recorded Confirmed Levothyroxine Sodium [Levoxyl] 50 mcg PO DAILY 08/07/15 11/28/20 Omeprazole [PriLOSEC] 40 mg PO DAILY 07/30/20 11/28/20 Rivaroxaban [Xarelto] 15 mg PO AC-SUPPER 09/12/20 11/28/20 Calcium/Magnesium/Zinc 1 tab PO DAILY 11/28/20 11/28/20 [Hkakiwn-Wyphemhin-Mvkq Tablet] Cholecalciferol [Vitamin D3 (25 50 mcg PO DAILY 11/28/20 11/28/20 Mcg = 1000 Iu)] Docosanol 10% Cream [Abreva] 1 applic TOPICAL 5XD PRN 11/28/20 11/28/20 Clive's 5 ml PO 5XD PRN 11/28/20 11/28/20 Solution(Benadryl,Lidocaine,Maalox,Nystatin 1:1) Potassium Chloride ER [K-Dur 20] 40 meq PO DAILY 11/28/20 11/28/20 predniSONE 50 mg PO DIRECTED 11/28/20 11/28/20 Previous Rx's Medication Instructions Recorded Metoprolol Tartrate [Lopressor] 50 mg PO BID tab 08/07/20 Allergies Allergy/AdvReac Type Severity Reaction Status Date / Time Sulfa (Sulfonamide Allergy Unknown Verified 11/28/20 15:04 Antibiotics) Review of Systems ROS Statement: Those systems with pertinent positive or pertinent negative responses have been documented in the HPI. ROS Other: All systems not noted in ROS Statement are negative. Past Medical History Past Medical History: Hypertension, Thyroid Disorder Additional Past Medical History / Comment(s): OSTEOPOROSIS. lymphoma History of Any Multi-Drug Resistant Organisms: None Reported Past Surgical History: Appendectomy, Cholecystectomy Past Anesthesia/Blood Transfusion Reactions: No Reported Reaction Past Psychological History: No Psychological Hx Reported Smoking Status: Never smoker Past Alcohol Use History: None Reported Past Drug Use History: None Reported General Exam - General Exam Comments Initial Comments: GENERAL: Patient is well-developed and well-nourished. Patient is nontoxic and well- hydrated and is in mild distress. ENT: Neck is soft and supple. No significant lymphadenopathy is noted. Oropharynx is clear. Moist mucous membranes. Neck has full range of motion without elici ting any pain. EYES: The sclera were anicteric and conjunctiva were pink and moist. Extraocular movements were intact and pupils were equal round and reactive to light. Eyelids were unremarkable. PULMONARY: Unlabored respirations. Good breath sounds bilaterally. No audible rales rhonchi or wheezing was noted. CARDIOVASCULAR: There is a regular rate and rhythm without any murmurs gallops or rubs. ABDOMEN: Soft and nontender with normal bowel sounds. SKIN: Skin is clear with no lesions or rashes and otherwise unremarkable. NEUROLOGIC: Patient is alert and oriented 1 MUSCULOSKELETAL: Normal extremities with adequate strength and full range of motion. No lower extremity swelling or edema. No calf tenderness. LYMPHATICS: No significant lymphadenopathy is noted PSYCHIATRIC: Unable to assess secondary to patient's lack of orientation Limitations: no limitations Course Vital Signs 11/28/20 11/28/20 11/28/20 12:57 13:19 13:46 Temperature 102.8 F H Pulse Rate 165 H 146 H 147 H Respiratory 20 42 H 22 Rate Blood Pressure 124/111 76/45 118/58 O2 Sat by Pulse 98 95 Oximetry 11/28/20 11/28/20 11/28/20 14:00 14:10 14:20 Temperature Pulse Rate 152 H 154 H 133 H Respiratory 22 22 22 Rate Blood Pressure 112/90 104/72 126/69 O2 Sat by Pulse 93 L 93 L 100 Oximetry 11/28/20 11/28/20 11/28/20 14:30 14:40 14:50 Temperature Pulse Rate 158 H 141 H 146 H Respiratory 22 22 24 Rate Blood Pressure 94/66 88/66 101/56 O2 Sat by Pulse 95 95 96 Oximetry 11/28/20 11/28/20 15:00 15:25 Temperature 98.1 F Pulse Rate 144 H Respiratory 24 24 Rate Blood Pressure 95/60 O2 Sat by Pulse 100 Oximetry Procedures - Sepsis Sepsis Focused Exam #1 Time Sepsis Criteria Met: 14:43 Sepsis Focused Exam Date: 11/28/20 Sepsis Focused Exam Time: 14:44 Sepsis Focused Exam Complete: Yes Vital Signs & RN Notes Reviewed: Yes Capillary Refill: < 2 Seconds: Fingers Peripheral Pulses: Normal: Radial (R) Skin Color: Normal for Patient Respiratory Exam: normal lung sounds Cardiovascular Exam: tachycardia Medical Decision Making - Medical Decision Making EKG shows atrial fibrillation with rapid ventricular response at 154 bpm QRS is under QT interval 322 QTC is 5:15. Patient's EKG shows no significant ST segment elevation. Patient received 2 L of fluid and it brought her pressure up. Patient's lactic acid was over 9. Patient's septic. Patient's x-ray of the chest showed pneumonia bilaterally. Patient has an elevated troponin. I spoke with Dr. Eckert he agreed to admit the patient admitted the patient wrote admitting orders. I started the patient on cefepime and vancomycin. I spoke with oncology and I will consult oncology. - Lab Data Result diagrams: 11/28/20 13:13 11/28/20 13:13 Lab Results 11/28/20 11/28/20 11/28/20 Range/Units 13:08 13:13 13:13 WBC 0.6 L* (3.8-10.6) k/uL RBC 3.18 L (3.80-5.40) m/uL Hgb 9.4 L (11.4-16.0) gm/dL Hct 26.9 L (34.0-46.0) % MCV 84.7 (80.0-100.0) fL MCH 29.6 (25.0-35.0) pg MCHC 35.0 (31.0-37.0) g/dL RDW 19.6 H (11.5-15.5) % Plt Count 83 L (150-450) k/uL MPV 11.1 Manual Slide Review Performed Polychromasia Present Poikilocytosis (manual Present Anisocytosis Slight Microcytosis Slight PT 21.2 H (9.0-12.0) sec INR 2.2 H (<1.2) APTT 23.8 (22.0-30.0) sec Sodium (137-145) mmol/L Potassium (3.5-5.1) mmol/L Chloride (98-107) mmol/L Carbon Dioxide (22-30) mmol/L Anion Gap mmol/L BUN (7-17) mg/dL Creatinine (0.52-1.04) mg/dL Est GFR (CKD-EPI)AfAm (>60 ml/min/1.73 sqM) Est GFR (CKD-EPI)NonAf (>60 ml/min/1.73 sqM) Glucose (74-99) mg/dL Lactic Ac Sepsis Rflx Plasma Lactic Acid Alfonso (0.7-2.0) mmol/L Calcium (8.4-10.2) mg/dL Total Bilirubin (0.2-1.3) mg/dL AST (14-36) U/L ALT (4-34) U/L Alkaline Phosphatase (38-126) U/L Troponin I (0.000-0.034) ng/mL Total Protein (6.3-8.2) g/dL Albumin (3.5-5.0) g/dL Urine Color Urine Appearance (Clear) Urine pH (5.0-8.0) Ur Specific Rover (1.001-1.035) Urine Protein (Negative) Urine Glucose (UA) (Negative) Urine Ketones (Negative) Urine Blood (Negative) Urine Nitrite (Negative) Urine Bilirubin (Negative) Urine Urobilinogen (<2.0) mg/dL Ur Leukocyte Esterase (Negative) Urine WBC (0-5) /hpf Ur Squamous Epith Cells (0-4) /hpf Hyaline Casts (0-2) /lpf Urine Mucus (None) /hpf Coronavirus (PCR) Not Detected (Not Detectd) 11/28/20 11/28/20 11/28/20 Range/Units 13:13 13:13 13:13 WBC (3.8-10.6) k/uL RBC (3.80-5.40) m/uL Hgb (11.4-16.0) gm/dL Hct (34.0-46.0) % MCV (80.0-100.0) fL MCH (25.0-35.0) pg MCHC (31.0-37.0) g/dL RDW (11.5-15.5) % Plt Count (150-450) k/uL MPV Manual Slide Review Polychromasia Poikilocytosis (manual Anisocytosis Microcytosis PT (9.0-12.0) sec INR (<1.2) APTT (22.0-30.0) sec Sodium 136 L (137-145) mmol/L Potassium 2.2 L* (3.5-5.1) mmol/L Chloride 100 (98-107) mmol/L Carbon Dioxide 21 L (22-30) mmol/L Anion Gap 15 mmol/L BUN 17 (7-17) mg/dL Creatinine 1.49 H (0.52-1.04) mg/dL Est GFR (CKD-EPI)AfAm 37 (>60 ml/min/1.73 sqM) Est GFR (CKD-EPI)NonAf 32 (>60 ml/min/1.73 sqM) Glucose 113 H (74-99) mg/dL Lactic Ac Sepsis Rflx Plasma Lactic Acid Alfonso 9.9 H* (0.7-2.0) mmol/L Calcium 7.9 L (8.4-10.2) mg/dL Total Bilirubin 1.5 H (0.2-1.3) mg/dL AST 30 (14-36) U/L ALT 29 (4-34) U/L Alkaline Phosphatase <20 L (38-126) U/L Troponin I (0.000-0.034) ng/mL Total Protein 4.0 L (6.3-8.2) g/dL Albumin 2.3 L (3.5-5.0) g/dL Urine Color Yellow Urine Appearance Cloudy H (Clear) Urine pH 6.0 (5.0-8.0) Ur Specific Rover 1.011 (1.001-1.035) Urine Protein 1+ H (Negative) Urine Glucose (UA) Negative (Negative) Urine Ketones 1+ H (Negative) Urine Blood Negative (Negative) Urine Nitrite Negative (Negative) Urine Bilirubin Negative (Negative) Urine Urobilinogen <2.0 (<2.0) mg/dL Ur Leukocyte Esterase Negative (Negative) Urine WBC 3 (0-5) /hpf Ur Squamous Epith Cells 1 (0-4) /hpf Hyaline Casts 3 H (0-2) /lpf Urine Mucus Many H (None) /hpf Coronavirus (PCR) (Not Detectd) 11/28/20 11/28/20 Range/Units 13:13 13:44 WBC (3.8-10.6) k/uL RBC (3.80-5.40) m/uL Hgb (11.4-16.0) gm/dL Hct (34.0-46.0) % MCV (80.0-100.0) fL MCH (25.0-35.0) pg MCHC (31.0-37.0) g/dL RDW (11.5-15.5) % Plt Count (150-450) k/uL MPV Manual Slide Review Polychromasia Poikilocytosis (manual Anisocytosis Microcytosis PT (9.0-12.0) sec INR (<1.2) APTT (22.0-30.0) sec Sodium (137-145) mmol/L Potassium (3.5-5.1) mmol/L Chloride (98-107) mmol/L Carbon Dioxide (22-30) mmol/L Anion Gap mmol/L BUN (7-17) mg/dL Creatinine (0.52-1.04) mg/dL Est GFR (CKD-EPI)AfAm (>60 ml/min/1.73 sqM) Est GFR (CKD-EPI)NonAf (>60 ml/min/1.73 sqM) Glucose (74-99) mg/dL Lactic Ac Sepsis Rflx Y Plasma Lactic Acid Alfonso (0.7-2.0) mmol/L Calcium (8.4-10.2) mg/dL Total Bilirubin (0.2-1.3) mg/dL AST (14-36) U/L ALT (4-34) U/L Alkaline Phosphatase (38-126) U/L Troponin I 0.341 H* (0.000-0.034) ng/mL Total Protein (6.3-8.2) g/dL Albumin (3.5-5.0) g/dL Urine Color Urine Appearance (Clear) Urine pH (5.0-8.0) Ur Specific Rover (1.001-1.035) Urine Protein (Negative) Urine Glucose (UA) (Negative) Urine Ketones (Negative) Urine Blood (Negative) Urine Nitrite (Negative) Urine Bilirubin (Negative) Urine Urobilinogen (<2.0) mg/dL Ur Leukocyte Esterase (Negative) Urine WBC (0-5) /hpf Ur Squamous Epith Cells (0-4) /hpf Hyaline Casts (0-2) /lpf Urine Mucus (None) /hpf Coronavirus (PCR) (Not Detectd) Critical Care Time Critical Care Time: Yes Total Critical Care Time: 35 Disposition Clinical Impression: Febrile neutropenia, Pneumonia, Elevated troponin, Renal insufficiency, Sepsis, Atrial fibrillation with rapid ventricular response, Hypokalemia Disposition: ADMITTED IP TO THIS HOSP Referrals: Erin Gilbert MD [Primary Care Provider] - 1-2 days Time of Disposition: 16:37
--- NOTE | 2020-11-28 13:32 | XR ---
EXAMINATION TYPE: XR chest 1V portable DATE OF EXAM: 11/28/2020 COMPARISON: Chest x-ray September 18, 2020. HISTORY: Fever. Atrial fibrillation. History of lymphoma. TECHNIQUE: Single AP portable frontal upright view of the chest is obtained. FINDINGS: There is diminish inspiration with right greater than left bibasilar opacities. The cardi ac silhouette size is upper limits of normal with atherosclerotic change aortic knob. Stable right light bclavian Mediport catheter. Cholecystectomy clips redemonstrated. Underlying scoliotic curvature or p ositioning noted. IMPRESSION: New Right greater than left bibasilar acute infiltrate and/or atelectasis.
[2020-11-28 13:38] LABS: African American GFR (CKD) 37 (>60 ml/min/1.73 sqM); Albumin 2.3 g/dL (3.5-5.0); Alkaline Phosphatase <20 U/L (38-126); Anion Gap 15 mmol/L; Blood Urea Nitrogen 17 mg/dL (7-17); Calcium 7.9 mg/dL (8.4-10.2); Carbon Dioxide 21 mmol/L (22-30); Chloride 100 mmol/L (98-107); Glucose 113 mg/dL (74-99); Non-African American GFR(CKD) 32 (>60 ml/min/1.73 sqM); Sodium 136 mmol/L (137-145); Total Bilirubin 1.5 mg/dL (0.2-1.3)
[2020-11-28 13:39] LABS: Appearance,Urine Cloudy (Clear); Bilirubin,Urine Negative (Negative); Blood,Urine Negative (Negative); Color,Urine Yellow; Glucose,Urine (UA) Negative (Negative); Hyaline Casts,Urine 3 /lpf (0-2); Ketones,Urine 1+ (Negative); Leukocyte Esterase,Urine Negative (Negative); Mucus,Urine Many /hpf; Nitrite,Urine Negative (Negative); Protein,Urine 1+ (Negative); Specific Gravity,Urine 1.011 (1.001-1.035); Squamous Epithelial Cell,Urine 1 /hpf (0-4); Urobilinogen,Urine <2.0 mg/dL (<2.0); WBC,Urine 3 /hpf (0-5)
[2020-11-28 13:40] LABS: INR 2.2 (<1.2); Partial Thromboplastin Time 23.8 sec (22.0-30.0); Prothrombin Time 21.2 sec (9.0-12.0)
[2020-11-28 13:43] LABS: Potassium 2.2 mmol/L (3.5-5.1)
[2020-11-28 13:45] LABS: ALT 29 U/L (4-34); AST 30 U/L (14-36)
[2020-11-28 13:52] LABS: Anisocytosis Slight; HCT 26.9 % (34.0-46.0); HGB 9.4 gm/dL (11.4-16.0); MCH 29.6 pg (25.0-35.0); MCV 84.7 fL (80.0-100.0); Mean Platelet Volume 11.1; Microcytosis Slight; RBC 3.18 m/uL (3.80-5.40); RDW 19.6 % (11.5-15.5)
[2020-11-28 13:58] LABS: WBC 0.6 k/uL (3.8-10.6)
[2020-11-28 14:19] LABS: Platelet Count 83 k/uL (150-450); Poikilocytosis (M) Present; Polychromasia Present
[2020-11-28] MEDS ORDERED: POTASSIUM CHLORIDE 20 MEQ in WATER FOR INJECTION 1 100ML.BAG IVPB STA (14:34)
[2020-11-28] MEDS ORDERED: CEFEPIME 2 GM in SODIUM CHLORIDE 0.9% 100 ML IVPB STA (14:40)
[2020-11-28] MEDS ORDERED: VANCOMYCIN IV PER PHARMACY 1 EACH MISC MISCELLANE PRN (14:41)
[2020-11-28] MEDS ORDERED: SODIUM CHLORIDE 0.9% 1,000 ML IV ONE ×2 (14:47→16:37)
[2020-11-28] MEDS ORDERED: VANCOMYCIN 1,000 MG in SODIUM CHLORIDE 0.9% 250 ML IVPB ONE (15:00)
[2020-11-28] MEDS ORDERED: DILTIAZEM 125 MG in SODIUM CHLORIDE 0.9% 100 ML IV SCH (15:15)
[2020-11-28 15:20] VITALS: RESP 24; TEMP 98.1
[2020-11-28] MEDS ORDERED: CEFEPIME 2 GM in SODIUM CHLORIDE 0.9% 100 ML IVPB SCH ×2 (16:00→22:00)
[2020-11-28] MEDS ORDERED: valACYclovir HCL 1,000 MG TABLET PO PRN (17:53)
[2020-11-28] MEDS ORDERED: [UNRECOGNIZED DRUG - MIXTURE] PO PRN (17:53)
[2020-11-28] MEDS ORDERED: Magnesium Replacement Protocol 1 EACH MISC MISCELLANE PRN (17:55)
[2020-11-28] MEDS ORDERED: Potassium Replacement Protocol 1 EACH MISC MISCELLANE PRN (17:55)
[2020-11-28] MEDS ORDERED: predniSONE 50 MG TAB PO SCH (18:00)
[2020-11-28] MEDS ORDERED: MAG HYDROX/AL HYDROX/SIMETH 30 ML, LIDOCAINE VISCOUS 30 ML, diphenhydrAMINE ELIXIR 75 M... PO PRN ×4 (18:25)
[2020-11-28 18:53] VITALS: BP 102/78; PULSE 151
[2020-11-28 19:22] LABS: Magnesium 1.2 mg/dL (1.6-2.3); Potassium 4.9 mmol/L (3.5-5.1)
[2020-11-28 19:26] LABS: Glucose,Whole Blood 47 mg/dL (75-99)
[2020-11-28] MEDS ORDERED: METOPROLOL TARTRATE 50 MG TAB PO SCH (21:00)
--- NOTE | 2020-11-28 21:23 | P.EN ---
code blue note patient 85 year old female with lymphoma , brought in for AMS , received treatment for lymphoma a week ago, had altered mental status for couple days now, today is worse, brought her for evaluation . she was diagnosed with Sepsis and pneumonia patient experienced PEA cardiopulmonary arrest, CPR initiated following ACLS protocol , initially she was having PEA arrest, then developed vent fib pulseless, patient was shocked and amiodarone 300 was given CPR effort continued for about 15 minutes. epi, bicarb, amiodarone, and magnesium was given . she was intubated. please refer to paper chart for exact sequence of events and medications given patient failed to achieve ROSC. ET tube was having a lot of bloody discharge. patient was eventually having acystole . patient was pronounced. primary team paged. family notified , in house. 20 minutes were spent in critical care service in the care of this patient
[2020-11-29] MEDS ORDERED: LEVOTHYROXINE 50 MCG TAB PO SCH (06:30)
--- NOTE | 2020-11-29 06:40 | P.HPIM ---
History of Present Illness H&P Date: 11/28/20 Kaylyn Mendez, is an 85-year-old female patient of Dr. Gilbert, who presented to [facility] emergency room due to worsening mental status. Per emergency room records patient has a history of lymphoma she received chemotherapy about 1 week ago, she was noticed by her to have altered mental status, this has worsened over the last few days and her decided to call EMS and patient was brought into emergency room. Patient was evaluated in the emergency room her vital examination on presentation revealed a temperature of 102.8 pulse 165 respiration 20 blood pressure 124/111 pulse ox is 98% on 4 L nasal cannula, laboratory data revealed a white blood count of 0.6 hemoglobin 9.4 platelet count 83 sodium 136 potassium 2.2 BUN 17 creatinine 1.49 lactic acid 9.9 troponin level 0.341 urinalysis revealed no significant evidence of urinary tract infection: Rotavirus PCR was negative. Chest x-ray done in the emergency room revealed by basilar infiltrates right worse than left. EKG done in the emergency room revealed atrial fibrillation with rapid ventricular response with a heart rate of 154 and incomplete right bundle branch block with ST and T-wave abnormality in the inferior and anterior leads. Patient was started on IV antibiotics cefepime and vancomycin in the emergency room she was also started on Cardizem drip. She was admitted to telemetry floor, cardiology infectious disease and oncology and critical care consultations were requested. Past Medical History Past Medical History: Hypertension, Thyroid Disorder Additional Past Medical History / Comment(s): OSTEOPOROSIS. lymphoma History of Any Multi-Drug Resistant Organisms: None Reported Past Surgical History: Appendectomy, Cholecystectomy Past Anesthesia/Blood Transfusion Reactions: No Reported Reaction Past Psychological History: No Psychological Hx Reported Smoking Status: Never smoker Past Alcohol Use History: None Reported Past Drug Use History: None Reported Medications and Allergies Home Medications Medication Instructions Recorded Confirmed Type Levothyroxine Sodium [Levoxyl] 50 mcg PO DAILY 08/07/15 11/28/20 History Omeprazole [PriLOSEC] 40 mg PO DAILY 07/30/20 11/28/20 History Metoprolol Tartrate [Lopressor] 50 mg PO BID tab 08/07/20 11/28/20 Rx Rivaroxaban [Xarelto] 15 mg PO AC-SUPPER 09/12/20 11/28/20 History Calcium/Magnesium/Zinc 1 tab PO DAILY 11/28/20 11/28/20 History [Ypxwgdz-Thnvafqtb-Xoqz Tablet] Cholecalciferol [Vitamin D3 (25 50 mcg PO DAILY 11/28/20 11/28/20 History Mcg = 1000 Iu)] Docosanol 10% Cream [Abreva] 1 applic TOPICAL 5XD PRN 11/28/20 11/28/20 History Clive's 5 ml PO 5XD PRN 11/28/20 11/28/20 History Solution(Benadryl,Lidocaine,Maalox,Nystatin 1:1) Potassium Chloride ER [K-Dur 20] 40 meq PO DAILY 11/28/20 11/28/20 History predniSONE 50 mg PO DIRECTED 11/28/20 11/28/20 History Allergies Allergy/AdvReac Type Severity Reaction Status Date / Time Sulfa (Sulfonamide Allergy Unknown Verified 11/28/20 15:04 Antibiotics) Physical Exam Vitals: Vital Signs Temp Pulse Resp BP Pulse Ox 11/28/20 17:19 144 H 24 102/50 95 11/28/20 16:40 160 H 24 99/87 95 11/28/20 16:10 133 H 24 107/76 95 11/28/20 15:50 123 H 24 102/66 95 11/28/20 15:25 24 11/28/20 15:00 98.1 F 144 H 24 95/60 100 11/28/20 14:50 146 H 24 101/56 96 11/28/20 14:40 141 H 22 88/66 95 11/28/20 14:30 158 H 22 94/66 95 11/28/20 14:20 133 H 22 126/69 100 11/28/20 14:10 154 H 22 104/72 93 L 11/28/20 14:00 152 H 22 112/90 93 L 11/28/20 13:46 147 H 22 118/58 95 11/28/20 13:19 146 H 42 H 76/45 98 11/28/20 12:57 102.8 F H 165 H 20 124/111 Intake and Output 11/28/20 11/28/20 11/28/20 06:59 14:59 22:59 Other: Weight 54.431 kg In general patient is alert confused in no apparent distress HEENT head normocephalic and atraumatic Neck is supple no JVD no goiter no lymphadenopathy Chest exam reveals a scattered crackles in both lung bases no wheezing Cardiac exam reveals irregular heart rate no gallops no murmurs Abdomen is soft nontender no organomegaly with normal bowel sounds Extremity exam reveals no edema no cyanosis or clubbing Neurological examination reveals patient is confused otherwise no gross focal deficit Results CBC & Chem 7: 11/28/20 13:13 11/28/20 13:13 Labs: Abnormal Lab Results - Last 24 Hours (Table) 11/28/20 11/28/20 11/28/20 Range/Units 13:13 13:13 13:13 WBC 0.6 L* (3.8-10.6) k/uL RBC 3.18 L (3.80-5.40) m/uL Hgb 9.4 L (11.4-16.0) gm/dL Hct 26.9 L (34.0-46.0) % RDW 19.6 H (11.5-15.5) % Plt Count 83 L (150-450) k/uL PT 21.2 H (9.0-12.0) sec INR 2.2 H (<1.2) Sodium (137-145) mmol/L Potassium (3.5-5.1) mmol/L Carbon Dioxide (22-30) mmol/L Creatinine (0.52-1.04) mg/dL Glucose (74-99) mg/dL Plasma Lactic Acid Alfonso (0.7-2.0) mmol/L Calcium (8.4-10.2) mg/dL Total Bilirubin (0.2-1.3) mg/dL Alkaline Phosphatase (38-126) U/L Troponin I (0.000-0.034) ng/mL Total Protein (6.3-8.2) g/dL Albumin (3.5-5.0) g/dL Urine Appearance Cloudy H (Clear) Urine Protein 1+ H (Negative) Urine Ketones 1+ H (Negative) Hyaline Casts 3 H (0-2) /lpf Urine Mucus Many H (None) /hpf 11/28/20 11/28/20 11/28/20 Range/Units 13:13 13:13 13:13 WBC (3.8-10.6) k/uL RBC (3.80-5.40) m/uL Hgb (11.4-16.0) gm/dL Hct (34.0-46.0) % RDW (11.5-15.5) % Plt Count (150-450) k/uL PT (9.0-12.0) sec INR (<1.2) Sodium 136 L (137-145) mmol/L Potassium 2.2 L* (3.5-5.1) mmol/L Carbon Dioxide 21 L (22-30) mmol/L Creatinine 1.49 H (0.52-1.04) mg/dL Glucose 113 H (74-99) mg/dL Plasma Lactic Acid Alfonso 9.9 H* (0.7-2.0) mmol/L Calcium 7.9 L (8.4-10.2) mg/dL Total Bilirubin 1.5 H (0.2-1.3) mg/dL Alkaline Phosphatase <20 L (38-126) U/L Troponin I 0.341 H* (0.000-0.034) ng/mL Total Protein 4.0 L (6.3-8.2) g/dL Albumin 2.3 L (3.5-5.0) g/dL Urine Appearance (Clear) Urine Protein (Negative) Urine Ketones (Negative) Hyaline Casts (0-2) /lpf Urine Mucus (None) /hpf 11/28/20 11/28/20 Range/Units 16:07 16:15 WBC (3.8-10.6) k/uL RBC (3.80-5.40) m/uL Hgb (11.4-16.0) gm/dL Hct (34.0-46.0) % RDW (11.5-15.5) % Plt Count (150-450) k/uL PT (9.0-12.0) sec INR (<1.2) Sodium (137-145) mmol/L Potassium (3.5-5.1) mmol/L Carbon Dioxide (22-30) mmol/L Creatinine (0.52-1.04) mg/dL Glucose (74-99) mg/dL Plasma Lactic Acid Alfonso 4.0 H* (0.7-2.0) mmol/L Calcium (8.4-10.2) mg/dL Total Bilirubin (0.2-1.3) mg/dL Alkaline Phosphatase (38-126) U/L Troponin I 0.452 H* (0.000-0.034) ng/mL Total Protein (6.3-8.2) g/dL Albumin (3.5-5.0) g/dL Urine Appearance (Clear) Urine Protein (Negative) Urine Ketones (Negative) Hyaline Casts (0-2) /lpf Urine Mucus (None) /hpf Assessment and Plan Plan: 1. Sepsis, as evidenced by fever, hypotension, and elevated lactic acid, patient is neutropenic 2. History of non-Hodgkin's lymphoma followed by oncology, patient received chemotherapy about 1 week ago 3. Neutropenia was white blood count of 0.6 4. Severe hypokalemia 5. Atrial fibrillation with rapid ventricular response 6. Underlying history of hypertension 7. Underlying history of hypothyroidism 8. Underlying history of gout
[2020-11-29] MEDS ORDERED: PANTOPRAZOLE 40 MG TABLET PO SCH (07:30)
[2020-11-29] MEDS ORDERED: CALCIUM CARB-MAG CARB-FOLIC 1 EACH TAB PO SCH (09:00)
[2020-11-29] MEDS ORDERED: POTASSIUM CHLORIDE ER 20 MEQ TAB.ER PO SCH (09:00)
[2020-11-29] MEDS ORDERED: CHOLECALCIFEROL 25 MCG (1000 IU) TABLET PO SCH (09:00)
[2020-11-29] MEDS ORDERED: VANCOMYCIN 1,000 MG in SODIUM CHLORIDE 0.9% 250 ML IVPB SCH (12:00)
[2020-11-29] MEDS ORDERED: RIVAROXABAN 15 MG TAB PO SCH (17:30)
--- NOTE | 2020-12-01 10:34 | P.DS ---
Providers Date of admission: 11/28/20 16:37 Expected date of discharge: 11/28/20 Attending physician: Johanny Eckert Consults: 11/28/20 16:37 Consult Physician Urgent Consulting Provider: Melecio Soto Consult Reason/Comments: Pneumonia Do you want consulting provider notified?: Yes Consult Physician Urgent Consulting Provider: Jas Cabezas Consult Reason/Comments: Lymphoma, febrile neutropenia Do you want consulting provider notified?: Yes 11/28/20 17:46 Consult Physician Routine Consulting Provider: Vinnie Villarreal Consult Reason/Comments: Sepsis Do you want consulting provider notified?: Yes 11/28/20 17:47 Consult Physician Routine Consulting Provider: Clarissa Pereira Consult Reason/Comments: A. fib with RVR and elevated troponin Do you want consulting provider notified?: Yes Primary care physician: Erin Gilbert Hospital Course: Discharge diagnosis 1. Sepsis, as evidenced by fever, hypotension, and elevated lactic acid, patient is neutropenic 2. History of non-Hodgkin's lymphoma followed by oncology, patient received chemotherapy about 1 week ago 3. Neutropenia was white blood count of 0.6 4. Severe hypokalemia 5. Atrial fibrillation with rapid ventricular response 6. Underlying history of hypertension 7. Underlying history of hypothyroidism 8. Underlying history of gout Hospital course Kaylyn Mendez, is an 85-year-old female patient of Dr. Gilbert, who presented to [facility] emergency room due to worsening mental status. Per emergency room records patient has a history of lymphoma she received chemotherapy about 1 week ago, she was noticed by her to have altered mental status, this has worsened over the last few days and her decided to call EMS and patient was brought into emergency room. Patient was evaluated in the emergency room her vital examination on presentation revealed a temperature of 102.8 pulse 165 respiration 20 blood pressure 124/111 pulse ox is 98% on 4 L nasal cannula, laboratory data revealed a white blood count of 0.6 hemoglobin 9.4 platelet count 83 sodium 136 potassium 2.2 BUN 17 creatinine 1.49 lactic acid 9.9 troponin level 0.341 urinalysis revealed no significant evidence of urinary tract infection: Rotavirus PCR was negative. Chest x-ray done in the emergency room revealed by basilar infiltrates right worse than left. EKG done in the emergency room revealed atrial fibrillation with rapid ventricular response with a heart rate of 154 and incomplete right bundle branch block with ST and T-wave abnormality in the infe rior and anterior leads. Patient was started on IV antibiotics cefepime and vancomycin in the emergency room she was also started on Cardizem drip. She was admitted to telemetry floor, cardiology infectious disease and oncology and critical care consultations were requested. According to records patient was found to be pulseless and CODE blue was called shortly after arrival to unit from ER. CPR and ACLS protocol initiated but patient was unable to achieve ROSC. Patient was pronounced at 1915 on 11/28/2020 Plan - Discharge Summary New Discharge Prescriptions: No Action Levothyroxine Sodium [Levoxyl] 50 mcg PO DAILY Omeprazole [PriLOSEC] 40 mg PO DAILY Metoprolol Tartrate [Lopressor] 50 mg PO BID tab Rivaroxaban [Xarelto] 15 mg PO AC-SUPPER Potassium Chloride ER [K-Dur 20] 40 meq PO DAILY Calcium/Magnesium/Zinc [Tdwdhde-Nomfxzhll-Wdip Tablet] 1 tab PO DAILY predniSONE 50 mg PO DIRECTED Clive's Solution(Benadryl,Lidocaine,Maalox,Nystatin 1:1) 5 ml PO 5XD PRN PRN Reason: Pain Docosanol 10% Cream [Abreva] 1 applic TOPICAL 5XD PRN PRN Reason: Cold Sores Cholecalciferol [Vitamin D3 (25 Mcg = 1000 Iu)] 50 mcg PO DAILY Discharge Medication List Levothyroxine Sodium [Levoxyl] 50 mcg PO DAILY 08/07/15 [History] Omeprazole [PriLOSEC] 40 mg PO DAILY 07/30/20 [History] Metoprolol Tartrate [Lopressor] 50 mg PO BID tab 08/07/20 [Rx] Rivaroxaban [Xarelto] 15 mg PO AC-SUPPER 09/12/20 [History] Calcium/Magnesium/Zinc [Bkuldbf-Aclivqtsf-Dayd Tablet] 1 tab PO DAILY 11/28/20 [History] Cholecalciferol [Vitamin D3 (25 Mcg = 1000 Iu)] 50 mcg PO DAILY 11/28/20 [History] Docosanol 10% Cream [Abreva] 1 applic TOPICAL 5XD PRN 11/28/20 [History] Clive's Solution(Benadryl,Lidocaine,Maalox,Nystatin 1:1) 5 ml PO 5XD PRN 11/28/20 [History] Potassium Chloride ER [K-Dur 20] 40 meq PO DAILY 11/28/20 [History] predniSONE 50 mg PO DIRECTED 11/28/20 [History] Follow up Appointment(s)/Referral(s): Erin Gilbert MD [Primary Care Provider] - 1-2 days Discharge Disposition: - Preliminary Cause of Preliminary Cause of : Sepsis pneumonia, non-Hodgkin's lymphoma
--- NOTE | 2020-12-23 21:02 | CDI ---
Documentation Clarification Form Mortality Review Date: 12/23/2020 08:55:00 PM From: Sunitha Jackson RN, CCDS Admit Date: 11/28/2020 04:37:00 PM Patient Name: Kaylyn Mendez Visit Number: [id number] Discharge Date: 11/28/2020 11:17:00 PM ATTENTION: The Clinical Documentation Specialists (CDI) and [facility] Coding Staff appreciate your assistance in clarifying documentation. Please respond to the clarification below the line at the bottom and electronically sign. The CDI & [facility] Coding staff will review the response and follow-up if needed. Please note: Queries are made part of the Legal Health Record. If you have any questions, please contact the author of this message via ITS. Dr. Johanny Eckert An elevated Creatinine is noted in a patient presenting with sepsis. Please provide clinical significance. History/Risk Factors: HTN, Hypothyroid, lymphoma Clinical Indicators: 12/17/2020 Patients baseline/prior BUN/CR/GFR: 6.6/<5/95.6 11/28 Current BUN/Cr/GFR: 17/.49/32 Treatment: 11/28 5L 0.9% NS IVF Bolus Please clarify the acuity of renal failure, if known: [ ] Acute Renal Failure (specify cause if known) [ ] Acute Renal failure with ATN [ ] Other, please specify [ ] Unable to determine (Template Last Revised: October 2020) Acute renal failure MTDD
--- NOTE | 2020-12-23 21:13 | CDI ---
Documentation Clarification Form Mortality Review Date: 12/23/2020 09:11:20 PM From: Sunitha Jackson RN, CCDS Admit Date: 11/28/2020 04:37:00 PM Patient Name: Kaylyn Mendez Visit Number: [id number] Discharge Date: 11/28/2020 11:17:00 PM ATTENTION: The Clinical Documentation Specialists (CDI) and [facility] Coding Staff appreciate your assistance in clarifying documentation. Please respond to the clarification below the line at the bottom and electronically sign. The CDI & [facility] Coding staff will review the response and follow-up if needed. Please note: Queries are made part of the Legal Health Record. If you have any questions, please contact the author of this message via ITS. Dr. Johanny Eckert Elevated troponin is documented in ED note, H&P and D.C Summary. Additional clarification regarding the clinical significance is requested. History/Risk Factors: Lymphoma, Atrial fib RVR Clinical Indicators: 11/28 ED note: "EKG shows atrial fibrillation with rapid ventricular response at 154 bpm QRS is under QT interval 322 QTC is 5:15.Patient's EKG shows no significant ST segment elevation. Patient received 2 L of fluid and it brought her pressure up. Patient's lactic acid was over 9. Patient's septic. Patient's x-ray of the chest showed pneumonia bilaterally. Patient has an elevated troponin. Febrile neutropenia, Pneumonia, Elevated troponin, Renal insufficiency, Sepsis, Atrial fibrillation with rapid ventricular response, Hypokalemia." 12/01 D/C Summary: "A. fib with RVR and elevated troponin Troponin: 0.310/0.452 EKG Results: Please see above ED MD interpretation Treatment: Cardiology consult ordered- not completed as patient Coded and upon arrival to floor 3L 0.9% NS IVF bolus Iv Cardizem Gtt @ 5mg/hr. Please further specify the cause of the elevated troponin, if known: [ ] NSTEMI (type 1) [ ] Type II TX due to Sepsis [ ] Unable to determine [ ] Other Condition, please specify (Template Last Revised: October 2020) Unable to determine MTDD
--- NOTE | 2020-12-23 21:26 | CDI ---
Documentation Clarification Form Date: 12/23/2020 09:16:53 PM From: Sunitha Jackson RN, CCDS Admit Date: 11/28/2020 04:37:00 PM Patient Name: Kaylyn Mendez Visit Number: [id number] Discharge Date: 11/28/2020 11:17:00 PM ATTENTION: The Clinical Documentation Specialists (CDI) and [facility] Coding Staff appreciate your assistance in clarifying documentation. Please respond to the clarification below the line at the bottom and electronically sign. The CDI & [facility] Coding staff will review the response and follow-up if needed. Please note: Queries are made part of the Legal Health Record. If you have any questions, please contact the author of this message via ITS. Dr. Johanny Eckert Your patient has the documented symptom of Altered Mental Status in the ED Notes. Additional clarification regarding the etiology/cause of this symptom is requested. History/Risk Factors: Clinical Indicators: 11/28 ED HPI: "This is an 85-year-old female who has a history of lymphoma she was under altered mentally for the last few days. told EMS that the patient got treatment one week ago for lymphoma and usually after week she feels worse and has some altered mental status. called EMS today because she was not improving and in fact looking worse. Febrile neutropenia, Pneumonia, Elevated troponin, Renal insufficiency, Sepsis, Atrial fibrillation with rapid ventricular response, Hypokalemia." 11/28 H&P: "Neurological examination reveals patient is confused otherwise no gross focal deficit. 11/28 Labs: WBC .6, Hgb 9.4, Plt 83, K+ 2.2, BUN 1.49, Glucose 47, Lactic Acid 9.9/6.5, troponin .341/.452 11/28 Chest X Ray:" New Right greater than left bibasilar acute infiltrate and/or atelectasis." Treatment: 3L 0.9% NS IVF Bolus Please clarify the etiology of the symptom of Altered Mental Status in the setting of sepsis and electrolyte derangements? [ ] Metabolic Encephalopathy due to (please specify cause) [ ] Other condition (please specify) [ ] Unable to determine (Template Last Revised: September 2020) Metabolic encephalopathy due to sepsis, renal insufficiency and electrolyte imbalance MTDD
== END 2020-11-28 23:17 | disposition expired | DRG 871 ==
LOC: EC 12:51 → 3SCARD 16:37
PROVIDERS: ADMIT Internal Medicine; ATTEND Internal Medicine
PROC: 5A12012 Performance of Cardiac Output, Single, Manual (ICD-10-PCS; principal; 2020-11-28)
PROC: 0BH17EZ Insertion of Endotracheal Airway into Trachea, Via Natural or Artificial Opening (ICD-10-PCS; 2020-11-28)
PROC: 3E033XZ Introduction of Vasopressor into Peripheral Vein, Percutaneous Approach (ICD-10-PCS; 2020-11-28)
DX: A41.9 Sepsis, unspecified organism (principal); J18.9 Pneumonia, unspecified organism; G93.41 Metabolic encephalopathy; N17.9 Acute kidney failure, unspecified; C85.90 Non-Hodgkin lymphoma, unspecified, unspecified site; I46.2 Cardiac arrest due to underlying cardiac condition; I48.91 Unspecified atrial fibrillation; I49.01 Ventricular fibrillation; D70.3 Neutropenia due to infection; Z20.822 Contact with and (suspected) exposure to COVID-19; R50.81 Fever presenting with conditions classified elsewhere; E87.6 Hypokalemia; I45.10 Unspecified right bundle-branch block; E03.9 Hypothyroidism, unspecified; I10 Essential (primary) hypertension; M81.0 Age-related osteoporosis without current pathological fracture; R77.8 Other specified abnormalities of plasma proteins; Z79.01 Long term (current) use of anticoagulants; Z79.890 Hormone replacement therapy; Z79.899 Other long term (current) drug therapy; Z87.39 Personal history of other diseases of the musculoskeletal system and connective tissue; Z88.2 Allergy status to sulfonamides; Z90.49 Acquired absence of other specified parts of digestive tract; Z87.19 Personal history of other diseases of the digestive system; Z98.890 Other specified postprocedural states
CPT/HCPCS: 36415; 71045; 80053; 81001; 83605; 83735; 84132; 84484; 85025; 85610; 85730; 87040; 87635; 92950; 93005; 96365; 96367; 96368; 96375; 99291